=== PATIENT | female | born 1950 | race Caucasian/White ===

== ENCOUNTER 2017-06-01 09:39 | Emergency (ER) | payer MEDICARE, BC ==
[~2017-06-01] VITALS: Ht 162.6 cm; Wt 47.0 kg
[~2017-06-01 09:39] MED LIST: CALC500T21 PO; FOSA70TA PO; LEFL20TA7 PO; MAGN400 PO; METO25 PO; METR-1 PO; MULT-65 PO; PRED5 PO; TACR1CAP PO; TACR1CAP14 PO
[2017-06-01 09:41] VITALS: BP 124/75; PULSE 131; RESP 20; TEMP 98.7; O2SAT 95
--- NOTE | 2017-06-01 10:02 | PD ---
HPI Chief Complaint: Complaint Time Seen by Provider: 10:02 Travel History International Travel<30 days: No Contact w/Intl Traveler<30days: No Traveled to known affect area: No History of Present Illness HPI 66-year-old female came to the emergency room with history of hematuria. Patient says this started one week ago. Patient is a status post kidney transplant that was done in 2008. She is on immunosuppressants and says that she has been doing very well up until now. She is experiencing some dysuria with all this. She has been passing blood clots as well. Patient is not on any blood thinners. She had called her concrete inspector Dr. Sanders a week ago when it first started and he put her on ciprofloxacin. She says she had started to feel better and then Tuesday night it started again. She still taking the ciprofloxacin like she supposed to. No history of fever or chills. She has some backache. Vital signs are stable. She did not appear to be in any discomfort. The nurse showed me her urine in the copyright clerk which was grossly bloody. [facility] Past Medical History Narrative Medical List of her past medical, surgical, social and family history was reviewed from the nursing note. Arthritis: No Asthma: No Autoimmune Disease: No Blood Disorders: No Anxiety: No Depression: No Heart Rhythm Problems: No Cancer: No Cardiovascular Problems: Yes (HX TACHYCARDIA) High Cholesterol: No Chemotherapy: No Chest Pain: No Congestive Heart Failure: No COPD: No Cerebrovascular Accident: No Diabetes: No Diminished Hearing: No Endocrine: No Gastrointestinal Disorders: Yes (HX GERD) GERD: Yes Glaucoma: No Genitourinary: No Headaches: No Hepatitis: No Hiatal Hernia: No Hypertension: Yes Immune Disorder: No Implanted Vascular Access Dvce: Yes Kidney Stones: No Musculoskeletal: Yes (RIGHT PATELLA FX) Neurologic: No Psychiatric: No Reproductive: No Respiratory: No Migraines: No Myocardial Infarction: No Radiation Therapy: No Renal Failure: Yes Seizures: No Sickle Cell Disease: No Sleep Apnea: No Thyroid Disease: No Ulcer: No ?: Not Past Surgical History Abdominal Surgery: Yes (TENCKOFF CATH IMP AND REMOVAL) AICD: No Appendectomy: No Arteriovenous Shunt: No Body Medical Devices: pd cath right abdomen Cardiac Surgery: No Cholecystectomy: No Ear Surgery: No Endocrine Surgery: No Eye Surgery: No Genitourinary Surgery: Yes (KIDNEY TRANSPLANT) Gynecologic Surgery: No Insulin Pump: No Joint Replacement: No Oral Surgery: No Pacemaker: No Thoracic Surgery: No Other Surgery: Yes (KIDNEY TRANSPLANT-RIGHT) Social History Alcohol Use: No Tobacco Use: No Substance Use: No Allergies-Medications (Allergen,Severity, Reaction): Coded Allergies: No Known Allergies (Verified , 06/01/17) Comments No known drug allergies. Reported Meds & Prescriptions Reported Meds & Active Scripts Active Macrobid (Nitrofurantoin Monoh/Nitrofur Macro) 100 Mg Cap 100 Mg PO BID 10 Days Narrative Medication List of her home medications reviewed from the nursing note. Review of Systems Except as stated in HPI: all other systems reviewed are Neg Physical Exam Narrative GENERAL: Awake, alert, elderly, looks older than her age, no obvious distress SKIN: Focused skin assessment warm/dry. HEAD: Atraumatic. Normocephalic. EYES: Pupils equal and round. No scleral icterus. No injection or drainage. ENT: No nasal bleeding or discharge. Mucous membranes pink and moist. NECK: Trachea midline. No JVD. CARDIOVASCULAR: Regular rate and rhythm. No murmur appreciated. RESPIRATORY: No accessory muscle use. Clear to auscultation. Breath sounds equal bilaterally. GASTROINTESTINAL: Abdomen soft, non-tender, nondistended. Hepatic and splenic margins not palpable. I could not palpate the transplanted kidney but there was no abdominal tenderness. MUSCULOSKELETAL: No obvious deformities. No clubbing. No cyanosis. No edema. NEUROLOGICAL: Awake and alert. No obvious cranial nerve deficits. Motor grossly within normal limits. Normal speech. PSYCHIATRIC: Appropriate mood and affect; insight and judgment normal. Data Data Last Documented VS Vital Signs Date Time Temp Pulse Resp B/P Pulse Ox O2 Delivery O2 Flow Rate FiO2 06/01/17 14:03 74 15 130/86 99 Room Air 06/01/17 09:41 98.7 Orders Basic Metabolic Panel (Bmp) (06/01/17 10:08) Complete Blood Count With Diff (06/01/17 10:08) Urinalysis - C+S If Indicated (06/01/17 10:08) Iv Access Insert/Monitor (06/01/17 10:08) Ecg Monitoring (06/01/17 10:08) Oximetry (06/01/17 10:08) Sodium Chlor 0.9% 1000 Ml Inj (Ns 1000 M (06/01/17 10:08) Sodium Chloride 0.9% Flush (Ns Flush) (06/01/17 10:15) Potassium Chlor 10 Meq Premix (Kcl 10 Me (06/01/17 11:45) Potassium Chloride (Kcl) (06/01/17 11:45) Urine Culture (06/01/17 10:15) Nitrofurantoin Monohyd Macrocr (Macrobid (06/01/17 12:00) Labs Laboratory Tests Test 06/01/17 10:15 White Blood Count 8.0 TH/MM3 Red Blood Count 4.51 MIL/MM3 Hemoglobin 13.4 GM/DL Hematocrit 42.1 % Mean Corpuscular Volume 93.5 FL Mean Corpuscular Hemoglobin 29.8 PG Mean Corpuscular Hemoglobin 31.8 % Concent Red Cell Distribution Width 14.7 % Platelet Count 249 TH/MM3 Mean Platelet Volume 10.1 FL Neutrophils (%) (Auto) 70.9 % Lymphocytes (%) (Auto) 12.5 % Monocytes (%) (Auto) 13.3 % Eosinophils (%) (Auto) 2.4 % Basophils (%) (Auto) 0.9 % Neutrophils # (Auto) 5.7 TH/MM3 Lymphocytes # (Auto) 1.0 TH/MM3 Monocytes # (Auto) 1.1 TH/MM3 Eosinophils # (Auto) 0.2 TH/MM3 Basophils # (Auto) 0.1 TH/MM3 CBC Comment DIFF FINAL Differential Comment Urine Color RED Urine Turbidity CLOUDY Urine pH 7.0 Urine Specific [place] 1.013 Urine Protein 300 OR GREATER mg/dL Urine Glucose (UA) NEG mg/dL Urine Ketones NEG mg/dL Urine Occult Blood LARGE Urine Nitrite POS Urine Bilirubin NEG Urine Urobilinogen 0.2 MG/DL Urine Leukocyte Esterase NEGATIVE Urine RBC /hpf Urine WBC 64 /hpf Urine Bacteria OCC /hpf Microscopic Urinalysis Comment CULTURE INDICATED Sodium Level 141 MEQ/L Potassium Level 3.0 MEQ/L Chloride Level 106 MEQ/L Carbon Dioxide Level 24.1 MEQ/L Anion Gap 11 MEQ/L Blood Urea Nitrogen 22 MG/DL Creatinine 1.08 MG/DL Estimat Glomerular Filtration 50 ML/MIN Rate Random Glucose 108 MG/DL Calcium Level 9.3 MG/DL [facility] Medical Decision Making Medical Screen Exam Complete: Yes Emergency Medical Condition: Yes Medical Record Reviewed: Yes Differential Diagnosis Transplant rejection, UTI, hemorrhagic cystitis Narrative Course 10:19 AM awaiting for the blood test result. Awaiting for the UA. Based on that I will contact Dr. Sanders and discussed the case with him. Her a liter of fluid bolus. 1:11 PM blood test results of back and her BUN/creatinine is exactly the same as it was on her last blood test results and our record. UA is strongly positive for UTI. I've given her dose of Macrobid since the ciprofloxacin obviously is not working. Cussed the case with Dr. Sanders who agrees with the plan. I'll discharge her home. I explained all this to the patient and she understands. She'll follow up with Dr. Sanders. Procedures EKG Prior to Arrival: No Diagnosis Primary Impression: Hemorrhagic cystitis Additional Impression: Status post kidney transplant Referrals: Primary Care Physician Additional Instructions: Please return to the ER if the condition worsens or any other new concerns. Otherwise follow-up with your kidney doctor Dr. Sanders. Take the medication as per the prescription direction. Drink lots of fluid and cranberry juice. Med/Other Pt SpecificInfo: Prescription(s) given Scripts Nitrofurantoin Monohydrate Macrocrystals (Macrobid)100 Mg [id number] Mg PO BID 10 Days Ref 0 Prov:Shad Hollingsworth MD 06/01/17 Disposition: 01 DISCHARGE HOME Condition: Stable Shad Hollingsworth MD Jun 01, 2017 10:02 Shad Hollingsworth MD Jun 01, 2017 10:02
[2017-06-01] MEDS ORDERED: SODIUM CHLOR 0.9% 1000 ML INJ 1,000 ML IV SCH (10:08)
[2017-06-01] MEDS ORDERED: SODIUM CHLORIDE 0.9% FLUSH 10 ML FLUSH IV FLUSH PRN (10:15)
[2017-06-01 10:50] LABS: AUTOMATED NEUTROPHIL # 5.7 TH/MM3 (1.8-7.7); BASOPHIL # 0.1 TH/MM3 (0-0.2); BASOPHIL % 0.9 % (0.0-2.0); EOSINOPHIL # 0.2 TH/MM3 (0-0.4); EOSINOPHIL % 2.4 % (0.0-4.0); HEMATOCRIT 42.1 % (35.0-46.0); HEMO FLAGS DIFF FINAL; LYMPH % 12.5 % (9.0-44.0); MEAN CELL VOLUME 93.5 FL (80.0-100.0); MEAN CORPUSCULAR HEMOGLOBIN 29.8 PG (27.0-34.0); MEAN CORPUSCULAR HGB CONC 31.8 % (32.0-36.0); MONO % 13.3 % (0.0-8.0); NEUT % 70.9 % (16.0-70.0); PLATELET COUNT 249 TH/MM3 (150-450); RED BLOOD COUNT 4.51 MIL/MM3 (4.00-5.30); RED CELL DISTRIBUTION WIDTH 14.7 % (11.6-17.2)
[2017-06-01 11:09] LABS: BICARBONATE 24.1 MEQ/L (21.0-32.0)
[2017-06-01 11:41] LABS: URINE COLOR RED (YELLW/STRAW)
[2017-06-01 11:42] LABS: GLUCOSE,URINE NEG (NEG); KETONE, URINE NEG (NEG)
[2017-06-01 11:43] LABS: BLOOD, URINE LARGE (NEG); NITRITE,URINE POS (NEG)
[2017-06-01] MEDS ORDERED: POTASSIUM CHLOR 10 MEQ PREMIX 100 ML IV ONE (11:45)
[2017-06-01] MEDS ORDERED: POTASSIUM CHLORIDE 20 MEQ CONTROLLED RELEASE TAB PO ONE (11:45)
[2017-06-01 11:47] LABS: BACTERIA, URINE OCC /hpf; COMMENT (UR) CULTURE INDICATED; CULTURE IF INDICATED CULTURE INDICATED
[2017-06-01] MEDS ORDERED: NITROFURANTOIN MONOHYD MACROCR 100 MG CAP PO ONE (12:00)
[2017-06-01] MEDS ORDERED: MACR100C2 PO (13:12)
[2017-06-01 14:02] VITALS: BP 132/82
[2017-06-01 14:03] VITALS: BP 130/86; PULSE 74; RESP 15; O2SAT 99
== END 2017-06-01 14:38 | disposition home or self-care (01) ==
LOC: NEPE 09:39
DX: N30.91 Cystitis, unspecified with hematuria (principal); M54.9 Dorsalgia, unspecified; I10 Essential (primary) hypertension; Z94.0 Kidney transplant status; Z86.79 Personal history of other diseases of the circulatory system; Z87.19 Personal history of other diseases of the digestive system; Z87.39 Personal history of other diseases of the musculoskeletal system and connective tissue; Z87.448 Personal history of other diseases of urinary system
CPT/HCPCS: 80048; 81001; 85025; 87086; 96361; 96374; 99284; J3480; J7030

== ENCOUNTER 2017-07-14 09:33 | Inpatient (IN) | payer MEDICARE, BC ==
[2017-07-14] VITALS (13 sets, daily range): BP systolic 92–136; BP diastolic 53–75; PULSE 110–125; RESP 16–20; TEMP 99.4–100.7; O2SAT 95–98
[~2017-07-14] VITALS: Ht 162.6 cm; Wt 51.1 kg
[~2017-07-14 09:33] MED LIST changes: -CALC500T21 PO; +CALC600T64 PO; +LEFL1TAB3 PO; -LEFL20TA7 PO; -MAGN400 PO; -METO25 PO; +METO25TA3 PO; -METR-1 PO; +MULT-177 PO; -MULT-65 PO; +PRED1TAB72 SL; -PRED5 PO; +SM M250T PO; +TACR1 PO; -TACR1CAP PO; -TACR1CAP14 PO
--- NOTE | 2017-07-14 10:37 | PD ---
HPI Chief Complaint: Bleeding Time Seen by Provider: 10:25 Travel History International Travel<30 days: No Contact w/Intl Traveler<30days: No Traveled to known affect area: No History of Present Illness HPI 66-year-old female complains generalized malaise and weakness. Patient has history of persistent hematuria for the past 5 weeks. Patient has history kidney transplant in the past. Patient has been seen by Dr. Sanders and Dr. Torres. Patient was scheduled for cystoscopy this morning however unable to make it to the appointment. Patient denies any headache. Patient denies any chest pain or shortness of breath. Patient states that she has mild dysuria and suprapubic pain. Patient denies any fever chills. Patient denies any vaginal discharge or bleeding. Patient denies any blood per stool. Patient has history of cadaveric kidney transplant in 2008. Patient is positive for BK virus in urine. Patient also has history of hypertension. Patient's on Keppra diffuse immunosuppression medication including Prograf, prednisone, tacrolimus, leflunomide. PFSH Past Medical History Cardiovascular Problems: Yes (HX TACHYCARDIA) Diminished Hearing: No GERD: Yes Genitourinary: Yes (kidney transplant 2008 ) Hypertension: Yes Medical other: No Renal Failure: Yes Past Surgical History Abdominal Surgery: Yes (TENCKOFF CATH IMP AND REMOVAL) Appendectomy: No Body Medical Devices: pd cath right abdomen Cardiac Surgery: No Cholecystectomy: No Ear Surgery: No Endocrine Surgery: No Eye Surgery: No Genitourinary Surgery: Yes (KIDNEY TRANSPLANT) Gynecologic Surgery: No Joint Replacement: No Oral Surgery: No Thoracic Surgery: No Other Surgery: Yes (KIDNEY TRANSPLANT-RIGHT) Social History Alcohol Use: Yes (rarely) Tobacco Use: No Substance Use: No Allergies-Medications (Allergen,Severity, Reaction): Coded Allergies: No Known Allergies (Verified , 06/23/17) Reported Meds & Prescriptions Reported Meds & Active Scripts Active Reported Multiple Vitamins For Women (Multivit with Calcium,Iron,Min) 1 Each Tablet 1 Tab PO DAILY Sm Magnesium (Magnesium) 250 Mg Tab 500 Mg PO DAILY Calcium 600 + Vit D Tablet (Calcium Carbonate/Vitamin D3) 1 Each Tablet 1 Tab PO DAILY Fosamax (Alendronate Sodium) 70 Mg Tab 35 Mg PO Q7D Metoprolol Tartrate 25 Mg Tab 12.5 Mg PO BID Prednisolone Odt 10 Mg Tab 5 Mg SL DAILY Leflunomide 20 Mg Tab 20 Mg PO DAILY Prograf (Tacrolimus) 1 Mg Cap 3 Mg PO DAILY Review of Systems General / Constitutional: No: Fever Eyes: No: Visual changes HENT: No: Headaches Cardiovascular: No: Chest Pain or Discomfort Respiratory: No: Shortness of Breath Gastrointestinal: No: Abdominal Pain Genitourinary: Positive: Hematuria, No: Dysuria Musculoskeletal: No: Pain Skin: No Rash Neurologic: No: Weakness Psychiatric: No: Depression Endocrine: No: Polydipsia Hematologic/Lymphatic: No: Easy Bruising Physical Exam Narrative GENERAL: Well-nourished, well-developed patient. SKIN: Focused skin assessment warm/dry. HEAD: Normocephalic. EYES: No scleral icterus. No injection or drainage. NECK: Supple, trachea midline. No JVD or lymphadenopathy. CARDIOVASCULAR: Regular rate and rhythm without murmurs, gallops, or rubs. RESPIRATORY: Breath sounds equal bilaterally. No accessory muscle use. GASTROINTESTINAL: Abdomen soft, non-tender, nondistended. MUSCULOSKELETAL: No cyanosis, or edema. BACK: Nontender without obvious deformity. No CVA tenderness. Neurologic exam: Patient awake and alert oriented 3. No obvious focal neurological deficit. Data Data Last Documented VS Vital Signs Date Time Temp Pulse Resp B/P Pulse Ox O2 Delivery O2 Flow Rate FiO2 07/14/17 09:41 99.7 110 16 97/55 96 Orders Electrocardiogram (07/14/17 10:32) Complete Blood Count With Diff (07/14/17 10:32) Comprehensive Metabolic Panel (07/14/17 10:32) Prothrombin Time / Inr (Pt) (07/14/17 10:32) Act Partial Throm Time (Ptt) (07/14/17 10:32) Urinalysis - C+S If Indicated (07/14/17 10:32) Chest, Single Ap (07/14/17 10:32) Iv Access Insert/Monitor (07/14/17 10:32) Ecg Monitoring (07/14/17 10:32) Oximetry (07/14/17 10:32) Type And Screen (07/14/17 10:32) Sodium Chlor 0.9% 1000 Ml Inj (Ns 1000 M (07/14/17 10:45) Blood Product Administration .UPON TRANSFUSION (07/14/17 11:08) Sodium Chlor 0.9% 250 Ml Inj (Ns 250 Ml (07/14/17 11:15) Red Blood Cells (Rbc) (07/14/17 10:40) Urinary Catheter Insert/Apply (07/14/17 11:55) Furosemide Inj (Lasix Inj) (07/14/17 12:00) Vital Signs (Adult) BREANNA.Q4H (07/14/17 12:03) Hemoglobin (Hgb) (07/14/17 12:03) Hematocrit (Hct) (07/14/17 12:03) Complete Blood Count With Diff (07/15/17 06:00) Diet Npo (07/14/17 Lunch) Sodium Chlor 0.9% 1000 Ml Inj (Ns 1000 M (07/14/17 12:15) Labs Laboratory Tests Test 07/14/17 10:40 White Blood Count 22.4 TH/MM3 Red Blood Count 1.54 MIL/MM3 Hemoglobin 4.8 GM/DL Hematocrit 15.2 % Mean Corpuscular Volume 98.7 FL Mean Corpuscular Hemoglobin 31.0 PG Mean Corpuscular Hemoglobin 31.4 % Concent Red Cell Distribution Width 16.1 % Platelet Count 305 TH/MM3 Mean Platelet Volume 7.6 FL Neutrophils (%) (Auto) 90.9 % Lymphocytes (%) (Auto) 1.7 % Monocytes (%) (Auto) 6.4 % Eosinophils (%) (Auto) 0.2 % Basophils (%) (Auto) 0.8 % Neutrophils # (Auto) 20.4 TH/MM3 Lymphocytes # (Auto) 0.4 TH/MM3 Monocytes # (Auto) 1.4 TH/MM3 Eosinophils # (Auto) 0.1 TH/MM3 Basophils # (Auto) 0.2 TH/MM3 CBC Comment DIFF FINAL Differential Comment Sodium Level 134 MEQ/L Potassium Level 3.7 MEQ/L Chloride Level 103 MEQ/L Carbon Dioxide Level 21.5 MEQ/L Anion Gap 10 MEQ/L Blood Urea Nitrogen 13 MG/DL Creatinine 0.97 MG/DL Estimat Glomerular Filtration 57 ML/MIN Rate Random Glucose 86 MG/DL Calcium Level 7.4 MG/DL Protein Corrected Calcium 8.6 MG/DL Total Bilirubin 0.3 MG/DL Aspartate Amino Transf 23 U/L (AST/SGOT) Alanine Aminotransferase 19 U/L (ALT/SGPT) Alkaline Phosphatase 34 U/L Total Protein 5.0 GM/DL Albumin 2.4 GM/DL Blood Type O POSITIVE Antibody Screen NEGATIVE Crossmatch Leukocyte-Reduced Red Blood Cells Blood Bank Comment MDM Medical Decision Making Medical Screen Exam Complete: Yes Emergency Medical Condition: Yes Interpretation(s) 11:37 AM. CBC WBC 22.4. Hemoglobin 4.8. Hematocrit 18.2. 90 neutrophil. Differential Diagnosis Differential diagnosis including anemia, electrolyte imbalance, dehydration. Narrative Course 66-year-old female with hematuria. History kidney transplant. Diagnosis Primary Impression: Severe anemia Additional Impression: Hematuria Qualified Code: R31.9 - Hematuria, unspecified type Adam Spain MD Jul 14, 2017 10:37
[2017-07-14] MEDS ORDERED: SODIUM CHLOR 0.9% 1000 ML INJ 1,000 ML IV SCH ×2 (10:45→12:15)
[2017-07-14 11:01] LABS: AUTOMATED NEUTROPHIL # 20.4 TH/MM3 (1.8-7.7); BASOPHIL # 0.2 TH/MM3 (0-0.2); BASOPHIL % 0.8 % (0.0-2.0); EOSINOPHIL # 0.1 TH/MM3 (0-0.4); EOSINOPHIL % 0.2 % (0.0-4.0); LYMPH % 1.7 % (9.0-44.0); LYMPHOCYTE # 0.4 TH/MM3 (1.0-4.8); MEAN CELL VOLUME 98.7 FL (80.0-100.0); MEAN CORPUSCULAR HGB CONC 31.4 % (32.0-36.0); MONO % 6.4 % (0.0-8.0); NEUT % 90.9 % (16.0-70.0); PLATELET COUNT 305 TH/MM3 (150-450); RED BLOOD COUNT 1.54 MIL/MM3 (4.00-5.30); RED CELL DISTRIBUTION WIDTH 16.1 % (11.6-17.2); WHITE BLOOD COUNT 22.4 TH/MM3 (4.0-11.0)
[2017-07-14 11:09] LABS: HEMATOCRIT 15.2 % (35.0-46.0); HEMO FLAGS DIFF FINAL
--- NOTE | 2017-07-14 11:09 | RADRPT ---
EXAM DATE/TIME: 07/14/2017 10:37 [facility] COMPARISON: CHEST SINGLE AP, August 28, 2009, 0:22. INDICATIONS : Short of breath. MEDICAL HISTORY : None. SURGICAL HISTORY : Right knee. Kidney. ENCOUNTER: Initial ACUITY: 1 week PAIN SCORE: 0/10 LOCATION: Bilateral chest FINDINGS: There is focal nodular opacity within the right upper lung field which is indeterminate. CT of the c hest may be helpful for further evaluation of this finding. Bibasilar streakiness is unchanged. Mil d degenerative changes and scoliosis of the thoracic spine are noted. The heart is stable. CONCLUSION: 1. Focal nodular opacity within the right upper lung field which is indeterminate. CT of the chest m ay be helpful for further evaluation of this finding. 2. Bibasilar streaky densities are stable and likely consistent with chronic fibrotic scarring and/or bronchiectasis. 3. Degenerative changes and scoliosis of the thoracic spine. Faraz Ortega MD on July 14, 2017 at 11:02 Board Certified Radiologist. This report was verified electronically.
[2017-07-14] MEDS ORDERED: SODIUM CHLOR 0.9% 250 ML INJ 250 ML IV ONE (11:15)
[2017-07-14 11:21] LABS: BICARBONATE 21.5 MEQ/L (21.0-32.0); CALCIUM-PROTEIN CORRECTED 8.6 MG/DL (8.5-10.1); POTASSIUM 3.7 MEQ/L (3.5-5.1); TOTAL BILIRUBIN ADULT 0.3 MG/DL (0.2-1.0)
[2017-07-14] MEDS ORDERED: FUROSEMIDE 20 MG/2 ML VIAL IV PUSH ONE (12:00)
[2017-07-14 12:21] LABS: PROTHROMBIN TIME - PATIENT 10.9 SEC (9.8-11.6)
[2017-07-14 12:48] LABS: BACTERIA, URINE OCC /hpf; BLOOD, URINE MOD (NEG); COMMENT (UR) CATH-CULTURE IND; CULTURE IF INDICATED CATH CULTURE IND; GLUCOSE,URINE NEG (NEG); KETONE, URINE NEG (NEG); NITRITE,URINE NEG (NEG); PH, URINE 7.5 (5.0-8.5); SQUAMOUS EPITHELIAL CELL URINE 1 /hpf (0-5); URINE COLOR YELLOW (YELLW/STRAW)
--- NOTE | 2017-07-14 13:04 | HHI.HP ---
[facility] Galen Douglas MD Admission Diagnosis severe anemia. Hematuria. Diagnoses: (1) Severe anemia (2) Hematuria Diagnosis: Principal (3) History of kidney transplant Diagnosis: Principal Chief Complaint: blood in the urine Travel History International Travel<30 Days: No Contact w/Intl Traveler <30 Da: No Traveled to Known Affected Are: No History of Present Illness patient is a 66 y/o female with history of polycystic kidney disease- s/p kidney transplant, presented to ER with hematuria. she says that she started to have hematuria five weeks ago and this has been gradually getting worse. she was seen by and was supposed to have cystoscopy. she says that she was so weak today that she even couldn't go to her physician's office. she reports some dysuria and also some fever and chills last night.she denies any chest pain or sob. she denies any abdominal pain, nausea or vomiting. she's being followed up by . Review of Systems Constitutional: COMPLAINS OF: Fever, Chills, DENIES: Weight loss, Night Sweats Eyes: DENIES: Blurred vision, Diplopia, Vision loss, Double Vision Ears, nose, mouth, throat: DENIES: Tinnitus, Vertigo, Throat pain, Epistaxis Respiratory: DENIES: Apneas, Cough, Snoring, Wheezing, Hemoptysis, Sputum production, Shortness of breath Cardiovascular: DENIES: Chest pain, Palpitations, Syncope, Dyspnea on Exertion , PND, Lower Extremity Edema, Orthopnea, Claudication Gastrointestinal: DENIES: Abdominal pain, Black stools, Bloody stools, Constipation, Diarrhea, Nausea, Vomiting, Difficulty Swallowing, Anorexia Genitourinary: COMPLAINS OF: Hematuria, Dysuria, DENIES: Urinary frequency, Urgency Musculoskeletal: DENIES: Joint pain, Muscle aches, Stiffness, Joint Swelling Integumentary: DENIES: Rash Neurologic: DENIES: Abnormal gait, Headache, Localized weakness, Paresthesias, Seizures, Speech Problems, Tremor, Poor Balance Psychiatric: DENIES: Anxiety, Confusion, Mood changes, Depression, Hallucinations, Agitation, Suicidal Ideation, Homicidal Ideation, Delusions Past Family Social History Past Medical History polycystic kidney disease tachycardia Past Surgical History kidney transplant knee surgery Reported Medications Multiple Vitamins For Women (Multivit with Calcium,Iron,Min) 1 Each Tablet 1 Tab PO DAILY Sm Magnesium (Magnesium) 250 Mg Tab 500 Mg PO DAILY Calcium 600 + Vit D Tablet (Calcium Carbonate/Vitamin D3) 1 Each Tablet 1 Tab PO DAILY Fosamax (Alendronate Sodium) 70 Mg Tab 35 Mg PO Q7D Metoprolol Tartrate 25 Mg Tab 12.5 Mg PO BID Prednisolone Odt 10 Mg Tab 5 Mg SL DAILY Leflunomide 20 Mg Tab 20 Mg PO DAILY Prograf (Tacrolimus) 1 Mg Cap 3 Mg PO DAILY Allergies: Coded Allergies: No Known Allergies (Verified , 06/23/17) Active Ordered Medications Current Medications Sodium Chloride 1,000 ml @ 100 mls/hr Q10H IV Last administered on 07/14/17t 11:03; Start 07/14/17 at 10:45; Stop 07/14/17 at 12:09; Status DC Sodium Chloride (NS 250 ml Inj) 250 ml @ 15 mls/hr ONCE ONCE IV ; Start at 11:15; Stop 07/15/17 at 03:54 Furosemide 20 mg 20 mg ONCE ONCE IV PUSH ; Start 07/14/17 at 12:00; Stop at 12:09; Status DC Sodium Chloride (NS 1000 ml Inj) 1,000 ml @ 50 mls/hr Q20H IV ; Start 07/14/17 at 12:15 Family History colon and lung cancer in sister. Social History doesn't smoke.drinks occasionally. Physical Exam Vital Signs Vital Signs Date Time Temp Pulse Resp B/P Pulse Ox O2 Delivery O2 Flow Rate FiO2 07/14/17 11:00 110 16 96/53 96 Room Air 07/14/17 09:41 99.7 110 16 97/55 96 07/14/17 09:40 98 Room Air Physical Exam GENERAL: This is a well-nourished, well-developed patient, in no apparent distress. SKIN: No rashes, ecchymoses or lesions. Cool and dry. HEAD: Atraumatic. Normocephalic. No temporal or scalp tenderness. EYES: Pupils equal round and reactive. Extraocular motions intact. No scleral icterus. No injection or drainage. ENT: Nose without bleeding, purulent drainage or septal hematoma. Throat without erythema, tonsillar hypertrophy or exudate. Uvula midline. Airway patent. NECK: Trachea midline. No JVD or lymphadenopathy. Supple, nontender, no meningeal signs. CARDIOVASCULAR: Regular rate and rhythm without murmurs, gallops, or rubs. RESPIRATORY: Clear to auscultation. Breath sounds equal bilaterally. No wheezes , rales, or rhonchi. GASTROINTESTINAL: Abdomen soft, non-tender, nondistended. No hepato-splenomegaly , or palpable masses. No guarding. MUSCULOSKELETAL: Extremities without clubbing, cyanosis, or edema. No joint tenderness, effusion, or edema noted. No calf tenderness. Negative Homans sign bilaterally. NEUROLOGICAL: Awake and alert. Cranial nerves II through XII intact. Motor and sensory grossly within normal limits. Five out of 5 muscle strength in all muscle groups. Normal speech. Laboratory Laboratory Tests Test 07/14/17 07/14/17 07/14/17 10:40 11:45 12:00 White Blood Count 22.4 Red Blood Count 1.54 Hemoglobin 4.8 Hematocrit 15.2 Mean Corpuscular Volume 98.7 Mean Corpuscular Hemoglobin 31.0 Mean Corpuscular Hemoglobin 31.4 Concent Red Cell Distribution Width 16.1 Platelet Count 305 Mean Platelet Volume 7.6 Neutrophils (%) (Auto) 90.9 Lymphocytes (%) (Auto) 1.7 Monocytes (%) (Auto) 6.4 Eosinophils (%) (Auto) 0.2 Basophils (%) (Auto) 0.8 Neutrophils # (Auto) 20.4 Lymphocytes # (Auto) 0.4 Monocytes # (Auto) 1.4 Eosinophils # (Auto) 0.1 Basophils # (Auto) 0.2 CBC Comment DIFF FINAL Differential Comment Sodium Level 134 Potassium Level 3.7 Chloride Level 103 Carbon Dioxide Level 21.5 Anion Gap 10 Blood Urea Nitrogen 13 Creatinine 0.97 Estimat Glomerular Filtration 57 Rate Random Glucose 86 Calcium Level 7.4 Protein Corrected Calcium 8.6 Total Bilirubin 0.3 Aspartate Amino Transf 23 (AST/SGOT) Alanine Aminotransferase 19 (ALT/SGPT) Alkaline Phosphatase 34 Total Protein 5.0 Albumin 2.4 Blood Type O POSITIVE Antibody Screen NEGATIVE Crossmatch Leukocyte-Reduced Red Blood Cells Blood Bank Comment Prothrombin Time 10.9 Prothromb Time International 1.0 Ratio Activated Partial 19.0 Thromboplast Time Urine Color YELLOW Urine Turbidity HAZY Urine pH 7.5 Urine Specific [place] 1.012 Urine Protein 100 Urine Glucose (UA) NEG Urine Ketones NEG Urine Occult Blood MOD Urine Nitrite NEG Urine Bilirubin NEG Urine Urobilinogen LESS THAN 2.0 Urine Leukocyte Esterase TRACE Urine RBC Urine WBC 5 Urine Squamous Epithelial 1 Cells Urine Bacteria OCC Microscopic Urinalysis Comment CATH-CULTURE IND Date/Time Procedure Status Source Growth 07/14/17 12:00 Urine Culture Received Urine Catheterized Urine Pending Result Diagram: 07/14/17 1040 07/14/17 1040 Imaging Last Impressions Chest X-Ray 07/14/17 1032 Draft Impressions: Service Date/Time: , July 14, 2017 10:37 - CONCLUSION: 1. Focal nodular opacity within the right upper lung field which is indeterminate. CT of the chest may be helpful for further evaluation of this finding. 2. Bibasilar streaky densities are stable and likely consistent with chronic fibrotic scarring and/or bronchiectasis. 3. Degenerative changes and scoliosis of the thoracic spine. Faraz Ortega MD Assessment and Plan Assessment and Plan A/P - anemia - acute due to blood loss/hematuria will transfuse with PRBC and monitor H/H- -hematuria with history of polycystic kidney disease- s/p kidney transplant resume immunosuppressants- consult Urology and Nephrology- will monitor renal function -leukocytosis/ low grade fever; check UA -right lung focal opacity; will check CT chest -tachycardia- likely due to anemia- will hold BB due to low-miky BP's- will monitor -DVT prophylaxis with SCD's; no chemical prophylaxis due to hematuria Discussed Condition With ER physician and the patient. Physician Certification 2 Midnight Certification Type: Admission for Inpatient Services Order for Inpatient Services The services are ordered in accordance with Medicare regulations or non- Medicare payer requirements, as applicable. In the case of services not specified as inpatient-only, they are appropriately provided as inpatient services in accordance with the 2-midnight benchmark. Estimated LOS (days): 2 days is the estimated time the patient will need to remain in the hospital, assuming treatment plan goals are met and no additional complications. Post-Hospital Plan: Home Problem Qualifiers (1) Hematuria: Qualified Code: R31.9 - Hematuria, unspecified type Ana Dailey MD Jul 14, 2017 13:04
[2017-07-14] MEDS ORDERED: cefTRIAXone INJ 1,000 MG in SODIUM CHLORIDE 0.9% INJ 100 ML IV SCH (15:00)
[2017-07-14] MEDS ORDERED: BELLADONNA ALKALOIDS/OPIUM 60 MG SUPP RECTAL PRN (16:15)
--- NOTE | 2017-07-14 17:38 | PD.CONS ---
HPI Service Urology Consult Requested By Reason for Consult Gross hematuria Primary Care Physician Galen Douglas MD Diagnosis: (1) Severe anemia ICD Code: D64.9 (2) Hematuria ICD Code: R31.9 (3) History of kidney transplant ICD Code: Z94.0 History of Present Illness 66-year-old female with history chronic kidney disease secondary to adult polycystic kidney disease who is status post a cadaveric renal transplant in August 2009. Patient had been doing string the well up until recently when she developed gross painless hematuria. She was evaluated over at my office and a CT scan study of the abdomen and pelvis was ordered. The study was performed on June 29 of this year and demonstrated extensive thickening to the right lateral posterior wall of the bladder with irregular indistinct margins and enhancement suspicious for malignancy. Patient was actually scheduled to have a cystoscopic evaluation subsequent at my office however due to worsening hematuria she presented to the hospital and was found to be markedly anemic. Patient was transfused packed red blood cells and a urology consult placed. At the time of consultation the patient was not in any acute distress and had just had her Ge catheter replaced with improved drainage. I discussed the CT scan findings and I recommended that we proceed with further urologic workup and management to include cystoscopy and probable transurethral resection of a bladder tumor. Review of Systems Constitutional: COMPLAINS OF: Dizziness Respiratory: DENIES: Wheezing Cardiovascular: DENIES: Chest pain Gastrointestinal: DENIES: Abdominal pain Genitourinary: COMPLAINS OF: Hematuria (gross) Except as stated in HPI: all other systems reviewed are Neg Past Family Social History Past Medical History Chronic kidney disease secondary to adult polycystic kidney disease Hypertension GERD Arthritis Past Surgical History Status post cadaveric kidney transplant August 2009 Right knee surgery 2013 Reported Medications Refer to EMR Allergies: Coded Allergies: No Known Allergies (Verified , 06/23/17) Active Ordered Medications Refer to EMR Family History Sister with history colon cancer Sister with history lung cancer Social History Occasional alcohol use Denies tobacco or history intravenous drug abuse Physical Exam Vital Signs Date Time Temp Pulse Resp B/P Pulse Ox O2 Delivery O2 Flow Rate FiO2 07/14/17 16:05 100.4 125 18 96 07/14/17 15:50 100.6 125 18 133/68 98 07/14/17 15:33 99.4 125 16 136/75 97 07/14/17 15:15 99.7 120 16 127/74 95 07/14/17 14:18 115 16 118/61 97 07/14/17 14:15 100.7 117 18 115/63 98 Room Air 07/14/17 13:30 100.4 112 16 108/67 98 Room Air 07/14/17 13:15 100.7 110 16 111/62 98 Room Air 07/14/17 13:00 100.7 114 20 103/59 96 Room Air 07/14/17 11:00 110 16 96/53 96 Room Air 07/14/17 09:41 99.7 110 16 97/55 96 07/14/17 09:40 98 Room Air Physical Exam GENERAL: This is a well-nourished, well-developed patient, in no apparent distress. SKIN: No rashes, ecchymoses or lesions. Cool and dry. HEAD: Atraumatic. Normocephalic. No temporal or scalp tenderness. EYES: Pupils equal round and reactive. Extraocular motions intact. No scleral icterus. No injection or drainage. ENT: Nose without bleeding, purulent drainage or septal hematoma. Throat without erythema, tonsillar hypertrophy or exudate. Uvula midline. Airway patent. NECK: Trachea midline. No JVD or lymphadenopathy. Supple, nontender, no meningeal signs. GASTROINTESTINAL: Abdomen soft, non-tender, nondistended. No hepato-splenomegaly , or palpable masses. No guarding. GENITOURINARY: Ge in place draining medium red urine without clots. Bladder not distended MUSCULOSKELETAL: Extremities without clubbing, cyanosis, or edema. No joint tenderness, effusion, or edema noted. No calf tenderness. Negative Homans sign bilaterally. NEUROLOGICAL: Awake and alert. Cranial nerves II through XII intact. Motor and sensory grossly within normal limits. Five out of 5 muscle strength in all muscle groups. Normal speech. Lab results reviewed: Yes Laboratory Tests Test 07/14/17 07/14/17 07/14/17 10:40 11:45 12:00 White Blood Count 22.4 Red Blood Count 1.54 Hemoglobin 4.8 Hematocrit 15.2 Mean Corpuscular Volume 98.7 Mean Corpuscular Hemoglobin 31.0 Mean Corpuscular Hemoglobin 31.4 Concent Red Cell Distribution Width 16.1 Platelet Count 305 Mean Platelet Volume 7.6 Neutrophils (%) (Auto) 90.9 Lymphocytes (%) (Auto) 1.7 Monocytes (%) (Auto) 6.4 Eosinophils (%) (Auto) 0.2 Basophils (%) (Auto) 0.8 Neutrophils # (Auto) 20.4 Lymphocytes # (Auto) 0.4 Monocytes # (Auto) 1.4 Eosinophils # (Auto) 0.1 Basophils # (Auto) 0.2 CBC Comment DIFF FINAL Differential Comment Sodium Level 134 Potassium Level 3.7 Chloride Level 103 Carbon Dioxide Level 21.5 Anion Gap 10 Blood Urea Nitrogen 13 Creatinine 0.97 Estimat Glomerular Filtration 57 Rate Random Glucose 86 Calcium Level 7.4 Protein Corrected Calcium 8.6 Total Bilirubin 0.3 Aspartate Amino Transf 23 (AST/SGOT) Alanine Aminotransferase 19 (ALT/SGPT) Alkaline Phosphatase 34 Total Protein 5.0 Albumin 2.4 Blood Type O POSITIVE Antibody Screen NEGATIVE Crossmatch Leukocyte-Reduced Red Blood Cells Blood Bank Comment Prothrombin Time 10.9 Prothromb Time International 1.0 Ratio Activated Partial 19.0 Thromboplast Time Urine Color YELLOW Urine Turbidity HAZY Urine pH 7.5 Urine Specific [place] 1.012 Urine Protein 100 Urine Glucose (UA) NEG Urine Ketones NEG Urine Occult Blood MOD Urine Nitrite NEG Urine Bilirubin NEG Urine Urobilinogen LESS THAN 2.0 Urine Leukocyte Esterase TRACE Urine RBC Urine WBC 5 Urine Squamous Epithelial 1 Cells Urine Bacteria OCC Microscopic Urinalysis Comment CATH-CULTURE IND Date/Time Procedure Status Source Growth 07/14/17 12:00 Urine Culture Received Urine Catheterized Urine Pending Result Diagram: 07/14/17 1040 07/14/17 1040 Personally reviewed images: Yes Imaging Last Impressions Chest X-Ray 07/14/17 1032 Signed Impressions: Service Date/Time: June 10:37 - CONCLUSION: 1. Focal nodular opacity within the right upper lung field which is indeterminate. CT of the chest may be helpful for further evaluation of this finding. 2. Bibasilar streaky densities are stable and likely consistent with chronic fibrotic scarring and/or bronchiectasis. 3. Degenerative changes and scoliosis of the thoracic spine. Faraz Ortega MD Assessment and Plan Assessment and Plan Urologic impression: Gross hematuria likely related to bladder tumor Plan: #1 keep patient nothing by mouth after midnight #2 patient scheduled for cystoscopy and transurethral resection of bladder tumor tomorrow morning Problem Qualifiers (1) Hematuria: Qualified Code: R31.9 - Hematuria, unspecified type Temo Mcclain MD Jul 14, 2017 17:37
--- NOTE | 2017-07-14 20:53 | PD.CONS ---
HPI Service Nephrology Consult Requested By Dr. 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 however she did well with reduce immunosuppression, she has developed hematuria for the past 5 weeks and was referred to urology for evaluation, patient felt very weak and tired and presented with a hemoglobin of 4.8, her creatinine is stable at 0.9 Review of Systems Constitutional: COMPLAINS OF: Fatigue Genitourinary: COMPLAINS OF: Hematuria Psychiatric: COMPLAINS OF: Anxiety Past Family Social History Allergies: Coded Allergies: No Known Allergies (Verified , 06/23/17) Past Medical History History of hypertension End-stage renal disease Kidney transplant Polycystic kidney disease Hematuria Past Surgical History Kidney transplant in 2008 Tenckhoff catheter placement and removal Right knee ORIF Reported Medications Reported Meds & Active Scripts Active Reported Multiple Vitamins For Women (Multivit with Calcium,Iron,Min) 1 Each Tablet 1 Tab PO DAILY Sm Magnesium (Magnesium) 250 Mg Tab 500 Mg PO DAILY Calcium 600 + Vit D Tablet (Calcium Carbonate/Vitamin D3) 1 Each Tablet 1 Tab PO DAILY Fosamax (Alendronate Sodium) 70 Mg Tab 35 Mg PO Q7D Metoprolol Tartrate 25 Mg Tab 12.5 Mg PO BID Prednisolone Odt 10 Mg Tab 5 Mg SL DAILY Leflunomide 20 Mg Tab 20 Mg PO DAILY Prograf (Tacrolimus) 1 Mg Cap 3 Mg PO DAILY Active Ordered Medications Current Medications Medications (Trade) Dose Ordered Sig/Art Route Start Time Stop Time Status Last Admin Sodium Chloride 250 ml @ 15 mls/hr ONCE ONCE IV 07/14/17 11:15 07/15/17 03:54 07/14/17 13:19 (NS 1000 ml Inj) 1,000 ml @ 50 mls/hr Q20H IV 07/14/17 23:00 (Orapred Odt) 5 mg DAILY SL 07/15/17 09:00 Patient Own Medication PT OWN MED: DAILY PO 07/15/17 09:00 (Rocephin Inj/NS Inj) 100 ml @ 200 mls/hr Q24H IV 07/14/17 15:00 07/14/17 18:19 (B & O Supp) 60 mg Q6H PRN RECTAL 07/14/17 16:15 07/14/17 16:49 (Prograf) 4 mg DAILY PO 07/15/17 09:00 (Prograf) 1 mg HS PO 07/14/17 21:00 Family History Noncontributory Social History Denies smoking drinks occasional Physical Exam Vital Signs Vital Signs Date Time Temp Pulse Resp B/P Pulse Ox O2 Delivery O2 Flow Rate FiO2 07/14/17 19:56 100.3 118 18 92/54 95 07/14/17 16:05 100.4 125 18 96 07/14/17 15:50 100.6 125 18 133/68 98 07/14/17 15:33 99.4 125 16 136/75 97 07/14/17 15:15 99.7 120 16 127/74 95 07/14/17 14:18 115 16 118/61 97 07/14/17 14:15 100.7 117 18 115/63 98 Room Air 07/14/17 13:30 100.4 112 16 108/67 98 Room Air 07/14/17 13:15 100.7 110 16 111/62 98 Room Air 07/14/17 13:00 100.7 114 20 103/59 96 Room Air 07/14/17 11:00 110 16 96/53 96 Room Air 07/14/17 09:41 99.7 110 16 97/55 96 07/14/17 09:40 98 Room Air Physical Exam GENERAL: Well-nourished, well-developed patient. SKIN: Warm and dry. HEAD: Normocephalic. EYES: No scleral icterus. No injection or drainage. NECK: Supple, trachea midline. No JVD or lymphadenopathy. CARDIOVASCULAR: Regular rate and rhythm without murmurs, gallops, or rubs. RESPIRATORY: Breath sounds equal bilaterally. No accessory muscle use. GASTROINTESTINAL: Abdomen soft, non-tender, nondistended. EXTREMITIES: No cyanosis, or edema. NEUROLOGICAL: Awake, alert, and oriented x 3. Non-focal. Laboratory Laboratory Tests Test 07/14/17 07/14/17 07/14/17 10:40 11:45 12:00 White Blood Count 22.4 Red Blood Count 1.54 Hemoglobin 4.8 Hematocrit 15.2 Mean Corpuscular Volume 98.7 Mean Corpuscular Hemoglobin 31.0 Mean Corpuscular Hemoglobin 31.4 Concent Red Cell Distribution Width 16.1 Platelet Count 305 Mean Platelet Volume 7.6 Neutrophils (%) (Auto) 90.9 Lymphocytes (%) (Auto) 1.7 Monocytes (%) (Auto) 6.4 Eosinophils (%) (Auto) 0.2 Basophils (%) (Auto) 0.8 Neutrophils # (Auto) 20.4 Lymphocytes # (Auto) 0.4 Monocytes # (Auto) 1.4 Eosinophils # (Auto) 0.1 Basophils # (Auto) 0.2 CBC Comment DIFF FINAL Differential Comment Sodium Level 134 Potassium Level 3.7 Chloride Level 103 Carbon Dioxide Level 21.5 Anion Gap 10 Blood Urea Nitrogen 13 Creatinine 0.97 Estimat Glomerular Filtration 57 Rate Random Glucose 86 Calcium Level 7.4 Protein Corrected Calcium 8.6 Total Bilirubin 0.3 Aspartate Amino Transf 23 (AST/SGOT) Alanine Aminotransferase 19 (ALT/SGPT) Alkaline Phosphatase 34 Total Protein 5.0 Albumin 2.4 Blood Type O POSITIVE Antibody Screen NEGATIVE Crossmatch Leukocyte-Reduced Red Blood Cells Blood Bank Comment Prothrombin Time 10.9 Prothromb Time International 1.0 Ratio Activated Partial 19.0 Thromboplast Time Urine Color YELLOW Urine Turbidity HAZY Urine pH 7.5 Urine Specific [place] 1.012 Urine Protein 100 Urine Glucose (UA) NEG Urine Ketones NEG Urine Occult Blood MOD Urine Nitrite NEG Urine Bilirubin NEG Urine Urobilinogen LESS THAN 2.0 Urine Leukocyte Esterase TRACE Urine RBC Urine WBC 5 Urine Squamous Epithelial 1 Cells Urine Bacteria OCC Microscopic Urinalysis Comment CATH-CULTURE IND Date/Time Procedure Status Source Growth 07/14/17 12:00 Urine Culture Received Urine Catheterized Urine Pending Result Diagram: 07/14/17 1040 07/14/17 1040 Imaging Last Impressions Chest X-Ray 07/14/17 1032 Signed Impressions: Service Date/Time: June 10:37 - CONCLUSION: 1. Focal nodular opacity within the right upper lung field which is indeterminate. CT of the chest may be helpful for further evaluation of this finding. 2. Bibasilar streaky densities are stable and likely consistent with chronic fibrotic scarring and/or bronchiectasis. 3. Degenerative changes and scoliosis of the thoracic spine. Faraz Ortega MD Assessment and Plan Problem List: (1) History of kidney transplant Plan: Recent creatinine remains stable she is on Prograf for 2 mg in the morning and 1 mg in the evening I will change the dose Continue with the prednisone 5 mg daily Follow BMP She needs cystoscopy (2) Hematuria Plan: Urology is following and planning to do cystoscopy (3) HTN (hypertension) Plan: Continue to monitor Problem Qualifiers (1) Hematuria: Qualified Code: R31.9 - Hematuria, unspecified type Cee Apodaca MD Jul 14, 2017 20:53
[2017-07-14] MEDS: TACROLIMUS 1 MG CAP PO SCH (22:36)
[2017-07-14] MEDS: SODIUM CHLOR 0.9% 1000 ML INJ 1,000 ML IV SCH (23:00)
--- NOTE | 2017-07-14 23:18 | RADRPT ---
EXAM DATE/TIME: 07/14/2017 22:15 [facility] COMPARISON: No previous studies available for comparison. INDICATIONS : Short of breath, evaluate mass. RADIATION DOSE: 4.78 CTDIvol (mGy) MEDICAL HISTORY : Cardiovascular disease. Hypertension. SURGICAL HISTORY : None. ENCOUNTER: Initial ACUITY: 1 day PAIN SCALE: 0/10 LOCATION: chest TECHNIQUE: Volumetric scanning of the chest was performed. Using automated exposure control and adjustment of t he mA and/or kV according to patient size, radiation dose was kept as low as reasonably achievable to obtain optimal diagnostic quality images. DICOM format image data is available electronically for r eview and comparison. Follow-up recommendations for detected pulmonary nodules are based at a minimum on nodule size and pa tient risk factors according to Fleischner Society Guidelines. FINDINGS: Abnormality in the upper right lung on recent chest radiograph correlates on CT to a suspected area o f scarring or atelectasis. There is also linear scarring or atelectasis at the left lung base. No matti picious lung mass is identified. There is a small pericardial effusion. No pleural effusion. Upper abdomen reveals numerous hepatic cysts. Also multiple bilateral renal cysts. CONCLUSION: 1. Scarring or atelectasis in the upper right lung and left lung base. No pleural effusion. Small per icardial effusion. 2. Numerous hepatic and renal cysts similar to 2014. Armond Kang MD on July 14, 2017 at 23:11 Board Certified Radiologist. This report was verified electronically.
[2017-07-15] VITALS (16 sets, daily range): BP systolic 81–140; BP diastolic 47–84; PULSE 84–130; RESP 16–20; TEMP 96.4–104.5; O2SAT 93–97
[2017-07-15] MEDS ORDERED: ACETAMINOPHEN 325 MG TAB PO PRN (00:30)
[2017-07-15] MEDS ORDERED: ACETAMINOPHEN 1000 MG/100 ML VIAL IV ONE ×2 (00:30→13:04)
[2017-07-15] MEDS ORDERED: prednisoLONE 10 MG ODT TAB SL SCH (09:00)
[2017-07-15] MEDS ORDERED: TACROLIMUS 1 MG CAP PO SCH ×2 (09:00)
--- NOTE | 2017-07-15 09:17 | EKG ---
Date Performed: 07/14/2017 Time Performed: 11:12:22 PTAGE: 66 years EKG: SINUS TACHYCARDIA WITH OCCASIONAL SUPRAVENTRICULAR PREMATURE COMPLEXES LOW QRS VOLTAGE ABNO RMAL ECG PREVIOUS TRACING : 08/27/2009 09.52 Compared to prior tracing no significant change DOCTOR: Jackson Roberts Interpretating Date/Time 07/15/2017 09:16:20
--- NOTE | 2017-07-15 09:46 | HHI.PR ---
Subjective Remarks f/u ; hematuria in no acute distress. started to have fever after blood transfusion started yesterday; T max 104.5. denies chest pain or sob. still with hematuria. d/w the RN at the bedside. Objective Vitals Vital Signs Date Time Temp Pulse Resp B/P Pulse Ox O2 Delivery O2 Flow Rate FiO2 07/15/17 08:00 100.4 115 20 92/53 96 07/15/17 07:00 100.2 122 20 96/57 07/15/17 06:35 102.3 130 20 126/73 93 07/15/17 06:15 96.9 126 20 140/70 96 07/15/17 06:01 97.1 123 20 119/84 95 07/15/17 05:45 99.0 125 20 133/64 95 07/15/17 05:26 97.2 116 20 112/78 97 07/15/17 04:00 94/54 07/15/17 04:00 104.4 125 18 140/70 95 07/15/17 03:15 97.0 100 20 95/54 95 07/15/17 03:00 98.3 100 20 88/49 94 07/15/17 02:45 96.4 100 20 81/51 95 07/15/17 02:30 98.6 114 20 109/59 95 07/15/17 02:15 97.6 107 20 84/47 95 07/15/17 00:00 103.5 120 18 117/65 94 07/15/17 00:00 104.5 120 20 117/65 94 07/14/17 19:56 100.3 118 18 92/54 95 07/14/17 16:05 100.4 125 18 96 07/14/17 15:50 100.6 125 18 133/68 98 07/14/17 15:33 99.4 125 16 136/75 97 07/14/17 15:15 99.7 120 16 127/74 95 07/14/17 14:18 115 16 118/61 97 07/14/17 14:15 100.7 117 18 115/63 98 Room Air 07/14/17 13:30 100.4 112 16 108/67 98 Room Air 07/14/17 13:15 100.7 110 16 111/62 98 Room Air 07/14/17 13:00 100.7 114 20 103/59 96 Room Air 07/14/17 11:00 110 16 96/53 96 Room Air 07/14/17 09:41 99.7 110 16 97/55 96 I/O 07/14/17 07/14/17 07/14/17 07/15/17 07/15/17 07/15/17 06:59 14:59 22:59 06:59 14:59 22:59 Intake Total 250 ml 250 ml Output Total 950 ml 1200 ml Balance 250 ml -700 ml -1200 ml Intake Packed Cells 250 ml 250 ml Output Urine Total 950 ml 1200 ml Bladder Scan Volume Amount 495 ml # Bowel Movements 1 Result Diagram: 07/14/17 1040 07/14/17 1040 Imaging Last Impressions Chest X-Ray 07/14/17 1032 Signed Impressions: Service Date/Time: June 10:37 - CONCLUSION: 1. Focal nodular opacity within the right upper lung field which is indeterminate. CT of the chest may be helpful for further evaluation of this finding. 2. Bibasilar streaky densities are stable and likely consistent with chronic fibrotic scarring and/or bronchiectasis. 3. Degenerative changes and scoliosis of the thoracic spine. Faraz Ortega MD Chest CT 07/14/17 0000 Signed Impressions: Service Date/Time: June 22:15 - CONCLUSION: 1. Scarring or atelectasis in the upper right lung and left lung base. No pleural effusion. Small pericardial effusion. 2. Numerous hepatic and renal cysts similar to 2014. Armond Kang MD Objective Remarks GENERAL: This is a well-nourished, well-developed patient, in no apparent distress. CARDIOVASCULAR: Regular rate and regular rhythm without murmurs, gallops, or rubs. RESPIRATORY: Clear to auscultation. Breath sounds equal bilaterally. No wheezes , rales, or rhonchi. GASTROINTESTINAL: Abdomen soft, non-tender, nondistended. Normal, active bowel sounds MUSCULOSKELETAL: Extremities without clubbing, cyanosis, or edema. NEURO: Alert & Oriented x4 to person, place, time, situation. Moves all ext x4 Medications and IVs Current Medications Sodium Chloride 1,000 ml @ 100 mls/hr Q10H IV Last administered on 07/14/17t 11:03; Start 07/14/17 at 10:45; Stop 07/14/17 at 12:09; Status DC Sodium Chloride (NS 250 ml Inj) 250 ml @ 15 mls/hr ONCE ONCE IV Last administered on 07/14/17 13:19; Start 07/14/17 at 11:15; Stop 07/15/17 at 03:54 ; Status DC Furosemide 20 mg 20 mg ONCE ONCE IV PUSH Last administered on 07/14/17 15:11 ; Start 07/14/17 at 12:00; Stop 07/14/17 at 12:09; Status DC Sodium Chloride 1,000 ml @ 50 mls/hr Q20H IV ; Start 07/14/17 at 12:15; Stop at 12:50; Status DC Sodium Chloride (NS 1000 ml Inj) 1,000 ml @ 50 mls/hr Q20H IV ; Start 07/14/17 at 23:00 Prednisolone (Orapred Odt) 5 mg DAILY SL ; Start 07/15/17 at 09:00; Stop at 09:21; Status DC Tacrolimus (Prograf) 3 mg DAILY PO ; Start 07/15/17 at 09:00; Stop 07/15/17 at 09:00; Status DC Patient Own Medication PT OWN MED: DAILY PO ; Start 07/15/17 at 09:00 Ceftriaxone Sodium/Sodium Chloride (Rocephin Inj/NS Inj) 100 ml @ 200 mls/hr Q24H IV Last administered on 07/14/17 18:19; Start 07/14/17 at 15:00 Belladonna Alkaloids/Opium (B & O Supp) 60 mg Q6H PRN RECTAL BLADDER SPASM Last administered on 07/14/17 16:49; Start 07/14/17 at 16:15 Tacrolimus (Prograf) 4 mg DAILY PO ; Start 07/15/17 at 09:00; Stop 07/15/17 at 09:00; Status DC Tacrolimus (Prograf) 1 mg HS PO Last administered on 07/14/17 22:36; Start at 21:00 Tacrolimus (Prograf) 2 mg DAILY PO ; Start 07/15/17 at 09:00 Acetaminophen (Ofirmev Inj) 1,000 mg ONCE ONCE IV Last administered on 00:54; Start 07/15/17 at 00:30; Stop 07/15/17 at 00:34; Status DC Acetaminophen (Tylenol) 650 mg Q4H PRN PO fever Last administered on 07/15/17t 06:47; Start 07/15/17 at 00:30 Prednisolone (prednisoLONE (ALC FREE) LIQ) 5 mg DAILY PO ; Start 07/15/17 at 10: 00 A/P Assessment and Plan A/P - anemia - acute due to blood loss/hematuria transfused with PRBC - continue to monitor H/H. -hematuria with history of polycystic kidney disease- s/p kidney transplant resumed immunosuppressants- consulted Urology and Nephrology- plan for cystoscopy- per Urology. monitor renal function -sepsis- possible UTI- continue IV antibiotic- obtain blood cultures - will consult ID. -right lung focal opacity on CXR; CT chest with scarring or atelectasis in the upper right lung and left lung base. No pleural effusion. Small pericardial effusion -sinus tachycardia- likely due to anemia/fever- will hold BB due to low-miky BP 's- will monitor -DVT prophylaxis with SCD's; no chemical prophylaxis due to hematuria Ana Dailey MD Jul 15, 2017 09:46 Ana Dailey MD Jul 15, 2017 09:46
[2017-07-15] MEDS: LEFLUNOMIDE 20 MG PO SCH (10:08)
[2017-07-15] MEDS: prednisoLONE ALCOHOL/DYE FREE 15 MG/5 ML ORAL SYR PO SCH (10:08)
[2017-07-15] MEDS: TACROLIMUS 1 MG CAP PO SCH ×2 (10:09→21:52)
[2017-07-15 10:12] LABS: AUTOMATED NEUTROPHIL # 24.8 TH/MM3 (1.8-7.7); BASOPHIL % 0.2 % (0.0-2.0); EOSINOPHIL % 0.1 % (0.0-4.0); HEMATOCRIT 27.6 % (35.0-46.0); HEMO FLAGS DIFF FINAL; LYMPH % 1.1 % (9.0-44.0); LYMPHOCYTE # 0.3 TH/MM3 (1.0-4.8); MEAN CELL VOLUME 85.8 FL (80.0-100.0); MEAN CORPUSCULAR HEMOGLOBIN 29.2 PG (27.0-34.0); MONO % 5.6 % (0.0-8.0); PLATELET COUNT 224 TH/MM3 (150-450); RED BLOOD COUNT 3.22 MIL/MM3 (4.00-5.30); RED CELL DISTRIBUTION WIDTH 20.2 % (11.6-17.2); WHITE BLOOD COUNT 26.7 TH/MM3 (4.0-11.0)
--- NOTE | 2017-07-15 11:03 | HHI.NPPN ---
Subjective History of Present Illness 66 year old with hematuria s/p kidney transplant Review of Systems Genitourinary Genitourinary: Frequency (hematuria) Objective Data Data 07/14/17 07/15/17 19:00 07:00 Intake Total 500 ml Output Total 950 ml 1200 ml Balance -450 ml -1200 ml Intake Packed Cells 500 ml Output Urine Total 950 ml 1200 ml Bladder Scan Volume Amount 495 ml # Bowel Movements 1 Vital Signs Date Time Temp Pulse Resp B/P Pulse Ox O2 Delivery O2 Flow Rate FiO2 07/15/17 08:00 100.4 115 20 92/53 96 07/15/17 07:00 100.2 122 20 96/57 07/15/17 06:35 102.3 130 20 126/73 93 07/15/17 06:15 96.9 126 20 140/70 96 07/15/17 06:01 97.1 123 20 119/84 95 07/15/17 05:45 99.0 125 20 133/64 95 07/15/17 05:26 97.2 116 20 112/78 97 07/15/17 04:00 94/54 07/15/17 04:00 104.4 125 18 140/70 95 07/15/17 03:15 97.0 100 20 95/54 95 07/15/17 03:00 98.3 100 20 88/49 94 07/15/17 02:45 96.4 100 20 81/51 95 07/15/17 02:30 98.6 114 20 109/59 95 07/15/17 02:15 97.6 107 20 84/47 95 07/15/17 00:00 103.5 120 18 117/65 94 07/15/17 00:00 104.5 120 20 117/65 94 07/14/17 19:56 100.3 118 18 92/54 95 07/14/17 16:05 100.4 125 18 96 07/14/17 15:50 100.6 125 18 133/68 98 07/14/17 15:33 99.4 125 16 136/75 97 07/14/17 15:15 99.7 120 16 127/74 95 07/14/17 14:18 115 16 118/61 97 07/14/17 14:15 100.7 117 18 115/63 98 Room Air 07/14/17 13:30 100.4 112 16 108/67 98 Room Air 07/14/17 13:15 100.7 110 16 111/62 98 Room Air 07/14/17 13:00 100.7 114 20 103/59 96 Room Air -: 07/15/17 0955 07/14/17 1040 Microbiology 07/14/17 Urine Culture, Received Pending Physical Exam General Appearance: Well Developed Neck Neck Exam: Neck Supple Pulmonary Resp Exam: Clear Bilaterally, Breath Sounds Equal Cardiology CV Exam: Regular, Normal Sinus Rhythm Gastrointestinal/Abdomen GI Exam: Soft, Non-Tender, Bowel Sounds Present Extremeties Extremities Exam: No Edema Neurologic Neuro Exam: Alert, Awake Assessment/Plan Problem List: (1) History of kidney transplant Plan: last creatinine remains stable she is on Prograf for 2 mg in the morning and 1 mg in the evening Continue with the prednisone 5 mg daily Follow BMP She needs cystoscopy possible bladder tumor suspected d/w Dr. Mcclain (2) Hematuria Plan: Urology is following and planning to do cystoscopy (3) HTN (hypertension) Plan: Continue to monitor Problem Qualifiers (1) Hematuria: Qualified Code: R31.9 - Hematuria, unspecified type Cee Apodaca MD Jul 15, 2017 11:02
[2017-07-15] MEDS ORDERED: ONDANSETRON HCL 4 MG/2 ML VIAL IV PUSH ONE (12:00)
[2017-07-15] MEDS ORDERED: PROPOFOL 200 MG/20 ML AMP IV ONE (12:00)
[2017-07-15] MEDS ORDERED: PHENYLEPH/NS 1000 MCG/10 ML SYR IV ONE (12:00)
[2017-07-15] MEDS ORDERED: HYDROmorphone HCL PF 2 MG/ML VIAL ONE (13:04)
[2017-07-15] MEDS ORDERED: SUGAMMADEX SODIUM 200 MG/2 ML VIAL IV PUSH ONE ×2 (13:04)
--- NOTE | 2017-07-15 15:36 | PD.OP ---
Operative Report Date of Surgery: Jul 15, 2017 Preoperative Diagnosis: (1) Bladder mass Postoperative Diagnosis: (1) Bladder mass Procedure: Cystoscopy and transurethral resection of bladder tumor greater than 5 cm originating from right bladder wall Anesthesia: General Surgeon: Temo Mcclain [employer] Operator(s): None Operation and Findings: Indication for procedure: Case of a pleasant 66-year-old female who is status post a cadaveric kidney transplant and recently developed gross painless hematuria. Workup included a CT scan which demonstrated a mass originating from the right wall of the bladder suspicious for malignancy. Patient presents now for cystoscopy and probable transurethral resection of bladder tumor. Operative procedure in detail: Patient was brought to the operating suite and placed supine on the cystoscopy table. She was then placed under general endotracheal anesthesia. She was then repositioned in the dorsal lithotomy position and prepped and draped in normal sterile fashion. After appropriate timeout was undertaken I proceeded with cystoscopic evaluation utilizing the rigid cystoscope with a 20 [place] sheath and the 30 lens. The patient was noted to have multiple clots within the urinary bladder as well as a frondular tumor originating from the right wall of the bladder greater than 5 cm on a broad base. The cystoscope was exchanged for the resectoscope with a 24 [place] cutting loop and the patient underwent a transurethral resection of this bladder tumor. Once the tumor was resected the biopsy forceps were utilized to take a couple of samples from the tumor base and sent off in a separate pathology specimen. The entire base of the bladder tumor was fulgurated with coagulation current with excellent hemostasis. The earache evacuator was utilized to evacuate resected bladder tissue which was sent off to pathology. A 18 [place] 5 cc Ge catheter was placed and connected to gravity drainage. The patient tolerated the procedures without complications and was transferred to the PACU in satisfactory condition. Temo Mcclain MD Jul 15, 2017 15:36
[2017-07-15] MEDS: AMPICILLIN INJ 2,000 MG in SODIUM CHLORIDE 0.9% INJ 100 ML IV SCH ×2 (17:00→21:53)
[2017-07-15] MEDS ORDERED: CEFEPIME INJ 1,000 MG in SODIUM CHLORIDE 0.9% INJ 100 ML IV SCH (17:00)
[2017-07-15] MEDS ORDERED: DO NOT ADM ANY ANTICOAGULANT DRUGS PRN (17:15)
--- NOTE | 2017-07-15 17:49 | MB ---
cc: OREN MACHADO MD DATE OF CONSULTATION REQUESTING PHYSICIAN Dr. Dailey REASON FOR CONSULTATION Sepsis in patient with renal transplant. HISTORY OF PRESENT ILLNESS This is a 66-year-old white female who presented with general malaise and weakness. The patient has had hematuria over the past five weeks. She has a history of renal transplant eight years ago. She was evaluated by urology and she underwent cystoscopy and transurethral resection of bladder tumor greater than 5 cm originating from the right bladder wall. The patient is having occasional fever and also chills. She has a maximum temperature of 102.3 degrees yesterday afternoon. Prior to that, in the sleeping bag filler hours today she had temperature of 104.4. Her white blood cell count is elevated. Culture of the urine was taken yesterday and came back showing group D enterococcus preliminary. The patient is awake but somewhat fatigued. Her main complaint is just feeling very tired. Chest x-ray was performed and it showed focal nodular opacity in the right upper lung field. CT scan of the chest showed scarring and atelectasis in the right upper lung and the left lung base and numerous hepatic and renal cysts. PAST MEDICAL HISTORY 1. Hypertension, 2. End-stage kidney disease, 3. Renal transplantation 4. Polycystic kidney disease 5. Right knee open reduction and internal fixation 6. Renal transplant in 2008. ALLERGIES NO KNOWN DRUG ALLERGIES. MEDICATIONS 1. Cefepime. 2. Prednisolone 3. Prograf 4. [place] alkaloid 5. Tylenol. SOCIAL HISTORY No tobacco, no illicit drugs. Rare alcohol. FAMILY HISTORY Noncontributory. REVIEW OF SYSTEMS Negative on 10-point review. PHYSICAL EXAMINATION GEMERAL: This is a pleasant slender female in no acute distress. She is alert and oriented on awakening. VITAL SIGNS: Temperature 97.6, BP 129/67, respirations 16, heart rate 106. HEENT: Extraocular movements grossly intact, pupils reactive to light. No icterus. Oropharynx moist mucosa without lesions. NECK: Supple without adenopathy. LUNGS: Decreased breath sounds throughout. HEART: Regular S1, S2 ABDOMEN: Soft, mild tenderness at the mid abdomen on palpation. RECTAL: Not performed. EXTREMITIES: No clubbing, cyanosis or edema. SKIN: No rash. NEUROLOGIC: No gross focal findings. PSYCHIATRIC: The patient is calm and cooperative. LABORATORY DATA WBC 26.7, platelets 224, hemoglobin 9.7, 93% neutrophils, creatinine 0.97, BUN 13, sodium 134, estimated GFR 57. IMPRESSION 1. Sepsis in patient presenting with tachycardia, leukocytosis, fever and hematuria. Source most likely renal. 2. Urinary tract infection. Preliminary identification of group D enterococcus in the urine culture. 3. Leukocytosis secondary to sepsis. 4. Immunosuppression from immunosuppressive medications for renal transplant. 5. Renal transplant status. 6. Chronic kidney disease 7. Status post resection of bladder mass. 8. Hematuria secondary to bladder mass. RECOMMENDATIONS 1. Discontinue cefepime 2. Begin ampicillin intravenous 3. Follow the group D enterococcus identity in the urine until final identification 4. Monitor blood cultures 5. Monitor white blood cell count 6. Monitor clinical status. Thank you this consultation. The patient's progress will be followed and further recommendations will be made on followup. Oren Machado MD FD/ /4:41 PM /5:27 PM
[2017-07-15] MEDS: SODIUM CHLOR 0.9% 1000 ML INJ 1,000 ML IV SCH (18:01)
[2017-07-15 21:18] LABS: BICARBONATE 22.6 MEQ/L (21.0-32.0); POTASSIUM 4.1 MEQ/L (3.5-5.1)
[2017-07-15 21:32] LABS: CALCIUM-PROTEIN CORRECTED 7.7 MG/DL (8.5-10.1)
[2017-07-16] VITALS: BP 106/62; PULSE 88; RESP 16; TEMP 98.1; O2SAT 95
[2017-07-16 04:00] VITALS: BP 115/62; PULSE 92; RESP 16; TEMP 98.7; O2SAT 94
[2017-07-16] MEDS: AMPICILLIN INJ 2,000 MG in SODIUM CHLORIDE 0.9% INJ 100 ML IV SCH ×4 (05:09→22:51)
[2017-07-16] MEDS: TACROLIMUS 1 MG CAP PO SCH ×2 (08:16→21:01)
[2017-07-16] MEDS: LEFLUNOMIDE 20 MG PO SCH (08:17)
[2017-07-16] MEDS: prednisoLONE ALCOHOL/DYE FREE 15 MG/5 ML ORAL SYR PO SCH (08:17)
[2017-07-16 08:51] VITALS: BP 124/62; PULSE 95; RESP 20; TEMP 98; O2SAT 97
[2017-07-16 09:51] LABS: BASOPHIL # 0.1 TH/MM3 (0-0.2); BASOPHIL % 0.2 % (0.0-2.0); HEMATOCRIT 28.9 % (35.0-46.0); HEMO FLAGS DIFF FINAL; LYMPH % 1.1 % (9.0-44.0); LYMPHOCYTE # 0.3 TH/MM3 (1.0-4.8); MEAN CELL VOLUME 86.9 FL (80.0-100.0); MEAN CORPUSCULAR HEMOGLOBIN 28.5 PG (27.0-34.0); MEAN CORPUSCULAR HGB CONC 32.9 % (32.0-36.0); NEUT % 96.7 % (16.0-70.0); PLATELET COUNT 245 TH/MM3 (150-450); RED BLOOD COUNT 3.33 MIL/MM3 (4.00-5.30); RED CELL DISTRIBUTION WIDTH 20.9 % (11.6-17.2); WHITE BLOOD COUNT 23.8 TH/MM3 (4.0-11.0)
[2017-07-16 10:07] LABS: BICARBONATE 19.3 MEQ/L (21.0-32.0); POTASSIUM 3.4 MEQ/L (3.5-5.1)
[2017-07-16 10:22] LABS: CALCIUM-PROTEIN CORRECTED 7.8 MG/DL (8.5-10.1)
[2017-07-16] MEDS: SODIUM CHLOR 0.9% 1000 ML INJ 1,000 ML IV SCH (10:55)
[2017-07-16 12:27] VITALS: BP 92/52; PULSE 115; RESP 20; TEMP 97.6; O2SAT 97
--- NOTE | 2017-07-16 14:02 | HHI.PR ---
Subjective Remarks PT states she feels a bit weak, but has no pain, denies any more hematuria and she is pleased w that. denies any CP/SOB/N/V Objective Vitals Vital Signs Date Time Temp Pulse Resp B/P Pulse Ox O2 Delivery O2 Flow Rate FiO2 07/16/17 12:27 97.6 115 20 92/52 97 07/16/17 08:51 98.0 95 20 124/62 97 07/16/17 04:00 98.7 92 16 115/62 94 07/16/17 00:00 98.1 88 16 106/62 95 07/15/17 20:00 98.9 84 16 107/67 95 07/15/17 15:45 106 15 129/67 93 Room Air 07/15/17 15:30 105 9 130/71 95 Room Air 07/15/17 15:17 103 9 126/66 94 Room Air 07/15/17 15:15 103 10 134/64 94 Nasal Cannula 2 07/15/17 15:12 97.6 105 25 135/63 96 Nasal Cannula 4 I/O 07/15/17 07/15/17 07/15/17 07/16/17 07/16/17 07/16/17 07:00 15:00 23:00 07:00 15:00 23:00 Intake Total 1456 ml Output Total 1200 ml 1350 ml 200 ml Balance -1200 ml 106 ml -200 ml Intake IV Total 456 ml Other 1000 ml Output Urine Total 1200 ml 600 ml 200 ml Estimated Blood Loss 50 ml Other 700 ml # Voids 0 # Bowel Movements 0 Result Diagram: 07/16/17 0903 07/16/17 0903 Imaging Last Impressions Chest X-Ray 07/14/17 1032 Signed Impressions: Service Date/Time: June 10:37 - CONCLUSION: 1. Focal nodular opacity within the right upper lung field which is indeterminate. CT of the chest may be helpful for further evaluation of this finding. 2. Bibasilar streaky densities are stable and likely consistent with chronic fibrotic scarring and/or bronchiectasis. 3. Degenerative changes and scoliosis of the thoracic spine. Faraz Ortega MD Chest CT 07/14/17 0000 Signed Impressions: Service Date/Time: June 22:15 - CONCLUSION: 1. Scarring or atelectasis in the upper right lung and left lung base. No pleural effusion. Small pericardial effusion. 2. Numerous hepatic and renal cysts similar to 2014. Armond Kang MD Objective Remarks GENERAL: This is a well-nourished, well-developed patient, sitting up in recliner CARDIOVASCULAR: Regular rate and regular rhythm without murmurs. RESPIRATORY: Clear to auscultation. Breath sounds equal bilaterally. No wheezes. GASTROINTESTINAL: Abdomen soft, non-tender, nondistended. MUSCULOSKELETAL: Extremities without edema. : posadas in place, yellow urine noted NEURO: Alert & Oriented. Moves all ext x4 A/P Problem List: (1) Severe anemia ICD Code: D64.9 Status: Acute (2) Hematuria ICD Code: R31.9 Status: Acute (3) History of kidney transplant ICD Code: Z94.0 Status: Chronic Assessment and Plan - anemia - acute due to blood loss/hematuria s/p 4 units PRBC - continue to monitor H/H. -hematuria with history of polycystic kidney disease- s/p kidney transplant on immunosuppressants- urology and nephrology following urology took pt to OR yesterday, she is s/p cystoscopy and transurethral resection of bladder tumor >5cm POD1 -sepsis- possible UTI- continue IV antibiotic- initial blood cx neg x 1 day, repeat blood cx pending. pt on ampicillin per ID. appreciate recs -right lung focal opacity on CXR; CT chest with scarring or atelectasis in the upper right lung and left lung base. No pleural effusion. Small pericardial effusion -sinus tachycardia- likely due to anemia/fever- BB held due to low-miky BP's- will monitor, may need to resume if BPs higher -DVT prophylaxis with SCD's; no chemical prophylaxis due to hematuria Discharge Planning pt has been cleared by urology for discharge f/u blood cx until final continue IV abx. awaiting final recs from ID Problem Qualifiers (1) Hematuria: Qualified Code: R31.9 - Hematuria, unspecified type Celia Terry MD Jul 16, 2017 14:02
--- NOTE | 2017-07-16 16:06 | HHI.IDPN ---
Subjective Subjective Remarks ID COVERAGE 66 y/o F admitted for hematuria. S/P renal transplant 8 years ago Underwent TURBT, UC with Enterococcus Still with fevers WBC still very high Feels tired and not her usual self Hematuria resolved BC negative so far Antibiotics Ampicillin Past Medical History 1. Hypertension, 2. End-stage kidney disease, 3. Renal transplantation 4. Polycystic kidney disease 5. Right knee open reduction and internal fixation 6. Renal transplant in 2008. Allergies: Coded Allergies: No Known Allergies (Verified , 06/23/17) Objective . Vital Signs Date Time Temp Pulse Resp B/P Pulse Ox O2 Delivery O2 Flow Rate FiO2 07/16/17 12:27 97.6 115 20 92/52 97 07/16/17 08:51 98.0 95 20 124/62 97 07/16/17 04:00 98.7 92 16 115/62 94 07/16/17 00:00 98.1 88 16 106/62 95 07/15/17 20:00 98.9 84 16 107/67 95 07/15/17 07/15/17 07/16/17 15:00 23:00 07:00 Intake Total 1456 ml Output Total 1350 ml 200 ml Balance 106 ml -200 ml IV Total 456 ml Other 1000 ml Output Urine Total 600 ml 200 ml Estimated Blood Loss 50 ml Other 700 ml # Voids 0 # Bowel Movements 0 . Laboratory Tests Test 07/15/17 07/16/17 09:55 09:03 White Blood Count 26.7 TH/MM3 23.8 TH/MM3 Red Blood Count 3.22 MIL/MM3 3.33 MIL/MM3 Hemoglobin 9.4 GM/DL 9.5 GM/DL Hematocrit 27.6 % 28.9 % Mean Corpuscular Volume 85.8 FL 86.9 FL Mean Corpuscular Hemoglobin 29.2 PG 28.5 PG Mean Corpuscular Hemoglobin 34.0 % 32.9 % Concent Red Cell Distribution Width 20.2 % 20.9 % Platelet Count 224 TH/MM3 245 TH/MM3 Mean Platelet Volume 7.4 FL 7.3 FL Neutrophils (%) (Auto) 93.0 % 96.7 % Lymphocytes (%) (Auto) 1.1 % 1.1 % Monocytes (%) (Auto) 5.6 % 2.0 % Eosinophils (%) (Auto) 0.1 % 0.0 % Basophils (%) (Auto) 0.2 % 0.2 % Neutrophils # (Auto) 24.8 TH/MM3 23.0 TH/MM3 Lymphocytes # (Auto) 0.3 TH/MM3 0.3 TH/MM3 Monocytes # (Auto) 1.5 TH/MM3 0.5 TH/MM3 Eosinophils # (Auto) 0.0 TH/MM3 0.0 TH/MM3 Basophils # (Auto) 0.0 TH/MM3 0.1 TH/MM3 CBC Comment DIFF FINAL DIFF FINAL Differential Comment Laboratory Tests Test 07/15/17 07/16/17 19:55 09:03 Sodium Level 136 MEQ/L 138 MEQ/L Potassium Level 4.1 MEQ/L 3.4 MEQ/L Chloride Level 106 MEQ/L 108 MEQ/L Carbon Dioxide Level 22.6 MEQ/L 19.3 MEQ/L Anion Gap 7 MEQ/L 11 MEQ/L Blood Urea Nitrogen 14 MG/DL 17 MG/DL Creatinine 0.98 MG/DL 0.80 MG/DL Estimat Glomerular Filtration 56 ML/MIN 71 ML/MIN Rate Random Glucose 142 MG/DL 131 MG/DL Lactic Acid Level 1.5 mmol/L Calcium Level 6.8 MG/DL 6.8 MG/DL Protein Corrected Calcium 7.7 MG/DL 7.8 MG/DL Total Protein 5.4 GM/DL 5.2 GM/DL Microbiology Date/Time Procedure Status Source Growth 07/14/17 12:00 Urine Culture - Final Complete Urine Catheterized Urine Enterococcus Faecalis 07/15/17 19:50 Aerobic Blood Culture - Preliminary Resulted Blood Peripheral NO GROWTH IN 1 DAY 07/15/17 19:50 Anaerobic Blood Culture - Preliminary Resulted Blood Peripheral NO GROWTH IN 1 DAY 07/15/17 19:55 Aerobic Blood Culture - Preliminary Resulted Blood Peripheral NO GROWTH IN 1 DAY 07/15/17 19:55 Anaerobic Blood Culture - Preliminary Resulted Blood Peripheral NO GROWTH IN 1 DAY 07/16/17 06:39 Aerobic Blood Culture Received Blood Other Pending 07/16/17 06:39 Anaerobic Blood Culture Received Blood Other Pending 07/16/17 06:39 Gram Stain - Final Complete Blood Other 07/16/17 06:42 Aerobic Blood Culture Received Blood Other Pending 07/16/17 06:42 Anaerobic Blood Culture Received Blood Other Pending 07/16/17 06:42 Gram Stain - Final Complete Blood Other Imaging Last Impressions Chest X-Ray 07/14/17 1032 Signed Impressions: Service Date/Time: June 10:37 - CONCLUSION: 1. Focal nodular opacity within the right upper lung field which is indeterminate. CT of the chest may be helpful for further evaluation of this finding. 2. Bibasilar streaky densities are stable and likely consistent with chronic fibrotic scarring and/or bronchiectasis. 3. Degenerative changes and scoliosis of the thoracic spine. Faraz Ortega MD Chest CT 07/14/17 0000 Signed Impressions: Service Date/Time: June 22:15 - CONCLUSION: 1. Scarring or atelectasis in the upper right lung and left lung base. No pleural effusion. Small pericardial effusion. 2. Numerous hepatic and renal cysts similar to 2014. Armond Kang MD Physical Exam GEMERAL: Awake and alert, NAD SKIN: Warm and dry, no rash HEENT: [place] conjunctivae, no hemorrhage or petechia, no injection, no icterus. Moist mucosa. NECK: Supple without adenopathy. Supple, not tender LUNGS: Decreased breath sounds throughout. HEART: Regular S1, S2 ABDOMEN: Soft, mild tenderness at the mid abdomen on palpation. EXTREMITIES: No clubbing, cyanosis or edema. NEUROLOGIC: No gross focal findings. PSYCHIATRIC: The patient is calm and cooperative. LINE: PIV with no evidence of infection : Ge in place, clear yellow urine Assessment & Plan Remarks IMPRESSION Sepsis, in patient presenting with tachycardia, leukocytosis, fever and hematuria. source Hematuria due to bladder tumor, S/P TURBT UTI, Enterococcus faecalis Leukocytosis persistent Fevers, ?trending down S/P renal transplant 8 years ago - on immunosuppression RECOMMENDATIONS Continue Ampicillin Repeat UA and C/S Follow C/S Monitor temps Follow CBC Monitor progress Explained plan to the patient Stephanie Butler MD Jul 16, 2017 16:05
[2017-07-16 17:28] VITALS: BP 111/79; PULSE 106; RESP 20; TEMP 98.1; O2SAT 95
--- NOTE | 2017-07-16 18:23 | HHI.NPPN ---
Subjective History of Present Illness 66 year old with hematuria s/p kidney transplant Additional Remarks Some fatigue today Review of Systems Genitourinary Genitourinary: Frequency (hematuria) Objective Data Data 07/15/17 07/16/17 19:00 07:00 Intake Total 1456 ml Output Total 750 ml 800 ml Balance 706 ml -800 ml IV Total 456 ml Other 1000 ml Output Urine Total 800 ml Estimated Blood Loss 50 ml Other 700 ml # Voids 0 # Bowel Movements 0 Vital Signs Date Time Temp Pulse Resp B/P Pulse Ox O2 Delivery O2 Flow Rate FiO2 07/16/17 17:28 98.1 106 20 111/79 95 07/16/17 12:27 97.6 115 20 92/52 97 07/16/17 08:51 98.0 95 20 124/62 97 07/16/17 04:00 98.7 92 16 115/62 94 07/16/17 00:00 98.1 88 16 106/62 95 07/15/17 20:00 98.9 84 16 107/67 95 -: 07/16/17 0903 07/16/17 0903 Microbiology 07/15/17 Aerobic Blood Culture - Preliminary, Resulted NO GROWTH IN 1 DAY 07/15/17 Anaerobic Blood Culture - Preliminary, Resulted NO GROWTH IN 1 DAY 07/15/17 Aerobic Blood Culture - Preliminary, Resulted NO GROWTH IN 1 DAY 07/15/17 Anaerobic Blood Culture - Preliminary, Resulted NO GROWTH IN 1 DAY 07/16/17 Aerobic Blood Culture, Received Pending 07/16/17 Anaerobic Blood Culture, Received Pending 07/16/17 Gram Stain - Final, Complete 07/16/17 Aerobic Blood Culture, Received Pending 07/16/17 Anaerobic Blood Culture, Received Pending 07/16/17 Gram Stain - Final, Complete Physical Exam General Appearance: Well Developed Neck Neck Exam: Neck Supple Pulmonary Resp Exam: Clear Bilaterally, Breath Sounds Equal Cardiology CV Exam: Regular, Normal Sinus Rhythm Gastrointestinal/Abdomen GI Exam: Soft, Non-Tender, Bowel Sounds Present Extremeties Extremities Exam: No Edema Neurologic Neuro Exam: Alert, Awake Assessment/Plan Problem List: (1) History of kidney transplant Plan: Creatinine remains stable (0.8) She is on Prograf for 2 mg in the morning and 1 mg in the evening Continue with the prednisone 5 mg daily Follow BMP S/P resection of bladder tumor, hematuria improving. Follow pathology with On ampicillin for enterococcus UTI. Continue to monitor and follow with ID (2) Hematuria Plan: Urology is following, s/p bladder tumor resection (3) HTN (hypertension) Plan: Continue to monitor Problem Qualifiers (1) Hematuria: Qualified Code: R31.9 - Hematuria, unspecified type Jim Koroma MD Jul 16, 2017 18:23
[2017-07-16 18:42] LABS: BACTERIA, URINE RARE /hpf; BLOOD, URINE MOD (NEG); GLUCOSE,URINE NEG (NEG); HYALINE CAST, URINE 2 /lpf (RARE); KETONE, URINE NEG (NEG); MUCUS URINE FEW /lpf (OCC); NITRITE,URINE NEG (NEG); PH, URINE 6.5 (5.0-8.5); URINE COLOR LIGHT-YELLOW (YELLW/STRAW)
[2017-07-16 18:45] LABS: COMMENT (UR) CATH-CULTURE IND; CULTURE IF INDICATED CATH CULTURE IND
[2017-07-16 20:00] VITALS: BP 125/58; PULSE 104; RESP 20; TEMP 98.7; O2SAT 96
[2017-07-17 00:30] VITALS: BP_SYST 118; BP_SYST 141; BP_DIAS 56; BP_DIAS 87; PULSE 106; PULSE 59; RESP 16; RESP 18; TEMP 97.6; TEMP 98.1; O2SAT 96
[2017-07-17] MEDS: AMPICILLIN INJ 2,000 MG in SODIUM CHLORIDE 0.9% INJ 100 ML IV SCH ×4 (04:25→22:28)
[2017-07-17 04:30] VITALS: BP 121/71; PULSE 92; RESP 16; TEMP 98.1; O2SAT 95
[2017-07-17 04:56] LABS: AUTOMATED NEUTROPHIL # 14.6 TH/MM3 (1.8-7.7); BASOPHIL % 0.1 % (0.0-2.0); EOSINOPHIL % 0.1 % (0.0-4.0); HEMATOCRIT 27.1 % (35.0-46.0); HEMO FLAGS DIFF FINAL; LYMPH % 2.9 % (9.0-44.0); LYMPHOCYTE # 0.5 TH/MM3 (1.0-4.8); MEAN CELL VOLUME 88.4 FL (80.0-100.0); MEAN CORPUSCULAR HEMOGLOBIN 27.9 PG (27.0-34.0); MEAN CORPUSCULAR HGB CONC 31.6 % (32.0-36.0); MONO % 4.6 % (0.0-8.0); NEUT % 92.3 % (16.0-70.0); PLATELET COUNT 245 TH/MM3 (150-450); RED BLOOD COUNT 3.06 MIL/MM3 (4.00-5.30); WHITE BLOOD COUNT 15.8 TH/MM3 (4.0-11.0)
[2017-07-17 05:22] LABS: BICARBONATE 19.5 MEQ/L (21.0-32.0); POTASSIUM 3.7 MEQ/L (3.5-5.1)
[2017-07-17 05:46] LABS: CALCIUM-PROTEIN CORRECTED 8.7 MG/DL (8.5-10.1)
[2017-07-17] MEDS: prednisoLONE ALCOHOL/DYE FREE 15 MG/5 ML ORAL SYR PO SCH (07:42)
[2017-07-17] MEDS: LEFLUNOMIDE 20 MG PO SCH (07:42)
[2017-07-17] MEDS: TACROLIMUS 1 MG CAP PO SCH ×2 (07:42→20:51)
[2017-07-17 08:02] VITALS: BP 133/68; PULSE 96; RESP 20; TEMP 98.1; O2SAT 96
[2017-07-17 12:00] VITALS: BP 102/63; PULSE 99; RESP 20; TEMP 91.1; O2SAT 95
--- NOTE | 2017-07-17 13:37 | HHI.IDPN ---
Subjective Subjective Remarks ID COVERAGE 66 y/o F admitted for hematuria. S/P renal transplant 8 years ago Underwent TURBT, UC with Enterococcus Feeling better WBC lower Repeat UC pending Temps better Urine clear Hematuria resolved BC negative so far Antibiotics Ampicillin Past Medical History 1. Hypertension, 2. End-stage kidney disease, 3. Renal transplantation 4. Polycystic kidney disease 5. Right knee open reduction and internal fixation 6. Renal transplant in 2008. Allergies: Coded Allergies: No Known Allergies (Verified , 06/23/17) Objective . Vital Signs Date Time Temp Pulse Resp B/P (MAP) Pulse Ox O2 Delivery O2 Flow Rate FiO2 07/17/17 08:02 98.1 96 20 133/68 (89) 96 07/17/17 04:30 98.1 92 16 121/71 (88) 95 07/17/17 00:30 98.1 106 16 141/87 (105) 96 07/16/17 20:00 98.7 104 20 125/58 (80) 96 07/16/17 17:28 98.1 106 20 111/79 (90) 95 . Laboratory Tests Test 07/16/17 09:03 07/17/17 04:32 White Blood Count 23.8 TH/MM3 15.8 TH/MM3 Red Blood Count 3.33 MIL/MM3 3.06 MIL/MM3 Hemoglobin 9.5 GM/DL 8.5 GM/DL Hematocrit 28.9 % 27.1 % Mean Corpuscular Volume 86.9 FL 88.4 FL Mean Corpuscular Hemoglobin 28.5 PG 27.9 PG Mean Corpuscular Hemoglobin Concent 32.9 % 31.6 % Red Cell Distribution Width 20.9 % 21.0 % Platelet Count 245 TH/MM3 245 TH/MM3 Mean Platelet Volume 7.3 FL 7.2 FL Neutrophils (%) (Auto) 96.7 % 92.3 % Lymphocytes (%) (Auto) 1.1 % 2.9 % Monocytes (%) (Auto) 2.0 % 4.6 % Eosinophils (%) (Auto) 0.0 % 0.1 % Basophils (%) (Auto) 0.2 % 0.1 % Neutrophils # (Auto) 23.0 TH/MM3 14.6 TH/MM3 Lymphocytes # (Auto) 0.3 TH/MM3 0.5 TH/MM3 Monocytes # (Auto) 0.5 TH/MM3 0.7 TH/MM3 Eosinophils # (Auto) 0.0 TH/MM3 0.0 TH/MM3 Basophils # (Auto) 0.1 TH/MM3 0.0 TH/MM3 CBC Comment DIFF FINAL DIFF FINAL Differential Comment Laboratory Tests Test 07/15/17 19:55 07/16/17 09:03 07/17/17 04:32 Blood Urea Nitrogen 14 MG/DL 17 MG/DL 24 MG/DL Creatinine 0.98 MG/DL 0.80 MG/DL 0.89 MG/DL Random Glucose 142 MG/DL 131 MG/DL 112 MG/DL Total Protein 5.4 GM/DL 5.2 GM/DL 4.7 GM/DL Calcium Level 6.8 MG/DL 6.8 MG/DL 7.3 MG/DL Sodium Level 136 MEQ/L 138 MEQ/L 141 MEQ/L Potassium Level 4.1 MEQ/L 3.4 MEQ/L 3.7 MEQ/L Chloride Level 106 MEQ/L 108 MEQ/L 113 MEQ/L Carbon Dioxide Level 22.6 MEQ/L 19.3 MEQ/L 19.5 MEQ/L Anion Gap 7 MEQ/L 11 MEQ/L 9 MEQ/L Estimat Glomerular Filtration Rate 56 ML/MIN 71 ML/MIN 63 ML/MIN Lactic Acid Level 1.5 mmol/L Protein Corrected Calcium 7.7 MG/DL 7.8 MG/DL 8.7 MG/DL Microbiology Date/Time Source Procedure Growth Status 07/16/17 06:42 Blood Other Gram Stain - Final Complete 07/16/17 06:42 Blood Other Aerobic Blood Culture - Preliminary NO GROWTH IN 1 DAY Resulted 07/16/17 06:42 Blood Other Anaerobic Blood Culture - Preliminary NO GROWTH IN 1 DAY Resulted 07/16/17 06:39 Blood Other Gram Stain - Final Complete 07/16/17 06:39 Blood Other Aerobic Blood Culture - Preliminary NO GROWTH IN 1 DAY Resulted 07/16/17 06:39 Blood Other Anaerobic Blood Culture - Preliminary NO GROWTH IN 1 DAY Resulted 07/15/17 19:55 Blood Peripheral Aerobic Blood Culture - Preliminary NO GROWTH IN 2 DAYS Resulted 07/15/17 19:55 Blood Peripheral Anaerobic Blood Culture - Preliminary NO GROWTH IN 2 DAYS Resulted 07/15/17 19:50 Blood Peripheral Aerobic Blood Culture - Preliminary NO GROWTH IN 2 DAYS Resulted 07/15/17 19:50 Blood Peripheral Anaerobic Blood Culture - Preliminary NO GROWTH IN 2 DAYS Resulted 07/16/17 18:12 Urine Catheterized Urine Urine Culture - Preliminary NO GROWTH IN 24 HOURS. Resulted Imaging Last Impressions Chest X-Ray 07/14/17 1032 Signed Impressions: Service Date/Time: June 10:37 - CONCLUSION: 1. Focal nodular opacity within the right upper lung field which is indeterminate. CT of the chest may be helpful for further evaluation of this finding. 2. Bibasilar streaky densities are stable and likely consistent with chronic fibrotic scarring and/or bronchiectasis. 3. Degenerative changes and scoliosis of the thoracic spine. Faraz Ortega MD Chest CT 07/14/17 0000 Signed Impressions: Service Date/Time: , July 14, 2017 22:15 - CONCLUSION: 1. Scarring or atelectasis in the upper right lung and left lung base. No pleural effusion. Small pericardial effusion. 2. Numerous hepatic and renal cysts similar to 2014. Armond Kang MD Physical Exam GENERAL: Awake and alert, NAD SKIN: Warm and dry, no rash HEENT: [place] conjunctivae, no hemorrhage or petechia, no injection, no icterus. Moist mucosa. NECK: Supple without adenopathy. Supple, not tender LUNGS: Decreased breath sounds throughout. HEART: Regular S1, S2 ABDOMEN: Soft, mildly distended, not tender. EXTREMITIES: No clubbing, cyanosis or edema. NEUROLOGIC: No gross focal findings. PSYCHIATRIC: calm and cooperative. LINE: PIV with no evidence of infection : Ge in place, clear yellow urine Assessment & Plan Remarks IMPRESSION Sepsis, in patient presenting with tachycardia, leukocytosis, fever and hematuria. source Hematuria due to bladder tumor, S/P TURBT UTI, Enterococcus faecalis Leukocytosis persistent Fevers, ?trending down S/P renal transplant 8 years ago - on immunosuppression RECOMMENDATIONS Continue Ampicillin Follow C/S Monitor temps Follow CBC Monitor progress Explained plan to the patient and Stephanie Butler MD Jul 17, 2017 13:37
--- NOTE | 2017-07-17 14:30 | HHI.PR ---
Subjective Remarks Pt states that she is feeling a lot better, less weak/tired denies any CP/SOB/N/V hopeful to go home soon Objective Vitals Vital Signs Date Time Temp Pulse Resp B/P (MAP) Pulse Ox O2 Delivery O2 Flow Rate FiO2 07/17/17 08:02 98.1 96 20 133/68 (89) 96 07/17/17 04:30 98.1 92 16 121/71 (88) 95 07/17/17 00:30 98.1 106 16 141/87 (105) 96 07/16/17 20:00 98.7 104 20 125/58 (80) 96 07/16/17 17:28 98.1 106 20 111/79 (90) 95 I/O 07/16/17 07/16/17 07/16/17 07/17/17 07/17/17 07/17/17 07:00 15:00 23:00 07:00 15:00 23:00 Intake Total 960 ml 780 ml 240 ml Output Total 200 ml 800 ml 1350 ml Balance -200 ml 960 ml -20 ml -1110 ml Intake Oral 960 ml 240 ml IV Total 780 ml Output Urine Total 200 ml 800 ml 1350 ml Result Diagram: 07/17/17 0432 07/17/17 0432 Imaging Last Impressions Chest X-Ray 07/14/17 1032 Signed Impressions: Service Date/Time: June 10:37 - CONCLUSION: 1. Focal nodular opacity within the right upper lung field which is indeterminate. CT of the chest may be helpful for further evaluation of this finding. 2. Bibasilar streaky densities are stable and likely consistent with chronic fibrotic scarring and/or bronchiectasis. 3. Degenerative changes and scoliosis of the thoracic spine. Faraz Ortega MD Chest CT 07/14/17 0000 Signed Impressions: Service Date/Time: June 22:15 - CONCLUSION: 1. Scarring or atelectasis in the upper right lung and left lung base. No pleural effusion. Small pericardial effusion. 2. Numerous hepatic and renal cysts similar to 2014. Armond Kang MD Objective Remarks GENERAL: This is a well-nourished, well-developed patient, laying i bed CARDIOVASCULAR: Regular rate and regular rhythm without murmurs. RESPIRATORY: Clear to auscultation. Breath sounds equal bilaterally. No wheezes. GASTROINTESTINAL: Abdomen soft, non-tender, nondistended. MUSCULOSKELETAL: Extremities without edema. : posadas in place, yellow urine noted NEURO: Alert & Oriented. Moves all ext x4 A/P Problem List: (1) Severe anemia ICD Code: D64.9 - Anemia, unspecified Status: Acute (2) Hematuria ICD Code: R31.9 - Hematuria, unspecified Status: Acute (3) History of kidney transplant ICD Code: Z94.0 - History of kidney transplant Status: Chronic Assessment and Plan - anemia - acute due to blood loss/hematuria s/p 4 units PRBC - continue to monitor H/H. Hb down to 8.5. Will monitor closely. -hematuria with history of polycystic kidney disease- s/p kidney transplant on immunosuppressants- urology and nephrology following she is s/p cystoscopy and transurethral resection of bladder tumor >5cm POD2. From a urological standpoint she can be discharged. -sepsis- possible UTI- continue IV antibiotic- initial blood cx neg x 1 day, repeat blood cx pending. pt on ampicillin per ID. appreciate recs. uring cx growing enterococcus. Repeat urine w no growth x 24 hrs. -right lung focal opacity on CXR; CT chest with scarring or atelectasis in the upper right lung and left lung base. No pleural effusion. Small pericardial effusion -sinus tachycardia- likely due to anemia/fever- will now resume metoprolol -DVT prophylaxis with SCD's; no chemical prophylaxis due to hematuria Discharge Planning pt has been cleared by urology for discharge f/u blood cx until final continue IV abx. awaiting final recs from ID Problem Qualifiers (1) Hematuria: Celia Terry MD Jul 17, 2017 14:30
[2017-07-17 16:33] VITALS: BP 138/81; PULSE 90; RESP 20; TEMP 98.6; O2SAT 97
--- NOTE | 2017-07-17 18:20 | HHI.NPPN ---
Subjective History of Present Illness 66 year old with hematuria s/p kidney transplant Additional Remarks No acute complaints Review of Systems Genitourinary Genitourinary: Frequency (hematuria) Objective Data Data 07/17/17 07/18/17 19:00 07:00 Intake Total 1970 ml Output Total 1200 ml Balance 770 ml Intake Oral 720 ml IV Total 1250 ml Output Urine Total 1200 ml Vital Signs Date Time Temp Pulse Resp B/P (MAP) Pulse Ox O2 Delivery O2 Flow Rate FiO2 07/17/17 16:33 98.6 90 20 138/81 (100) 97 07/17/17 12:00 91.1 99 20 102/63 (76) 95 07/17/17 08:02 98.1 96 20 133/68 (89) 96 07/17/17 04:30 98.1 92 16 121/71 (88) 95 07/17/17 00:30 98.1 106 16 141/87 (105) 96 07/16/17 20:00 98.7 104 20 125/58 (80) 96 -: 07/17/17 0432 07/17/17 0432 Physical Exam General Appearance: Well Developed Neck Neck Exam: Neck Supple Pulmonary Resp Exam: Clear Bilaterally, Breath Sounds Equal Cardiology CV Exam: Regular, Normal Sinus Rhythm Gastrointestinal/Abdomen GI Exam: Soft, Non-Tender, Bowel Sounds Present Extremeties Extremities Exam: No Edema Neurologic Neuro Exam: Alert, Awake Assessment/Plan Problem List: (1) History of kidney transplant ICD Codes: Z94.0 - History of kidney transplant Status: Chronic Plan: Creatinine remains stable (0.8) She is on Prograf for 2 mg in the morning and 1 mg in the evening Continue with the prednisone 5 mg daily Follow BMP. Prograf levels pending. S/P resection of bladder tumor, hematuria improving. Follow pathology with On ampicillin for enterococcus UTI. Continue to monitor and follow with ID (2) Hematuria ICD Codes: R31.9 - Hematuria, unspecified Status: Acute Plan: Urology is following, s/p bladder tumor resection (3) HTN (hypertension) ICD Codes: I10 - Hypertension Status: Chronic Plan: Continue to monitor Problem Qualifiers (1) Hematuria: Jim Koroma MD Jul 17, 2017 18:20
[2017-07-17 20:00] VITALS: BP 133/83; PULSE 103; RESP 17; TEMP 97.9; O2SAT 99
[2017-07-17] MEDS: SODIUM CHLOR 0.9% 1000 ML INJ 1,000 ML IV SCH (20:51)
[2017-07-17] MEDS: METOPROLOL TARTRATE 25 MG TAB PO SCH (20:51)
[2017-07-18 00:53] VITALS: BP 132/76; PULSE 94; RESP 17; TEMP 98.4; O2SAT 98
[2017-07-18] MEDS: AMPICILLIN INJ 2,000 MG in SODIUM CHLORIDE 0.9% INJ 100 ML IV SCH ×2 (04:26→11:28)
[2017-07-18 04:30] VITALS: BP 131/69; PULSE 88; RESP 17; TEMP 98.3; O2SAT 100
[2017-07-18] MEDS: SODIUM CHLOR 0.9% 1000 ML INJ 1,000 ML IV SCH (06:28)
[2017-07-18 09:08] LABS: BASOPHIL % 0.5 % (0.0-2.0); EOSINOPHIL # 0.2 TH/MM3 (0-0.4); EOSINOPHIL % 3.1 % (0.0-4.0); HEMATOCRIT 29.6 % (35.0-46.0); HEMO FLAGS DIFF FINAL; LYMPH % 8.6 % (9.0-44.0); LYMPHOCYTE # 0.6 TH/MM3 (1.0-4.8); MEAN CELL VOLUME 86.8 FL (80.0-100.0); MEAN CORPUSCULAR HEMOGLOBIN 27.9 PG (27.0-34.0); MEAN CORPUSCULAR HGB CONC 32.1 % (32.0-36.0); MONO % 9.7 % (0.0-8.0); NEUT % 78.1 % (16.0-70.0); PLATELET COUNT 270 TH/MM3 (150-450); RED BLOOD COUNT 3.41 MIL/MM3 (4.00-5.30); RED CELL DISTRIBUTION WIDTH 20.6 % (11.6-17.2); WHITE BLOOD COUNT 6.4 TH/MM3 (4.0-11.0)
[2017-07-18] MEDS: LEFLUNOMIDE 20 MG PO SCH (09:19)
[2017-07-18] MEDS: METOPROLOL TARTRATE 25 MG TAB PO SCH (09:21)
[2017-07-18] MEDS: TACROLIMUS 1 MG CAP PO SCH (09:21)
[2017-07-18] MEDS: prednisoLONE ALCOHOL/DYE FREE 15 MG/5 ML ORAL SYR PO SCH (09:21)
[2017-07-18 09:25] LABS: CALCIUM-PROTEIN CORRECTED 8.4 MG/DL (8.5-10.1)
[2017-07-18 09:47] VITALS: BP 139/85; PULSE 84; RESP 20; TEMP 98; O2SAT 95
[2017-07-18 12:35] VITALS: BP 103/59; PULSE 87; RESP 20; TEMP 98.9; O2SAT 96
--- NOTE | 2017-07-18 12:55 | HHI.NPPN ---
Subjective History of Present Illness 66 year old with hematuria s/p kidney transplant Additional Remarks No acute complaints Review of Systems Genitourinary Genitourinary: Frequency (hematuria) Objective Data Data 07/18/17 07/19/17 18:59 06:59 Output Total 1200 ml Balance -1200 ml Output Urine Total 1200 ml # Bowel Movements 1 Vital Signs Date Time Temp Pulse Resp B/P (MAP) Pulse Ox O2 Delivery O2 Flow Rate FiO2 07/18/17 12:35 98.9 87 20 103/59 (74) 96 07/18/17 09:47 98.0 84 20 139/85 (103) 95 07/18/17 04:30 98.3 88 17 131/69 (89) 100 07/18/17 00:53 98.4 94 17 132/76 (94) 98 07/17/17 20:00 97.9 103 17 133/83 (100) 99 07/17/17 16:33 98.6 90 20 138/81 (100) 97 -: 07/18/17 0803 07/18/17 0803 Physical Exam General Appearance: Well Developed Neck Neck Exam: Neck Supple Pulmonary Resp Exam: Clear Bilaterally, Breath Sounds Equal Cardiology CV Exam: Regular, Normal Sinus Rhythm Gastrointestinal/Abdomen GI Exam: Soft, Non-Tender, Bowel Sounds Present Extremeties Extremities Exam: No Edema Neurologic Neuro Exam: Alert, Awake Assessment/Plan Problem List: (1) History of kidney transplant ICD Codes: Z94.0 - History of kidney transplant Status: Chronic Plan: Creatinine remains stable (0.63) She is on Prograf for 2 mg in the morning and 1 mg in the evening Continue with the prednisone 5 mg daily Follow BMP. S/P resection of bladder tumor, hematuria resolved. Follow pathology with On ampicillin for enterococcus UTI. Continue to monitor and follow with ID (2) Hematuria ICD Codes: R31.9 - Hematuria, unspecified Status: Acute Plan: Urology is following, s/p bladder tumor resection (3) HTN (hypertension) ICD Codes: I10 - Hypertension Status: Chronic Plan: Continue to monitor Problem Qualifiers (1) Hematuria: Cee Apodaca MD Jul 18, 2017 12:55
[2017-07-18] MEDS ORDERED: LACTGRA PO (14:32)
[2017-07-18] MEDS ORDERED: AMPI500C8 PO (14:32)
--- NOTE | 2017-07-18 14:33 | HHI.DS ---
Discharge Summary Admission Date Jul 14, 2017 at 12:08 Discharge Date: Jul 18, 2017 Admitting Diagnosis severe anemia. Hematuria. (1) Severe anemia ICD Code: D64.9 - Anemia, unspecified Diagnosis: Principal Status: Acute (2) Hematuria ICD Code: R31.9 - Hematuria, unspecified Diagnosis: Principal Status: Acute (3) History of kidney transplant ICD Code: Z94.0 - History of kidney transplant Diagnosis: Principal Status: Chronic Procedures cystoscopy and bladder mass removal Brief History - From Admission patient is a 66 y/o female with history of polycystic kidney disease- s/p kidney transplant, presented to ER with hematuria. she says that she started to have hematuria five weeks ago and this has been gradually getting worse. she was seen by and was supposed to have cystoscopy. she says that she was so weak today that she even couldn't go to her physician's office. she reports some dysuria and also some fever and chills last night.she denies any chest pain or sob. she denies any abdominal pain, nausea or vomiting. she's being followed up by . CBC/BMP: 07/18/17 0803 07/18/17 0803 Significant Findings Laboratory Tests Test 07/15/17 19:55 07/16/17 09:03 07/16/17 18:12 07/17/17 04:32 Random Glucose 142 MG/DL (74-106) 131 MG/DL (74-106) 112 MG/DL (74-106) Total Protein 5.4 GM/DL (6.4-8.2) 5.2 GM/DL (6.4-8.2) 4.7 GM/DL (6.4-8.2) Calcium Level 6.8 MG/DL (8.5-10.1) 6.8 MG/DL (8.5-10.1) 7.3 MG/DL (8.5-10.1) Estimat Glomerular Filtration Rate 56 ML/MIN (>89) 71 ML/MIN (>89) 63 ML/MIN (>89) Protein Corrected Calcium 7.7 MG/DL (8.5-10.1) 7.8 MG/DL (8.5-10.1) White Blood Count 23.8 TH/MM3 (4.0-11.0) 15.8 TH/MM3 (4.0-11.0) Red Blood Count 3.33 MIL/MM3 (4.00-5.30) 3.06 MIL/MM3 (4.00-5.30) Hemoglobin 9.5 GM/DL (11.6-15.3) 8.5 GM/DL (11.6-15.3) Hematocrit 28.9 % (35.0-46.0) 27.1 % (35.0-46.0) Red Cell Distribution Width 20.9 % (11.6-17.2) 21.0 % (11.6-17.2) Neutrophils (%) (Auto) 96.7 % (16.0-70.0) 92.3 % (16.0-70.0) Lymphocytes (%) (Auto) 1.1 % (9.0-44.0) 2.9 % (9.0-44.0) Neutrophils # (Auto) 23.0 TH/MM3 (1.8-7.7) 14.6 TH/MM3 (1.8-7.7) Lymphocytes # (Auto) 0.3 TH/MM3 (1.0-4.8) 0.5 TH/MM3 (1.0-4.8) Potassium Level 3.4 MEQ/L (3.5-5.1) Chloride Level 108 MEQ/L (98-107) 113 MEQ/L (98-107) Carbon Dioxide Level 19.3 MEQ/L (21.0-32.0) 19.5 MEQ/L (21.0-32.0) Urine Protein 30 mg/dL (NEG-TRACE) Urine Occult Blood MOD (NEG) Urine Leukocyte Esterase LARGE (NEG) Urine RBC 9 /hpf (0-3) Urine WBC 43 /hpf (0-5) Urine Bacteria RARE /hpf (NONE) Urine Mucus FEW /lpf (OCC) Mean Corpuscular Hemoglobin Concent 31.6 % (32.0-36.0) Blood Urea Nitrogen 24 MG/DL (7-18) Test 07/18/17 08:03 Red Blood Count 3.41 MIL/MM3 (4.00-5.30) Hemoglobin 9.5 GM/DL (11.6-15.3) Hematocrit 29.6 % (35.0-46.0) Red Cell Distribution Width 20.6 % (11.6-17.2) Neutrophils (%) (Auto) 78.1 % (16.0-70.0) Lymphocytes (%) (Auto) 8.6 % (9.0-44.0) Monocytes (%) (Auto) 9.7 % (0.0-8.0) Lymphocytes # (Auto) 0.6 TH/MM3 (1.0-4.8) Total Protein 4.9 GM/DL (6.4-8.2) Calcium Level 7.2 MG/DL (8.5-10.1) Chloride Level 112 MEQ/L (98-107) Protein Corrected Calcium 8.4 MG/DL (8.5-10.1) Imaging Last Impressions Chest X-Ray 07/14/17 1032 Signed Impressions: Service Date/Time: June 10:37 - CONCLUSION: 1. Focal nodular opacity within the right upper lung field which is indeterminate. CT of the chest may be helpful for further evaluation of this finding. 2. Bibasilar streaky densities are stable and likely consistent with chronic fibrotic scarring and/or bronchiectasis. 3. Degenerative changes and scoliosis of the thoracic spine. Faraz Ortega MD Chest CT 07/14/17 0000 Signed Impressions: Service Date/Time: June 22:15 - CONCLUSION: 1. Scarring or atelectasis in the upper right lung and left lung base. No pleural effusion. Small pericardial effusion. 2. Numerous hepatic and renal cysts similar to 2014. Armond Kang MD PE at Discharge GENERAL: This is a well-nourished, well-developed patient, laying i bed CARDIOVASCULAR: Regular rate and regular rhythm without murmurs. RESPIRATORY: Clear to auscultation. Breath sounds equal bilaterally. No wheezes. GASTROINTESTINAL: Abdomen soft, non-tender, nondistended. MUSCULOSKELETAL: Extremities without edema. : posadas in place, yellow urine noted NEURO: Alert & Oriented. Moves all ext x4 Pt update on day of discharge Pt feeling well. Denies any CP/SOB/N/V Tolerating diet. Hospital Course - anemia - acute due to blood loss/hematuria s/p 4 units PRBC - continue to monitor H/H. Hb now stable at 9.5. Will monitor closely. -hematuria with history of polycystic kidney disease- s/p kidney transplant on immunosuppressants- evaluated by both urology and nephrology she is s/p cystoscopy and transurethral resection of bladder tumor >5cm POD3. From a urological standpoint she can be discharged. -sepsis- possible UTI- continue IV antibiotic- blood cx neg to date. pt on ampicillin per ID. appreciate recs. uring cx growing enterococcus sensitive to ampicillin. Repeat urine w no growth x 48 hrs. Discussed w ID and she has been cleared for discharge from an ID standpoint and should finish course of ampicillin for an additional 7 days. Added lactinex to be taken w abx. Pt Condition on Discharge: Stable Discharge Disposition: Discharge Home Discharge Time: > 30 minutes Discharge Instructions DIET: Follow Instructions for: Heart Healthy Diet Activities you can perform: Regular-No Restrictions Follow up Referrals: Nephrology - 1 Week PCP Follow-up - 1 Week Urology - 1 Week New Medications: Ampicillin (Ampicillin) 500 Mg Cap 500 MG PO QID for 7 Days, CAP Lactobacillus Acidophilus (Lactinex Packet) 1 Gm Pkt 1 GM PO TID for Nutritional Supplement, #90 PKT 0 Refills Continued Medications: Alendronate (Fosamax) 70 Mg Tab 35 MG PO Q7D for Osteoporosis Treatment, #4 TAB 0 Refills Calcium Carbonate/Vitamin D3 (Calcium 600 + Vit D Tablet) 1 Each Tablet 1 TAB PO DAILY Leflunomide (Leflunomide) 20 Mg Tab 20 MG PO DAILY, TAB Magnesium (Sm Magnesium) 250 Mg Tab 500 MG PO DAILY Metoprolol Tartrate (Metoprolol Tartrate) 25 Mg Tab 12.5 MG PO BID, #60 TAB 0 Refills Multivit with Calcium,Iron,Min (Multiple Vitamins For Women) 1 Each Tablet 1 TAB PO DAILY Prednisolone Odt (Prednisolone Odt) 10 Mg Tab 5 MG SL DAILY, TAB 0 Refills Tacrolimus (Prograf) 1 Mg Cap 3 MG PO DAILY for Prevent Transplant Reject, #60 CAP 0 Refills Celia Terry MD Jul 18, 2017 14:33
[2017-07-18 16:20] VITALS: BP 129/80; PULSE 82; RESP 20; TEMP 98.7; O2SAT 97
== END 2017-07-18 18:24 | disposition home or self-care (01) | DRG 854 ==
LOC: NEPE 09:33 → NEDA 12:08 → N05B 14:56
PROVIDERS: ADMIT Hospitalist; ATTEND Hospitalist
PROC: 30233N1 Transfusion of Nonautologous Red Blood Cells into Peripheral Vein, Percutaneous Approach (ICD-10-PCS; principal; 2017-07-14)
PROC: 0TBB8ZX Excision of Bladder, Via Natural or Artificial Opening Endoscopic, Diagnostic (ICD-10-PCS; 2017-07-15)
DX: A41.9 Sepsis, unspecified organism (principal); D62 Acute posthemorrhagic anemia; I10 Essential (primary) hypertension; Z94.0 Kidney transplant status; K21.9 Gastro-esophageal reflux disease without esophagitis; M81.0 Age-related osteoporosis without current pathological fracture; R31.0 Gross hematuria; N32.9 Bladder disorder, unspecified; Z79.52 Long term (current) use of systemic steroids
CPT/HCPCS: 36430; 51702; 71010; 71250; 80048; 80053; 80197; 81001; 83605; 84155; 85025; 85610; 85730; 86078; 86644; 86850; 86880; 86900; 86901; 86920; 87040; 87077; 87086; 87186; 87205; 88305; 88307; 93005; 96360; J0131; J0290; J0696; J1170; J1940; J2370; J2405; J7030; J7050; J7507; J7510; P9016

== ENCOUNTER 2017-10-05 09:30 | Inpatient (IN) | payer MEDICARE, BC ==
[~2017-10-05] VITALS: Ht 162.6 cm; Wt 49.8 kg
[~2017-10-05 09:30] MED LIST changes: +CIPR-9 PO; +LACTGRA PO
[2017-10-05 09:40] VITALS: BP 132/63; PULSE 110; RESP 16; TEMP 98.7; O2SAT 95
--- NOTE | 2017-10-05 10:23 | PD ---
HPI . Cold and flu symptoms 3 days Chief Complaint: Cold / Flu Symptoms Time Seen by Provider: 09:54 Travel History International Travel<30 days: No Contact w/Intl Traveler<30days: No Traveled to known affect area: No History of Present Illness HPI Well-nourished well-developed 67-year-old female presents emergency department for evaluation of cold and flu symptoms 3 days. Patient states she is nauseated but has only vomited once yesterday. She has body aches and she has intermittently spiked a temperature. The patient's only major medical history is kidney transplant and bladder tumor. She is on immunosuppressants, leflunomide and Prograf for her kidney transplant. She is afebrile in triage however she did state that she took a Tylenol prior to arrival. PFSH Past Medical History Arthritis: No Asthma: No Autoimmune Disease: No Anxiety: No Depression: No Heart Rhythm Problems: No Cancer: No Cardiovascular Problems: Yes (HX TACHYCARDIA) High Cholesterol: No Chemotherapy: No Chest Pain: No Congestive Heart Failure: No COPD: No Cerebrovascular Accident: No Diabetes: No Diminished Hearing: No Endocrine: No Gastrointestinal Disorders: Yes (HX GERD) GERD: Yes Genitourinary: Yes (kidney transplant 2008 ) Hiatal Hernia: No Hypertension: Yes Immune Disorder: No Implanted Vascular Access Dvce: Yes Kidney Stones: No Musculoskeletal: Yes (RIGHT PATELLA FX) Neurologic: No Psychiatric: No Reproductive: No Respiratory: No Immunizations Current: Yes Migraines: No Radiation Therapy: No Renal Failure: Yes Seizures: No Sickle Cell Disease: No Sleep Apnea: No Thyroid Disease: No Ulcer: No Influenza Vaccination: Yes ?: Not Past Surgical History Abdominal Surgery: Yes (TENCKOFF CATH IMP AND REMOVAL) AICD: No Appendectomy: No Arteriovenous Shunt: No Body Medical Devices: pd cath right abdomen Cardiac Surgery: No Cholecystectomy: No Ear Surgery: No Endocrine Surgery: No Eye Surgery: No Genitourinary Surgery: Yes (KIDNEY TRANSPLANT) Gynecologic Surgery: No Insulin Pump: No Joint Replacement: No Oral Surgery: No Pacemaker: No Thoracic Surgery: No Other Surgery: Yes (KIDNEY TRANSPLANT-RIGHT) Social History Alcohol Use: Yes (rarely) Tobacco Use: No Substance Use: No Allergies-Medications (Allergen,Severity, Reaction): Coded Allergies: No Known Allergies (Verified Adverse Reaction, Unknown, 10/05/17) Reported Meds & Prescriptions Reported Meds & Active Scripts Active Reported Multiple Vitamins For Women (Multivit with Calcium,Iron,Min) 1 Each Tablet 1 Tab PO DAILY Sm Magnesium (Magnesium) 250 Mg Tab 500 Mg PO DAILY Calcium 600 + Vit D Tablet (Calcium Carbonate/Vitamin D3) 1 Each Tablet 1 Tab PO DAILY Fosamax (Alendronate Sodium) 70 Mg Tab 35 Mg PO Q7D Metoprolol Tartrate 25 Mg Tab 12.5 Mg PO BID Prednisolone Odt 10 Mg Tab 5 Mg SL DAILY Leflunomide 20 Mg Tab 20 Mg PO DAILY Prograf (Tacrolimus) 1 Mg Cap 3 Mg PO DAILY Review of Systems Except as stated in HPI: all other systems reviewed are Neg Physical Exam Narrative GENERAL: Well-nourished, well-developed 67-year-old female patient in no acute distress. SKIN: Focused skin assessment warm/dry. HEAD: Normocephalic. Atraumatic. EYES: No scleral icterus. No injection or drainage. THROAT: No pharyngeal injection, exudates, or tonsillar hypertrophy. Airway is patent. NECK: Supple, trachea midline. No JVD or lymphadenopathy. CARDIOVASCULAR: Regular rate and rhythm without murmurs, gallops, or rubs. RESPIRATORY: Breath sounds equal bilaterally. No accessory muscle use. GASTROINTESTINAL: Abdomen soft, non-tender, nondistended. MUSCULOSKELETAL: No cyanosis, or edema. BACK: Nontender without obvious deformity. No CVA tenderness. Data Data Last Documented VS Vital Signs Date Time Temp Pulse Resp B/P (MAP) Pulse Ox O2 Delivery O2 Flow Rate FiO2 10/05/17 11:07 96 10/05/17 09:40 98.7 110 16 132/63 (86) Orders Orders Influenzae A/B Antigen (10/05/17 09:52) Complete Blood Count With Diff (10/05/17 10:40) Comprehensive Metabolic Panel (10/05/17 10:40) Lactic Acid Sepsis Protocol (10/05/17 10:40) Urinalysis - C+S If Indicated (10/05/17 10:40) Blood Culture (10/05/17 10:40) Ecg Monitoring (10/05/17 10:40) Iv Access Insert/Monitor (10/05/17 10:40) Oximetry (10/05/17 10:40) Urine Culture (10/05/17 10:53) Piperacil-Tazo 4.5 Gm Premix (Zosyn 4.5 (10/05/17 11:26) Labs Laboratory Tests Test 10/05/17 10:53 10/05/17 11:00 Urine Collection Type CATH Urine Color YELLOW Urine Turbidity SLIGHT Urine pH 5.5 Urine Specific [place] 1.015 Urine Protein 30 mg/dL Urine Glucose (UA) NEG mg/dL Urine Ketones NEG mg/dL Urine Occult Blood TRACE Urine Nitrite NEG Urine Bilirubin NEG Urine Leukocyte Esterase MOD Urine RBC 10-14 /hpf Urine WBC INNUM /hpf Urine WBC Clumps MOD Urine Squamous Epithelial Cells 0-5 /hpf Urine Bacteria FEW /hpf Microscopic Urinalysis Comment CULTURE INDICATED Urine Collection Time 10:53Y White Blood Count 15.2 TH/MM3 Red Blood Count 4.07 MIL/MM3 Hemoglobin 11.5 GM/DL Hematocrit 34.8 % Mean Corpuscular Volume 85.6 FL Mean Corpuscular Hemoglobin 28.2 PG Mean Corpuscular Hemoglobin Concent 32.9 % Red Cell Distribution Width 16.8 % Platelet Count 270 TH/MM3 Mean Platelet Volume 8.8 FL Neutrophils (%) (Auto) 86.2 % Lymphocytes (%) (Auto) 2.8 % Monocytes (%) (Auto) 9.5 % Eosinophils (%) (Auto) 0.4 % Basophils (%) (Auto) 1.1 % Neutrophils # (Auto) 13.1 TH/MM3 Lymphocytes # (Auto) 0.4 TH/MM3 Monocytes # (Auto) 1.4 TH/MM3 Eosinophils # (Auto) 0.1 TH/MM3 Basophils # (Auto) 0.2 TH/MM3 CBC Comment DIFF FINAL Differential Comment Blood Urea Nitrogen 24 MG/DL Creatinine 1.40 MG/DL Random Glucose 107 MG/DL Total Protein 7.6 GM/DL Albumin 3.0 GM/DL Calcium Level 9.1 MG/DL Alkaline Phosphatase 73 U/L Aspartate Amino Transf (AST/SGOT) 22 U/L Alanine Aminotransferase (ALT/SGPT) 22 U/L Total Bilirubin 0.5 MG/DL Sodium Level 134 MEQ/L Potassium Level 3.7 MEQ/L Chloride Level 102 MEQ/L Carbon Dioxide Level 23.1 MEQ/L Anion Gap 9 MEQ/L Estimat Glomerular Filtration Rate 37 ML/MIN Lactic Acid Level 1.2 mmol/L [facility] Medical Decision Making Medical Screen Exam Complete: Yes Emergency Medical Condition: Yes Differential Diagnosis Differential diagnoses include but not limited to urinary tract infection, influenza, viral syndrome, sepsis Narrative Course 67-year-old female presents emergency department for evaluation of fever and malaise. Patient is on immunosuppressive medications leflunomide and Prograf for her kidney transplant. Patient is afebrile triage however she took Tylenol prior to arrival for her fever at home. She denies any nasal congestion, cough , ear pain, sore throat. Due to the complaint of fever and malaise influenza ordered and pending. Influenza negative. Patient case discussed with my attending Dr. Saenz. It was recommended to obtain blood work for sepsis protocol prior to her being discharged due to her high risk. Patient has leukocytosis and a urinary tract infection. Patient will be admitted for sepsis secondary to urinary tract infection. Dr. Maloney returned page and accepted admission. Diagnosis Primary Impression: Sepsis due to urinary tract infection Admitting Information Admitting Physician Requests: Observation Patient Instructions: General Instructions Condition: Serious Fatuma Gale [facility] Oct 05, 2017 10:23
[2017-10-05 11:07] VITALS: O2SAT 96
[2017-10-05 11:08] LABS: BLOOD, URINE TRACE (NEG); GLUCOSE,URINE NEG (NEG); KETONE, URINE NEG (NEG); NITRITE,URINE NEG (NEG); PH, URINE 5.5 (5.0-8.5)
[2017-10-05 11:09] LABS: AUTOMATED NEUTROPHIL # 13.1 TH/MM3 (1.8-7.7); BASOPHIL # 0.2 TH/MM3 (0-0.2); BASOPHIL % 1.1 % (0.0-2.0); EOSINOPHIL # 0.1 TH/MM3 (0-0.4); EOSINOPHIL % 0.4 % (0.0-4.0); HEMATOCRIT 34.8 % (35.0-46.0); LYMPH % 2.8 % (9.0-44.0); LYMPHOCYTE # 0.4 TH/MM3 (1.0-4.8); MEAN CELL VOLUME 85.6 FL (80.0-100.0); MEAN CORPUSCULAR HEMOGLOBIN 28.2 PG (27.0-34.0); MEAN CORPUSCULAR HGB CONC 32.9 % (32.0-36.0); MONO % 9.5 % (0.0-8.0); NEUT % 86.2 % (16.0-70.0); PLATELET COUNT 270 TH/MM3 (150-450); RED BLOOD COUNT 4.07 MIL/MM3 (4.00-5.30); RED CELL DISTRIBUTION WIDTH 16.8 % (11.6-17.2); WHITE BLOOD COUNT 15.2 TH/MM3 (4.0-11.0)
[2017-10-05 11:10] LABS: HEMO FLAGS DIFF FINAL
[2017-10-05 11:13] LABS: METHOD OF COLLECTION CATH
[2017-10-05 11:14] LABS: BACTERIA, URINE FEW /hpf; COMMENT (UR) CULTURE INDICATED; CULTURE IF INDICATED CULTURE INDICATED; SQUAMOUS EPITHELIAL CELL URINE 0-5 /hpf (0-5); URINE COLOR YELLOW (YELLW/STRAW); WBC, URINE INNUM /hpf (0-5)
[2017-10-05 11:25] LABS: CHLORIDE 102 MEQ/L (98-107); POTASSIUM 3.7 MEQ/L (3.5-5.1); SODIUM (NA) 134 MEQ/L (136-145)
[2017-10-05] MEDS ORDERED: PIPERACIL-TAZO 4.5 GM PREMIX 100 ML IV STA (11:26)
[2017-10-05 11:29] LABS: ANION GAP 9 MEQ/L (5-15); BICARBONATE 23.1 MEQ/L (21.0-32.0); BLOOD UREA NITROGEN 24 MG/DL (7-18)
[2017-10-05 11:32] LABS: ALT (GPT) 22 U/L (10-53); AST (GOT) 22 U/L (15-37); GLOMERULAR FILTRATION RATE 37 ML/MIN (>89)
[2017-10-05 11:33] LABS: TOTAL BILIRUBIN ADULT 0.5 MG/DL (0.2-1.0)
[2017-10-05 11:35] LABS: ALKALINE PHOSPHATASE 73 U/L (45-117)
[2017-10-05 12:49] VITALS: BP 126/69; PULSE 89; RESP 16; O2SAT 95
[2017-10-05 14:50] VITALS: BP 159/83; PULSE 92; RESP 20; TEMP 98.5; O2SAT 97
[2017-10-05] MEDS ORDERED: predniSONE 10 MG TAB PO ONE (16:30)
[2017-10-05] MEDS ORDERED: SODIUM CHLOR 0.9% 1000 ML INJ 1,000 ML IV ONE (16:30)
--- NOTE | 2017-10-05 16:33 | HHI.HP ---
HPI Service [facility] Primary Care Physician No Primary Care Physician Admission Diagnosis UTI/sepsis Diagnoses: Travel History International Travel<30 Days: No Contact w/Intl Traveler <30 Da: No Traveled to Known Affected Are: No History of Present Illness 66-year-old female with history of polycystic kidney disease status post kidney transplant right pelvis 8 years ago, as well as history of bladder mass resected in June of this year, presents to the ER with a three-day history of chills, malaise, fevers up to 101 at home. She does report having dysuria 2 weeks ago and completed a 5 day course of Cipro with resolution of this, and denies any dysuria at this time. She reports aching all over, however denies any flank or abdominal pain. As any chest pain or shortness of breath. Denies any cough or sinus issues. Symptoms. Review of Systems Except as stated in HPI: all other systems reviewed are Neg Past Family Social History Past Medical History Polycystic kidney disease status post transplant Tachycardia Past Surgical History Kidney transplant 2008. Resection of bladder mass June 2017. Knee surgery Reported Medications Reported Meds & Active Scripts Active Reported Multiple Vitamins For Women (Multivit with Calcium,Iron,Min) 1 Each Tablet 1 Tab PO DAILY Sm Magnesium (Magnesium) 250 Mg Tab 500 Mg PO DAILY Calcium 600 + Vit D Tablet (Calcium Carbonate/Vitamin D3) 1 Each Tablet 1 Tab PO DAILY Fosamax (Alendronate Sodium) 70 Mg Tab 35 Mg PO Q7D Metoprolol Tartrate 25 Mg Tab 12.5 Mg PO BID Prednisolone Odt 10 Mg Tab 5 Mg SL DAILY Leflunomide 20 Mg Tab 20 Mg PO DAILY Prograf (Tacrolimus) 1 Mg Cap 3 Mg PO DAILY Allergies: Coded Allergies: No Known Allergies (Verified Allergy, Unknown, 10/05/17) Family History Mother from competitions from hepatitis B. Father in his 40s secondary to polycystic kidney disease. Social History Nonsmoker. Occasional drinker. Denies any illicit drugs. Physical Exam Vital Signs Vital Signs Date Time Temp Pulse Resp B/P (MAP) Pulse Ox O2 Delivery O2 Flow Rate FiO2 10/05/17 14:07 10/05/17 12:49 89 16 126/69 (88) 95 10/05/17 11:07 96 10/05/17 09:40 98.7 110 16 132/63 (86) 95 Physical Exam GENERAL: This is a well-nourished, well-developed patient, who is shivering in bed. Alert and oriented 3. SKIN: No rashes, ecchymoses or lesions. Cool and dry. HEAD: Atraumatic. Normocephalic. No temporal or scalp tenderness. EYES: Pupils equal round and reactive. Extraocular motions intact. No scleral icterus. No injection or drainage. ENT: Nose without bleeding, purulent drainage or septal hematoma. Throat without erythema, tonsillar hypertrophy or exudate. Uvula midline. Airway patent. NECK: Trachea midline. No JVD or lymphadenopathy. Supple, nontender, no meningeal signs. CARDIOVASCULAR: Regular rate and rhythm without murmurs, gallops, or rubs. RESPIRATORY: Clear to auscultation. Breath sounds equal bilaterally. No wheezes , rales, or rhonchi. GASTROINTESTINAL: Abdomen soft, non-tender, nondistended. No hepato-splenomegaly , or palpable masses. No guarding. Right lower quadrant surgical scar well- healed. MUSCULOSKELETAL: Extremities without clubbing, cyanosis, or edema. No joint tenderness, effusion, or edema noted. No calf tenderness. Negative Homans sign bilaterally. NEUROLOGICAL: Awake and alert. Cranial nerves II through XII intact. Motor and sensory grossly within normal limits. Five out of 5 muscle strength in all muscle groups. Normal speech. Laboratory Laboratory Tests Test 10/05/17 10:53 10/05/17 11:00 Urine Collection Type CATH Urine Color YELLOW Urine Turbidity SLIGHT Urine pH 5.5 Urine Specific [place] 1.015 Urine Protein 30 Urine Glucose (UA) NEG Urine Ketones NEG Urine Occult Blood TRACE Urine Nitrite NEG Urine Bilirubin NEG Urine Leukocyte Esterase MOD Urine RBC 10-14 Urine WBC INNUM Urine WBC Clumps MOD Urine Squamous Epithelial Cells 0-5 Urine Bacteria FEW Microscopic Urinalysis Comment CULTURE INDICATED Urine Collection Time 10:53Y White Blood Count 15.2 Red Blood Count 4.07 Hemoglobin 11.5 Hematocrit 34.8 Mean Corpuscular Volume 85.6 Mean Corpuscular Hemoglobin 28.2 Mean Corpuscular Hemoglobin Concent 32.9 Red Cell Distribution Width 16.8 Platelet Count 270 Mean Platelet Volume 8.8 Neutrophils (%) (Auto) 86.2 Lymphocytes (%) (Auto) 2.8 Monocytes (%) (Auto) 9.5 Eosinophils (%) (Auto) 0.4 Basophils (%) (Auto) 1.1 Neutrophils # (Auto) 13.1 Lymphocytes # (Auto) 0.4 Monocytes # (Auto) 1.4 Eosinophils # (Auto) 0.1 Basophils # (Auto) 0.2 CBC Comment DIFF FINAL Differential Comment Blood Urea Nitrogen 24 Creatinine 1.40 Random Glucose 107 Total Protein 7.6 Albumin 3.0 Calcium Level 9.1 Alkaline Phosphatase 73 Aspartate Amino Transf (AST/SGOT) 22 Alanine Aminotransferase (ALT/SGPT) 22 Total Bilirubin 0.5 Sodium Level 134 Potassium Level 3.7 Chloride Level 102 Carbon Dioxide Level 23.1 Anion Gap 9 Estimat Glomerular Filtration Rate 37 Lactic Acid Level 1.2 Date/Time Source Procedure Growth Status 10/05/17 11:00 Blood Peripheral Aerobic Blood Culture Pending Received 10/05/17 11:00 Blood Peripheral Anaerobic Blood Culture Pending Received 10/05/17 09:55 Nasal Washing Influenza Types A,B Antigen (DOMINIC) - Final NEGATIVE FOR FLU A AND B ANTIGEN.... Complete 10/05/17 10:53 Urine Clean Catch Urine Culture Pending Received Result Diagram: 10/05/17 1100 10/05/17 1100 Caprini VTE Risk Assessment Caprini VTE Risk Assessment: Mod/High Risk (score >= 2) Caprini Risk Assessment Model Point Value = 1 Point Value = 2 Point Value = 3 Point Value = 5 Age 41-60 Minor surgery BMI > 25 kg/m2 Swollen legs Varicose veins or History of unexplained or recurrent spontaneous Oral contraceptives or hormone replacement Sepsis (< 1 month) Serious lung disease, including pneumonia (< 1 month) Abnormal pulmonary function Acute myocardial infarction Congestive heart failure (< 1 month) History of inflammatory bowel disease Medical patient at bed rest Age 61-74 Arthroscopic surgery Major open surgery (> 45 min) Laparoscopic surgery (> 45 min) Malignancy Confined to bed (> 72 hours) Immobilizing plaster cast Central venous access Age >= 75 History of VTE Family history of VTE Factor V Leiden Prothrombin [id number] Lupus anticoagulant Anticardiolipin antibodies Elevated serum homocysteine Heparin-induced thrombocytopenia Other congenital or acquired thrombophilia Stroke (< 1 month) Elective arthroplasty Hip, pelvis, or leg fracture Acute spinal cord injury (< 1 month) Prophylaxis Regimen Total Risk Factor Score Risk Level Prophylaxis Regimen 0-1 Low Early ambulation 2 Moderate Order ONE of the following: *Sequential Compression Device (SCD) *Heparin 5000 units SQ BID 3-4 Higher Order ONE of the following medications: *Heparin 5000 units SQ TID *Enoxaparin/Lovenox 40 mg SQ daily (WT < 150 kg, CrCl > 30 mL/min) *Enoxaparin/Lovenox 30 mg SQ daily (WT < 150 kg, CrCl > 10-29 mL/min) *Enoxaparin/Lovenox 30 mg SQ BID (WT < 150 kg, CrCl > 30 mL/min) AND/OR *Sequential Compression Device (SCD) 5 or more Highest Order ONE of the following medications: *Heparin 5000 units SQ TID (Preferred with Epidurals) *Enoxaparin/Lovenox 40 mg SQ daily (WT < 150 kg, CrCl > 30 mL/min) *Enoxaparin/Lovenox 30 mg SQ daily (WT < 150 kg, CrCl > 10-29 mL/min) *Enoxaparin/Lovenox 30 mg SQ BID (WT < 150 kg, CrCl > 30 mL/min) AND *Sequential Compression Device (SCD) Assessment and Plan Assessment and Plan //Severe Sepsis -Tachycardia 110, with leukocytosis 15 on admission. Measured fevers at home of 101. CHENTE with creatinine 1.4 from baseline 0.6. Lactate 1.2 on admission. -Suspected UTI. -Blood cultures, urine cultures ordered and pending. //Complicated UTI. -History of resected bladder mass in June of this year. -Urinalysis with white blood cell clumps. -With CHENTE 1.4, will avoid CT scan now. Check //CHENTE. //History of PCKD with renal transplant. - Creatinine 1.4 on admission from baseline 0.6. -Ultrasound kidneys ordered and pending. -IV fluids ordered. Check tacrolimus level in the morning. Consult nephrology. Appreciate assistance.- //Tachycardia. Chronic. -Patient's heart rate above baseline at 110 on admission. Likely secondary to infection. Continue metoprolol. //Adrenal insufficiency. On prednisolone daily at home. We'll give prednisone 10 mg 1 on admission. Continue home dose tomorrow. /Prophylaxis. SCDs. Discussed Condition With Patient, nurse, Dr Maloney Physician Certification 2 Midnight Certification Type: Admission for Inpatient Services Order for Inpatient Services The services are ordered in accordance with Medicare regulations or non- Medicare payer requirements, as applicable. In the case of services not specified as inpatient-only, they are appropriately provided as inpatient services in accordance with the 2-midnight benchmark. Estimated LOS (days): 2 days is the estimated time the patient will need to remain in the hospital, assuming treatment plan goals are met and no additional complications. Post-Hospital Plan: Home Krzysztof Maddox MD Oct 05, 2017 16:33
[2017-10-05] MEDS: SODIUM CHLOR 0.9% 1000 ML INJ 1,000 ML IV SCH (17:22)
--- NOTE | 2017-10-05 18:23 | PD.CONS ---
HPI Service Nephrology Consult Requested By Dr. Patel Reason for Consult Kidney Transplant Primary Care Physician No Primary Care Physician History of Present Illness 67 year old female with kidney Transplant since 2008, she had UTI and recently had resection of high grade bladder carcinoma in June, she has BK virus in urine maintained on Prednisone and Prograf 2 mg q am 1 mg q pm, she had dysuria , stated having fever and developed joint aches, she has UTI again. Review of Systems Constitutional: COMPLAINS OF: Fatigue, Fever Endocrine: DENIES: Abnorml menstrual pattern, Heat/cold intolerance, Polydipsia , Polyuria, Polyphagia Eyes: DENIES: Blurred vision, Diplopia, Eye inflammation, Eye pain, Vision loss , Photosensitivity, Double Vision Ears, nose, mouth, throat: DENIES: Tinnitus, Hearing loss, Vertigo, Nasal discharge, Oral lesions, Throat pain, Hoarseness, Ear Pain, Running Nose, Epistaxis, Sinus Pain, Toothache, Odynophagia Respiratory: DENIES: Apneas, Cough, Snoring, Wheezing, Hemoptysis, Sputum production, Shortness of breath Cardiovascular: DENIES: Chest pain, Palpitations, Syncope, Dyspnea on Exertion , PND, Lower Extremity Edema, Orthopnea, Claudication Gastrointestinal: DENIES: Abdominal pain, Black stools, Bloody stools, Constipation, Diarrhea, Nausea, Vomiting, Difficulty Swallowing, Anorexia Genitourinary: COMPLAINS OF: Urinary frequency, Dysuria Musculoskeletal: COMPLAINS OF: Joint pain Neurologic: DENIES: Abnormal gait, Headache, Localized weakness, Paresthesias, Seizures, Speech Problems, Tremor, Poor Balance Psychiatric: COMPLAINS OF: Anxiety Past Family Social History Allergies: Coded Allergies: No Known Allergies (Verified Allergy, Unknown, 10/05/17) Past Medical History Kidney transplant ESRD was on PD Polycystic kidney disease UTI Bladder cancer hypertension 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 Resection of bladder mass June 2017. Knee surgery Tenkhoff catheter placement and removal Hernia repair Reported Medications Reported Meds & Active Scripts Active Reported Multiple Vitamins For Women (Multivit with Calcium,Iron,Min) 1 Each Tablet 1 Tab PO DAILY Sm Magnesium (Magnesium) 250 Mg Tab 500 Mg PO DAILY Calcium 600 + Vit D Tablet (Calcium Carbonate/Vitamin D3) 1 Each Tablet 1 Tab PO DAILY Fosamax (Alendronate Sodium) 70 Mg Tab 35 Mg PO Q7D Metoprolol Tartrate 25 Mg Tab 12.5 Mg PO BID Prednisolone Odt 10 Mg Tab 5 Mg SL DAILY Leflunomide 20 Mg Tab 20 Mg PO DAILY Prograf (Tacrolimus) 1 Mg Cap 3 Mg PO DAILY Active Ordered Medications Current Medications Medications (Trade) Dose Ordered Sig/Art Route Start Time Stop Time Status Last Admin (Lopressor) 12.5 mg BID PO 10/05/17 21:00 (Orapred Odt) 5 mg DAILY SL 10/06/17 09:00 (Prograf) 3 mg DAILY PO 10/06/17 09:00 Piperacillin Sod/ Tazobactam Sod 50 ml @ 100 mls/hr Q6H IV 10/05/17 18:00 Sodium Chloride 1,000 ml @ 84 mls/hr [id number] IV 10/05/17 16:30 10/05/17 17:22 Family History non contributory Social History denies smoking or ETOH Physical Exam Vital Signs Vital Signs Date Time Temp Pulse Resp B/P (MAP) Pulse Ox O2 Delivery O2 Flow Rate FiO2 10/05/17 14:50 98.5 92 20 159/83 (108) 97 10/05/17 14:07 10/05/17 12:49 89 16 126/69 (88) 95 10/05/17 11:07 96 10/05/17 09:40 98.7 110 16 132/63 (86) 95 Physical Exam GENERAL: Well-nourished, well-developed patient. SKIN: Warm and dry. HEAD: Normocephalic. EYES: No scleral icterus. No injection or drainage. NECK: Supple, trachea midline. No JVD or lymphadenopathy. CARDIOVASCULAR: Regular rate and rhythm without murmurs, gallops, or rubs. RESPIRATORY: Breath sounds equal bilaterally. No accessory muscle use. GASTROINTESTINAL: Abdomen soft, non-tender, nondistended. EXTREMITIES: No cyanosis, or edema. NEUROLOGICAL: Awake, alert, and oriented x 3. Non-focal. Laboratory Laboratory Tests Test 10/05/17 10:53 10/05/17 11:00 Urine Collection Type CATH Urine Color YELLOW Urine Turbidity SLIGHT Urine pH 5.5 Urine Specific [place] 1.015 Urine Protein 30 Urine Glucose (UA) NEG Urine Ketones NEG Urine Occult Blood TRACE Urine Nitrite NEG Urine Bilirubin NEG Urine Leukocyte Esterase MOD Urine RBC 10-14 Urine WBC INNUM Urine WBC Clumps MOD Urine Squamous Epithelial Cells 0-5 Urine Bacteria FEW Microscopic Urinalysis Comment CULTURE INDICATED Urine Collection Time 10:53Y White Blood Count 15.2 Red Blood Count 4.07 Hemoglobin 11.5 Hematocrit 34.8 Mean Corpuscular Volume 85.6 Mean Corpuscular Hemoglobin 28.2 Mean Corpuscular Hemoglobin Concent 32.9 Red Cell Distribution Width 16.8 Platelet Count 270 Mean Platelet Volume 8.8 Neutrophils (%) (Auto) 86.2 Lymphocytes (%) (Auto) 2.8 Monocytes (%) (Auto) 9.5 Eosinophils (%) (Auto) 0.4 Basophils (%) (Auto) 1.1 Neutrophils # (Auto) 13.1 Lymphocytes # (Auto) 0.4 Monocytes # (Auto) 1.4 Eosinophils # (Auto) 0.1 Basophils # (Auto) 0.2 CBC Comment DIFF FINAL Differential Comment Blood Urea Nitrogen 24 Creatinine 1.40 Random Glucose 107 Total Protein 7.6 Albumin 3.0 Calcium Level 9.1 Alkaline Phosphatase 73 Aspartate Amino Transf (AST/SGOT) 22 Alanine Aminotransferase (ALT/SGPT) 22 Total Bilirubin 0.5 Sodium Level 134 Potassium Level 3.7 Chloride Level 102 Carbon Dioxide Level 23.1 Anion Gap 9 Estimat Glomerular Filtration Rate 37 Lactic Acid Level 1.2 Date/Time Source Procedure Growth Status 10/05/17 11:00 Blood Peripheral Aerobic Blood Culture Pending Received 10/05/17 11:00 Blood Peripheral Anaerobic Blood Culture Pending Received 10/05/17 09:55 Nasal Washing Influenza Types A,B Antigen (DOMINIC) - Final NEGATIVE FOR FLU A AND B ANTIGEN.... Complete 10/05/17 10:53 Urine Clean Catch Urine Culture Pending Received Result Diagram: 10/05/17 1100 10/05/17 1100 Assessment and Plan Problem List: (1) History of kidney transplant ICD Codes: Z94.0 - History of kidney transplant Status: Chronic Plan: Change Tacrolimus dose to 2 mg q am 1 mg q pm follow c/s use antibiotics high grade Urinary bladder worrisome for recurrence minimize immunosuppression discontinue Leflunomide (2) Sepsis due to urinary tract infection ICD Codes: A41.9 - Sepsis, unspecified organism; N39.0 - Urinary tract infection, site not specified Status: Acute Plan: follow C/S (3) Bladder cancer ICD Codes: C67.9 - Malignant neoplasm of bladder, unspecified Plan: it was high grade cancer follow with urology Paulie,Sajid MD Oct 05, 2017 18:23
[2017-10-05] MEDS: PIPERACIL-TAZO 3.375 GM PREMIX 50 ML IV SCH (18:42)
--- NOTE | 2017-10-05 19:39 | PD ---
Physical Exam Date Seen by Provider: Oct 05, 2017 Time Seen by Provider: 10:30 Narrative I, Dr. Saenz, have reviewed the advance practice practitioner's documentation and am in agreement, met with the patient face to face, made the diagnosis, and the medical decision making was done by me. *My assessment and Findings: Patient seen and evaluated with nurse practitioner , please see nurse practitioner for further details. Patient has history of being on several medications with effects on reevaluation, and is here for not feeling well, body aches, nausea, equivocal symptoms. Workup was done to rule out underlying sepsis. Laboratory Tests Test 10/05/17 10:53 10/05/17 11:00 Urine Protein 30 mg/dL (NEG-TRACE) Urine Leukocyte Esterase MOD (NEG) Urine RBC 10-14 /hpf (0-3) Urine WBC INNUM /hpf (0-5) Urine WBC Clumps MOD (NONE) Urine Bacteria FEW /hpf (NONE) White Blood Count 15.2 TH/MM3 (4.0-11.0) Hemoglobin 11.5 GM/DL (11.6-15.3) Hematocrit 34.8 % (35.0-46.0) Neutrophils (%) (Auto) 86.2 % (16.0-70.0) Lymphocytes (%) (Auto) 2.8 % (9.0-44.0) Monocytes (%) (Auto) 9.5 % (0.0-8.0) Neutrophils # (Auto) 13.1 TH/MM3 (1.8-7.7) Lymphocytes # (Auto) 0.4 TH/MM3 (1.0-4.8) Monocytes # (Auto) 1.4 TH/MM3 (0-0.9) Blood Urea Nitrogen 24 MG/DL (7-18) Creatinine 1.40 MG/DL (0.50-1.00) Random Glucose 107 MG/DL (74-106) Albumin 3.0 GM/DL (3.4-5.0) Sodium Level 134 MEQ/L (136-145) Estimat Glomerular Filtration Rate 37 ML/MIN (>89) Lab work shows significant UTI and there is concern for underlying sepsis especially in setting of immunocompromised, IV antibiotics were initiated cultures are done and patient is admitted for further treatment. Data Data Last Documented VS Vital Signs Date Time Temp Pulse Resp B/P (MAP) Pulse Ox O2 Delivery O2 Flow Rate FiO2 10/05/17 11:07 96 10/05/17 09:40 98.7 110 16 132/63 (86) Orders Orders Influenzae A/B Antigen (10/05/17 09:52) Complete Blood Count With Diff (10/05/17 10:40) Comprehensive Metabolic Panel (10/05/17 10:40) Lactic Acid Sepsis Protocol (10/05/17 10:40) Urinalysis - C+S If Indicated (10/05/17 10:40) Blood Culture (10/05/17 10:40) Ecg Monitoring (10/05/17 10:40) Iv Access Insert/Monitor (10/05/17 10:40) Oximetry (10/05/17 10:40) Urine Culture (10/05/17 10:53) Piperacil-Tazo 4.5 Gm Premix (Zosyn 4.5 (10/05/17 11:26) Admit To Inpatient (10/05/17 ) Vital Signs (Adult) BREANNA.Q4H (10/05/17 12:34) Activity Oob With Assistance (10/05/17 12:34) Inpatient Certification (10/05/17 ) Admit Order (Ed Use Only) (10/05/17 12:40) Labs Laboratory Tests Test 10/05/17 10:53 10/05/17 11:00 Urine Collection Type CATH Urine Color YELLOW Urine Turbidity SLIGHT Urine pH 5.5 Urine Specific [place] 1.015 Urine Protein 30 mg/dL Urine Glucose (UA) NEG mg/dL Urine Ketones NEG mg/dL Urine Occult Blood TRACE Urine Nitrite NEG Urine Bilirubin NEG Urine Leukocyte Esterase MOD Urine RBC 10-14 /hpf Urine WBC INNUM /hpf Urine WBC Clumps MOD Urine Squamous Epithelial Cells 0-5 /hpf Urine Bacteria FEW /hpf Microscopic Urinalysis Comment CULTURE INDICATED Urine Collection Time 10:53Y White Blood Count 15.2 TH/MM3 Red Blood Count 4.07 MIL/MM3 Hemoglobin 11.5 GM/DL Hematocrit 34.8 % Mean Corpuscular Volume 85.6 FL Mean Corpuscular Hemoglobin 28.2 PG Mean Corpuscular Hemoglobin Concent 32.9 % Red Cell Distribution Width 16.8 % Platelet Count 270 TH/MM3 Mean Platelet Volume 8.8 FL Neutrophils (%) (Auto) 86.2 % Lymphocytes (%) (Auto) 2.8 % Monocytes (%) (Auto) 9.5 % Eosinophils (%) (Auto) 0.4 % Basophils (%) (Auto) 1.1 % Neutrophils # (Auto) 13.1 TH/MM3 Lymphocytes # (Auto) 0.4 TH/MM3 Monocytes # (Auto) 1.4 TH/MM3 Eosinophils # (Auto) 0.1 TH/MM3 Basophils # (Auto) 0.2 TH/MM3 CBC Comment DIFF FINAL Differential Comment Blood Urea Nitrogen 24 MG/DL Creatinine 1.40 MG/DL Random Glucose 107 MG/DL Total Protein 7.6 GM/DL Albumin 3.0 GM/DL Calcium Level 9.1 MG/DL Alkaline Phosphatase 73 U/L Aspartate Amino Transf (AST/SGOT) 22 U/L Alanine Aminotransferase (ALT/SGPT) 22 U/L Total Bilirubin 0.5 MG/DL Sodium Level 134 MEQ/L Potassium Level 3.7 MEQ/L Chloride Level 102 MEQ/L Carbon Dioxide Level 23.1 MEQ/L Anion Gap 9 MEQ/L Estimat Glomerular Filtration Rate 37 ML/MIN Lactic Acid Level 1.2 mmol/L [facility] Medical Record Reviewed: Yes Supervised Visit with VIANEY: Yes Diagnosis Primary Impression: Sepsis due to urinary tract infection Admitting Information Admitting Physician Requests: Admit Referrals: Primary Care Physician call for appointment Patient Instructions: General Instructions Departure Forms: Tests/Procedures Condition: Serious Catrachita Saenz MD Oct 05, 2017 19:39
[2017-10-05 20:00] VITALS: BP 143/79; PULSE 107; RESP 21; TEMP 100; O2SAT 95
--- NOTE | 2017-10-05 20:05 | RADRPT ---
EXAM DATE/TIME: 10/05/2017 17:02 [place] COMPARISON: US KIDNEY / TRANSPLANT, August 28, 2009, 22:11. EXTERNAL COMPARISON : [facility], CT Abdomen, June 29, 2017 INDICATIONS : Obstrucion. MEDICAL HISTORY : Hypertension. GERD. Osteoporosis. Polycystic disease. UTI. Anemia. Tachycardia. Osteoarthritis. SURGICAL HISTORY : Right knee surgery. Kidney transplant. Right patella fracture. Peritoneal dialysis. Abdominal tenkoff catheter. ENCOUNTER: Initial ACUITY: 1 day PAIN SCORE: 0/10 LOCATION: Right lower quadrant MEASUREMENTS: TRANSPLANT KIDNEY: 13.6 x 5.7 x 5.4 cm LOCATION: Right lower quadrant. ARCUATE ARTERIES RESISTIVE INDEX: Upper - 0.78 Mid - 0.76 Lower - 0.77 MAIN RENAL ARTERY VELOCITY: (cm/sec): 72.4 MAIN RENAL VEIN: Patent EXTERNAL ILIAC ARTERY VELOCITY (cm/sec): 54.7 * NORMAL DOPPLER FINDINGS Arcuate arteries - RI = 0.6 - 0.8 Renal artery = under 200 cm/sec Renal vein = May be monophasic with continuous flow or demonstrate some pulsatility with cardiac cycl e FINDINGS: TRANSPLANT KIDNEY: There is significant hydronephrosis which is a new finding from the prior exam. This involves both th e upper and lower poles. No hydroureter observed. Normal waveform involving the main renal artery. URINARY BLADDER: Within normal limits given the degree of distension. CONCLUSION: 1. New significant diffuse hydronephrosis. Vic Guillen Jr., MD on October 05, 2017 at 20:00 Board Certified Radiologist. This report was verified electronically.
[2017-10-05] MEDS ORDERED: PILL SPLITTER OTHER PRN (20:15)
[2017-10-05] MEDS: TACROLIMUS 1 MG CAP PO SCH (20:17)
[2017-10-05] MEDS: METOPROLOL TARTRATE 25 MG TAB PO SCH (20:17)
[2017-10-06] VITALS: BP 181/72; PULSE 85; RESP 20; TEMP 99.5; O2SAT 94
[2017-10-06] MEDS: PIPERACIL-TAZO 3.375 GM PREMIX 50 ML IV SCH ×3 (00:08→12:22)
[2017-10-06 04:00] VITALS: BP 136/73; PULSE 97; RESP 18; TEMP 99.7; O2SAT 93
[2017-10-06] MEDS: SODIUM CHLOR 0.9% 1000 ML INJ 1,000 ML IV SCH ×3 (05:44→20:31)
[2017-10-06] MEDS: TACROLIMUS 1 MG CAP PO SCH ×2 (05:44→18:39)
[2017-10-06 06:35] LABS: BASOPHIL % 0.3 % (0.0-2.0); EOSINOPHIL # 0.1 TH/MM3 (0-0.4); EOSINOPHIL % 0.6 % (0.0-4.0); HEMATOCRIT 31.4 % (35.0-46.0); LYMPH % 5.1 % (9.0-44.0); LYMPHOCYTE # 0.6 TH/MM3 (1.0-4.8); MEAN CELL VOLUME 85.1 FL (80.0-100.0); MEAN CORPUSCULAR HEMOGLOBIN 27.7 PG (27.0-34.0); MEAN CORPUSCULAR HGB CONC 32.5 % (32.0-36.0); MONO % 11.2 % (0.0-8.0); NEUT % 82.8 % (16.0-70.0); PLATELET COUNT 264 TH/MM3 (150-450); RED BLOOD COUNT 3.69 MIL/MM3 (4.00-5.30); RED CELL DISTRIBUTION WIDTH 16.1 % (11.6-17.2)
[2017-10-06 06:42] LABS: POTASSIUM 3.3 MEQ/L (3.5-5.1)
[2017-10-06 06:44] LABS: HEMO FLAGS AUTO DIFF
[2017-10-06 07:18] LABS: BICARBONATE 22.3 MEQ/L (21.0-32.0); MAGNESIUM 1.7 MG/DL (1.5-2.5)
[2017-10-06 08:00] VITALS: BP 139/73; PULSE 86; RESP 16; TEMP 99.5; O2SAT 95
[2017-10-06 08:18] LABS: SCAN/DIFF AUTO DIFF CONFIRMED
[2017-10-06] MEDS: METOPROLOL TARTRATE 25 MG TAB PO SCH ×2 (08:25→20:31)
[2017-10-06] MEDS ORDERED: MAGNESIUM 500 MG PO SCH (09:00)
[2017-10-06] MEDS ORDERED: TACROLIMUS 1 MG CAP PO SCH (09:00)
[2017-10-06] MEDS ORDERED: prednisoLONE 10 MG ODT TAB SL SCH (09:00)
[2017-10-06 12:00] VITALS: BP 119/74; PULSE 83; RESP 16; TEMP 97.5; O2SAT 92
--- NOTE | 2017-10-06 13:03 | HHI.PR ---
Subjective Remarks Patient today reports crampy abdominal pain for the past day with several bouts of loose stool. She says she has a history of C. difficile four years ago. She continues to deny any dysuria. Objective Vital Signs Date Time Temp Pulse Resp B/P (MAP) Pulse Ox O2 Delivery O2 Flow Rate FiO2 10/06/17 12:00 97.5 83 16 119/74 (89) 92 10/06/17 08:00 99.5 86 16 139/73 (95) 95 10/06/17 04:00 99.7 97 18 136/73 (94) 93 10/06/17 00:00 99.5 85 20 181/72 (108) 94 10/05/17 20:00 100.0 107 21 143/79 (100) 95 10/05/17 14:50 98.5 92 20 159/83 (108) 97 10/05/17 14:07 I/O 10/05/17 10/05/17 10/05/17 10/06/17 10/06/17 10/06/17 07:00 15:00 23:00 07:00 15:00 23:00 Intake Total 100 ml 1000 ml 1573 ml Balance 100 ml 1000 ml 1573 ml Intake Oral 480 ml IV Total 100 ml 1000 ml 1093 ml # Voids 1 2 2 # Bowel Movements 0 1 Result Diagram: 10/06/17 0440 10/06/17 0440 Imaging Last Impressions Renal Ultrasound 10/05/17 0000 Signed Impressions: Service Date/Time: Thursday, October 05, 2017 17:02 - CONCLUSION: 1. New significant diffuse hydronephrosis. Vic Guillen Jr., MD Objective Remarks GENERAL: Patient sitting up in bed. Appears comfortable. SKIN: Warm and dry. HEAD: Normocephalic. EYES: No scleral icterus. No injection or drainage. NECK: Supple, trachea midline. No JVD. CARDIOVASCULAR: Regular rate and rhythm without murmurs, gallops, or rubs. RESPIRATORY: Breath sounds equal bilaterally. No accessory muscle use. GASTROINTESTINAL: Abdomen soft, non-tender, nondistended. Hyperactive bowel sounds. MUSCULOSKELETAL: No cyanosis, or edema. BACK: Nontender without obvious deformity. No CVA tenderness. A/P Assessment and Plan //Severe Sepsis -Tachycardia 110, with leukocytosis 15 on admission. Measured fevers at home of 101. CHENTE with creatinine 1.4 from baseline 0.6. Lactate 1.2 on admission. -Suspected UTI. -Blood cultures, urine cultures ordered and pending. = 10/06. There is a ptosis 12. Improving. Blood cultures negative today. Continue Zosyn. //Diarrhea. -Suspect this is likely antibiotic associated diarrhea, however cannot rule out Cdiff. We'll check C. difficile stool. //Complicated UTI. //Hydronephrosis -History of resected bladder mass in June of this year. -Urinalysis with white blood cell clumps. -With CHENTE 1.4, will avoid CT scan now. = 10/06. Hydronephrosis on ultrasound. Consult neurology. Appreciate assistance. //CHENTE. //History of PCKD with renal transplant. - Creatinine 1.4 on admission from baseline 0.6. -Ultrasound kidneys ordered and pending. -IV fluids ordered. Check tacrolimus level in the morning. Consult nephrology. Appreciate assistance. = 10/06. Hydronephrosis on ultrasound. Urology consulted. Appreciate assistance. Tacrolimus level pending. //Tachycardia. Chronic. -Patient's heart rate above baseline at 110 on admission. Likely secondary to infection. Continue metoprolol. //Adrenal insufficiency. On prednisolone daily at home. We'll give prednisone 10 mg 1 on admission. = Continue home prednisone. Discussed with pharmacist. //Hypokalemia. Potassium 3.3. Check magnesium. Replaced. /Prophylaxis. SCDs. Discharge Planning Urine culture still pending. Severe hydronephrosis. Urology consult pending. Krzysztof Maddox MD Oct 06, 2017 13:03
[2017-10-06] MEDS ORDERED: POTASSIUM CHLORIDE 20 MEQ CONTROLLED RELEASE TAB PO ONE (13:15)
[2017-10-06] MEDS: VANCOMYCIN 500 MG VIAL (FOR ORAL USE ONLY) PO SCH ×3 (13:57→20:31)
[2017-10-06 16:00] VITALS: BP 152/80; PULSE 74; RESP 16; TEMP 97.8; O2SAT 94
--- NOTE | 2017-10-06 18:24 | PD.CONS ---
HPI Service Urology Consult Requested By Primary Care Physician No Primary Care Physician Diagnosis: History of Present Illness 67 yo female h/o HG T1 Bladder Cancer, APCKD s/p Kidney Transplant in 2008 admitted yesterday with fevers, chills, general malaise, decrease appetite for 3 days. Denies nausea, vomiting, flank pain, abdominal pain. On presentation, she was found to have an elevated Cr 1.4, baseline usually 0.9-1.0. Renal U/s was performed which showed hydronephrosis in her renal graft. Today, she feels much better. Her Creatinine has improved to 1.3 with hydration. She denies any tenderness over the graft. Denies dysuria, hematuria. She is making good urine. She had a bladder mass resected by Dr. Mcclain in 06/2017. Subsequently, diagnosed with High Grade T1 Bladder Cancer. She is scheduled for a surveillance cystoscopy in 10/[address] Mcclain. Denies h/o kidney stones. Weight is stable. Denies any bone or back pain. She has BK virus in her urine. Review of Systems Constitutional: DENIES: Diaphoretic episodes, Fatigue, Fever, Weight gain, Weight loss, Chills, Dizziness, Change in appetite, Night Sweats Endocrine: DENIES: Abnorml menstrual pattern, Heat/cold intolerance, Polydipsia , Polyuria, Polyphagia Eyes: DENIES: Blurred vision, Diplopia, Eye inflammation, Eye pain, Vision loss , Photosensitivity, Double Vision Ears, nose, mouth, throat: DENIES: Tinnitus, Hearing loss, Vertigo, Nasal discharge, Oral lesions, Throat pain, Hoarseness, Ear Pain, Running Nose, Epistaxis, Sinus Pain, Toothache, Odynophagia Respiratory: DENIES: Apneas, Cough, Snoring, Wheezing, Hemoptysis, Sputum production, Shortness of breath Cardiovascular: DENIES: Chest pain, Palpitations, Syncope, Dyspnea on Exertion , PND, Lower Extremity Edema, Orthopnea, Claudication Gastrointestinal: DENIES: Abdominal pain, Black stools, Bloody stools, Constipation, Diarrhea, Nausea, Vomiting, Difficulty Swallowing, Anorexia Genitourinary: DENIES: Abnormal vaginal bleeding, Dysmenorrhea, Dyspareunia, Sexual dysfunction, Urinary frequency, Urinary incontinence, Urgency, Hematuria , Dysuria, Nocturia, Vaginal discharge Musculoskeletal: DENIES: Joint pain, Muscle aches, Stiffness, Joint Swelling, Back pain, Neck pain Integumentary: DENIES: Abnormal pigmentation, Pruritus, Rash, Nail changes, Breast masses, Breast skin changes, Nipple discharge Hematologic/lymphatic: DENIES: Bruising, Lymphadenopathy Immunologic/allergic: DENIES: Eczema, Urticaria Neurologic: DENIES: Abnormal gait, Headache, Localized weakness, Paresthesias, Seizures, Speech Problems, Tremor, Poor Balance Except as stated in HPI: all other systems reviewed are Neg Past Family Social History Past Medical History APCKD, HTN, UTI Past Surgical History Kidney Transplant 2009 Reported Medications Metoprolol, Fosamax, Prograf, Prednisone Allergies: Coded Allergies: No Known Allergies (Verified Allergy, Unknown, 10/05/17) Active Ordered Medications Zosyn Family History Denies malignancy, urolithiasis Social History Denies tobacco, EtOH, illicit drugs Physical Exam Vital Signs Date Time Temp Pulse Resp B/P (MAP) Pulse Ox O2 Delivery O2 Flow Rate FiO2 10/06/17 16:00 97.8 74 16 152/80 (104) 94 10/06/17 12:00 97.5 83 16 119/74 (89) 92 10/06/17 08:00 99.5 86 16 139/73 (95) 95 10/06/17 04:00 99.7 97 18 136/73 (94) 93 10/06/17 00:00 99.5 85 20 181/72 (108) 94 10/05/17 20:00 100.0 107 21 143/79 (100) 95 Physical Exam GENERAL: This is a well-nourished, well-developed patient, in no apparent distress. SKIN: No rashes, ecchymoses or lesions. Cool and dry. HEAD: Atraumatic. Normocephalic. No temporal or scalp tenderness. EYES: Pupils equal round and reactive. Extraocular motions intact. No scleral icterus. No injection or drainage. ENT: Nose without bleeding, purulent drainage or septal hematoma. Throat without erythema, tonsillar hypertrophy or exudate. Uvula midline. Airway patent. NECK: Trachea midline. No JVD or lymphadenopathy. Supple, nontender, no meningeal signs. CARDIOVASCULAR: Regular rate and rhythm without murmurs, gallops, or rubs. RESPIRATORY: Clear to auscultation. Breath sounds equal bilaterally. No wheezes , rales, or rhonchi. GASTROINTESTINAL: Abdomen soft, non-tender, nondistended. No hepato-splenomegaly , or palpable masses. No guarding. GENITOURINARY: MUSCULOSKELETAL: Extremities without clubbing, cyanosis, or edema. No joint tenderness, effusion, or edema noted. No calf tenderness. Negative Homans sign bilaterally. NEUROLOGICAL: Awake and alert. Cranial nerves II through XII intact. Motor and sensory grossly within normal limits. Five out of 5 muscle strength in all muscle groups. Normal speech. Lab results reviewed: Yes (Creatinine improving) Laboratory Tests Test 10/06/17 04:40 10/06/17 15:15 White Blood Count 12.0 Red Blood Count 3.69 Hemoglobin 10.2 Hematocrit 31.4 Mean Corpuscular Volume 85.1 Mean Corpuscular Hemoglobin 27.7 Mean Corpuscular Hemoglobin Concent 32.5 Red Cell Distribution Width 16.1 Platelet Count 264 Mean Platelet Volume 9.3 Neutrophils (%) (Auto) 82.8 Lymphocytes (%) (Auto) 5.1 Monocytes (%) (Auto) 11.2 Eosinophils (%) (Auto) 0.6 Basophils (%) (Auto) 0.3 Neutrophils # (Auto) 10.0 Lymphocytes # (Auto) 0.6 Monocytes # (Auto) 1.3 Eosinophils # (Auto) 0.1 Basophils # (Auto) 0.0 CBC Comment AUTO DIFF Differential Comment AUTO DIFF CONFIRMED Blood Urea Nitrogen 20 Creatinine 1.30 Random Glucose 76 Calcium Level 7.8 Phosphorus Level 2.6 Magnesium Level 1.7 Sodium Level 138 Potassium Level 3.3 Chloride Level 105 Carbon Dioxide Level 22.3 Anion Gap 11 Estimat Glomerular Filtration Rate 41 Tacrolimus (Prograf) Level 5.7 Date/Time Source Procedure Growth Status 10/05/17 11:00 Blood Peripheral Aerobic Blood Culture - Preliminary NO GROWTH IN 1 DAY Resulted 10/05/17 11:00 Blood Peripheral Anaerobic Blood Culture - Preliminary NO GROWTH IN 1 DAY Resulted 10/05/17 09:55 Nasal Washing Influenza Types A,B Antigen (DOMINIC) - Final NEGATIVE FOR FLU A AND B ANTIGEN.... Complete 10/05/17 10:53 Urine Clean Catch Urine Culture - Preliminary Group D Enterococcus Resulted Result Diagram: 10/06/1743910/06/17439 Personally reviewed images: Yes (grade III-IV hydronephrosis in renal graft) Imaging Last Impressions Renal Ultrasound 10/05/17 0000 Signed Impressions: Service Date/Time: Thursday, October 05, 2017 17:02 - CONCLUSION: 1. New significant diffuse hydronephrosis. Vic Guillen Jr., MD Assessment and Plan Assessment and Plan 67 yo female h/o Bladder Cancer, ADPCKD s/p Kidney Transplant 2008 with UTI, ARF, hydronephrosis -She is improving, making good urine -Recommend following Creatinine for now. -If it does not continue to improve, recommend obtaining Lasix Renogram to r/o obstruction -Continue antibiotics, pending urine culture Mehdi Nelson MD Oct 06, 2017 18:24
[2017-10-06] MEDS: PIPERACIL-TAZO 2.25 GM PREMIX 50 ML IV SCH (18:39)
--- NOTE | 2017-10-06 18:48 | HHI.NPPN ---
Subjective History of Present Illness Patient is a 67-year-old with kidney transplant and recurrent UTIs recently discovered to have bladder cancer Review of Systems General Constitutional: Fatigue Objective Data Data 10/06/17 10/07/17 19:00 07:00 Intake Total 840 ml Balance 840 ml Intake Oral 840 ml # Voids 3 # Bowel Movements 1 Vital Signs Date Time Temp Pulse Resp B/P (MAP) Pulse Ox O2 Delivery O2 Flow Rate FiO2 10/06/17 16:00 97.8 74 16 152/80 (104) 94 10/06/17 12:00 97.5 83 16 119/74 (89) 92 10/06/17 08:00 99.5 86 16 139/73 (95) 95 10/06/17 04:00 99.7 97 18 136/73 (94) 93 10/06/17 00:00 99.5 85 20 181/72 (108) 94 10/05/17 20:00 100.0 107 21 143/79 (100) 95 -: 10/06/17 0440 10/06/17 0440 Physical Exam General Appearance: Well Developed Neck Neck Exam: Neck Supple Pulmonary Resp Exam: Clear Bilaterally Cardiology CV Exam: Regular, Normal Sinus Rhythm Gastrointestinal/Abdomen GI Exam: Soft, Non-Tender, Bowel Sounds Present Extremeties Extremities Exam: No Edema Assessment/Plan Problem List: (1) History of kidney transplant ICD Codes: Z94.0 - History of kidney transplant Status: Chronic Plan: On Tacrolimus dose to 2 mg q am 1 mg q pm c/s enterococcus on Zosyn By mouth vancomycin Ultrasound showed diffuse hydronephrosis Hematology is following high grade Urinary bladder cancer worrisome for recurrence minimize immunosuppression discontinue Leflunomide Tacrolimus level was 5.7 (2) Sepsis due to urinary tract infection ICD Codes: A41.9 - Sepsis, unspecified organism; N39.0 - Urinary tract infection, site not specified Status: Acute Plan: follow C/S (3) Bladder cancer ICD Codes: C67.9 - Malignant neoplasm of bladder, unspecified Plan: it was high grade cancer follow with urology Cee Apodaca MD Oct 06, 2017 18:48
[2017-10-06 20:00] VITALS: BP 132/74; PULSE 82; RESP 20; TEMP 97.2; O2SAT 94
[2017-10-06 20:20] LABS: C. DIFF EPI 027 PRESUMPTIVE NEGATIVE (NEGATIVE)
[2017-10-07] VITALS: BP 128/77; PULSE 80; RESP 20; TEMP 97.6; O2SAT 95
[2017-10-07] MEDS: PIPERACIL-TAZO 2.25 GM PREMIX 50 ML IV SCH ×4 (00:17→17:03)
[2017-10-07] MEDS: TACROLIMUS 1 MG CAP PO SCH ×2 (06:03→17:02)
[2017-10-07 08:00] VITALS: BP 147/92; PULSE 79; RESP 18; TEMP 97.7; O2SAT 94
[2017-10-07 08:07] LABS: BASOPHIL % 0.4 % (0.0-2.0); EOSINOPHIL # 0.1 TH/MM3 (0-0.4); EOSINOPHIL % 1.3 % (0.0-4.0); LYMPH % 7.5 % (9.0-44.0); LYMPHOCYTE # 0.5 TH/MM3 (1.0-4.8); MEAN CELL VOLUME 84.5 FL (80.0-100.0); MEAN CORPUSCULAR HEMOGLOBIN 27.3 PG (27.0-34.0); MEAN CORPUSCULAR HGB CONC 32.3 % (32.0-36.0); NEUT % 81.8 % (16.0-70.0); PLATELET COUNT 272 TH/MM3 (150-450); RED BLOOD COUNT 3.55 MIL/MM3 (4.00-5.30); WHITE BLOOD COUNT 7.3 TH/MM3 (4.0-11.0)
[2017-10-07 08:10] LABS: HEMO FLAGS AUTO DIFF
[2017-10-07 08:27] LABS: BICARBONATE 20.4 MEQ/L (21.0-32.0); MAGNESIUM 1.7 MG/DL (1.5-2.5); POTASSIUM 3.4 MEQ/L (3.5-5.1)
[2017-10-07 08:30] LABS: SCAN/DIFF AUTO DIFF CONFIRMED
[2017-10-07] MEDS: VANCOMYCIN 500 MG VIAL (FOR ORAL USE ONLY) PO SCH (08:53)
[2017-10-07] MEDS: predniSONE 5 MG TAB PO SCH (08:53)
[2017-10-07] MEDS: METOPROLOL TARTRATE 25 MG TAB PO SCH ×2 (08:53→21:15)
[2017-10-07] MEDS ORDERED: FUROSEMIDE 40 MG/4 ML VIAL IV PUSH ONE (12:02)
--- NOTE | 2017-10-07 13:42 | RADRPT ---
EXAM DATE/TIME: 10/07/2017 11:46 [facility] COMPARISON: US KIDNEY / TRANSPLANT, October 05, 2017, 17:02. INDICATIONS : Hydronephrosis. Right kidney transplant. Recurrent UTI. DOSE: 20.1 mCi Tc99m DTPA IV MEDICATION: 40 mg Lasix IV MEDICAL HISTORY : Carcinoma, bladder. Hypertension. SURGICAL HISTORY : Right kidney transplant. ENCOUNTER: Initial ACUITY: 1 day PAIN SCALE: 2/10 LOCATION: Bilateral Abdomen. TECHNIQUE: Dynamic images were performed in the posterior projection for a total of 28 minutes. FINDINGS: There is prompt arterial flow with delayed excretion on affected by Lasix consistent with fracture ob struction and hydronephrosis. CONCLUSION: Consistent with fixed obstruction and hydronephrosis.. Piter Armstrong MD FACR on October 07, 2017 at 13:39 Board Certified Radiologist. This report was verified electronically.
--- NOTE | 2017-10-07 15:46 | HHI.PR ---
Subjective Remarks Patient seen this morning around 10 AM. Says she is feeling all right. Denies any chest pain or shortness of breath. Denies any dysuria. Denies abdominal pain. She reports still with loose bowel motions, however has improved. Objective Vital Signs Date Time Temp Pulse Resp B/P (MAP) Pulse Ox O2 Delivery O2 Flow Rate FiO2 10/07/17 08:00 97.7 79 18 147/92 (110) 94 10/07/17 00:00 97.6 80 20 128/77 (94) 95 10/06/17 20:00 97.2 82 20 132/74 (93) 94 10/06/17 16:00 97.8 74 16 152/80 (104) 94 I/O 10/06/17 10/06/17 10/06/17 10/07/17 10/07/17 10/07/17 07:00 15:00 23:00 07:00 15:00 23:00 Intake Total 1573 ml 890 ml 50 ml 50 ml 120 ml Balance 1573 ml 890 ml 50 ml 50 ml 120 ml Intake Oral 480 ml 840 ml 120 ml IV Total 1093 ml 50 ml 50 ml 50 ml # Voids 2 3 1 # Bowel Movements 1 1 0 Result Diagram: 10/07/17 0710 10/07/17 0710 Objective Remarks GENERAL: Patient sitting up in bed. Appears comfortable. SKIN: Warm and dry. HEAD: Normocephalic. EYES: No scleral icterus. No injection or drainage. NECK: Supple, trachea midline. No JVD. CARDIOVASCULAR: Regular rate and rhythm without murmurs, gallops, or rubs. RESPIRATORY: Breath sounds equal bilaterally. No accessory muscle use. GASTROINTESTINAL: Abdomen soft, non-tender, nondistended. Hyperactive bowel sounds. Unchanged from yesterday. MUSCULOSKELETAL: No cyanosis, or edema. BACK: Nontender without obvious deformity. No CVA tenderness. A/P Assessment and Plan //Severe Sepsis -Tachycardia 110, with leukocytosis 15 on admission. Measured fevers at home of 101. CHENTE with creatinine 1.4 from baseline 0.6. Lactate 1.2 on admission. -Suspected UTI. -Blood cultures, urine cultures ordered and pending. = 10/06. There is leukocytosis 12. Improving. Blood cultures negative today. Continue Zosyn. = 10/07. Leukocytosis appears resolved. Urine culture enterococcus with specificities pending. Continue antibiotics //Diarrhea. -Suspect this is likely antibiotic associated diarrhea. = C. difficile negative. Likely antibiotic associated diarrhea. //Complicated UTI. //Hydronephrosis -History of resected bladder mass in June of this year. -Urinalysis with white blood cell clumps. -With CHENTE 1.4, will avoid CT scan now. = 10/06. Hydronephrosis on ultrasound. Consult neurology. Appreciate assistance. = 10/07. Creatinine 1.3, double her baseline. BUN 28. Due to lack of continued improvement on IV fluids, ordered Lasix urogram. Urology following for an necrosis. Appreciate this. //CHENTE. //History of PCKD with renal transplant. - Creatinine 1.4 on admission from baseline 0.6. -Ultrasound kidneys ordered and pending. -IV fluids ordered. Check tacrolimus level in the morning. Consult nephrology. Appreciate assistance. = 10/06. Hydronephrosis on ultrasound. Urology consulted. Appreciate assistance. Tacrolimus level pending. = 10/07. Hydronephrosis on urogram as above. Plan per urology. Appreciate assistance. Creatinine 1.3 double baseline. //Tachycardia. Chronic. -Patient's heart rate above baseline at 110 on admission. Likely secondary to infection. Continue metoprolol. //Adrenal insufficiency. On prednisolone daily at home. We'll give prednisone 10 mg 1 on admission. = Continue home prednisone. Discussed with pharmacist. //Hypokalemia. Potassium 3.4. Replaced again. Continue to monitor. /Prophylaxis. SCDs. Discharge Planning Urine culture sensitivities still pending Severe hydronephrosis. Urology ff Krzysztof Maddox MD Oct 07, 2017 15:46
[2017-10-07 16:00] VITALS: BP 133/85; PULSE 75; RESP 17; TEMP 97.5; O2SAT 93
[2017-10-07] MEDS ORDERED: POTASSIUM CHLORIDE 10 MEQ CONTROLLED RELEASE TAB PO ONE (16:00)
[2017-10-07] MEDS: SODIUM CHLOR 0.9% 1000 ML INJ 1,000 ML IV SCH (17:06)
[2017-10-07 20:00] VITALS: BP 151/93; PULSE 80; RESP 18; TEMP 95.6; O2SAT 96
[2017-10-08] VITALS: BP 154/93; PULSE 80; RESP 16; TEMP 97.5; O2SAT 96
[2017-10-08] MEDS: PIPERACIL-TAZO 2.25 GM PREMIX 50 ML IV SCH ×2 (00:35→05:32)
[2017-10-08] MEDS: SODIUM CHLOR 0.9% 1000 ML INJ 1,000 ML IV SCH (04:14)
[2017-10-08] MEDS: TACROLIMUS 1 MG CAP PO SCH (05:31)
[2017-10-08 07:26] LABS: AUTOMATED NEUTROPHIL # 4.5 TH/MM3 (1.8-7.7); BASOPHIL # 0.1 TH/MM3 (0-0.2); BASOPHIL % 1.1 % (0.0-2.0); EOSINOPHIL # 0.1 TH/MM3 (0-0.4); EOSINOPHIL % 2.5 % (0.0-4.0); HEMATOCRIT 31.4 % (35.0-46.0); HEMO FLAGS DIFF FINAL; LYMPH % 9.1 % (9.0-44.0); LYMPHOCYTE # 0.5 TH/MM3 (1.0-4.8); MEAN CELL VOLUME 84.4 FL (80.0-100.0); MEAN CORPUSCULAR HEMOGLOBIN 27.2 PG (27.0-34.0); MEAN CORPUSCULAR HGB CONC 32.2 % (32.0-36.0); MONO % 11.6 % (0.0-8.0); NEUT % 75.7 % (16.0-70.0); PLATELET COUNT 290 TH/MM3 (150-450); RED BLOOD COUNT 3.72 MIL/MM3 (4.00-5.30); RED CELL DISTRIBUTION WIDTH 16.1 % (11.6-17.2); WHITE BLOOD COUNT 5.9 TH/MM3 (4.0-11.0)
[2017-10-08 07:43] LABS: POTASSIUM 3.6 MEQ/L (3.5-5.1)
[2017-10-08 07:53] LABS: BICARBONATE 19.2 MEQ/L (21.0-32.0); MAGNESIUM 1.4 MG/DL (1.5-2.5)
[2017-10-08 08:00] VITALS: BP 153/95; PULSE 74; RESP 16; TEMP 96; O2SAT 96
[2017-10-08] MEDS: predniSONE 5 MG TAB PO SCH (08:37)
[2017-10-08] MEDS: METOPROLOL TARTRATE 25 MG TAB PO SCH (08:38)
[2017-10-08 13:00] VITALS: BP 152/97; PULSE 90; RESP 18; TEMP 97; O2SAT 98
[2017-10-08] MEDS ORDERED: AMOX500C PO (13:23)
--- NOTE | 2017-10-08 13:26 | HHI.DCPOC ---
Discharge Care Plan Diagnosis: (1) Sepsis due to urinary tract infection (2) Hydronephrosis (3) Bladder cancer Goals to Promote Your Health * To prevent worsening of your condition and complications * To maintain your health at the optimal level Directions to Meet Your Goals Take your medications as prescribed Follow your dietary instruction Follow activity as directed Keep your appointments as scheduled Take your immunizations and boosters as scheduled If your symptoms worsen call your PCP, if no PCP go to Urgent Care Center or Emergency Room Smoking is Dangerous to Your Health. Avoid second hand smoke Call the 24-hour hour crisis hotline for domestic abuse at Roger Burleson Oct 08, 2017 13:26
--- NOTE | 2017-10-08 13:35 | HHI.DS ---
Discharge Summary Admission Date Oct 05, 2017 at 12:41 Discharge Date: Oct 08, 2017 Admitting Diagnosis UTI/sepsis (1) Sepsis due to urinary tract infection ICD Code: A41.9 - Sepsis, unspecified organism; N39.0 - Urinary tract infection , site not specified Status: Acute (2) Hydronephrosis ICD Code: N13.30 - Unspecified hydronephrosis Procedures None Brief History - From Admission 66-year-old female with history of polycystic kidney disease status post kidney transplant right pelvis 8 years ago, as well as history of bladder mass resected in June of this year, presents to the ER with a three-day history of chills, malaise, fevers up to 101 at home. She does report having dysuria 2 weeks ago and completed a 5 day course of Cipro with resolution of this, and denies any dysuria at this time. She reports aching all over, however denies any flank or abdominal pain. As any chest pain or shortness of breath. Denies any cough or sinus issues. Symptoms. CBC/BMP: 10/08/17 0554 10/08/17 0554 Significant Findings Laboratory Tests Test 10/06/17 04:40 10/06/17 15:15 10/07/17 07:10 10/08/17 05:54 White Blood Count 12.0 TH/MM3 (4.0-11.0) Red Blood Count 3.69 MIL/MM3 (4.00-5.30) 3.55 MIL/MM3 (4.00-5.30) 3.72 MIL/MM3 (4.00-5.30) Hemoglobin 10.2 GM/DL (11.6-15.3) 9.7 GM/DL (11.6-15.3) 10.1 GM/DL (11.6-15.3) Hematocrit 31.4 % (35.0-46.0) 30.0 % (35.0-46.0) 31.4 % (35.0-46.0) Neutrophils (%) (Auto) 82.8 % (16.0-70.0) 81.8 % (16.0-70.0) 75.7 % (16.0-70.0) Lymphocytes (%) (Auto) 5.1 % (9.0-44.0) 7.5 % (9.0-44.0) Monocytes (%) (Auto) 11.2 % (0.0-8.0) 9.0 % (0.0-8.0) 11.6 % (0.0-8.0) Neutrophils # (Auto) 10.0 TH/MM3 (1.8-7.7) Lymphocytes # (Auto) 0.6 TH/MM3 (1.0-4.8) 0.5 TH/MM3 (1.0-4.8) 0.5 TH/MM3 (1.0-4.8) Monocytes # (Auto) 1.3 TH/MM3 (0-0.9) Blood Urea Nitrogen 20 MG/DL (7-18) 26 MG/DL (7-18) 26 MG/DL (7-18) Creatinine 1.30 MG/DL (0.50-1.00) 1.30 MG/DL (0.50-1.00) 1.40 MG/DL (0.50-1.00) Calcium Level 7.8 MG/DL (8.5-10.1) 7.5 MG/DL (8.5-10.1) 7.6 MG/DL (8.5-10.1) Potassium Level 3.3 MEQ/L (3.5-5.1) 3.4 MEQ/L (3.5-5.1) Estimat Glomerular Filtration Rate 41 ML/MIN (>89) 41 ML/MIN (>89) 37 ML/MIN (>89) Albumin 2.3 GM/DL (3.4-5.0) 2.4 GM/DL (3.4-5.0) Phosphorus Level 2.0 MG/DL (2.5-4.9) 2.3 MG/DL (2.5-4.9) Chloride Level 114 MEQ/L (98-107) 112 MEQ/L (98-107) Carbon Dioxide Level 20.4 MEQ/L (21.0-32.0) 19.2 MEQ/L (21.0-32.0) Magnesium Level 1.4 MG/DL (1.5-2.5) Imaging Last Impressions Renal Scan w/Medication NM 10/07/17 0000 Signed Impressions: Service Date/Time: Saturday, October 07, 2017 11:46 - CONCLUSION: Consistent with fixed obstruction and hydronephrosis.. Piter Armstrong MD FACR Renal Ultrasound 10/05/17 0000 Signed Impressions: Service Date/Time: Thursday, October 05, 2017 17:02 - CONCLUSION: 1. New significant diffuse hydronephrosis. Vic Gulilen Jr., MD Hospital Course //Severe Sepsis, resolved -Tachycardia 110, with leukocytosis 15 on admission. Measured fevers at home of 101. CHENTE with creatinine 1.4 from baseline 0.6. Lactate 1.2 on admission. -Blood cultures have remained negative, -urine cultures indicate enterococcus faecalis //Diarrhea. -Suspect this is likely antibiotic associated diarrhea. -C. difficile negative. Likely antibiotic associated diarrhea. Continue probiotics //Complicated UTI. -Urine culture with Enterococcus faecalis -Patient has failed outpatient management with Cipro already -We'll discontinue Zosyn and start ampicillin 500 mg every 6 hours //Hydronephrosis with fixed obstruction -History of resected bladder mass in June of this year. -This was found on ultrasound and Lasix renogram -Case discussed extensively with drawing tracer and urologist. Recommend follow- up Dr. Mcclain for further evaluation //Acute kidney injury. -History of PCKD with renal transplant. -Renal functions have worsened from baseline, however have remained stable. -tacrolimus level is within normal limits -Consulted nephrology/urologist. We'll follow the patient during her stay //Tachycardia. Chronic., Resolved -Patient's heart rate above baseline at 110 on admission. Likely secondary to infection. -Continue metoprolol. //Adrenal insufficiency. -Continue prednisolone daily //Hypokalemia. -Replaced as needed Pt Condition on Discharge: Stable Discharge Disposition: Discharge Home Discharge Time: > 30 minutes Discharge Instructions DIET: Follow Instructions for: Heart Healthy Diet Activities you can perform: Regular-No Restrictions Activities to Avoid: Driving for 24 hrs Follow up Referrals: Nephrology - [address] Apodaca PCP Follow-up - 1 Week Urology - 1 Week with Temo Mcclain MD New Medications: Amoxicillin (Amoxicillin) 500 Mg Cap 500 MG PO Q8HR for urinary tract infection for 10 Days, CAP Continued Medications: Alendronate (Fosamax) 70 Mg Tab 35 MG PO Q7D for Osteoporosis Treatment, #4 TAB 0 Refills Calcium Carbonate/Vitamin D3 (Calcium 600 + Vit D Tablet) 1 Each Tablet 1 TAB PO DAILY Leflunomide (Leflunomide) 20 Mg Tab 20 MG PO DAILY, TAB Magnesium (Sm Magnesium) 250 Mg Tab 500 MG PO DAILY Metoprolol Tartrate (Metoprolol Tartrate) 25 Mg Tab 12.5 MG PO BID, #60 TAB 0 Refills Multivit with Calcium,Iron,Min (Multiple Vitamins For Women) 1 Each Tablet 1 TAB PO DAILY Prednisolone Odt (Prednisolone Odt) 10 Mg Tab 5 MG SL DAILY, TAB 0 Refills Tacrolimus (Prograf) 1 Mg Cap 3 MG PO DAILY for Prevent Transplant Reject, #60 CAP 0 Refills Roger Burleson Oct 08, 2017 13:35
[2017-10-08] MEDS ORDERED: AMOXICILLIN (TRIHYDRATE) 500 MG CAP PO SCH (14:00)
== END 2017-10-08 14:11 | disposition home or self-care (01) | DRG 872 ==
LOC: PHEFT 09:30 → PHEDA 12:41 → OBSVTOIN 12:41 → PH3A 14:01
PROVIDERS: ADMIT Hospitalist; ATTEND Hospitalist
DX: A41.9 Sepsis, unspecified organism (principal); N17.9 Acute kidney failure, unspecified; K52.1 Toxic gastroenteritis and colitis; C67.9 Malignant neoplasm of bladder, unspecified; Q61.3 Polycystic kidney, unspecified; E27.40 Unspecified adrenocortical insufficiency; N13.30 Unspecified hydronephrosis; Z94.0 Kidney transplant status; N39.0 Urinary tract infection, site not specified; T36.95XA Adverse effect of unspecified systemic antibiotic, initial encounter; B95.2 Enterococcus as the cause of diseases classified elsewhere; R65.20 Severe sepsis without septic shock; R00.0 Tachycardia, unspecified; Z79.52 Long term (current) use of systemic steroids; Z79.899 Other long term (current) drug therapy; I10 Essential (primary) hypertension; E87.6 Hypokalemia; M81.0 Age-related osteoporosis without current pathological fracture; K21.9 Gastro-esophageal reflux disease without esophagitis
CPT/HCPCS: 76776; 78708; 80048; 80053; 80069; 80197; 81001; 83605; 83735; 84100; 85025; 87040; 87077; 87086; 87186; 87493; 87799; 87804; 96365; A9539; J1940; J2543; J7030; J7507; J7510; J7512

== ENCOUNTER 2017-11-13 07:02 | Inpatient (IN) | payer MEDICARE, BC ==
[~2017-11-13] VITALS: Ht 162.6 cm; Wt 44.0 kg
[2017-11-13] VITALS (10 sets, daily range): BP systolic 108–140; BP diastolic 59–95; PULSE 88–116; RESP 16–18; TEMP 97.8–102; O2SAT 92–98
[~2017-11-13 07:02] MED LIST changes: -CIPR-9 PO; -LACTGRA PO; -LEFL1TAB3 PO; +PHEN0.4T PO; -PRED1TAB72 SL; +TACR1CAP PO
--- NOTE | 2017-11-13 07:28 | PD ---
HPI Chief Complaint: Abdominal Pain Time Seen by Provider: 07:15 Travel History International Travel<30 days: No Contact w/Intl Traveler<30days: No Traveled to known affect area: No History of Present Illness HPI This is a 67-year-old female with history adult polycystic kidney disease status post renal transplant with subsequent high grade non-invasive bladder cancer status post transurethral resection in June of this year, who presents to the emergency department with abdominal discomfort. She says her abdominal discomfort started last evening, constant, moderate severity, radiating to the back, described as an aching associated with an episode of vomiting last night had some blood in it. She denies any dysuria but she says that she hasn't been making much urine. She denies any fevers or chills. She's been following with Dr. Mcclain recently because he is concerned that she may have a problem with her urethra leading her to develop hydronephrosis of the transplant kidney as her creatinine has been upward trending. Dr. Mcclain had planned to do a biopsy tomorrow and potentially place a stent. PFSH Past Medical History Arthritis: No Asthma: No Autoimmune Disease: No Anxiety: No Depression: No Heart Rhythm Problems: No Cancer: Yes (BLADDER CA) Cardiovascular Problems: Yes (HX TACHYCARDIA) High Cholesterol: No Chemotherapy: No Chest Pain: No Congestive Heart Failure: No COPD: No Cerebrovascular Accident: No Diabetes: No Diminished Hearing: No Endocrine: No Gastrointestinal Disorders: Yes (HX GERD) GERD: Yes Genitourinary: Yes (kidney transplant 2008 ) Hiatal Hernia: No Hypertension: Yes Immune Disorder: No Implanted Vascular Access Dvce: Yes Kidney Stones: No Musculoskeletal: Yes ( OA) Neurologic: No Psychiatric: No Reproductive: No Respiratory: No Immunizations Current: Yes Migraines: No Radiation Therapy: No Renal Failure: Yes Seizures: No Sickle Cell Disease: No Sleep Apnea: No Thyroid Disease: No Ulcer: No Tetanus Vaccination: > 5 Years Influenza Vaccination: Yes ?: Not Menopausal: Yes Past Surgical History Abdominal Surgery: Yes (TENCKOFF CATH IMP AND REMOVAL) AICD: No Appendectomy: No Arteriovenous Shunt: No Body Medical Devices: pd cath right abdomen Cardiac Surgery: No Cholecystectomy: No Ear Surgery: No Endocrine Surgery: No Eye Surgery: No Genitourinary Surgery: Yes (RIGHT KIDNEY TRANSPLANT, BLADDER RESECTION) Gynecologic Surgery: No Insulin Pump: No Joint Replacement: No Oral Surgery: No Pacemaker: No Thoracic Surgery: No Other Surgery: Yes (KIDNEY TRANSPLANT-RIGHT) Social History Alcohol Use: Yes (rarely) Tobacco Use: No Substance Use: No Allergies-Medications (Allergen,Severity, Reaction): Coded Allergies: No Known Allergies (Verified Allergy, Unknown, 11/13/17) Reported Meds & Prescriptions Reported Meds & Active Scripts Active Pyridium (Phenazopyridine HCl) 100 Mg Tab 100 Mg PO Q8HR Reported Tacrolimus 1 Mg Cap 1 Mg PO Q12H Multiple Vitamins For Women (Multivit with Calcium,Iron,Min) 1 Each Tablet 1 Tab PO DAILY Sm Magnesium (Magnesium) 250 Mg Tab 500 Mg PO DAILY Calcium 600 + Vit D Tablet (Calcium Carbonate/Vitamin D3) 1 Each Tablet 1 Tab PO DAILY Fosamax (Alendronate Sodium) 70 Mg Tab 35 Mg PO Q7D Metoprolol Tartrate 25 Mg Tab 12.5 Mg PO BID Prograf (Tacrolimus) 1 Mg Cap 3 Mg PO DAILY Review of Systems Except as stated in HPI: all other systems reviewed are Neg Physical Exam Narrative GENERAL: Uncomfortable appearing, frail SKIN: Focused skin assessment warm and dry. HEAD: Atraumatic. Normocephalic. EYES: Pupils equal and round. No injection or drainage. ENT: Moist mucous membranes NECK: Trachea midline. CARDIOVASCULAR: Regular rate and rhythm. No murmur appreciated. RESPIRATORY: Clear to auscultation. Breath sounds equal bilaterally. GASTROINTESTINAL: Abdomen soft, tender over the suprapubic region with a firm distended bladder MUSCULOSKELETAL: No obvious deformities. NEUROLOGICAL: Awake and alert. No obvious cranial nerve deficits. Moving all extremities. PSYCHIATRIC: Appropriate mood and affect; insight and judgment normal. Data Data Last Documented VS Vital Signs Date Time Temp Pulse Resp B/P (MAP) Pulse Ox O2 Delivery O2 Flow Rate FiO2 11/13/17 07:18 91 16 129/82 (98) 98 Room Air 11/13/17 07:03 97.8 Orders Orders Complete Blood Count With Diff (11/13/17 07:24) Comprehensive Metabolic Panel (11/13/17 07:24) Urinalysis - C+S If Indicated (11/13/17 07:24) ^ Insert Iv (11/13/17 07:24) Urinary Catheter Insert/Apply (11/13/17 07:24) Urine Culture (11/13/17 07:30) Ciprofloxacin 400 Mg Premix (Cipro 400 M (11/13/17 08:15) Blood Culture (11/13/17 08:08) Lactic Acid Sepsis Protocol (11/13/17 08:08) Sodium Chlor 0.9% 1000 Ml Inj (Ns 1000 M (11/13/17 08:15) Morphine Inj (Morphine Inj) (11/13/17 08:30) Pantoprazole Inj (Protonix Inj) (11/13/17 09:00) Prothrombin Time / Inr (Pt) (11/13/17 08:52) Act Partial Throm Time (Ptt) (11/13/17 08:52) Labs Laboratory Tests Test 11/13/17 07:30 11/13/17 08:15 White Blood Count 18.4 TH/MM3 Red Blood Count 3.11 MIL/MM3 Hemoglobin 8.8 GM/DL Hematocrit 27.6 % Mean Corpuscular Volume 88.5 FL Mean Corpuscular Hemoglobin 28.2 PG Mean Corpuscular Hemoglobin Concent 31.8 % Red Cell Distribution Width 15.6 % Platelet Count 333 TH/MM3 Mean Platelet Volume 9.3 FL Neutrophils (%) (Auto) 88.8 % Lymphocytes (%) (Auto) 4.1 % Monocytes (%) (Auto) 6.6 % Eosinophils (%) (Auto) 0.0 % Basophils (%) (Auto) 0.5 % Neutrophils # (Auto) 16.3 TH/MM3 Lymphocytes # (Auto) 0.8 TH/MM3 Monocytes # (Auto) 1.2 TH/MM3 Eosinophils # (Auto) 0.0 TH/MM3 Basophils # (Auto) 0.1 TH/MM3 CBC Comment DIFF FINAL Differential Comment Urine Color YELLOW Urine Turbidity HAZY Urine pH 7.5 Urine Specific [place] 1.014 Urine Protein 30 mg/dL Urine Glucose (UA) NEG mg/dL Urine Ketones NEG mg/dL Urine Occult Blood TRACE Urine Nitrite POS Urine Bilirubin NEG Urine Urobilinogen LESS THAN 2.0 MG/DL Urine Leukocyte Esterase LARGE Urine RBC 5 /hpf Urine WBC /hpf Urine Transitional Epithelial Cells 1 /hpf Urine Bacteria RARE /hpf Microscopic Urinalysis Comment CULTURE INDICATED Blood Urea Nitrogen 42 MG/DL Creatinine 2.93 MG/DL Random Glucose 121 MG/DL Total Protein 8.3 GM/DL Albumin 3.2 GM/DL Calcium Level 9.7 MG/DL Alkaline Phosphatase 85 U/L Aspartate Amino Transf (AST/SGOT) 32 U/L Alanine Aminotransferase (ALT/SGPT) 21 U/L Total Bilirubin 0.5 MG/DL Sodium Level 130 MEQ/L Potassium Level 4.9 MEQ/L Chloride Level 100 MEQ/L Carbon Dioxide Level 20.1 MEQ/L Anion Gap 10 MEQ/L Estimat Glomerular Filtration Rate 16 ML/MIN Lactic Acid Level 2.1 mmol/L MDM Medical Decision Making Medical Screen Exam Complete: Yes Emergency Medical Condition: Yes Medical Record Reviewed: Yes (review Dr. Mcclain's note from clinic noting need for upcoming biopsy and possible stent) Interpretation(s) Leukocytosis Anemia hemoglobin 8.8 compared to a hemoglobin of 10.2 in September Hyponatremia Creatinine is 2.9 Urinalysis: Urinary tract infection Differential Diagnosis Sepsis, urinary tract infection, urinary retention, hydronephrosis, transplant rejection Narrative Course This is a 67-year-old female who presents to the emergency department with lower abdominal discomfort that's been going on for 2 days. She was placed on a monitor and an IV was established. Labs were obtained which demonstrate a leukocytosis of 18. Patient is lactic acid 2.1 concerning for severe sepsis in the setting of a urinary tract infection. She also has evidence of renal failure which is worsening since prior. She was given a liter of IV hydration, she was given a dose of ciprofloxacin which she's been sensitive to in the past. Cultures were obtained. A Ge catheter was placed for concern for possible acute urinary retention as well as to monitor urine output. Patient will be admitted for IV antibiotics, urology and nephrology consultation and continued IV hydration. Diagnosis Primary Impression: Severe sepsis Admitting Information Admitting Physician Requests: Admit Carole Brantley MD Nov 13, 2017 07:28
[2017-11-13 07:47] LABS: AUTOMATED NEUTROPHIL # 16.3 TH/MM3 (1.8-7.7); BASOPHIL # 0.1 TH/MM3 (0-0.2); BASOPHIL % 0.5 % (0.0-2.0); HEMATOCRIT 27.6 % (35.0-46.0); HEMO FLAGS DIFF FINAL; LYMPH % 4.1 % (9.0-44.0); LYMPHOCYTE # 0.8 TH/MM3 (1.0-4.8); MEAN CELL VOLUME 88.5 FL (80.0-100.0); MEAN CORPUSCULAR HEMOGLOBIN 28.2 PG (27.0-34.0); MEAN CORPUSCULAR HGB CONC 31.8 % (32.0-36.0); MONO % 6.6 % (0.0-8.0); NEUT % 88.8 % (16.0-70.0); PLATELET COUNT 333 TH/MM3 (150-450); RED BLOOD COUNT 3.11 MIL/MM3 (4.00-5.30); RED CELL DISTRIBUTION WIDTH 15.6 % (11.6-17.2); WHITE BLOOD COUNT 18.4 TH/MM3 (4.0-11.0)
[2017-11-13 07:55] LABS: BACTERIA, URINE RARE /hpf; BLOOD, URINE TRACE (NEG); GLUCOSE,URINE NEG (NEG); KETONE, URINE NEG (NEG); NITRITE,URINE POS (NEG); PH, URINE 7.5 (5.0-8.5); TRANSITIONAL EPI CELLS, URINE 1 /hpf; URINE COLOR YELLOW (YELLW/STRAW)
[2017-11-13 07:57] LABS: COMMENT (UR) CULTURE INDICATED; CULTURE IF INDICATED CULTURE INDICATED
[2017-11-13 08:00] LABS: ANION GAP 10 MEQ/L (5-15); AST (GOT) 32 U/L (15-37); BICARBONATE 20.1 MEQ/L (21.0-32.0); BLOOD UREA NITROGEN 42 MG/DL (7-18); CHLORIDE 100 MEQ/L (98-107); GLOMERULAR FILTRATION RATE 16 ML/MIN (>89); POTASSIUM 4.9 MEQ/L (3.5-5.1); SODIUM (NA) 130 MEQ/L (136-145)
[2017-11-13 08:01] LABS: ALT (GPT) 21 U/L (10-53)
[2017-11-13 08:03] LABS: ALKALINE PHOSPHATASE 85 U/L (45-117); TOTAL BILIRUBIN ADULT 0.5 MG/DL (0.2-1.0)
[2017-11-13] MEDS ORDERED: CIPROFLOXACIN 400 MG PREMIX 200 ML IV ONE (08:15)
[2017-11-13] MEDS ORDERED: SODIUM CHLOR 0.9% 1000 ML INJ 1,000 ML IV ONE (08:15)
[2017-11-13] MEDS ORDERED: MORPHINE SULFATE 2 MG/ML INJ IV PUSH ONE (08:30)
[2017-11-13] MEDS ORDERED: PANTOPRAZOLE SODIUM 40 MG VIAL IV PUSH ONE (09:00)
--- NOTE | 2017-11-13 09:00 | HHI.HP ---
[facility] Unknown Admission Diagnosis Diagnoses: Chief Complaint: Abdominal pain Travel History International Travel<30 Days: No Contact w/Intl Traveler <30 Da: No Traveled to Known Affected Are: No History of Present Illness This is a pleasant 67 y/o Female with adult polycystic kidney disease status post renal transplant with subsequent high grade non invasive bladder cancer status post Transurethral resection in June this year, who presents to the emergency department with abdominal discomfort. She says her abdominal discomfort started last evening, constant, moderate severity, radiating to the back, described as an aching associated with an episode of vomiting last night had some blood in it. She denies any dysuria but she says that she hasn't been making much urine. She denies any fevers or chills. She's been following with Dr. Mcclain recently because he is concerned that she may have a problem with her urethra leading her to develop hydronephrosis of the transplant kidney as her creatinine has been upward trending. Dr. Mcclain had planned to do a biopsy tomorrow and potentially place a stent. As we know she has Bladder Cancer history, GERD, Kidney transplant 2008, Hypertension, OA, CKD, as per patient she started with hematuria thought related to bladder Cancer, followed by Urology specialist Doctor Sarahi, she continued with Dysuria and abdominal pain, she states that is worsening came to ER with Abdominal pain specially on on lower quadrants, 7/10 in intensity, as a Dull sensation and intermittent sharp sensation, non radiated, has worsening renal function she has Nephrology specialist Doctor Paulie lopez. also had one episode of hematemesis. Review of Systems Constitutional: DENIES: Fever, Chills, Change in appetite Endocrine: DENIES: Heat/cold intolerance Eyes: DENIES: Blurred vision, Eye pain Gastrointestinal: COMPLAINS OF: Abdominal pain Except as stated in HPI: all other systems reviewed are Neg Past Family Social History Past Medical History Bladder Cancer history GERD Kidney transplant 2008 Hypertension OA CKD Osteoporosis Immunodeficiency Past Surgical History PD cath right abdomen and removal. 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 Reported Medications Reported Meds & Active Scripts Active Pyridium (Phenazopyridine HCl) 100 Mg Tab 100 Mg PO Q8HR Reported Tacrolimus 1 Mg Cap 1 Mg PO Q12H Multiple Vitamins For Women (Multivit with Calcium,Iron,Min) 1 Each Tablet 1 Tab PO DAILY Sm Magnesium (Magnesium) 250 Mg Tab 500 Mg PO DAILY Calcium 600 + Vit D Tablet (Calcium Carbonate/Vitamin D3) 1 Each Tablet 1 Tab PO DAILY Fosamax (Alendronate Sodium) 70 Mg Tab 35 Mg PO Q7D Metoprolol Tartrate 25 Mg Tab 12.5 Mg PO BID Prograf (Tacrolimus) 1 Mg Cap 3 Mg PO DAILY Allergies: Coded Allergies: No Known Allergies (Verified Allergy, Unknown, 11/13/17) Active Ordered Medications Current Medications Medications (Trade) Dose Ordered Sig/Art Route Start Time Stop Time Status Last Admin (Lopressor) 12.5 mg BID PO 11/13/17 21:00 (Prograf) 1 mg Q12H PO 11/13/17 09:15 (Prograf) 3 mg DAILY PO 11/14/17 09:00 (Oscal-D 250-125) 500 mg DAILY PO 11/13/17 09:30 (Mag-Ox) 400 mg DAILY PO 11/13/17 09:30 Sodium Chloride 1,000 ml @ 100 mls/hr Q10H IV 11/13/17 09:03 11/13/17 09:46 (NS Flush) 2 ml UNSCH PRN IV FLUSH 11/13/17 09:15 (NS Flush) 2 ml BID IV FLUSH 11/13/17 21:00 (Tylenol) 650 mg Q4H PRN PO 11/13/17 09:15 (Zofran Inj) 4 mg Q6H PRN IVP 11/13/17 09:15 (Narcan Inj) 0.4 mg UNSCH PRN IV PUSH 11/13/17 09:15 (Senokot) 17.2 mg Q12H PRN PO 11/13/17 09:15 (Dulcolax Supp) 10 mg DAILY PRN RECTAL 11/13/17 09:15 (Lactulose Liq) 30 ml DAILY PRN PO 11/13/17 09:15 Family History Father and sister with Polycystic Kidney Disease Social History no toxic habits. lives with her . Physical Exam Vital Signs Vital Signs Date Time Temp Pulse Resp B/P (MAP) Pulse Ox O2 Delivery O2 Flow Rate FiO2 11/13/17 07:18 91 16 129/82 (98) 98 Room Air 11/13/17 07:03 97.8 90 16 138/95 (109) 98 Physical Exam GENERAL: Uncomfortable appearing, frail SKIN: Focused skin assessment warm and dry. HEAD: Atraumatic. Normocephalic. EYES: Pupils equal and round. No injection or drainage. ENT: Moist mucous membranes NECK: Trachea midline. CARDIOVASCULAR: Regular rate and rhythm. No murmur appreciated. RESPIRATORY: Clear to auscultation. Breath sounds equal bilaterally. GASTROINTESTINAL: Abdomen soft, tender over the suprapubic region with a firm distended bladder MUSCULOSKELETAL: No obvious deformities. NEUROLOGICAL: Awake and alert. No obvious cranial nerve deficits. Moving all extremities. PSYCHIATRIC: Appropriate mood and affect; insight and judgment normal. Laboratory Laboratory Tests Test 11/13/17 07:30 11/13/17 08:15 White Blood Count 18.4 Red Blood Count 3.11 Hemoglobin 8.8 Hematocrit 27.6 Mean Corpuscular Volume 88.5 Mean Corpuscular Hemoglobin 28.2 Mean Corpuscular Hemoglobin Concent 31.8 Red Cell Distribution Width 15.6 Platelet Count 333 Mean Platelet Volume 9.3 Neutrophils (%) (Auto) 88.8 Lymphocytes (%) (Auto) 4.1 Monocytes (%) (Auto) 6.6 Eosinophils (%) (Auto) 0.0 Basophils (%) (Auto) 0.5 Neutrophils # (Auto) 16.3 Lymphocytes # (Auto) 0.8 Monocytes # (Auto) 1.2 Eosinophils # (Auto) 0.0 Basophils # (Auto) 0.1 CBC Comment DIFF FINAL Differential Comment Urine Color YELLOW Urine Turbidity HAZY Urine pH 7.5 Urine Specific [place] 1.014 Urine Protein 30 Urine Glucose (UA) NEG Urine Ketones NEG Urine Occult Blood TRACE Urine Nitrite POS Urine Bilirubin NEG Urine Urobilinogen LESS THAN 2.0 Urine Leukocyte Esterase LARGE Urine RBC 5 Urine WBC Urine Transitional Epithelial Cells 1 Urine Bacteria RARE Microscopic Urinalysis Comment CULTURE INDICATED Blood Urea Nitrogen 42 Creatinine 2.93 Random Glucose 121 Total Protein 8.3 Albumin 3.2 Calcium Level 9.7 Alkaline Phosphatase 85 Aspartate Amino Transf (AST/SGOT) 32 Alanine Aminotransferase (ALT/SGPT) 21 Total Bilirubin 0.5 Sodium Level 130 Potassium Level 4.9 Chloride Level 100 Carbon Dioxide Level 20.1 Anion Gap 10 Estimat Glomerular Filtration Rate 16 Lactic Acid Level 2.1 Date/Time Source Procedure Growth Status 11/13/17 08:15 Blood Peripheral Aerobic Blood Culture Pending Received 11/13/17 08:15 Blood Peripheral Anaerobic Blood Culture Pending Received 11/13/17 07:30 Urine Clean Catch Urine Culture Pending Received Result Diagram: 11/13/17 0730 11/13/17 0730 Imaging No new imaging studies. Caprini VTE Risk Assessment Caprini VTE Risk Assessment: Mod/High Risk (score >= 2) Caprini Risk Assessment Model Point Value = 1 Point Value = 2 Point Value = 3 Point Value = 5 Age 41-60 Minor surgery BMI > 25 kg/m2 Swollen legs Varicose veins or History of unexplained or recurrent spontaneous Oral contraceptives or hormone replacement Sepsis (< 1 month) Serious lung disease, including pneumonia (< 1 month) Abnormal pulmonary function Acute myocardial infarction Congestive heart failure (< 1 month) History of inflammatory bowel disease Medical patient at bed rest Age 61-74 Arthroscopic surgery Major open surgery (> 45 min) Laparoscopic surgery (> 45 min) Malignancy Confined to bed (> 72 hours) Immobilizing plaster cast Central venous access Age >= 75 History of VTE Family history of VTE Factor V Leiden Prothrombin [id number] Lupus anticoagulant Anticardiolipin antibodies Elevated serum homocysteine Heparin-induced thrombocytopenia Other congenital or acquired thrombophilia Stroke (< 1 month) Elective arthroplasty Hip, pelvis, or leg fracture Acute spinal cord injury (< 1 month) Prophylaxis Regimen Total Risk Factor Score Risk Level Prophylaxis Regimen 0-1 Low Early ambulation 2 Moderate Order ONE of the following: *Sequential Compression Device (SCD) *Heparin 5000 units SQ BID 3-4 Higher Order ONE of the following medications: *Heparin 5000 units SQ TID *Enoxaparin/Lovenox 40 mg SQ daily (WT < 150 kg, CrCl > 30 mL/min) *Enoxaparin/Lovenox 30 mg SQ daily (WT < 150 kg, CrCl > 10-29 mL/min) *Enoxaparin/Lovenox 30 mg SQ BID (WT < 150 kg, CrCl > 30 mL/min) AND/OR *Sequential Compression Device (SCD) 5 or more Highest Order ONE of the following medications: *Heparin 5000 units SQ TID (Preferred with Epidurals) *Enoxaparin/Lovenox 40 mg SQ daily (WT < 150 kg, CrCl > 30 mL/min) *Enoxaparin/Lovenox 30 mg SQ daily (WT < 150 kg, CrCl > 10-29 mL/min) *Enoxaparin/Lovenox 30 mg SQ BID (WT < 150 kg, CrCl > 30 mL/min) AND *Sequential Compression Device (SCD) Assessment and Plan Assessment and Plan 1. Acute Renal Injury on chronic Kidney disease Stage III now Stage IV, in a patient with history of Bladder Cancer and Renal Transplant followed by her Primary nephrology specialist Doctor Apodaca will follow recommendations. consult placed for Doctor Cee Apodaca, continue IV fluids by now. 2. History of Bladder cancer and chronic abdominal pain, followed by her Primary Urology specialist Doctor Temo Mcclain, she has a procedure Planned as outpatient for tomorrow consult placed to Doctor Mcclain and will place patient NPO at Midnight thinking in procedure for tomorrow. 3. Obstructive Uropathy and Hydronephrosis, Ge Cath placed in ER following specialist recommendations 4. GERD on Famotidine renally adjusted 5. Hematemesis consult GI specialist for evaluation. 6. Hypertension controlled. continue home medicines 7. OA by history on hold home medicines by now 8. UTI follow blood cultures and Urine culture on Ceftriaxone. DVT prophylaxis with SCDs on hold Chemical prophylaxis due to procedure tomorrow and Hematemesis. Consult Nephrology specialist Consult GI specialist Consult Urology specialist Nurse Anesthesia Program Director recommendations. NPO for probable procedure and hematemesis until reviewed by GI and Urology specialist. Gastric protection with Carafate and Famotidine renally adjusted. follow renal function, avoid Nephrotoxics, Gadolinium contraindicated. Code Status Full code. Discussed Condition With Carole Brantley MD Physician Certification 2 Midnight Certification Type: Admission for Inpatient Services Order for Inpatient Services The services are ordered in accordance with Medicare regulations or non- Medicare payer requirements, as applicable. In the case of services not specified as inpatient-only, they are appropriately provided as inpatient services in accordance with the 2-midnight benchmark. Estimated LOS (days): 3 days is the estimated time the patient will need to remain in the hospital, assuming treatment plan goals are met and no additional complications. Post-Hospital Plan: Not yet determined Attila Ledesma MD Nov 13, 2017 09:00
[2017-11-13 09:12] LABS: INTERNATIONAL NORMALIZED RATIO 1.1 RATIO; PROTHROMBIN TIME - PATIENT 10.7 SEC (9.8-11.6)
[2017-11-13] MEDS ORDERED: ONDANSETRON HCL 4 MG/2 ML VIAL IVP PRN (09:15)
[2017-11-13] MEDS ORDERED: NALOXONE HCL 0.4 MG/ML AMP IV PUSH PRN (09:15)
[2017-11-13] MEDS ORDERED: SODIUM CHLORIDE 0.9% FLUSH 10 ML FLUSH IV FLUSH PRN (09:15)
[2017-11-13] MEDS ORDERED: LACTULOSE SYRUP 20 GM/30 ML CUP PO PRN (09:15)
[2017-11-13] MEDS ORDERED: BISACODYL 10 MG SUPP RECTAL PRN (09:15)
[2017-11-13] MEDS ORDERED: SENNOSIDES 8.6 MG TAB PO PRN (09:15)
[2017-11-13] MEDS: TACROLIMUS 1 MG CAP PO SCH ×2 (09:15→19:52)
[2017-11-13] MEDS: CALCIUM/VITAMIN D 250 MG/125 U TAB PO SCH (09:30)
[2017-11-13] MEDS: MAGNESIUM OXIDE 400 MG TAB PO SCH (09:30)
[2017-11-13] MEDS: SODIUM CHLOR 0.9% 1000 ML INJ 1,000 ML IV SCH ×2 (09:46→15:42)
[2017-11-13 10:21] LABS: LACTIC ACID GHOST NOT REPORTABLE
[2017-11-13] MEDS: SUCRALFATE 1 GM/10 ML CUP PO SCH ×3 (11:41→19:52)
[2017-11-13] MEDS: FAMOTIDINE 20 MG/2 ML VIAL IV PUSH SCH ×2 (11:44→19:51)
--- NOTE | 2017-11-13 12:22 | PD.CONS ---
HPI Service Urology Consult Requested By Dr. Moises Botello Reason for Consult Hydronephrosis of transplant kidney Primary Care Physician Unknown Diagnosis: History of Present Illness 67-year-old female with history end-stage renal disease secondary to adult polycystic kidney disease who is status post a kidney transplant approximately 8 years ago. Patient was evaluated for gross hematuria several months ago and was diagnosed with a bladder tumor and underwent transurethral resection of a greater than 5 cm bladder tumor involving the right wall. Final pathology demonstrated a high grade noninvasive urothelial cancer. Since the procedure was performed the patient has been having problems with ongoing frequency and urgency. She also has had an upper trend in her serum creatinine levels. A renal scan with Lasix washout performed in September demonstrated changes consistent with partial obstruction of the transplant kidney. Patient was seen in my office recently and scheduled to undergo further urologic investigation to include cystoscopy, possible bladder biopsy, retrograde pyelogram and possible stent placement to the transplant kidney on November 14 of this year. She presents now with bilateral lower abdominal pain that began yesterday evening. Serum creatinine level is now measured at 2.93. A Ge catheter was placed. Review of Systems Constitutional: DENIES: Fever, Chills Gastrointestinal: COMPLAINS OF: Abdominal pain (bilateral lower quadrants) Genitourinary: COMPLAINS OF: Urinary frequency, DENIES: Hematuria, Dysuria Except as stated in HPI: all other systems reviewed are Neg Past Family Social History Past Medical History Chronic kidney disease secondary to adult polycystic kidney disease Bladder cancer GERD Hypertension Osteoporosis Past Surgical History Status post transurethral resection of a bladder tumor in June of this year Status post kidney transplant 2008 That is post placement and subsequent removal of peritoneal dialysis catheter Reported Medications Refer to EMR Allergies: Coded Allergies: No Known Allergies (Verified Allergy, Unknown, 11/13/17) Active Ordered Medications Refer to EMR Family History Reviewed and noncontributory Social History Denies history tobacco, alcohol or intravenous drug abuse Physical Exam Vital Signs Date Time Temp Pulse Resp B/P (MAP) Pulse Ox O2 Delivery O2 Flow Rate FiO2 11/13/17 10:22 98.4 106 18 125/69 (87) 93 11/13/17 09:47 96 15 140/72 (94) 98 11/13/17 09:30 98 21 11/13/17 07:18 91 16 129/82 (98) 98 Room Air 11/13/17 07:03 97.8 90 16 138/95 (109) 98 Physical Exam GENERAL: This is a well-nourished, well-developed patient, in no apparent distress. SKIN: No rashes, ecchymoses or lesions. Cool and dry. HEAD: Atraumatic. Normocephalic. No temporal or scalp tenderness. EYES: Pupils equal round and reactive. Extraocular motions intact. No scleral icterus. No injection or drainage. ENT: Nose without bleeding, purulent drainage or septal hematoma. Throat without erythema, tonsillar hypertrophy or exudate. Uvula midline. Airway patent. NECK: Trachea midline. No JVD or lymphadenopathy. Supple, nontender, no meningeal signs. CARDIOVASCULAR: Regular rate and rhythm without murmurs, gallops, or rubs. RESPIRATORY: Clear to auscultation. Breath sounds equal bilaterally. No wheezes , rales, or rhonchi. GASTROINTESTINAL: Abdomen soft, non-tender, nondistended. No hepato-splenomegaly , or palpable masses. No guarding. GENITOURINARY: Bladder not distended, indwelling Ge catheter draining clear yellow urine MUSCULOSKELETAL: Extremities without clubbing, cyanosis, or edema. No joint tenderness, effusion, or edema noted. No calf tenderness. Negative Homans sign bilaterally. NEUROLOGICAL: Awake and alert. Cranial nerves II through XII intact. Motor and sensory grossly within normal limits. Five out of 5 muscle strength in all muscle groups. Normal speech. Lab results reviewed: Yes Laboratory Tests Test 11/13/17 07:30 11/13/17 08:15 11/13/17 08:55 White Blood Count 18.4 Red Blood Count 3.11 Hemoglobin 8.8 Hematocrit 27.6 Mean Corpuscular Volume 88.5 Mean Corpuscular Hemoglobin 28.2 Mean Corpuscular Hemoglobin Concent 31.8 Red Cell Distribution Width 15.6 Platelet Count 333 Mean Platelet Volume 9.3 Neutrophils (%) (Auto) 88.8 Lymphocytes (%) (Auto) 4.1 Monocytes (%) (Auto) 6.6 Eosinophils (%) (Auto) 0.0 Basophils (%) (Auto) 0.5 Neutrophils # (Auto) 16.3 Lymphocytes # (Auto) 0.8 Monocytes # (Auto) 1.2 Eosinophils # (Auto) 0.0 Basophils # (Auto) 0.1 CBC Comment DIFF FINAL Differential Comment Urine Color YELLOW Urine Turbidity HAZY Urine pH 7.5 Urine Specific [place] 1.014 Urine Protein 30 Urine Glucose (UA) NEG Urine Ketones NEG Urine Occult Blood TRACE Urine Nitrite POS Urine Bilirubin NEG Urine Urobilinogen LESS THAN 2.0 Urine Leukocyte Esterase LARGE Urine RBC 5 Urine WBC Urine Transitional Epithelial Cells 1 Urine Bacteria RARE Microscopic Urinalysis Comment CULTURE INDICATED Blood Urea Nitrogen 42 Creatinine 2.93 Random Glucose 121 Total Protein 8.3 Albumin 3.2 Calcium Level 9.7 Alkaline Phosphatase 85 Aspartate Amino Transf (AST/SGOT) 32 Alanine Aminotransferase (ALT/SGPT) 21 Total Bilirubin 0.5 Sodium Level 130 Potassium Level 4.9 Chloride Level 100 Carbon Dioxide Level 20.1 Anion Gap 10 Estimat Glomerular Filtration Rate 16 Lactic Acid Level 2.1 Prothrombin Time 10.7 Prothromb Time International Ratio 1.1 Activated Partial Thromboplast Time 31.0 Date/Time Source Procedure Growth Status 11/13/17 08:15 Blood Peripheral Aerobic Blood Culture Pending Received 11/13/17 08:15 Blood Peripheral Anaerobic Blood Culture Pending Received 11/13/17 07:30 Urine Clean Catch Urine Culture Pending Received Result Diagram: 11/13/17 0730 11/13/17 0730 Assessment and Plan Assessment and Plan Urologic impression: #1 rule out worsening obstruction of the transplant kidney #2 history bladder CA rule out recurrent disease Plan: #1 nothing by mouth after midnight #2 proceed with cystoscopy, possible bladder biopsy, retrograde pyelogram and possible stenting of the transplant kidney for tomorrow #3 risks and benefits discussed with patient Temo Mcclain MD Nov 13, 2017 12:22
[2017-11-13] MEDS: cefTRIAXone INJ 1,000 MG in SODIUM CHLORIDE 0.9% INJ 100 ML IV SCH (15:41)
--- NOTE | 2017-11-13 16:03 | MB ---
cc: GEORGE RICHARDSON MD DATE OF CONSULTATION: 11/13/2017. REASON FOR CONSULTATION: Post renal transplant with elevated BUN and creatinine. HISTORY OF PRESENT ILLNESS: This is a 67-year-old female with past medical history of bladder cancer, hypertension, chronic kidney disease, history of renal transplant done in 2008, gastroesophageal reflux disease who came with nausea, vomiting, abdominal pain and diarrhea. I was called to see the patient for elevated creatinine. The patient has known history of renal transplant which was done in 2008. She has polycystic kidney disease and was on dialysis for two years before the transplant was done. The patient has chronic kidney disease and creatinine was around 1.3 to 1.4 and it went up to 1.9 by the end of September. The patient previously had kidney biopsy done and it showed that the patient has virus. Since then, her immunosuppression was decreased and she is only on Prograf 1 milligrams twice a day since it was stopped. She has been following with Dr. Apodaca and she has been following with Dr. Mcclain for her bladder cancer. The patient was seen by Dr. Mcclain and he is concerned about obstruction so he is possibly going to do cystoscopy tomorrow with a retrograde pyelogram. The patient has this nausea and vomiting and abdominal pain along with loose bowel motions that started five to six days ago and has been getting gradually worse. She has a low-grade fever at home. There is no history of dysuria or hematuria. PAST MEDICAL HISTORY: 1. Hypertension. 2. disease with end-stage renal disease. 3. History of renal transplant in 2008. 4. Bladder cancer. 5. Gastroesophageal reflux disease (GERD). 6. Chronic kidney disease. 7. Osteoporosis. PAST SURGICAL HISTORY: 1. History of PD catheter placement and removal. 2. Renal transplant. 3. Bladder resection. 4. Multiple cystoscopies. REVIEW OF SYSTEMS: The patient denies any headache or dizziness. She has generalized weakness. She has nausea and vomiting. She has decreased appetite for the last five to six days and is feeling weak and tired and has low-grade fever. She also has abdominal cramping, pain associated with loose bowel motions. The patient has generalized abdominal cramping pain. There is no dysuria or hematuria. She did not notice any decrease in the urine output. SOCIAL HISTORY: Patient and lives with her . There is no history of smoking or alcoholism. FAMILY HISTORY: Family history noncontributory. ALLERGIES: SHE HAS NO KNOWN DRUG ALLERGIES. MEDICATIONS: Currently she is gettin. Normal saline at 100 an hour. 2. Carafate 1 gram a.c. and at bedtime. 3. Lopressor 12.5 milligrams twice a day. 4. Prograf 3 milligrams daily. 5. Os-Ajit one tablet daily. 6. Magnesium oxide 400 milligrams daily. 7. Prograf 1 milligram q. 12 hours. 8. Zofran as needed. 9. Percocet as needed. PHYSICAL EXAMINATION: GENERAL: On examination, the patient is awake and alert and she is not in acute distress. VITAL SIGNS: Her last blood pressure is 125/69, temperature is 98.4, oxygen saturation is 93% to 98%. HEAD, EYES, EARS, NOSE, THROAT: The pupils are mid constricted. Nonicteric sclerae. Conjunctivae are pale. NECK: The neck is supple. JVD is not elevated. LUNGS: The patient has bilateral good air entry with scattered wheezing. HEART: S1 and S2 regular rhythm. ABDOMEN: Abdomen distended, soft and lax. There is mild tenderness in the epigastric area. There is no rebound or rigidity. Bowel sounds positive. EXTREMITIES: There is no pedal edema. INVESTIGATIONS: White blood cell count is 18.4, hemoglobin 8.8, platelet count 333,000, neutrophils 88.8, sodium 130, potassium 4.9, chloride 100, bicarbonate 20.1, BUN 42, creatinine 12.9, lactic acid is 2.1 and the repeat one is 0.7, calcium 9.7. AST and ALT normal. Total protein is 8.3 with albumin of 3.2. INR is 1.1. Urinalysis showing protein of 30 with large leukocyte esterase. RBCs 5, WBCs innumerable. Blood culture and urine culture pending. IMAGING STUDIES: The patient has no recent imaging studies done. The last one was the renal scan which was done on October 07 and it showed that the patient has fixed obstruction and hydronephrosis. ASSESSMENT: 1. Post renal transplant with chronic kidney disease and now acute worsening. 2. Bladder cancer and possible obstruction. 3. Possible urinary tract infection. 4. Vomiting and diarrhea. 5. Dehydration. 6. History of hypertension. The patient has increase in the creatinine either related to dehydration or possibility of obstructive uropathy with history of bladder cancer. The patient was seen by urology. She will be going for a cystoscopy tomorrow. GI has been consulted also for her vomiting and diarrhea. She possibly also has urinary tract infection. I will put her on ceftriaxone for the culture results. Thank you for the consultation and I will follow the patient while she is in the hospital as Dr. Apodaca is on vacation. MD RICARDO Rivera/MIRIAM /2:27 PM /3:39 PM
--- NOTE | 2017-11-13 17:30 | MB ---
cc: SURJIT BARBA MD DATE OF CONSULTATION 11/13/2017 ROOM NUMBER [id number] Attila De Leon REASON FOR CONSULTATION Abdominal pain and hematemesis. HISTORY OF THE PRESENT ILLNESS Viri is a very pleasant 67-year-old female admitted with bilateral lower abdominal pain that got worse yesterday. The patient was seen in the office recently and is followed by Dr. Abel. She states that since she had bladder cancer removed transurethrally in June of this year she has been having lower abdominal pelvic pain. She was going to have a repeat CT of the pelvis but it was on hold pending her repeat creatinine which came back too high for contrast. The patient has a history of polycystic kidney disease and underwent a kidney transplant in 2008. She developed hematuria this summer and was diagnosed with a 5 cm bladder cancer that was removed transurethrally. She states ever since that procedure she has been having this suprapubic pain and frequent urination. She states most recently she has only been passing a few drops of urine at a time. She now has a Ge catheter placed. Recent imaging suggests some worsening obstruction of the transplanted kidney and she is scheduled for cystoscopy with possible bladder biopsy and retrograde pyelogram and possible stenting for tomorrow with her urologist. She states that last evening she developed sudden nausea and vomited what appeared to be a fair amount of coffee-ground material but she has not had any vomiting since then. She states she did have some diarrhea yesterday but it was a brown color and not black and tarry. She currently states that she does not have much of an appetite and has had only some applesauce and apple juice today. She denies any upper abdominal pain or nausea. She denies heartburn. She never takes aspirin or NSAIDs because of her kidney disease. She only takes Tylenol for pain. She has no past history of upper GI problems including ulcer disease or gastroesophageal reflux disease. She states her hemoglobin a year or two ago was around 13 but because of all the bleeding this summer it had fallen to around 10. She currently is resting comfortably and in no distress. SOCIAL HISTORY She is . Originally from [place]. 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 She had no children. She has never smoked and she rarely drinks alcohol maybe one glass of wine per month. PAST MEDICAL HISTORY Her medical history is remarkable for: 1. Polycystic kidney disease which resulted in chronic renal failure and a kidney transplant in 2008. 2. She has a history of hypertension. 3. Osteoporosis. 4. Rheumatoid arthritis. 5. And recently bladder cancer. PAST SURGICAL HISTORY 1. She has had orthopedic knee surgery. 2. She has had the kidney transplant in 2008. She still has her gallbladder and appendix. ALLERGIES NO KNOWN DRUG ALLERGIES. FAMILY HISTORY She denies any family history of peptic ulcer disease or other upper GI pathology. MEDICATIONS Her medications currently include: 1. Prograf. 2. Lopressor. 3. She is on ceftriaxone. 4. She was started on Carafate 1 gram before meals and at bedtime. 5. Famotidine 10 mg IV q.12 h. 6. Os-Ajit. 7. Zofran p.r.n. 8. And some various laxatives. REVIEW OF SYSTEMS She denies any chest pain or shortness of breath. No heartburn or difficulty swallowing. No current nausea. She does have significant arthritis especially in her thumbs. She has a decreased appetite. She has decreased urination with dribbling. The remainder of the ten-point review of systems was negative. PHYSICAL EXAMINATION GENERAL: Physical exam reveals a well-developed female in no acute distress. VITAL SIGNS: Her blood pressure is 108/59, pulse 108, respirations 18 and nonlabored, temperature is 99.1 orally. HEENT: Sclerae anicteric. Dentition is fair. NECK: Supple without masses. LUNGS: Clear to percussion and auscultation. CARDIOVASCULAR: Heart sounds reveal mild tachycardia with no appreciable murmur, gallop or rub. She states she has been told she has a murmur in the past. ABDOMEN: Her abdomen is flat, soft with mild diffuse tenderness. It is quite minimal. No rebound or guarding. Bowel sounds are present. No abnormal distension. RECTAL: Deferred. MUSCULOSKELETAL: She does have some mild rheumatoid arthritis in her fingers. She is wearing sequential KAMARI hose with no edema. SKIN: Warm and dry. NEUROLOGIC: She is alert and oriented with a pleasant affect. LABORATORY FINDINGS Her white count was elevated at 18.4 with 88.8 neutrophils. Hemoglobin is 8.8 with an MCV of 88.5, platelet count 333,000. INR is 1.1, PTT is 31.0. Her BUN 42, creatinine 2.93 with an estimated GFR 16. Lactic acid was initially 2.1 but has come down to 0.7. LFTs are unremarkable. Albumin 3.2. Urinalysis reveals positive nitrite, trace occult blood, 30 protein, large leukocyte esterase, rare bacteria. Culture is pending. Blood cultures are also pending. IMAGING There is no imaging available this admission. IMPRESSION 1. Recent vomiting and possible coffee-ground emesis. Not documented that this was actually blood but it could have been. She has somewhat of a decrease in hemoglobin. Her hemoglobin on October 08 was 10.1. The patient is currently without any signs of active bleeding, nausea or vomiting. 2. Worsening renal function. There is a concern that this may be due to obstructive uropathy and the patient is scheduled for cystoscopy tomorrow. PLAN Agree with the low-dose famotidine and short-term use of Carafate. I discussed with Viri the role of upper endoscopy and suggested that sometime in the near future we schedule an EGD for evaluation. The timing will depend upon the results of her cystoscopy and her clinical course. Continue to monitor H&H. We will follow with you. Thank you for this consult. MD SACHA Cifuentes/ALINA /4:56 PM /5:11 PM KAILYN
[2017-11-13] MEDS: SODIUM CHLORIDE 0.9% FLUSH 10 ML FLUSH IV FLUSH SCH (19:51)
[2017-11-13] MEDS: ACETAMINOPHEN 325 MG TAB PO PRN (19:52)
[2017-11-13] MEDS: METOPROLOL TARTRATE 25 MG TAB PO SCH (19:52)
[2017-11-14] VITALS (11 sets, daily range): BP systolic 105–140; BP diastolic 59–71; PULSE 87–97; RESP 18–20; TEMP 97.8–100.4; O2SAT 92–97
[2017-11-14] MEDS ORDERED: LACTATED RINGER'S 1000 ML IV PRN (04:00)
[2017-11-14] MEDS ORDERED: POVIDONE IODINE 5% (ANTISEPSIS KIT) 4 APPLICATIONS EACH NARE PRN (04:00)
[2017-11-14] MEDS ORDERED: CHLORHEXIDINE GLUCONATE 2 % 1 PACK (2 CLOTHS) TOPICAL PRN (04:00)
[2017-11-14] MEDS: ACETAMINOPHEN 325 MG TAB PO PRN (04:25)
[2017-11-14] MEDS: SODIUM CHLOR 0.9% 1000 ML INJ 1,000 ML IV SCH ×2 (05:03→14:53)
[2017-11-14 07:41] LABS: AUTOMATED NEUTROPHIL # 15.1 TH/MM3 (1.8-7.7); BASOPHIL # 0.1 TH/MM3 (0-0.2); BASOPHIL % 0.3 % (0.0-2.0); EOSINOPHIL % 0.2 % (0.0-4.0); HEMATOCRIT 22.5 % (35.0-46.0); HEMO FLAGS DIFF FINAL; LYMPH % 3.2 % (9.0-44.0); LYMPHOCYTE # 0.6 TH/MM3 (1.0-4.8); MEAN CELL VOLUME 88.4 FL (80.0-100.0); MEAN CORPUSCULAR HEMOGLOBIN 28.8 PG (27.0-34.0); MEAN CORPUSCULAR HGB CONC 32.6 % (32.0-36.0); MONO % 11.4 % (0.0-8.0); NEUT % 84.9 % (16.0-70.0); PLATELET COUNT 271 TH/MM3 (150-450); RED BLOOD COUNT 2.55 MIL/MM3 (4.00-5.30); WHITE BLOOD COUNT 17.8 TH/MM3 (4.0-11.0)
[2017-11-14] MEDS: MAGNESIUM OXIDE 400 MG TAB PO SCH (07:48)
[2017-11-14] MEDS: SODIUM CHLORIDE 0.9% FLUSH 10 ML FLUSH IV FLUSH SCH ×2 (07:48→21:00)
[2017-11-14] MEDS: SUCRALFATE 1 GM/10 ML CUP PO SCH ×4 (07:48→22:16)
[2017-11-14] MEDS: CALCIUM/VITAMIN D 250 MG/125 U TAB PO SCH (07:48)
[2017-11-14] MEDS: TACROLIMUS 1 MG CAP PO SCH ×3 (07:51→20:04)
[2017-11-14] MEDS: FAMOTIDINE 20 MG/2 ML VIAL IV PUSH SCH (07:51)
[2017-11-14 07:58] LABS: INTERNATIONAL NORMALIZED RATIO 1.1 RATIO; PROTHROMBIN TIME - PATIENT 11.5 SEC (9.8-11.6)
[2017-11-14 08:13] LABS: ALKALINE PHOSPHATASE 64 U/L (45-117); ALT (GPT) 14 U/L (10-53); ANION GAP 10 MEQ/L (5-15); AST (GOT) 15 U/L (15-37); BLOOD UREA NITROGEN 31 MG/DL (7-18); CHLORIDE 110 MEQ/L (98-107); GLOMERULAR FILTRATION RATE 19 ML/MIN (>89); POTASSIUM 4.3 MEQ/L (3.5-5.1); SODIUM (NA) 139 MEQ/L (136-145); TOTAL BILIRUBIN ADULT 0.4 MG/DL (0.2-1.0)
[2017-11-14] MEDS: METOPROLOL TARTRATE 25 MG TAB PO SCH ×2 (08:56→20:07)
[2017-11-14] MEDS ORDERED: PROPOFOL 200 MG/20 ML AMP IV ONE (12:00)
[2017-11-14] MEDS ORDERED: DEXAMETHASONE SOD PHOS 4 MG/ML VIAL IV ONE (12:00)
[2017-11-14] MEDS ORDERED: PHENYLEPH/NS 1000 MCG/10 ML SYR IV ONE (12:00)
[2017-11-14] MEDS ORDERED: LIDOCAINE HCL 1% PF 5 ML SYRINGE OTHER ONE (12:00)
[2017-11-14] MEDS ORDERED: ONDANSETRON HCL 4 MG/2 ML VIAL IV ONE (12:00)
[2017-11-14] MEDS ORDERED: PHENYLEPHRINE HCL 10 MG/ML VIAL IV ONE (12:00)
[2017-11-14] MEDS ORDERED: GLYCOPYRROLATE 1 MG/5 ML SYRINGE IV PUSH ONE (12:00)
[2017-11-14] MEDS ORDERED: LACTATED RINGER'S 1000 ML INJ 1,000 ML IV ONE (12:00)
[2017-11-14] MEDS ORDERED: IOHEXOL 350 MG/ML 50 ML BTL (for RAD DIAG) OTHER ONE (12:45)
--- NOTE | 2017-11-14 13:09 | PD.OP ---
Operative Report Date of Surgery: Nov 14, 2017 Preoperative Diagnosis: (1) Hydronephrosis of kidney transplant Postoperative Diagnosis: (1) Hydronephrosis of kidney transplant (2) Bladder mass Procedure: Cystoscopy, transurethral resection of bladder tumor originating from right lateral wall, biopsy of bladder lesion involving posterior wall, retrograde pyelogram study of transplanted kidney with subsequent stent placement. Anesthesia: General Surgeon: Temo Mcclain Rn Homecare(s): None Operation and Findings: Indication for procedures: Case of a pleasant 67-year-old female with history bladder cancer and hydronephrosis of her transplanted kidney who presents now for further evaluation and management to include cystoscopy and possible placement of a ureteral stent within the transplant kidney. Operative procedures in detail: Patient was brought to the operating suite and placed supine the OR table. She was then placed under general anesthesia. She was then repositioned in the dorsal lithotomy position and prepped and draped in normal sterile fashion. After an appropriate timeout was undertaken, I proceeded with cystoscopic evaluation utilizing the rigid cystoscope with a 20 Burkinan sheath and 30 lens. A greater than 5 cm bladder mass was seen originating from the right wall and extending towards the trigone. In addition there were small lesions involving the posterior wall suspicious for recurrent bladder cancer. I then proceeded with biopsy of the lesions involving the posterior wall utilizing the Kumpe biopsy forceps. I next introduced the resectoscope with the 24 Burkinan cutting loop and coagulated the bladder biopsy sites. I then proceeded with transient resection of the bladder mass originating from the right wall that initially precluded visualization of the transplant orifice. As I began resecting this bladder mass, I was able to identify the orifice of the transplant kidney and care was taken to avoid any inadvertent resection of coagulation in this area. The Zurrba evacuator was utilized to collect the resected tissue and this was sent off to pathology in a separate specimen container. I next was able to advance a sensor 0.035 wire up the transplant ureter via the flexible cystoscope. Once the wire was then placed the flexible scope was exchanged for the rigid scope and a 6 Burkinan open- ended catheter was advanced over the wire and the wire withdrawn. A retrograde pyelogram study was performed to outline the collecting system and there was markedly tortuosity of the proximal ureter. I then utilized a angle-tip Glidewire and advanced this to the open-ended catheter and fully advanced wire into the pelvis of the transplant kidney and then was able to further advance the open-ended catheter into the transplant pelvis as well. This Glidewire was then exchanged for a 0.035 sensor wire and the open-ended catheter withdrawn. A 10 cm length 5 Burkinan double-J stent was then placed under both cystoscopic and fluoroscopic guidance without difficulty. Once the stent was in proper position, the wire and cystoscope were withdrawn. A 16 Burkinan 10 cc Ge catheter was then laced to gravity drainage. The patient tolerated the procedures without complications and was transferred to the PACU in satisfactory condition. Temo Mcclain MD Nov 14, 2017 13:09
[2017-11-14] MEDS ORDERED: DO NOT ADM ANY ANTICOAGULANT DRUGS PRN (13:14)
[2017-11-14] MEDS: cefTRIAXone INJ 1,000 MG in SODIUM CHLORIDE 0.9% INJ 100 ML IV SCH (14:53)
--- NOTE | 2017-11-14 16:02 | HHI.NPPN ---
Subjective History of Present Illness 67-year-old female with past medical history of bladder cancer, hypertension, chronic kidney disease, history of renal transplant done in 2008, gastroesophageal reflux disease who came with nausea, vomiting, abdominal pain and diarrhea. I was called to see the patient for elevated creatinine. The patient has known history of renal transplant which was done in 2008. Additional Remarks Patient is alert, has mild abd. discomfort, not in distress. Review of Systems General Constitutional: Fatigue Objective Data Data 11/14/17 11/15/17 19:00 07:00 Intake Total 1600 ml Output Total 1005 ml Balance 595 ml Other 1600 ml Output Urine Total 1000 ml Estimated Blood Loss 5 ml Vital Signs Date Time Temp Pulse Resp B/P (MAP) Pulse Ox O2 Delivery O2 Flow Rate FiO2 11/14/17 14:05 92 20 141/75 (97) 95 Nasal Cannula 2 11/14/17 13:45 92 20 144/75 (98) 95 Nasal Cannula 2 11/14/17 13:30 94 20 144/75 (98) 96 Nasal Cannula 4 11/14/17 13:13 98.5 104 20 139/70 (93) 92 Nasal Cannula 4 11/14/17 09:39 87 11/14/17 09:30 96 Room Air 11/14/17 08:20 98.0 87 20 105/61 (76) 96 11/14/17 06:33 100.0 94 11/14/17 06:32 94 Nasal Cannula 2.00 11/14/17 04:00 100.4 97 18 118/59 (78) 97 11/14/17 00:00 99.6 88 18 118/69 (85) 93 11/13/17 23:00 88 11/13/17 22:09 98.7 89 11/13/17 20:00 102.0 116 18 119/62 (81) 98 11/13/17 20:00 102.0 116 18 119/62 (81) 98 11/13/17 16:00 114 11/13/17 16:00 99.1 108 18 108/59 (75) 92 -: 11/14/17 0636 11/14/17 0636 Microbiology 11/13/17 Aerobic Blood Culture - Preliminary, Resulted NO GROWTH IN 1 DAY 11/13/17 Anaerobic Blood Culture - Preliminary, Resulted NO GROWTH IN 1 DAY 11/13/17 Aerobic Blood Culture - Preliminary, Resulted NO GROWTH IN 1 DAY 11/13/17 Anaerobic Blood Culture - Preliminary, Resulted NO GROWTH IN 1 DAY Physical Exam General Appearance: No Acute Distress, Comfortable Eyes Eye Exam: Pupils Equal Throat Throat Exam: Oral Mucosa [place] & Moist Neck Neck Exam: Neck Supple Pulmonary Resp Exam: Clear Bilaterally, Breath Sounds Equal, No Distress, Decreased Bases Cardiology CV Exam: Regular, Normal Sinus Rhythm Gastrointestinal/Abdomen GI Exam: Soft, Non-Tender, Bowel Sounds Present, Non-Distended Extremeties Extremities Exam: No Edema Neurologic Neuro Exam: Alert, Awake, Oriented Psychiatric Psych Exam: Appropriate Responses Assessment/Plan Assessment Summary: CHENTE/Acute Renal Failure, Dehydration, Transplant Kidney Status Problem List: (1) UTI (urinary tract infection) ICD Codes: N39.0 - Urinary tract infection, site not specified (2) Acute kidney injury ICD Codes: N17.9 - Acute kidney failure, unspecified (3) Bladder cancer ICD Codes: C67.9 - Malignant neoplasm of bladder, unspecified (4) Hydronephrosis ICD Codes: N13.30 - Unspecified hydronephrosis (5) HTN (hypertension) ICD Codes: I10 - Hypertension Status: Chronic Plan Patient has Renal Transplant done in 2008. Has Bladder cancer. Cystoscopy done and stent placed. Results noted. Creatinine is improving. Continue IVF and antibiotics. Has Enterococcus in the urine, follow the sensitivity. Robi Weber MD Nov 14, 2017 16:02
--- NOTE | 2017-11-14 17:19 | HHI.GIFU ---
GI Follow-up Note Consult Follow-up Subjective: Patient laying in bed comfortably, denies any nausea or abd pain. Has not moved bowels. Objective: PHYSICAL EXAMINATION: Vitals signs stable No fever Available Data (labs, X- Rays, Procedues) : Laboratory Tests Test 11/13/17 07:30 11/13/17 08:15 11/13/17 08:55 11/13/17 12:55 White Blood Count 18.4 TH/MM3 (4.0-11.0) Red Blood Count 3.11 MIL/MM3 (4.00-5.30) Hemoglobin 8.8 GM/DL (11.6-15.3) Hematocrit 27.6 % (35.0-46.0) Mean Corpuscular Hemoglobin Concent 31.8 % (32.0-36.0) Neutrophils (%) (Auto) 88.8 % (16.0-70.0) Lymphocytes (%) (Auto) 4.1 % (9.0-44.0) Neutrophils # (Auto) 16.3 TH/MM3 (1.8-7.7) Lymphocytes # (Auto) 0.8 TH/MM3 (1.0-4.8) Monocytes # (Auto) 1.2 TH/MM3 (0-0.9) Urine Turbidity HAZY (CLEAR) Urine Protein 30 mg/dL (NEG-TRACE) Urine Occult Blood TRACE (NEG) Urine Nitrite POS (NEG) Urine Leukocyte Esterase LARGE (NEG) Urine RBC 5 /hpf (0-3) Urine Bacteria RARE /hpf (NONE) Blood Urea Nitrogen 42 MG/DL (7-18) Creatinine 2.93 MG/DL (0.50-1.00) Random Glucose 121 MG/DL (74-106) Total Protein 8.3 GM/DL (6.4-8.2) Albumin 3.2 GM/DL (3.4-5.0) Sodium Level 130 MEQ/L (136-145) Carbon Dioxide Level 20.1 MEQ/L (21.0-32.0) Estimat Glomerular Filtration Rate 16 ML/MIN (>89) Lactic Acid Level 2.1 mmol/L (0.4-2.0) Activated Partial Thromboplast Time 31.0 SEC (24.3-30.1) Test 11/13/17 20:00 11/14/17 06:36 Troponin I 0.13 NG/ML (0.02-0.05) White Blood Count 17.8 TH/MM3 (4.0-11.0) Red Blood Count 2.55 MIL/MM3 (4.00-5.30) Hemoglobin 7.3 GM/DL (11.6-15.3) Hematocrit 22.5 % (35.0-46.0) Neutrophils (%) (Auto) 84.9 % (16.0-70.0) Lymphocytes (%) (Auto) 3.2 % (9.0-44.0) Monocytes (%) (Auto) 11.4 % (0.0-8.0) Neutrophils # (Auto) 15.1 TH/MM3 (1.8-7.7) Lymphocytes # (Auto) 0.6 TH/MM3 (1.0-4.8) Monocytes # (Auto) 2.0 TH/MM3 (0-0.9) Blood Urea Nitrogen 31 MG/DL (7-18) Creatinine 2.53 MG/DL (0.50-1.00) Total Protein 6.2 GM/DL (6.4-8.2) Albumin 2.3 GM/DL (3.4-5.0) Calcium Level 8.0 MG/DL (8.5-10.1) Chloride Level 110 MEQ/L (98-107) Carbon Dioxide Level 19.0 MEQ/L (21.0-32.0) Estimat Glomerular Filtration Rate 19 ML/MIN (>89) ASSESSMENT/PLAN: 1. Obstructive uropathy s/p ureteral stenting today. 2. Recent hematemesis-no further sign of active bleeding. Some decrease in H&H could be dilutional. Pt agreeable to get EGD done tomorrow am. It was a pleasure seeing Viri Ramirez. Thank you for this consult. Entered by: Morgan Ferreira MD Nov 14, 2017 17:19
--- NOTE | 2017-11-14 17:56 | EKG ---
Date Performed: 11/14/2017 Time Performed: 06:07:02 PTAGE: 67 years EKG: Sinus rhythm . Poor R wave progression - probable normal variant Septal T wave changes are nonspecific Low QRS vol tages in limb leads Borderline ECG PREVIOUS TRACING 07/14/2017 11.12.22 Since previous tracing, no significant change noted DOCTOR: Danuta Choe Interpretating Date/Time 11/14/2017 18:07:14
--- NOTE | 2017-11-14 18:20 | HHI.PR ---
Subjective Remarks 67F who presented with UTI symptoms in the presence of a urinary obstruction related to renal transplant. She is comfortable in bed and planned for placement of urinary stent today with urology. Objective Vital Signs Date Time Temp Pulse Resp B/P (MAP) Pulse Ox O2 Delivery O2 Flow Rate FiO2 11/14/17 17:31 93 Nasal Cannula 2.00 11/14/17 17:19 90 11/14/17 16:53 98.0 87 18 140/71 (94) 93 11/14/17 14:05 92 20 141/75 (97) 95 Nasal Cannula 2 11/14/17 13:45 92 20 144/75 (98) 95 Nasal Cannula 2 11/14/17 13:30 94 20 144/75 (98) 96 Nasal Cannula 4 11/14/17 13:13 98.5 104 20 139/70 (93) 92 Nasal Cannula 4 11/14/17 09:39 87 11/14/17 09:30 96 Room Air 11/14/17 08:20 98.0 87 20 105/61 (76) 96 11/14/17 06:33 100.0 94 11/14/17 06:32 94 Nasal Cannula 2.00 11/14/17 04:00 100.4 97 18 118/59 (78) 97 11/14/17 00:00 99.6 88 18 118/69 (85) 93 11/13/17 23:00 88 11/13/17 22:09 98.7 89 11/13/17 20:00 102.0 116 18 119/62 (81) 98 11/13/17 20:00 102.0 116 18 119/62 (81) 98 I/O 11/13/17 11/13/17 11/13/17 11/14/17 11/14/17 11/14/17 07:00 15:00 23:00 07:00 15:00 23:00 Intake Total 1200 ml 900 ml 1600 ml 1776 ml Output Total 900 ml 1400 ml 730 ml 275 ml Balance 1200 ml 0 ml -1400 ml 870 ml 1501 ml Intake IV Total 1200 ml 900 ml 1776 ml Other 1600 ml Output Urine Total 900 ml 1400 ml 725 ml 275 ml Estimated Blood Loss 5 ml Result Diagram: 11/14/1763511/14/1736 Objective Remarks GENERAL: Well-nourished, well-developed patient. SKIN: Warm and dry. HEAD: Normocephalic. EYES: No scleral icterus. No injection or drainage. NECK: Supple, trachea midline. No JVD or lymphadenopathy. CARDIOVASCULAR: Regular rate and rhythm without murmurs, gallops, or rubs. RESPIRATORY: Breath sounds equal bilaterally. No accessory muscle use. GASTROINTESTINAL: Abdomen soft, non-tender, nondistended. MUSCULOSKELETAL: No cyanosis, or edema. BACK: Nontender without obvious deformity. No CVA tenderness. EXTREMITIES: No edema Assessment and Plan Problem List: (1) UTI (urinary tract infection) ICD Codes: N39.0 - Urinary tract infection, site not specified (2) Bladder cancer ICD Codes: C67.9 - Malignant neoplasm of bladder, unspecified (3) Acute kidney injury ICD Codes: N17.9 - Acute kidney failure, unspecified Assessment and Plan Urinary Tract Infection - Likely caused by lack of urine flow from partial urinary obstruction, stent placed today - Complicated by history of renal transplant - Rocephin for coverage - Follow C&S h/o Renal Transplant - Appears to be producing urine well, slight elevation in Cr level - Transplanted in 2008 h/o Bladder CA - previously treated, cystoscope today with possible biopsy of any suspicious tissue - Will follow pathology reports DVT Prophylaxis - To begin day after procedure to avoid hematuria - SCD hose while in bed Jamison Hernandez MD Nov 14, 2017 18:20
[2017-11-15] VITALS (17 sets, daily range): BP systolic 111–158; BP diastolic 64–85; PULSE 85–100; RESP 18–22; TEMP 97.9–98.4; O2SAT 90–97
[2017-11-15] MEDS: FAMOTIDINE 20 MG/2 ML VIAL IV PUSH SCH ×3 (01:02→23:07)
[2017-11-15] MEDS: SODIUM CHLOR 0.9% 1000 ML INJ 1,000 ML IV SCH ×3 (01:05→11:50)
[2017-11-15] MEDS ORDERED: LACTATED RINGER'S 1000 ML IV PRN (05:45)
[2017-11-15] MEDS ORDERED: POVIDONE IODINE 5% (ANTISEPSIS KIT) 4 APPLICATIONS EACH NARE PRN (05:45)
[2017-11-15] MEDS ORDERED: CHLORHEXIDINE GLUCONATE 2 % 1 PACK (2 CLOTHS) TOPICAL PRN (05:45)
[2017-11-15] MEDS: TACROLIMUS 1 MG CAP PO SCH ×3 (08:07→20:15)
[2017-11-15] MEDS: SUCRALFATE 1 GM/10 ML CUP PO SCH ×4 (08:25→22:07)
[2017-11-15] MEDS: MAGNESIUM OXIDE 400 MG TAB PO SCH (08:25)
[2017-11-15] MEDS: METOPROLOL TARTRATE 25 MG TAB PO SCH ×3 (08:25→20:15)
[2017-11-15] MEDS: CALCIUM/VITAMIN D 250 MG/125 U TAB PO SCH (08:25)
[2017-11-15] MEDS: SODIUM CHLORIDE 0.9% FLUSH 10 ML FLUSH IV FLUSH SCH ×2 (08:25→22:09)
--- NOTE | 2017-11-15 09:59 | GIPROC ---
[facility] [address] [facility], [address] EGD PROCEDURE REPORT EXAM DATE: 11/15/2017 PATIENT NAME: Viri Ramirez MR #: [id number] BIRTHDATE: 1950 ATTENDING: Morgan Evans MD ORDER #: [id number] MOLD MOVER: Renetta London and Marina Tsai STATUS: inpatient INDICATIONS: The patient is a 67 yr old female here for an EGD due to hematemesis PROCEDURE PERFORMED: EGD w/ biopsy MEDICATIONS: None and Per Anesthesia. TOPICAL ANESTHETIC: none CONSENT: The patient understands the risks and benefits of the procedure and understands that these risks include, but are not limited to: sedation, allergic reaction, infection, perforation and/or bleeding. Alternative means of evaluation and treatment include, among others: physical exam, x-rays, and/or surgical intervention. The patient elects to proceed with this endoscopic procedure. medical equipment was checked for proper function. Hand hygiene and appropriate measures for infection prevention was taken. After the risks, benefits and alternatives of the procedure were thoroughly explained, Informed consent was verified, confirmed and timeout was successfully executed by the treatment team. The patient was anesthetized with topical anesthesia and the Pentax EG-[id number] endoscope was introduced through the mouth and advanced to the second portion of the duodenum. Retroflexion was performed and was normal The gastroscope was then slowly withdrawn and removed. ESOPHAGUS: There was LA Class A esophagitis noted. Soft polypoid fold at GE junction lesser curve. Multiple biopsies were performed using cold forceps. Sample sent for histology. STOMACH: The mucosa of the stomach appeared normal. DUODENUM: The duodenal mucosa appeared normal in the duodenal bulb and 2nd part duodenum. ADVERSE EVENTS: There were no complications. IMPRESSIONS: 1. There was LA Class A esophagitis noted 2. Soft polypoid fold at GE junction lesser curve 3. The mucosa of the stomach appeared normal 4. Normal duodenal mucosa in the duodenal bulb and 2nd part duodenum 5. Retroflexion was performed and was normal RECOMMENDATIONS: 1. Await biopsy results. Biopsy results will not be ready for 7-10 days. If you don't hear from us in two weeks, call our office for biopsy results. 2. Anti-reflux regimen 3. Continue Pepcid PATIENT CONDITION: stable DISPOSITION: Inpatient REPEAT EXAM: NONE Morgan Evans MD eSigned: Morgan Evans MD 11/15/2017 9:58 AM cc: PATIENT NAME: Viri Ramirez MR#: [id number]
[2017-11-15 14:01] LABS: AUTOMATED NEUTROPHIL # 14.5 TH/MM3 (1.8-7.7); BASOPHIL % 0.2 % (0.0-2.0); HEMATOCRIT 24.2 % (35.0-46.0); HEMO FLAGS DIFF FINAL; LYMPH % 2.5 % (9.0-44.0); LYMPHOCYTE # 0.4 TH/MM3 (1.0-4.8); MEAN CELL VOLUME 90.2 FL (80.0-100.0); MEAN CORPUSCULAR HGB CONC 31.1 % (32.0-36.0); MONO % 7.3 % (0.0-8.0); PLATELET COUNT 312 TH/MM3 (150-450); RED BLOOD COUNT 2.69 MIL/MM3 (4.00-5.30); RED CELL DISTRIBUTION WIDTH 16.9 % (11.6-17.2); WHITE BLOOD COUNT 16.1 TH/MM3 (4.0-11.0)
[2017-11-15 14:11] LABS: BICARBONATE 15.2 MEQ/L (21.0-32.0); POTASSIUM 3.9 MEQ/L (3.5-5.1)
--- NOTE | 2017-11-15 14:55 | HHI.PR ---
Subjective Remarks Pt tolerated her stent yesterday and had an EGD this morning to investigate sources of blood loss. She is chronically anemic, complains of daily fatigue and dyspnea on exertion related to this. Objective Vital Signs Date Time Temp Pulse Resp B/P (MAP) Pulse Ox O2 Delivery O2 Flow Rate FiO2 11/15/17 13:04 98.1 95 20 158/85 (109) 92 11/15/17 11:31 93 21 11/15/17 09:55 97.6 89 18 141/86 (104) 92 Room Air 11/15/17 08:49 Nasal Cannula 2.00 11/15/17 08:10 97.9 94 20 138/79 (98) 90 11/15/17 04:00 11/15/17 00:12 86 11/15/17 00:02 98.2 85 18 125/64 (84) 95 11/14/17 21:10 95 Room Air 11/14/17 20:15 93 11/14/17 20:00 97.8 91 18 112/66 (81) 92 11/14/17 17:31 93 Nasal Cannula 2.00 11/14/17 17:19 90 11/14/17 16:53 98.0 87 18 140/71 (94) 93 I/O 11/14/17 11/14/17 11/14/17 11/15/17 11/15/17 11/15/17 07:00 15:00 23:00 07:00 15:00 23:00 Intake Total 1600 ml 1776 ml 200 ml Output Total 1400 ml 730 ml 275 ml 700 ml Balance -1400 ml 870 ml 1501 ml -700 ml 200 ml Intake IV Total 1776 ml Other 1600 ml 200 ml Output Urine Total 1400 ml 725 ml 275 ml 700 ml Estimated Blood Loss 5 ml Result Diagram: 11/15/17 1240 11/15/17 1240 Objective Remarks GENERAL: Well-nourished, well-developed patient. SKIN: Warm and dry. HEAD: Normocephalic. EYES: No scleral icterus. No injection or drainage. NECK: Supple, trachea midline. No JVD or lymphadenopathy. CARDIOVASCULAR: Regular rate and rhythm without murmurs, gallops, or rubs. RESPIRATORY: Breath sounds equal bilaterally. No accessory muscle use. GASTROINTESTINAL: Abdomen soft, non-tender, nondistended. MUSCULOSKELETAL: No cyanosis, or edema. BACK: Nontender without obvious deformity. No CVA tenderness. EXTREMITIES: No edema Assessment and Plan Problem List: (1) UTI (urinary tract infection) ICD Codes: N39.0 - Urinary tract infection, site not specified (2) Bladder cancer ICD Codes: C67.9 - Malignant neoplasm of bladder, unspecified (3) Acute kidney injury ICD Codes: N17.9 - Acute kidney failure, unspecified Assessment and Plan Anemia - Anemia of chronic disease vs. slow GI losses - EGD completed today - Will transfuse today in anticipation for discharge home tomorrow. Urinary Tract Infection - Likely caused by lack of urine flow from partial urinary obstruction, stent placed - Complicated by history of renal transplant - Continue Rocephin - Follow C&S for enterococcus h/o Renal Transplant - Appears to be producing urine well, slight elevation in Cr level - Transplanted in 2008 h/o Bladder CA - previously treated, cystoscope today with possible biopsy of any suspicious tissue - Will follow pathology reports DVT Prophylaxis - To begin day after procedure to avoid hematuria - SCD hose while in bed Jamison Hernandez MD Nov 15, 2017 14:55
[2017-11-15] MEDS ORDERED: SODIUM CHLOR 0.9% 250 ML INJ 250 ML IV ONE (15:00)
[2017-11-15] MEDS ORDERED: ACETAMINOPHEN 325 MG TAB PO PRN (15:30)
[2017-11-15] MEDS: cefTRIAXone INJ 1,000 MG in SODIUM CHLORIDE 0.9% INJ 100 ML IV SCH (15:36)
--- NOTE | 2017-11-15 16:19 | HHI.NPPN ---
Subjective History of Present Illness 67-year-old female with past medical history of bladder cancer, hypertension, chronic kidney disease, history of renal transplant done in 2008, gastroesophageal reflux disease who came with nausea, vomiting, abdominal pain and diarrhea. I was called to see the patient for elevated creatinine. The patient has known history of renal transplant which was done in 2008. Additional Remarks Patient is alert, no abd. pain, feeling better. Review of Systems General Constitutional: Fatigue Objective Data Data 11/15/17 11/16/17 19:00 07:00 Intake Total 440 ml Balance 440 ml Intake Oral 240 ml Other 200 ml Vital Signs Date Time Temp Pulse Resp B/P (MAP) Pulse Ox O2 Delivery O2 Flow Rate FiO2 11/15/17 16:11 98.0 93 19 111/69 (83) 96 11/15/17 13:04 98.1 95 20 158/85 (109) 92 11/15/17 11:31 93 21 11/15/17 09:55 97.6 89 18 141/86 (104) 92 Room Air 11/15/17 08:49 Nasal Cannula 2.00 11/15/17 08:10 97.9 94 20 138/79 (98) 90 11/15/17 04:00 11/15/17 00:12 86 11/15/17 00:02 98.2 85 18 125/64 (84) 95 11/14/17 21:10 95 Room Air 11/14/17 20:15 93 11/14/17 20:00 97.8 91 18 112/66 (81) 92 11/14/17 17:31 93 Nasal Cannula 2.00 11/14/17 17:19 90 11/14/17 16:53 98.0 87 18 140/71 (94) 93 -: 11/15/17 1240 11/15/17 1240 Physical Exam General Appearance: No Acute Distress, Comfortable Eyes Eye Exam: Pupils Equal Throat Throat Exam: Oral Mucosa [place] & Moist Neck Neck Exam: Neck Supple Pulmonary Resp Exam: Clear Bilaterally, Breath Sounds Equal, No Distress, Decreased Bases Cardiology CV Exam: Regular, Normal Sinus Rhythm Gastrointestinal/Abdomen GI Exam: Soft, Non-Tender, Bowel Sounds Present, Non-Distended Extremeties Extremities Exam: No Edema Neurologic Neuro Exam: Alert, Awake, Oriented Psychiatric Psych Exam: Appropriate Responses Assessment/Plan Assessment Summary: CHENTE/Acute Renal Failure, Dehydration, Transplant Kidney Status Problem List: (1) UTI (urinary tract infection) ICD Codes: N39.0 - Urinary tract infection, site not specified (2) Acute kidney injury ICD Codes: N17.9 - Acute kidney failure, unspecified (3) Bladder cancer ICD Codes: C67.9 - Malignant neoplasm of bladder, unspecified (4) Hydronephrosis ICD Codes: N13.30 - Unspecified hydronephrosis (5) HTN (hypertension) ICD Codes: I10 - Hypertension Status: Chronic Plan Patient has Renal Transplant done in 2008. Has Bladder cancer. Cystoscopy done and stent placed. Results noted. Creatinine is improving, now 1.9 Continue IVF and antibiotics. Has Enterococcus in the urine, Change Ceftriaxone to Cipro. Hgb. is low, for transfusion. Robi Weber MD Nov 15, 2017 16:19
[2017-11-15] MEDS: diphenhydrAMINE HCL 25 MG CAP PO PRN (17:16)
[2017-11-15] MEDS: ACETAMINOPHEN 325 MG TAB PO PRN (17:17)
[2017-11-15] MEDS: CIPROFLOXACIN 250 MG TAB PO SCH (22:08)
[2017-11-16] VITALS (14 sets, daily range): BP systolic 116–164; BP diastolic 73–93; PULSE 79–90; RESP 17–20; TEMP 97.2–98.5; O2SAT 91–95
[2017-11-16] MEDS: diphenhydrAMINE HCL 25 MG CAP PO PRN
[2017-11-16] MEDS: SODIUM CHLOR 0.9% 1000 ML INJ 1,000 ML IV SCH ×2 (06:34→17:08)
[2017-11-16] MEDS: SUCRALFATE 1 GM/10 ML CUP PO SCH ×4 (08:24→22:49)
[2017-11-16] MEDS: SODIUM CHLORIDE 0.9% FLUSH 10 ML FLUSH IV FLUSH SCH ×2 (08:26→20:28)
[2017-11-16] MEDS: FAMOTIDINE 20 MG/2 ML VIAL IV PUSH SCH (08:27)
[2017-11-16] MEDS: CIPROFLOXACIN 250 MG TAB PO SCH ×2 (08:30→20:27)
[2017-11-16] MEDS: METOPROLOL TARTRATE 25 MG TAB PO SCH ×2 (08:31→20:27)
[2017-11-16] MEDS: TACROLIMUS 1 MG CAP PO SCH ×3 (08:33→20:27)
[2017-11-16] MEDS: CALCIUM/VITAMIN D 250 MG/125 U TAB PO SCH (09:00)
[2017-11-16] MEDS: MAGNESIUM OXIDE 400 MG TAB PO SCH (09:54)
[2017-11-16 09:57] LABS: BICARBONATE 17.5 MEQ/L (21.0-32.0); POTASSIUM 3.6 MEQ/L (3.5-5.1)
[2017-11-16] MEDS ORDERED: MAGNESIUM HYDROXIDE SUSP 30 ML CUP PO ONE (11:15)
--- NOTE | 2017-11-16 14:35 | HHI.PR ---
Subjective Remarks Patient seen this morning around 9 AM. Reports nausea, decreased appetite today. Has not had breakfast. Dull lower abdominal pain. Feels constipated. No bowel movement in several days. Objective Vital Signs Date Time Temp Pulse Resp B/P (MAP) Pulse Ox O2 Delivery O2 Flow Rate FiO2 11/16/17 12:13 98.1 85 18 163/85 (111) 91 11/16/17 08:56 88 11/16/17 08:36 95 Nasal Cannula 2.00 11/16/17 08:30 98.2 90 17 160/93 (115) 95 11/16/17 04:00 97.5 88 18 164/86 (112) 93 11/16/17 00:45 97.8 90 18 138/80 93 11/16/17 00:30 87 11/16/17 00:25 97.2 85 18 148/84 95 11/16/17 00:05 97.4 87 20 140/84 91 11/15/17 22:07 Nasal Cannula 2.00 11/15/17 20:30 92 11/15/17 20:00 98.2 91 18 138/76 (96) 94 11/15/17 19:04 98.1 90 20 127/73 (91) 93 11/15/17 19:03 98.1 91 20 127/73 93 11/15/17 18:57 86 20 93 11/15/17 18:47 98.1 95 20 127/74 92 11/15/17 18:30 98.4 92 22 130/66 93 11/15/17 18:09 98.1 91 126/71 93 11/15/17 17:58 96 21 11/15/17 16:11 98.0 93 19 111/69 (83) 96 11/15/17 15:00 93 Room Air I/O 11/15/17 11/15/17 11/15/17 11/16/17 11/16/17 11/16/17 07:00 15:00 23:00 07:00 15:00 23:00 Intake Total 200 ml 797 ml 632 ml Output Total 700 ml 900 ml 1000 ml 1225 ml Balance -700 ml 200 ml -103 ml -368 ml -1225 ml Intake Oral 460 ml 320 ml Packed Cells 327 ml 312 ml Blood Product IV Normal Saline Flush 10 ml Other 200 ml Output Urine Total 700 ml 900 ml 1000 ml 1225 ml # Bowel Movements 0 0 Result Diagram: 11/15/17 1240 11/16/17 0825 Objective Remarks GENERAL: Sitting up in bed. Appears fatigued. Oriented 3. SKIN: Warm and dry. HEAD: Normocephalic. EYES: No scleral icterus. No injection or drainage. NECK: Supple, trachea midline. No JVD. CARDIOVASCULAR: Regular rate and rhythm without murmurs, gallops, or rubs. RESPIRATORY: Breath sounds equal bilaterally. No accessory muscle use. GASTROINTESTINAL: Abdomen soft, non-tender, nondistended. Positive bowel sounds. MUSCULOSKELETAL: No cyanosis, or edema. BACK: Nontender without obvious deformity. No CVA tenderness. A/P Assessment and Plan //Anemia - Anemia of chronic disease vs. slow GI losses - EGD completed -no signs of bleeding. = 2 units PRBCs 11/15. Follow-up cbc //Urinary Tract Infection - Likely caused by lack of urine flow from partial urinary obstruction, stent placed - Complicated by history of renal transplant = Continue Cipro to complete treatment course. Stop date 11/25 //Constipation. //Poor appetite. //Nausea -Antiemetics as needed Laxatives ordered. Patient refuses enema. Await return of bowel function. //h/o Renal Transplant - Appears to be producing urine well, slight elevation in Cr level - Transplanted in 2008 = . Creatinine improved 1.85. //h/o Bladder CA // Status post ureteral stenting during this hospitalization. - previously treated, cystoscope today with possible biopsy of any suspicious tissue - Will follow pathology reports = Follow-up with urology as outpatient. //DVT Prophylaxis -SCDs while in bed Discharge Planning Awaiting resolution of constipation. Status post stenting. Will need follow- up with urology Will need follow-up with nephrology. Krzysztof Maddox MD Nov 16, 2017 14:35
--- NOTE | 2017-11-16 15:43 | HHI.GIFU ---
GI Follow-up Note Consult Follow-up Subjective: Patient laying in bed comfortably, no complaints except suprapubic pain. No heartburn. She's taking pantoprazole. Objective: PHYSICAL EXAMINATION: Vitals signs stable No fever HEENT: EOMI ABDOMEN: Moderate suprapubic tenderness. MAIL CLERK: alert and oriented times three. Available Data (labs, X- Rays, Procedues) : Labs and pathology reviewed: inflammatory EG junction nodule; no Brasher's lining/neoplasia. ASSESSMENT/PLAN:Reflux esophagitis. Continue pantoprazole daily. Reverse Trendelenburg while in bed. We discussed reflux in detail. Will see prn. It was a pleasure seeing Viri Ramirez. Entered by: Serafin Will MD Nov 16, 2017 15:43
--- NOTE | 2017-11-16 17:38 | HHI.NPPN ---
Subjective History of Present Illness 67-year-old female with past medical history of bladder cancer, hypertension, chronic kidney disease, history of renal transplant done in 2008, gastroesophageal reflux disease who came with nausea, vomiting, abdominal pain and diarrhea. I was called to see the patient for elevated creatinine. The patient has known history of renal transplant which was done in 2008. Additional Remarks Patient is alert, no abd. pain, feeling better. Review of Systems General Constitutional: Fatigue Objective Data Data 11/16/17 11/17/17 19:00 07:00 Output Total 1850 ml Balance -1850 ml Output Urine Total 1850 ml Vital Signs Date Time Temp Pulse Resp B/P (MAP) Pulse Ox O2 Delivery O2 Flow Rate FiO2 11/16/17 17:16 92 21 11/16/17 16:04 98.5 80 18 150/82 (104) 92 11/16/17 15:51 83 11/16/17 12:13 98.1 85 18 163/85 (111) 91 11/16/17 08:56 88 11/16/17 08:36 95 Nasal Cannula 2.00 11/16/17 08:30 98.2 90 17 160/93 (115) 95 11/16/17 04:00 97.5 88 18 164/86 (112) 93 11/16/17 00:45 97.8 90 18 138/80 93 11/16/17 00:30 87 11/16/17 00:25 97.2 85 18 148/84 95 11/16/17 00:05 97.4 87 20 140/84 91 11/15/17 22:07 Nasal Cannula 2.00 11/15/17 20:30 92 11/15/17 20:00 98.2 91 18 138/76 (96) 94 11/15/17 19:04 98.1 90 20 127/73 (91) 93 11/15/17 19:03 98.1 91 20 127/73 93 11/15/17 18:57 86 20 93 11/15/17 18:47 98.1 95 20 127/74 92 11/15/17 18:30 98.4 92 22 130/66 93 11/15/17 18:09 98.1 91 126/71 93 11/15/17 17:58 96 21 -: 11/15/17 1240 11/16/17 0825 Physical Exam General Appearance: No Acute Distress, Comfortable Eyes Eye Exam: Pupils Equal Throat Throat Exam: Oral Mucosa [place] & Moist Neck Neck Exam: Neck Supple Pulmonary Resp Exam: Clear Bilaterally, Breath Sounds Equal, No Distress, Decreased Bases Cardiology CV Exam: Regular, Normal Sinus Rhythm Gastrointestinal/Abdomen GI Exam: Soft, Non-Tender, Bowel Sounds Present, Non-Distended Extremeties Extremities Exam: No Edema Neurologic Neuro Exam: Alert, Awake, Oriented Psychiatric Psych Exam: Appropriate Responses Assessment/Plan Assessment Summary: CHENTE/Acute Renal Failure, Dehydration, Transplant Kidney Status Problem List: (1) UTI (urinary tract infection) ICD Codes: N39.0 - Urinary tract infection, site not specified (2) Acute kidney injury ICD Codes: N17.9 - Acute kidney failure, unspecified (3) Bladder cancer ICD Codes: C67.9 - Malignant neoplasm of bladder, unspecified (4) Hydronephrosis ICD Codes: N13.30 - Unspecified hydronephrosis (5) HTN (hypertension) ICD Codes: I10 - Hypertension Status: Chronic Plan Patient has Renal Transplant done in 2008. Has Bladder cancer. Cystoscopy done and stent placed. Results noted. Creatinine is improving, now 1.9 Continue IVF and antibiotics. Has Enterococcus in the urine, Change Ceftriaxone to Cipro. Hgb. is low, for transfusion. Robi Weber MD Nov 16, 2017 17:38
[2017-11-16 19:12] LABS: HEMATOCRIT 34.5 % (35.0-46.0); MEAN CELL VOLUME 88.3 FL (80.0-100.0); MEAN CORPUSCULAR HEMOGLOBIN 29.7 PG (27.0-34.0); MEAN CORPUSCULAR HGB CONC 33.6 % (32.0-36.0); PLATELET COUNT 301 TH/MM3 (150-450); RED CELL DISTRIBUTION WIDTH 15.5 % (11.6-17.2); REVIEW FLAG FINAL; WHITE BLOOD COUNT 10.2 TH/MM3 (4.0-11.0)
[2017-11-17] VITALS (8 sets, daily range): BP systolic 150–154; BP diastolic 81–88; PULSE 76–85; RESP 16–20; TEMP 98.1–99; O2SAT 94–95
[2017-11-17] MEDS: FAMOTIDINE 20 MG/2 ML VIAL IV PUSH SCH ×2 (00:07→08:22)
[2017-11-17] MEDS: SODIUM CHLOR 0.9% 1000 ML INJ 1,000 ML IV SCH (01:38)
[2017-11-17] MEDS: ACETAMINOPHEN 325 MG TAB PO PRN (06:38)
[2017-11-17] MEDS: CALCIUM/VITAMIN D 250 MG/125 U TAB PO SCH (08:21)
[2017-11-17] MEDS: METOPROLOL TARTRATE 25 MG TAB PO SCH (08:21)
[2017-11-17] MEDS: MAGNESIUM OXIDE 400 MG TAB PO SCH (08:21)
[2017-11-17] MEDS: TACROLIMUS 1 MG CAP PO SCH ×2 (08:22→08:24)
[2017-11-17] MEDS: SODIUM CHLORIDE 0.9% FLUSH 10 ML FLUSH IV FLUSH SCH (08:22)
[2017-11-17] MEDS: CIPROFLOXACIN 250 MG TAB PO SCH (08:22)
[2017-11-17] MEDS: SUCRALFATE 1 GM/10 ML CUP PO SCH (08:24)
[2017-11-17] MEDS ORDERED: MAGNESIUM HYDROXIDE SUSP 30 ML CUP PO ONE (09:15)
[2017-11-17] MEDS ORDERED: DOCUSATE SODIUM 50 MG/SENNA 8.6 MG TAB PO ONE ×2 (10:00)
[2017-11-17] MEDS ORDERED: CIPR250T52 PO (10:51)
[2017-11-17] MEDS ORDERED: SUCR1S PO (10:51)
--- NOTE | 2017-11-17 11:00 | HHI.PR ---
Subjective Remarks Patient says she is feeling well today. Reports constipation resolved. Denies any chest shortness breath. Denies any nausea or vomiting. Good appetite today. Objective Vital Signs Date Time Temp Pulse Resp B/P (MAP) Pulse Ox O2 Delivery O2 Flow Rate FiO2 11/17/17 09:17 94 21 11/17/17 08:20 18 11/17/17 08:06 98.1 85 20 150/84 (106) 95 11/17/17 07:00 84 11/17/17 05:26 98.2 82 16 154/88 (110) 94 11/17/17 04:30 79 11/17/17 00:33 99.0 79 16 154/81 (105) 94 11/17/17 00:30 76 11/16/17 22:49 Room Air 11/16/17 21:19 98.0 82 18 116/73 (87) 94 11/16/17 20:30 79 11/16/17 19:08 79 11/16/17 17:16 92 21 11/16/17 16:04 98.5 80 18 150/82 (104) 92 11/16/17 15:51 83 11/16/17 12:13 98.1 85 18 163/85 (111) 91 I/O 11/16/17 11/16/17 11/16/17 11/17/17 11/17/17 11/17/17 07:00 15:00 23:00 07:00 15:00 23:00 Intake Total 632 ml 1280 ml 583 ml Output Total 1000 ml 1225 ml 625 ml Balance -368 ml -1225 ml 655 ml 583 ml Intake Oral 320 ml IV Total 1280 ml 583 ml Packed Cells 312 ml Output Urine Total 1000 ml 1225 ml 625 ml # Bowel Movements 0 1 Result Diagram: 11/16/17 1901 11/16/17 0825 Objective Remarks GENERAL: Sitting up in bed. Oriented 3. Appears in good spirits today SKIN: Warm and dry. HEAD: Normocephalic. EYES: No scleral icterus. No injection or drainage. NECK: Supple, trachea midline. No JVD. CARDIOVASCULAR: Regular rate and rhythm without murmurs, gallops, or rubs. RESPIRATORY: Breath sounds equal bilaterally. No accessory muscle use. GASTROINTESTINAL: Abdomen soft, non-tender, nondistended. Positive bowel sounds. MUSCULOSKELETAL: No cyanosis, or edema. BACK: Nontender without obvious deformity. No CVA tenderness. A/P Assessment and Plan - Anemia of chronic disease vs. slow GI losses - EGD completed -no signs of bleeding. = 2 units PRBCs 11/15. Follow-up cbc = Hemoglobin in the 's. Much improved. //Urinary Tract Infection - Likely caused by lack of urine flow from partial urinary obstruction, stent placed - Complicated by history of renal transplant = Continue Cipro to complete treatment course. Stop date 11/25 //Constipation. //Poor appetite. //Nausea -Antiemetics as needed = Resolved anaphylaxis. Patient says she will take tension to constipation home. //h/o Renal Transplant - Appears to be producing urine well, slight elevation in Cr level - Transplanted in 2008 = 11/16. Creatinine improved 1.85. = Nephrology as outpatient. //h/o Bladder CA // Status post ureteral stenting during this hospitalization. - previously treated, cystoscope today with possible biopsy of any suspicious tissue - Will follow pathology reports = Follow-up with urology as outpatient. //DVT Prophylaxis -SCDs while in bed Discharge Planning Cipro to complete treatment course. Follow urology and nephrology. Follow-up gastroenterology Krzysztof Maddox MD Nov 17, 2017 11:00
--- NOTE | 2017-11-17 11:01 | HHI.DS ---
Discharge Summary Admission Date Nov 13, 2017 at 08:54 Discharge Date: Nov 17, 2017 Admitting Diagnosis acute kidney injury (1) UTI (urinary tract infection) ICD Code: N39.0 - Urinary tract infection, site not specified (2) Hydronephrosis of kidney transplant ICD Code: T86.19 - Other complication of kidney transplant; N13.30 - Unspecified hydronephrosis Procedures Status post cystoscopy with ureteral stenting. Please see report. Brief History - From Admission This is a pleasant 67 y/o Female with adult polycystic kidney disease status post renal transplant with subsequent high grade non invasive bladder cancer status post Transurethral resection in June this year, who presents to the emergency department with abdominal discomfort. She says her abdominal discomfort started last evening, constant, moderate severity, radiating to the back, described as an aching associated with an episode of vomiting last night had some blood in it. She denies any dysuria but she says that she hasn't been making much urine. She denies any fevers or chills. She's been following with Dr. Mcclain recently because he is concerned that she may have a problem with her urethra leading her to develop hydronephrosis of the transplant kidney as her creatinine has been upward trending. Dr. Mcclain had planned to do a biopsy tomorrow and potentially place a stent. As we know she has Bladder Cancer history, GERD, Kidney transplant 2008, Hypertension, OA, CKD, as per patient she started with hematuria thought related to bladder Cancer, followed by Urology specialist Doctor Sarahi, she continued with Dysuria and abdominal pain, she states that is worsening came to ER with Abdominal pain specially on on lower quadrants, 7/10 in intensity, as a Dull sensation and intermittent sharp sensation, non radiated, has worsening renal function she has Nephrology specialist Doctor Paulie following. also had one episode of hematemesis. CBC/BMP: 11/16/17 1901 11/16/17 0825 Significant Findings Laboratory Tests Test 11/15/17 12:40 11/16/17 08:25 11/16/17 19:01 White Blood Count 16.1 TH/MM3 (4.0-11.0) Red Blood Count 2.69 MIL/MM3 (4.00-5.30) 3.90 MIL/MM3 (4.00-5.30) Hemoglobin 7.5 GM/DL (11.6-15.3) Hematocrit 24.2 % (35.0-46.0) 34.5 % (35.0-46.0) Mean Corpuscular Hemoglobin Concent 31.1 % (32.0-36.0) Neutrophils (%) (Auto) 90.0 % (16.0-70.0) Lymphocytes (%) (Auto) 2.5 % (9.0-44.0) Neutrophils # (Auto) 14.5 TH/MM3 (1.8-7.7) Lymphocytes # (Auto) 0.4 TH/MM3 (1.0-4.8) Monocytes # (Auto) 1.2 TH/MM3 (0-0.9) Blood Urea Nitrogen 34 MG/DL (7-18) 34 MG/DL (7-18) Creatinine 1.98 MG/DL (0.50-1.00) 1.85 MG/DL (0.50-1.00) Random Glucose 108 MG/DL (74-106) Calcium Level 8.0 MG/DL (8.5-10.1) 7.6 MG/DL (8.5-10.1) Chloride Level 113 MEQ/L (98-107) 111 MEQ/L (98-107) Carbon Dioxide Level 15.2 MEQ/L (21.0-32.0) 17.5 MEQ/L (21.0-32.0) Estimat Glomerular Filtration Rate 25 ML/MIN (>89) 27 ML/MIN (>89) Hospital Course Patient presented with acute kidney injury, creatinine 2.9 on admission, with innumerable white blood cells on UA. Urology, nephrology were consult. Patient underwent cystoscopy with ureteral stent placement by Dr. Sosa. Patient experienced improvement in creatinine down to 1.85. Urinalysis grew enterococcus sensitive to Cipro, and patient will continue Cipro to complete treatment course. She will follow up with urology, as well as nephrology as outpatient. Patient did have anemia on admission, with hemoglobin 8.8. This decreased to 7.3, likely secondary to dilution. GI was consult, EGD performed without signs of bleeding. Patient will need a follow-up with GI as outpatient to go over biopsy results. For problem-based summary from most recent progress note, please see below. Assessment and Plan - Anemia of chronic disease vs. slow GI losses - EGD completed -no signs of bleeding. = 2 units PRBCs 11/15. Follow-up cbc = Hemoglobin in the 11's. Much improved. //Urinary Tract Infection - Likely caused by lack of urine flow from partial urinary obstruction, stent placed - Complicated by history of renal transplant = Continue Cipro to complete treatment course. Stop date 11/25 //Constipation. //Poor appetite. //Nausea -Antiemetics as needed = Resolved anaphylaxis. Patient says she will take tension to constipation home. //h/o Renal Transplant - Appears to be producing urine well, slight elevation in Cr level - Transplanted in 2008 = 11/16. Creatinine improved 1.85. = Nephrology as outpatient. //h/o Bladder CA // Status post ureteral stenting during this hospitalization. - previously treated, cystoscope today with possible biopsy of any suspicious tissue - Will follow pathology reports = Follow-up with urology as outpatient. //DVT Prophylaxis -SCDs while in bed Discharge Planning Cipro to complete treatment course. Follow urology and nephrology. Follow-up gastroenterology Pt Condition on Discharge: Good Discharge Disposition: Discharge Home Discharge Time: > 30 minutes Discharge Instructions DIET: Follow Instructions for: Heart Healthy Diet Activities you can perform: Regular-No Restrictions Follow up Referrals: Gastroenterology - 1 Week with Morgan Evans MD Nephrology - 1 Week with Robi Weber MD PCP Follow-up - 1 Week Urology - 1 Week with Temo Mcclain MD New Medications: Ciprofloxacin (Cipro) 250 Mg Tab 250 MG PO Q12HR for Infection for 8 Days, TAB Sucralfate Liq (Sucralfate Liq) 1 Gram/10 Ml Olamide 1 GM PO ACHS for Reflux for 30 Days, ML Continued Medications: Alendronate (Fosamax) 70 Mg Tab 35 MG PO Q7D for Osteoporosis Treatment, #4 TAB 0 Refills Calcium Carbonate/Vitamin D3 (Calcium 600 + Vit D Tablet) 1 Each Tablet 1 TAB PO DAILY Magnesium (Sm Magnesium) 250 Mg Tab 500 MG PO DAILY Metoprolol Tartrate (Metoprolol Tartrate) 25 Mg Tab 12.5 MG PO BID, #60 TAB 0 Refills Multivit with Calcium,Iron,Min (Multiple Vitamins For Women) 1 Each Tablet 1 TAB PO DAILY Tacrolimus (Prograf) 1 Mg Cap 3 MG PO DAILY for Prevent Transplant Reject, #60 CAP 0 Refills Tacrolimus (Tacrolimus) 1 Mg Cap 1 MG PO Q12H for Prevent Transplant Reject, #60 CAP 0 Refills Discontinued Medications: Phenazopyridine (Pyridium) 100 Mg Tab 100 MG PO Q8HR for Dysuria, #30 TAB 0 Refills Krzysztof Maddox MD Nov 17, 2017 11:01
== END 2017-11-17 11:58 | disposition home or self-care (01) | DRG 669 ==
LOC: NEPC 07:02 → NEDA 08:54 → N05A 09:57
PROVIDERS: ADMIT Internal Medicine; ATTEND Internal Medicine
PROC: 0T5B8ZZ Destruction of Bladder, Via Natural or Artificial Opening Endoscopic (ICD-10-PCS; 2017-11-14)
PROC: BT1D1ZZ Fluoroscopy of Right Kidney, Ureter and Bladder using Low Osmolar Contrast (ICD-10-PCS; 2017-11-14)
PROC: 0T768DZ Dilation of Right Ureter with Intraluminal Device, Via Natural or Artificial Opening Endoscopic (ICD-10-PCS; 2017-11-14)
PROC: 0TBB8ZX Excision of Bladder, Via Natural or Artificial Opening Endoscopic, Diagnostic (ICD-10-PCS; principal; 2017-11-14 10:49)
PROC: 0DB48ZX Excision of Esophagogastric Junction, Via Natural or Artificial Opening Endoscopic, Diagnostic (ICD-10-PCS; 2017-11-15)
PROC: 30233N1 Transfusion of Nonautologous Red Blood Cells into Peripheral Vein, Percutaneous Approach (ICD-10-PCS; 2017-11-15)
DX: N17.9 Acute kidney failure, unspecified (principal); Q61.2 Polycystic kidney, adult type; N13.8 Other obstructive and reflux uropathy; N13.39 Other hydronephrosis; Z94.0 Kidney transplant status; R54 Age-related physical debility; I12.9 Hypertensive chronic kidney disease with stage 1 through stage 4 chronic kidney disease, or unspecified chronic kidney disease; N18.4 Chronic kidney disease, stage 4 (severe); N39.0 Urinary tract infection, site not specified; B95.2 Enterococcus as the cause of diseases classified elsewhere; C67.2 Malignant neoplasm of lateral wall of bladder; K59.00 Constipation, unspecified; K21.0 Gastro-esophageal reflux disease with esophagitis; D64.9 Anemia, unspecified; M81.0 Age-related osteoporosis without current pathological fracture; M06.9 Rheumatoid arthritis, unspecified; Z84.2 Family history of other diseases of the genitourinary system
CPT/HCPCS: 36430; 51702; 80048; 80053; 81001; 83605; 84484; 85025; 85027; 85610; 85730; 86644; 86850; 86900; 86901; 86920; 87040; 87077; 87086; 87186; 88305; 88307; 93005; 96374; 96375; C1769; C2617; C9113; J0696; J0744; J1100; J2270; J2370; J2405; J7030; J7050; J7120; J7507; P9016; Q9967

== ENCOUNTER 2017-11-29 13:21 | Emergency (ER) | payer MEDICARE, BC ==
[~2017-11-29] VITALS: Ht 162.6 cm; Wt 41.2 kg
[~2017-11-29 13:21] MED LIST changes: +CIPR250T52 PO; -PHEN0.4T PO; +SUCR1S PO; -TACR1CAP PO
[2017-11-29 13:23] VITALS: BP 121/61; PULSE 93; RESP 15; TEMP 97.5; O2SAT 98
[2017-11-29] MEDS ORDERED: SODIUM CHLOR 0.9% 1000 ML INJ 1,000 ML IV SCH (14:07)
[2017-11-29] MEDS ORDERED: MORPHINE SULFATE 4 MG/ML INJ IV PUSH ONE (14:15)
[2017-11-29] MEDS ORDERED: ONDANSETRON HCL 4 MG/2 ML VIAL IVP ONE (14:15)
[2017-11-29] MEDS ORDERED: SODIUM CHLORIDE 0.9% FLUSH 10 ML FLUSH IV FLUSH PRN (14:15)
--- NOTE | 2017-11-29 14:27 | PD ---
HPI . Abdominal pain Chief Complaint: Abdominal Pain Time Seen by Provider: 14:03 Travel History International Travel<30 days: No Contact w/Intl Traveler<30days: No Traveled to known affect area: No History of Present Illness HPI Patient presents with a chief complaint of suprapubic abdominal pain. Onset was a couple months ago. She states that she has a chronic dull pain which sometimes escalates to a sharp pain. She states that the severity is 5/10. Today, it was associated with emesis. It sounds like she and her are concerned about dehydration or electrolyte abnormality which is what prompted their visit today. She denies fever. She denies any urinary tract symptoms such as dysuria, frequency or urgency. She has not noted any modifying factors. The patient reports that she has a history for [place] but does not take it because of nausea. She states that her best pain relief is with 2 extra strength Tylenol. She states that she does not have any medication at home to take for nausea. This patient had a renal transplant done approximately 8 years ago because of polycystic kidney disease and he failure. She states that her pain is not over the transplanted kidney. The patient also reports a history of bladder cancer. She states that that was treated by local resection. She had a follow-up biopsy done in mid October and does not know the results of the biopsy. PFSH Past Medical History Arthritis: No Asthma: No Autoimmune Disease: No Anxiety: No Depression: No Heart Rhythm Problems: No Cancer: Yes Cardiovascular Problems: No High Cholesterol: No Chemotherapy: No Chest Pain: No Congestive Heart Failure: No COPD: No Cerebrovascular Accident: No Diabetes: No Diminished Hearing: No Endocrine: No Gastrointestinal Disorders: Yes (HX GERD) GERD: Yes Genitourinary: Yes (kidney transplant 2008 ) Hepatitis: No Hiatal Hernia: No Hypertension: Yes Immune Disorder: No Implanted Vascular Access Dvce: Yes Kidney Stones: No Musculoskeletal: No Neurologic: No Psychiatric: No Reproductive: No Respiratory: No Immunizations Current: Yes Migraines: No Radiation Therapy: No Renal Failure: Yes (dialysis for 2 years and transplant after) Seizures: No Sickle Cell Disease: No Sleep Apnea: No Thyroid Disease: No Ulcer: No ?: Not Menopausal: Yes Past Surgical History Abdominal Surgery: No AICD: No Appendectomy: No Arteriovenous Shunt: No Body Medical Devices: 3 screws in the right knee due to phx of fracture Cardiac Surgery: No Cholecystectomy: No Ear Surgery: No Endocrine Surgery: No Eye Surgery: Yes (catracts on both eyes in 2016) Genitourinary Surgery: No Gynecologic Surgery: No Insulin Pump: No Joint Replacement: No Oral Surgery: Yes (wisdom teeth taken out) Pacemaker: No Thoracic Surgery: No Other Surgery: Yes (KIDNEY TRANSPLANT-RIGHT) Social History Alcohol Use: Yes (rarely) Tobacco Use: No Substance Use: No Allergies-Medications (Allergen,Severity, Reaction): Coded Allergies: No Known Allergies (Verified Allergy, Unknown, 11/29/17) Reported Meds & Prescriptions Reported Meds & Active Scripts Active Zofran (Ondansetron HCl) 4 Mg Tab 4 Mg PO Q6HR PRN Dilaudid (Hydromorphone HCl) 2 Mg Tab 2 Mg PO Q4H PRN Macrobid (Nitrofurantoin Monoh/Nitrofur Macro) 100 Mg Cap 100 Mg PO BID 5 Days Sucralfate Liq (Sucralfate) 1 Gram/10 Ml Olamide 1 Gm PO ACHS 30 Days Reported Multiple Vitamins For Women (Multivit with Calcium,Iron,Min) 1 Each Tablet 1 Tab PO DAILY Sm Magnesium (Magnesium) 250 Mg Tab 500 Mg PO DAILY Calcium 600 + Vit D Tablet (Calcium Carbonate/Vitamin D3) 1 Each Tablet 1 Tab PO DAILY Fosamax (Alendronate Sodium) 70 Mg Tab 35 Mg PO Q7D Metoprolol Tartrate 25 Mg Tab 12.5 Mg PO BID Prograf (Tacrolimus) 1 Mg Cap 3 Mg PO DAILY Review of Systems Except as stated in HPI: all other systems reviewed are Neg General / Constitutional: No: Fever, Chills Gastrointestinal: Positive: Nausea, Vomiting, Abdominal Pain, No: Diarrhea Genitourinary: No: Urgency, Frequency, Dysuria, Hematuria Physical Exam Narrative GENERAL: Pleasant woman who appears older than her stated age of 67. SKIN: warm/dry. Good color and turgor. HEAD: Normocephalic. Atraumatic. EYES: Pupils equal and round. No scleral icterus. No injection or drainage. ENT: No nasal bleeding or discharge. Mucous membranes pink and moist. NECK: Trachea midline. Full range of motion without pain.. CARDIOVASCULAR: Regular rate and rhythm. RESPIRATORY: No accessory muscle use. Clear to auscultation. Breath sounds equal bilaterally. GASTROINTESTINAL: Abdomen soft. Well-healed surgical scar in the right lower quadrant. Transplanted kidney is palpable in the right lower quadrant and is nontender. Bowel sounds present. Nondistended. Suprapubic tenderness with no associated guarding or rebound. MUSCULOSKELETAL: No obvious deformities. NEUROLOGICAL: Awake and alert. No obvious cranial nerve deficits. Motor grossly within normal limits. Normal speech. PSYCHIATRIC: Appropriate mood and affect; insight and judgment normal. Data Data Last Documented VS Vital Signs Date Time Temp Pulse Resp B/P (MAP) Pulse Ox O2 Delivery O2 Flow Rate FiO2 11/29/17 17:35 68 20 128/70 (89) 95 11/29/17 16:35 Room Air 11/29/17 13:23 97.5 Orders Orders Complete Blood Count With Diff (11/29/17 14:07) Comprehensive Metabolic Panel (11/29/17 14:07) Lactic Acid (11/29/17 14:07) Prothrombin Time / Inr (Pt) (11/29/17 14:07) Act Partial Throm Time (Ptt) (11/29/17 14:07) Urinalysis - C+S If Indicated (11/29/17 14:07) Iv Access Insert/Monitor (11/29/17 14:07) Ondansetron Inj (Zofran Inj) (11/29/17 14:15) Sodium Chlor 0.9% 1000 Ml Inj (Ns 1000 M (11/29/17 14:07) Sodium Chloride 0.9% Flush (Ns Flush) (11/29/17 14:15) Sodium Chlor 0.9% 1000 Ml Inj (Ns 1000 M (11/29/17 14:30) Morphine Inj (Morphine Inj) (11/29/17 14:45) Urine Culture (11/29/17 15:45) Ceftriaxone Inj (Rocephin Inj) (11/29/17 16:15) Ed Discharge Order (11/29/17 16:11) Labs Laboratory Tests Test 11/29/17 14:45 11/29/17 15:45 White Blood Count 7.4 TH/MM3 Red Blood Count 3.77 MIL/MM3 Hemoglobin 10.7 GM/DL Hematocrit 33.5 % Mean Corpuscular Volume 89.0 FL Mean Corpuscular Hemoglobin 28.5 PG Mean Corpuscular Hemoglobin Concent 32.0 % Red Cell Distribution Width 15.5 % Platelet Count 393 TH/MM3 Mean Platelet Volume 9.5 FL Neutrophils (%) (Auto) 71.8 % Lymphocytes (%) (Auto) 10.8 % Monocytes (%) (Auto) 10.7 % Eosinophils (%) (Auto) 2.5 % Basophils (%) (Auto) 4.2 % Neutrophils # (Auto) 5.3 TH/MM3 Lymphocytes # (Auto) 0.8 TH/MM3 Monocytes # (Auto) 0.8 TH/MM3 Eosinophils # (Auto) 0.2 TH/MM3 Basophils # (Auto) 0.3 TH/MM3 CBC Comment DIFF FINAL Differential Comment Prothrombin Time 10.3 SEC Prothromb Time International Ratio 1.0 RATIO Activated Partial Thromboplast Time 25.7 SEC Blood Urea Nitrogen 39 MG/DL Creatinine 1.40 MG/DL Random Glucose 134 MG/DL Total Protein 7.7 GM/DL Albumin 2.8 GM/DL Calcium Level 9.7 MG/DL Alkaline Phosphatase 99 U/L Aspartate Amino Transf (AST/SGOT) 26 U/L Alanine Aminotransferase (ALT/SGPT) 16 U/L Total Bilirubin 0.3 MG/DL Sodium Level 137 MEQ/L Potassium Level 4.3 MEQ/L Chloride Level 102 MEQ/L Carbon Dioxide Level 24.9 MEQ/L Anion Gap 10 MEQ/L Estimat Glomerular Filtration Rate 37 ML/MIN Lactic Acid Level 1.4 mmol/L Urine Collection Type VOIDED Urine Color YELLOW Urine Turbidity CLEAR Urine pH 7.5 Urine Specific [place] 1.015 Urine Protein 100 mg/dL Urine Glucose (UA) NEG mg/dL Urine Ketones NEG mg/dL Urine Occult Blood MOD Urine Nitrite NEG Urine Bilirubin NEG Urine Leukocyte Esterase SMALL Urine WBC 3-5 /hpf Urine WBC Clumps OCC Urine Squamous Epithelial Cells 0-2 /hpf Urine Bacteria OCC /hpf Microscopic Urinalysis Comment CULTURE INDICATED MDM Medical Decision Making Medical Screen Exam Complete: Yes Emergency Medical Condition: Yes (most significant medical history includes the transplanted kidney and bladder cancer. She had an EGD done in for because of anemia. The EGD was negative.) Medical Record Reviewed: Yes (see narrative) Differential Diagnosis Differential diagnosis of abdominal pain includes but is not limited to gastritis, pancreatitis, hepatitis, gastroenteritis, gallbladder disease, constipation, urinary retention, UTI, peptic ulcer disease, diverticulitis or appendicitis Narrative Course Bladder BX done 11/15/17: #1- BLADDER TUMOR, TURB: EXTENSIVELY NECROTIC AND CAUTERIZED TISSUE WITH RARE SMALL FOCI OF RESIDUAL HIGH GRADE UROTHELIAL CARCINOMA. THE INVASIVENESS OF THE CARCINOMA CANNOT BE DETERMINED FROM THIS BIOPSY. FRAGMENTS OF NECROTIC APPARENT SMOOTH MUSCLE ARE PRESENT, AND DO NOT CONTAIN TUMOR. #2- BLADDER MASS POSTERIOR WALL, BIOPSY: EXTENSIVELY DENUDED BENIGN UROTHELIUM WITH MILD CHRONIC INFLAMMATION. This patient presents for pubic abdominal pain. This has been an ongoing problem for the last couple of months. The difference today is that she has had some vomiting. She is concerned about dehydration and electrolyte abnormalities. She is further concerned about renal function. CBC & BMP Diagram 11/29/17 14:45 Total Protein 7.7, Albumin 2.8 L, Calcium Level 9.7, Alkaline Phosphatase 99, Aspartate Amino Transf (AST/SGOT) 26, Alanine Aminotransferase (ALT/SGPT) 16, Total Bilirubin 0.3 UA>>mod blood, small LE, 3-5 WBCs, occ WBC clumps, occ bact I will give her a dose of Rocephin here and then discharge her on Macrobid. Her pain has been well-controlled with morphine and Zofran. I feel that her pain is probably secondary to bladder cancer. I have written her a prescription for Dilaudid 2 mg tablets, total #12 and Zofran to try at home. I have asked her to follow-up with Dr. Mcclain later this week. He can reassess her pain at that time. Diagnosis Primary Impression: UTI (urinary tract infection) Qualified Codes: N30.00 - Acute cystitis without hematuria Additional Impressions: Suprapubic pain Vomiting Qualified Codes: R11.2 - Nausea with vomiting, unspecified Patient Instructions: General Instructions, Narcotic given in the ED, Urinary Tract Infection in (GEN) Med/Other Pt SpecificInfo: Prescription(s) given Scripts Ondansetron (Zofran) 4 Mg Tab 4 MG PO Q6HR Y for NAUSEA OR VOMITING, #12 TAB 0 Refills Prov: Grace Alcantar MD 11/29/17 Hydromorphone (Dilaudid) 2 Mg Tab 2 MG PO Q4H Y for Pain Management, #12 TAB 0 Refills Prov: Grace Alcantar MD 11/29/17 Nitrofurantoin Monohydrate Macrocrystals (Macrobid) 100 Mg Cap 100 MG PO BID for Infection for 5 Days, #10 CAP 0 Refills Prov: Grace Alcantar MD 11/29/17 Disposition: 01 DISCHARGE HOME Condition: Stable Grace Alcantar MD Nov 29, 2017 14:27
[2017-11-29] MEDS ORDERED: SODIUM CHLOR 0.9% 1000 ML INJ 1,000 ML IV ONE (14:30)
[2017-11-29] MEDS ORDERED: MORPHINE SULFATE 2 MG/ML INJ IV PUSH ONE (14:45)
[2017-11-29 15:00] VITALS: BP 121/69; PULSE 89; RESP 18; O2SAT 96
[2017-11-29 15:02] LABS: AUTOMATED NEUTROPHIL # 5.3 TH/MM3 (1.8-7.7); BASOPHIL # 0.3 TH/MM3 (0-0.2); BASOPHIL % 4.2 % (0.0-2.0); EOSINOPHIL # 0.2 TH/MM3 (0-0.4); EOSINOPHIL % 2.5 % (0.0-4.0); HEMATOCRIT 33.5 % (35.0-46.0); HEMOGLOBIN 10.7 GM/DL (11.6-15.3); LYMPH % 10.8 % (9.0-44.0); LYMPHOCYTE # 0.8 TH/MM3 (1.0-4.8); MEAN CORPUSCULAR HEMOGLOBIN 28.5 PG (27.0-34.0); MEAN PLATELET VOLUME 9.5 FL (7.0-11.0); MONO % 10.7 % (0.0-8.0); MONOCYTE # 0.8 TH/MM3 (0-0.9); NEUT % 71.8 % (16.0-70.0); PLATELET COUNT 393 TH/MM3 (150-450); RED BLOOD COUNT 3.77 MIL/MM3 (4.00-5.30); RED CELL DISTRIBUTION WIDTH 15.5 % (11.6-17.2); WHITE BLOOD COUNT 7.4 TH/MM3 (4.0-11.0)
[2017-11-29 15:09] LABS: CHLORIDE 102 MEQ/L (98-107); SODIUM (NA) 137 MEQ/L (136-145)
[2017-11-29 15:12] LABS: ALBUMIN 2.8 GM/DL (3.4-5.0); BICARBONATE 24.9 MEQ/L (21.0-32.0); CALCIUM 9.7 MG/DL (8.5-10.1); GLUCOSE,RANDOM 134 MG/DL (74-106)
[2017-11-29 15:13] LABS: BLOOD UREA NITROGEN 39 MG/DL (7-18); PROTHROMBIN TIME - PATIENT 10.3 SEC (9.8-11.6)
[2017-11-29 15:16] LABS: ALT (GPT) 16 U/L (10-53); AST (GOT) 26 U/L (15-37); GLOMERULAR FILTRATION RATE 37 ML/MIN (>89)
[2017-11-29 15:17] LABS: TOTAL BILIRUBIN ADULT 0.3 MG/DL (0.2-1.0); TOTAL PROTEIN 7.7 GM/DL (6.4-8.2)
[2017-11-29 15:18] LABS: ALKALINE PHOSPHATASE 99 U/L (45-117)
[2017-11-29 15:49] LABS: BILIRUBIN, URINE NEG (NEG); BLOOD, URINE MOD (NEG); GLUCOSE,URINE NEG (NEG); KETONE, URINE NEG (NEG); NITRITE,URINE NEG (NEG); PH, URINE 7.5 (5.0-8.5); URINE LEUKOCYTE ESTERASE SMALL (NEG)
[2017-11-29 15:55] LABS: URINE COLOR YELLOW (YELLW/STRAW)
[2017-11-29 15:57] LABS: WHITE BLOOD CELL CLUMPS OCC
[2017-11-29 15:58] LABS: BACTERIA, URINE OCC /hpf; SQUAMOUS EPITHELIAL CELL URINE 0-2 /hpf (0-5)
[2017-11-29] MEDS ORDERED: MACR100C2 PO (16:11)
[2017-11-29] MEDS ORDERED: DILA2TAB4 PO (16:11)
[2017-11-29] MEDS ORDERED: ZOFR4TAB PO (16:11)
[2017-11-29] MEDS ORDERED: cefTRIAXone INJ 1,000 MG in SODIUM CHLORIDE 0.9% INJ 100 ML IV ONE (16:15)
[2017-11-29 16:35] VITALS: BP 135/68; PULSE 69; RESP 18; O2SAT 92
[2017-11-29 17:35] VITALS: BP 128/70
== END 2017-11-29 17:55 | disposition home or self-care (01) ==
LOC: PHED 13:21
DX: N39.0 Urinary tract infection, site not specified (principal); R11.2 Nausea with vomiting, unspecified; B96.89 Other specified bacterial agents as the cause of diseases classified elsewhere; I10 Essential (primary) hypertension; Z94.0 Kidney transplant status
CPT/HCPCS: 80053; 81001; 83605; 85025; 85610; 85730; 87086; 96374; 96375; 99285; J0696; J2270; J2405; J7030

== ENCOUNTER 2017-12-09 07:15 | Inpatient (IN) | payer MEDICARE, BC ==
[2017-12-08] MEDS: SODIUM CHLOR 0.9% 1000 ML INJ 1,000 ML IV SCH (23:30)
[2017-12-09] VITALS (8 sets, daily range): BP systolic 112–147; BP diastolic 68–81; PULSE 77–125; RESP 16–19; TEMP 97.6–98.9; O2SAT 96–99
[~2017-12-09] VITALS: Ht 162.6 cm; Wt 41.5 kg
[~2017-12-09 07:15] MED LIST changes: -CIPR250T52 PO; +DILA2TAB4 PO; +MACR100C2 PO
[2017-12-09] MEDS ORDERED: SODIUM CHLORID 0.9% 500 ML INJ 500 ML IV ONE ×2 (07:45→08:15)
[2017-12-09] MEDS ORDERED: SODIUM CHLORIDE 0.9% FLUSH 10 ML FLUSH IV FLUSH PRN (07:45)
[2017-12-09] MEDS ORDERED: ONDANSETRON HCL 4 MG/2 ML VIAL IVP ONE (07:45)
--- NOTE | 2017-12-09 07:56 | PD ---
HPI Chief Complaint: Abdominal Pain Time Seen by Provider: 08:01 Travel History International Travel<30 days: No Contact w/Intl Traveler<30days: No Traveled to known affect area: No History of Present Illness HPI 67yo W/F presented to the ED with complaints of vomiting for the past week. She states that she has been unable to keep anything down, including fluids. She and her both reported to problems with vomiting and diarrhea for 3 months; she has lost about 20lbs since September. Pt states her abdominal pain waxes and wanes in intensity, with it currently being dull in nature. Pt has a significant past medical history of bladder cancer diagnosed in June, and a kidney transplant in 2008 for polycystic kidney disease. She admits to lower abdominal pain, weight loss and vomiting. She denies any current diarrhea, SOB, chest pain, problems with urination. Modifying Factors: None Associated Signs & Symptoms: Vomiting, diarrhea, lower abdominal pain Risk Factors: Bladder cancer history, UTIs, kidney transplant PFSH Past Medical History Arthritis: No Asthma: No Autoimmune Disease: No Anxiety: No Depression: No Heart Rhythm Problems: No Cancer: Yes Cardiovascular Problems: No High Cholesterol: No Chemotherapy: No Chest Pain: No Congestive Heart Failure: No COPD: No Cerebrovascular Accident: No Diabetes: No Diminished Hearing: No Endocrine: No Gastrointestinal Disorders: Yes (HX GERD) GERD: Yes Genitourinary: Yes (kidney transplant 2008 ) Hepatitis: No Hiatal Hernia: No Hypertension: Yes Immune Disorder: No Implanted Vascular Access Dvce: Yes Kidney Stones: No Musculoskeletal: No Neurologic: No Psychiatric: No Reproductive: No Respiratory: No Immunizations Current: Yes Migraines: No Radiation Therapy: No Renal Failure: Yes (dialysis for 2 years and transplant after) Seizures: No Sickle Cell Disease: No Sleep Apnea: No Thyroid Disease: No Ulcer: No ?: Not Menopausal: Yes Past Surgical History Abdominal Surgery: No AICD: No Appendectomy: No Arteriovenous Shunt: No Body Medical Devices: 3 screws in the right knee due to phx of fracture Cardiac Surgery: No Cholecystectomy: No Ear Surgery: No Endocrine Surgery: No Eye Surgery: Yes (catracts on both eyes in 2016) Genitourinary Surgery: No Gynecologic Surgery: No Insulin Pump: No Joint Replacement: No Oral Surgery: Yes (wisdom teeth taken out) Pacemaker: No Thoracic Surgery: No Other Surgery: Yes (KIDNEY TRANSPLANT-RIGHT) Social History Alcohol Use: Yes (rarely) Tobacco Use: No Substance Use: No Allergies-Medications (Allergen,Severity, Reaction): Coded Allergies: No Known Allergies (Verified Allergy, Unknown, 12/01/17) Reported Meds & Prescriptions Reported Meds & Active Scripts Active Sucralfate Liq (Sucralfate) 1 Gram/10 Ml Olamide 1 Gm PO ACHS 30 Days Reported Multiple Vitamins For Women (Multivit with Calcium,Iron,Min) 1 Each Tablet 1 Tab PO DAILY Sm Magnesium (Magnesium) 250 Mg Tab 500 Mg PO DAILY Calcium 600 + Vit D Tablet (Calcium Carbonate/Vitamin D3) 1 Each Tablet 1 Tab PO DAILY Fosamax (Alendronate Sodium) 70 Mg Tab 35 Mg PO Q7D Metoprolol Tartrate 25 Mg Tab 12.5 Mg PO BID Prograf (Tacrolimus) 1 Mg Cap 1 Mg PO BID Review of Systems Except as stated in HPI: all other systems reviewed are Neg Gastrointestinal: Positive: Vomiting, Abdominal Pain Physical Exam Narrative GENERAL: Thin, Well-developed elderly white female patient currently in mild distress. Awake and oriented 3. SKIN: Focused skin assessment warm/dry. HEAD: Atraumatic. Normocephalic. EYES: Pupils equal and round. No scleral icterus. No injection or drainage. ENT: No nasal bleeding or discharge. Mucous membranes pink and moist. NECK: Trachea midline. No JVD. Supple. CARDIOVASCULAR: Regular rate and rhythm. No murmur appreciated. RESPIRATORY: No accessory muscle use. Clear to auscultation. Breath sounds equal bilaterally. GASTROINTESTINAL: Abdomen soft, suprapubic tenderness without guarding or rebound, nondistended. Hepatic and splenic margins not palpable. MUSCULOSKELETAL: No obvious deformities. No clubbing. No cyanosis. No edema. NEUROLOGICAL: Awake and alert. No obvious cranial nerve deficits. Motor grossly within normal limits. Normal speech. PSYCHIATRIC: Appropriate mood and affect; insight and judgment normal. Data Data Last Documented VS Vital Signs Date Time Temp Pulse Resp B/P (MAP) Pulse Ox O2 Delivery O2 Flow Rate FiO2 12/09/17 10:11 84 17 114/73 (87) 98 Room Air 12/09/17 07:25 97.6 Orders Orders Complete Blood Count With Diff (12/09/17 07:36) Comprehensive Metabolic Panel (12/09/17 07:36) Lipase (12/09/17 07:36) Urinalysis - C+S If Indicated (12/09/17 07:36) Iv Access Insert/Monitor (12/09/17 07:36) Ecg Monitoring (12/09/17 07:36) Oximetry (12/09/17 07:36) Ondansetron Inj (Zofran Inj) (12/09/17 07:45) Sodium Chloride 0.9% Flush (Ns Flush) (12/09/17 07:45) Sodium Chlorid 0.9% 500 Ml Inj (Ns 500 M (12/09/17 07:45) Tacrolimus ([id number]) Prograf (12/09/17 07:46) Sodium Chlorid 0.9% 500 Ml Inj (Ns 500 M (12/09/17 08:15) Abdomen, Flat & Upright (12/09/17 08:01) Urine Culture (12/09/17 07:56) Admit Order (Ed Use Only) (12/09/17 10:08) Labs Laboratory Tests Test 12/09/17 07:50 12/09/17 07:56 White Blood Count 10.1 TH/MM3 Red Blood Count 4.18 MIL/MM3 Hemoglobin 12.6 GM/DL Hematocrit 37.0 % Mean Corpuscular Volume 88.6 FL Mean Corpuscular Hemoglobin 30.1 PG Mean Corpuscular Hemoglobin Concent 34.0 % Red Cell Distribution Width 15.8 % Platelet Count 438 TH/MM3 Mean Platelet Volume 9.5 FL Neutrophils (%) (Auto) 76.7 % Lymphocytes (%) (Auto) 10.2 % Monocytes (%) (Auto) 12.2 % Eosinophils (%) (Auto) 0.5 % Basophils (%) (Auto) 0.4 % Neutrophils # (Auto) 7.8 TH/MM3 Lymphocytes # (Auto) 1.0 TH/MM3 Monocytes # (Auto) 1.2 TH/MM3 Eosinophils # (Auto) 0.0 TH/MM3 Basophils # (Auto) 0.0 TH/MM3 CBC Comment DIFF FINAL Differential Comment Blood Urea Nitrogen 47 MG/DL Creatinine 2.48 MG/DL Random Glucose 95 MG/DL Total Protein 9.1 GM/DL Albumin 3.5 GM/DL Calcium Level 10.5 MG/DL Alkaline Phosphatase 311 U/L Aspartate Amino Transf (AST/SGOT) 58 U/L Alanine Aminotransferase (ALT/SGPT) 61 U/L Total Bilirubin 0.9 MG/DL Sodium Level 128 MEQ/L Potassium Level 4.4 MEQ/L Chloride Level 83 MEQ/L Carbon Dioxide Level 29.9 MEQ/L Anion Gap 15 MEQ/L Estimat Glomerular Filtration Rate 19 ML/MIN Lipase 579 U/L Urine Color YELLOW Urine Turbidity HAZY Urine pH 6.0 Urine Specific Nenzel 1.020 Urine Protein 100 mg/dL Urine Glucose (UA) NEG mg/dL Urine Ketones 10 mg/dL Urine Occult Blood MOD Urine Nitrite NEG Urine Bilirubin NEG Urine Urobilinogen 2.0 MG/DL Urine Leukocyte Esterase LARGE Urine RBC 32 /hpf Urine WBC /hpf Urine WBC Clumps RARE Urine Squamous Epithelial Cells 3 /hpf Urine Bacteria RARE /hpf Urine Hyaline Casts 83 /lpf Urine Mucus FEW /lpf Microscopic Urinalysis Comment CULTURE INDICATED MDM Medical Decision Making Medical Screen Exam Complete: Yes Emergency Medical Condition: Yes Medical Record Reviewed: Yes Interpretation(s) Laboratory Tests Test 12/09/17 07:50 12/09/17 07:56 Neutrophils (%) (Auto) 76.7 % (16.0-70.0) Monocytes (%) (Auto) 12.2 % (0.0-8.0) Neutrophils # (Auto) 7.8 TH/MM3 (1.8-7.7) Monocytes # (Auto) 1.2 TH/MM3 (0-0.9) Blood Urea Nitrogen 47 MG/DL (7-18) Creatinine 2.48 MG/DL (0.50-1.00) Total Protein 9.1 GM/DL (6.4-8.2) Calcium Level 10.5 MG/DL (8.5-10.1) Alkaline Phosphatase 311 U/L (45-117) Aspartate Amino Transf (AST/SGOT) 58 U/L (15-37) Alanine Aminotransferase (ALT/SGPT) 61 U/L (10-53) Sodium Level 128 MEQ/L (136-145) Chloride Level 83 MEQ/L (98-107) Estimat Glomerular Filtration Rate 19 ML/MIN (>89) Lipase 579 U/L (73-393) Urine Turbidity HAZY (CLEAR) Urine Protein 100 mg/dL (NEG-TRACE) Urine Ketones 10 mg/dL (NEG) Urine Occult Blood MOD (NEG) Urine Leukocyte Esterase LARGE (NEG) Urine RBC 32 /hpf (0-3) Urine WBC Clumps RARE (NONE) Urine Bacteria RARE /hpf (NONE) Urine Mucus FEW /lpf (OCC) Last 24 hours Impressions Abdomen X-Ray 12/09/17 0801 Signed Impressions: Service Date/Time: Saturday, December 09, 2017 08:31 - CONCLUSION: Nonspecific abdomen appearance. Ureteral stent in the right pelvic transplant kidney Juan Carlos Matos MD Differential Diagnosis Abdominal pain, nausea, vomiting, weight loss: Dehydration versus metabolic issues versus UTI versus pyelonephritis versus gastritis versus colitis versus acute intra-abdominal processes versus obstruction Narrative Course Patient has had symptoms for about a week and has had recent weight loss, had a CAT scan ordered by Dr. Torres 2 days ago in [place]. However, she is here because of continued nausea, has not had vomiting since last night at 9 PM. She states that she has been able to hold fluids down but states that she has had so much recent weight loss, is worried that she may be getting dehydrated. Lab work is showing significant BUN and creatinine elevation concerning for underlying dehydration. I suspect a hemoconcentration as well from the other lab work. Lipase is also mildly elevated likely secondary to dehydration. Her x-ray did not show any signs of acute intra-abdominal obstruction. Patient had a syncopal episode when she was stood up for the x-ray, underlying orthostasis as well. IV fluids were given in the ER. At this point, my plan would be to admit her for further evaluation. CT abdomen had been done recently a [place] [facility] and will need to be evaluated further. Case is discussed with Dr. Hernandez for admission. Diagnosis Primary Impression: Acute kidney injury Additional Impressions: Dehydration Syncope Admitting Information Admitting Physician Requests: Admit Catrachita Saenz MD Dec 09, 2017 07:56
[2017-12-09 08:10] LABS: AUTOMATED NEUTROPHIL # 7.8 TH/MM3 (1.8-7.7); BASOPHIL % 0.4 % (0.0-2.0); EOSINOPHIL % 0.5 % (0.0-4.0); HEMOGLOBIN 12.6 GM/DL (11.6-15.3); LYMPH % 10.2 % (9.0-44.0); MEAN CELL VOLUME 88.6 FL (80.0-100.0); MEAN CORPUSCULAR HEMOGLOBIN 30.1 PG (27.0-34.0); MEAN PLATELET VOLUME 9.5 FL (7.0-11.0); MONO % 12.2 % (0.0-8.0); MONOCYTE # 1.2 TH/MM3 (0-0.9); NEUT % 76.7 % (16.0-70.0); PLATELET COUNT 438 TH/MM3 (150-450); RED BLOOD COUNT 4.18 MIL/MM3 (4.00-5.30); RED CELL DISTRIBUTION WIDTH 15.8 % (11.6-17.2); WHITE BLOOD COUNT 10.1 TH/MM3 (4.0-11.0)
[2017-12-09 08:30] LABS: ALT (GPT) 61 U/L (10-53)
[2017-12-09 08:32] LABS: ALBUMIN 3.5 GM/DL (3.4-5.0); ALKALINE PHOSPHATASE 311 U/L (45-117); AST (GOT) 58 U/L (15-37); BICARBONATE 29.9 MEQ/L (21.0-32.0); BLOOD UREA NITROGEN 47 MG/DL (7-18); CALCIUM 10.5 MG/DL (8.5-10.1); CHLORIDE 83 MEQ/L (98-107); CREATININE 2.48 MG/DL (0.50-1.00); GLOMERULAR FILTRATION RATE 19 ML/MIN (>89); GLUCOSE,RANDOM 95 MG/DL (74-106); LIPASE 579 U/L (73-393); SODIUM (NA) 128 MEQ/L (136-145); TOTAL BILIRUBIN ADULT 0.9 MG/DL (0.2-1.0); TOTAL PROTEIN 9.1 GM/DL (6.4-8.2)
[2017-12-09 08:42] LABS: BACTERIA, URINE RARE /hpf; BLOOD, URINE MOD (NEG); GLUCOSE,URINE NEG (NEG); HYALINE CAST, URINE 83 /lpf (RARE); KETONE, URINE 10 mg/dL (NEG); MUCUS URINE FEW /lpf (OCC); NITRITE,URINE NEG (NEG); SQUAMOUS EPITHELIAL CELL URINE 3 /hpf (0-5); URINE COLOR YELLOW (YELLW/STRAW); URINE LEUKOCYTE ESTERASE LARGE (NEG); WHITE BLOOD CELL CLUMPS RARE
[2017-12-09 08:46] LABS: BILIRUBIN, URINE NEG (NEG)
--- NOTE | 2017-12-09 09:10 | RADRPT ---
EXAM DATE/TIME: 12/09/2017 08:31 [facility] COMPARISON: No previous studies available for comparison. INDICATIONS : Vomiting, difuse abdomen pain midline abdomen. MEDICAL HISTORY : Carcinoma, bladder. Kidney transplant SURGICAL HISTORY : Bladder surgery, Kidney Transplant ENCOUNTER: Initial ACUITY: 3 days PAIN SCORE: 7/10 LOCATION: Bilateral abdomen FINDINGS: A double-J stent is present in the right pelvis, presumably stenting from the transplant kidney into the urinary bladder. Intestinal gas pattern is nonspecific and benign. There is nothing to suggest ma ss or visceromegaly. Vascular calcifications and scattered other benign appearing calcifications are present. Surgical clips in the right lower quadrant from the transplant. Mild-moderate left convex leandra mbar scoliosis with moderate degenerative changes in spine and hips. CONCLUSION: Nonspecific abdomen appearance. Ureteral stent in the right pelvic transplant kidney Juan Carlos Matos MD on December 09, 2017 at 9:05 Board Certified Radiologist. This report was verified electronically.
[2017-12-09] MEDS ORDERED: NALOXONE HCL 0.4 MG/ML AMP IV PUSH PRN (10:15)
[2017-12-09] MEDS ORDERED: MORPHINE SULFATE 2 MG/ML INJ IV PUSH PRN (10:15)
[2017-12-09] MEDS ORDERED: ALENDRONATE SODIUM 70 MG TAB PO SCH (10:15)
--- NOTE | 2017-12-09 10:22 | HHI.HP ---
[facility] Service [facility] Primary Care Physician Chase Whitehead MD Admission Diagnosis acute renal failure/renal transplant/severe dehydration Diagnoses: (1) Acute kidney injury Diagnosis: Principal (2) Abdominal pain Diagnosis: Principal (3) Hyperemesis Diagnosis: Principal (4) Dehydration Diagnosis: Principal Travel History International Travel<30 Days: No Contact w/Intl Traveler <30 Da: No Traveled to Known Affected Are: No History of Present Illness Mrs. Ramirez is a 67 year old female. She has a past history of bladder cancer. Recently she's been rediagnosed with bladder cancer and treatment is in process. Treatment is presently topical or without any chemotherapy or radiation. She came into the hospital today secondary to a worsening of her baseline abdominal pain with hyperemesis and difficulty holding anything down. She is dehydrated and has evidence of acute kidney injury. She reports that since September this GI phenomenon has been a recurrent problem for her. She's lost about 20 pounds in the past 2 months. Episodes tend to be the abdominal pain with nausea and vomiting. Occasionally she'll get some distention of the right lower quadrant and she reports frequently that she'll have loud gurgling bowel sounds of her lower abdomen. She feels that this may be obstruction based on her reporting she has had a colonoscopy in the past where there was difficulty passing a certain point. No other complaints today. Review of Systems Constitutional: DENIES: Diaphoretic episodes, Fever, Chills, Night Sweats Eyes: DENIES: Blurred vision, Diplopia, Eye inflammation, Eye pain Respiratory: DENIES: Apneas, Cough, Snoring, Wheezing, Shortness of breath Cardiovascular: DENIES: Chest pain, Palpitations, Syncope Gastrointestinal: COMPLAINS OF: Abdominal pain, Nausea, Vomiting Musculoskeletal: DENIES: Joint pain, Muscle aches, Stiffness Integumentary: DENIES: Abnormal pigmentation, Pruritus, Rash, Nail changes Hematologic/lymphatic: DENIES: Bruising, Lymphadenopathy Immunologic/allergic: DENIES: Eczema, Urticaria Neurologic: DENIES: Abnormal gait, Headache, Paresthesias Psychiatric: DENIES: Anxiety, Confusion, Hallucinations Past Family Social History Past Medical History Bladder cancer GERD Renal Transplant 2008 HTN Hx of Dialysis (stopped in 2008, after transplant) Past Surgical History Renal Transplant 2009 Right Knee Fracture repair Cataract surgery [place] teeth removal Reported Medications Reported Meds & Active Scripts Active Sucralfate Liq (Sucralfate) 1 Gram/10 Ml Olamide 1 Gm PO ACHS 30 Days Reported Multiple Vitamins For Women (Multivit with Calcium,Iron,Min) 1 Each Tablet 1 Tab PO DAILY Sm Magnesium (Magnesium) 250 Mg Tab 500 Mg PO DAILY Calcium 600 + Vit D Tablet (Calcium Carbonate/Vitamin D3) 1 Each Tablet 1 Tab PO DAILY Fosamax (Alendronate Sodium) 70 Mg Tab 35 Mg PO Q7D Metoprolol Tartrate 25 Mg Tab 12.5 Mg PO BID Prograf (Tacrolimus) 1 Mg Cap 1 Mg PO BID Allergies: Coded Allergies: No Known Allergies (Verified Allergy, Unknown, 12/01/17) Social History No alcohol abuse, occasional use No smoking No illicit drug abuse Physical Exam Vital Signs Vital Signs Date Time Temp Pulse Resp B/P (MAP) Pulse Ox O2 Delivery O2 Flow Rate FiO2 12/09/17 10:11 84 17 114/73 (87) 98 Room Air 12/09/17 07:52 97 Room Air 12/09/17 07:25 97.6 116 16 131/81 (98) 98 12/09/17 07:18 98.1 125 18 112/68 (83) 96 Physical Exam GENERAL: NAD, A&Ox3 HEAD: Normocephalic. NECK: Supple, trachea midline. No lymphadenopathy. EYES: No scleral icterus. No injection or drainage. CARDIOVASCULAR: Regular rate and rhythm without murmurs, gallops, or rubs. RESPIRATORY: Breath sounds equal bilaterally. No accessory muscle use. GASTROINTESTINAL: Abdomen soft, non-tender, nondistended. MUSCULOSKELETAL: No cyanosis, or edema. SKIN: Warm and dry. NEURO: No focal neurological deficitis. Laboratory Laboratory Tests Test 12/09/17 07:50 12/09/17 07:56 White Blood Count 10.1 Red Blood Count 4.18 Hemoglobin 12.6 Hematocrit 37.0 Mean Corpuscular Volume 88.6 Mean Corpuscular Hemoglobin 30.1 Mean Corpuscular Hemoglobin Concent 34.0 Red Cell Distribution Width 15.8 Platelet Count 438 Mean Platelet Volume 9.5 Neutrophils (%) (Auto) 76.7 Lymphocytes (%) (Auto) 10.2 Monocytes (%) (Auto) 12.2 Eosinophils (%) (Auto) 0.5 Basophils (%) (Auto) 0.4 Neutrophils # (Auto) 7.8 Lymphocytes # (Auto) 1.0 Monocytes # (Auto) 1.2 Eosinophils # (Auto) 0.0 Basophils # (Auto) 0.0 CBC Comment DIFF FINAL Differential Comment Blood Urea Nitrogen 47 Creatinine 2.48 Random Glucose 95 Total Protein 9.1 Albumin 3.5 Calcium Level 10.5 Alkaline Phosphatase 311 Aspartate Amino Transf (AST/SGOT) 58 Alanine Aminotransferase (ALT/SGPT) 61 Total Bilirubin 0.9 Sodium Level 128 Potassium Level 4.4 Chloride Level 83 Carbon Dioxide Level 29.9 Anion Gap 15 Estimat Glomerular Filtration Rate 19 Lipase 579 Urine Color YELLOW Urine Turbidity HAZY Urine pH 6.0 Urine Specific Jay 1.020 Urine Protein 100 Urine Glucose (UA) NEG Urine Ketones 10 Urine Occult Blood MOD Urine Nitrite NEG Urine Bilirubin NEG Urine Urobilinogen 2.0 Urine Leukocyte Esterase LARGE Urine RBC 32 Urine WBC Urine WBC Clumps RARE Urine Squamous Epithelial Cells 3 Urine Bacteria RARE Urine Hyaline Casts 83 Urine Mucus FEW Microscopic Urinalysis Comment CULTURE INDICATED Date/Time Source Procedure Growth Status 12/09/17 07:56 Urine Clean Catch Urine Culture Pending Received Result Diagram: 12/09/17 0750 12/09/17 0750 Imaging Last Impressions Abdomen X-Ray 12/09/17 0801 Signed Impressions: Service Date/Time: Saturday, December 09, 2017 08:31 - CONCLUSION: Nonspecific abdomen appearance. Ureteral stent in the right pelvic transplant kidney Juan Carlos Matos MD Caprini VTE Risk Assessment Caprini VTE Risk Assessment: No/Low Risk (score <= 1) Caprini Risk Assessment Model Point Value = 1 Point Value = 2 Point Value = 3 Point Value = 5 Age 41-60 Minor surgery BMI > 25 kg/m2 Swollen legs Varicose veins or History of unexplained or recurrent spontaneous Oral contraceptives or hormone replacement Sepsis (< 1 month) Serious lung disease, including pneumonia (< 1 month) Abnormal pulmonary function Acute myocardial infarction Congestive heart failure (< 1 month) History of inflammatory bowel disease Medical patient at bed rest Age 61-74 Arthroscopic surgery Major open surgery (> 45 min) Laparoscopic surgery (> 45 min) Malignancy Confined to bed (> 72 hours) Immobilizing plaster cast Central venous access Age >= 75 History of VTE Family history of VTE Factor V Leiden Prothrombin [id number] Lupus anticoagulant Anticardiolipin antibodies Elevated serum homocysteine Heparin-induced thrombocytopenia Other congenital or acquired thrombophilia Stroke (< 1 month) Elective arthroplasty Hip, pelvis, or leg fracture Acute spinal cord injury (< 1 month) Prophylaxis Regimen Total Risk Factor Score Risk Level Prophylaxis Regimen 0-1 Low Early ambulation 2 Moderate Order ONE of the following: *Sequential Compression Device (SCD) *Heparin 5000 units SQ BID 3-4 Higher Order ONE of the following medications: *Heparin 5000 units SQ TID *Enoxaparin/Lovenox 40 mg SQ daily (WT < 150 kg, CrCl > 30 mL/min) *Enoxaparin/Lovenox 30 mg SQ daily (WT < 150 kg, CrCl > 10-29 mL/min) *Enoxaparin/Lovenox 30 mg SQ BID (WT < 150 kg, CrCl > 30 mL/min) AND/OR *Sequential Compression Device (SCD) 5 or more Highest Order ONE of the following medications: *Heparin 5000 units SQ TID (Preferred with Epidurals) *Enoxaparin/Lovenox 40 mg SQ daily (WT < 150 kg, CrCl > 30 mL/min) *Enoxaparin/Lovenox 30 mg SQ daily (WT < 150 kg, CrCl > 10-29 mL/min) *Enoxaparin/Lovenox 30 mg SQ BID (WT < 150 kg, CrCl > 30 mL/min) AND *Sequential Compression Device (SCD) Assessment and Plan Problem List: (1) Dehydration ICD Code: E86.0 - Dehydration (2) Abdominal pain ICD Code: R10.9 - Unspecified abdominal pain (3) Hyperemesis ICD Code: R11.10 - Vomiting, unspecified (4) Hydronephrosis of kidney transplant ICD Code: T86.19 - Other complication of kidney transplant; N13.30 - Unspecified hydronephrosis (5) Acute kidney injury ICD Code: N17.9 - Acute kidney failure, unspecified (6) Dehydration ICD Code: E86.0 - Dehydration Status: Acute Assessment and Plan 67-year-old female admitted secondary to hyperemesis with dehydration and resulting acute kidney injury and the presence of a renal transplant. Abdominal pain Hyperemesis Ongoing weight loss IV hydration Clear liquid diet for now Monitor symptoms Consult gastroenterology As needed Zofran Possible partial bowel obstruction Improved nausea first, then consider small bowel follow-through study or a barium enema Acute kidney injury Chronic kidney disease Renal Transplant recipient Dehydration Consult nephrology IV hydration Follow renal function The immediate impression is acute kidney injury related to dehydration rather than organ rejection Bladder cancer Patient is not on radiation or chemotherapy Could be contributory both and a sense of inflammation or byproduct reactivity Continue to follow with urology as an outpatient Hypertension Continue home treatments Follow blood pressure Adjust as needed DVT prophylaxis SCDs for now, given unstable renal function Physician Certification 2 Midnight Certification Type: Admission for Inpatient Services Order for Inpatient Services The services are ordered in accordance with Medicare regulations or non- Medicare payer requirements, as applicable. In the case of services not specified as inpatient-only, they are appropriately provided as inpatient services in accordance with the 2-midnight benchmark. Estimated LOS (days): 3 days is the estimated time the patient will need to remain in the hospital, assuming treatment plan goals are met and no additional complications. Post-Hospital Plan: Home Jim Hernandez MD Dec 09, 2017 10:22
[2017-12-09] MEDS: SODIUM CHLOR 0.9% 1000 ML INJ 1,000 ML IV SCH (11:19)
[2017-12-09] MEDS: SUCRALFATE 1 GM/10 ML CUP PO SCH ×3 (13:04→22:17)
[2017-12-09] MEDS: MORPHINE SULFATE 2 MG/ML INJ IV PUSH PRN (13:05)
[2017-12-09] MEDS: TACROLIMUS 1 MG CAP PO SCH (17:48)
--- NOTE | 2017-12-09 17:59 | PD.CONS ---
GI Consult GI Consult Se formal GI consult also ([id number]) ASSESSMENT/PLAN: 1. N/V/abd pain-?partial obstruction 2. Loose stools-past hx of C. diff 3. wt loss 4. renal insuff 5. Abnormal LFT 6. Elevated lipase PLAN: 1. CT abd/pelvis with PO contrast only 2. C. diff pcr It was a pleasure seeing JamesViri Jack . Thank you for this consult. Entered by: Shawn Rose MD Dec 09, 2017 17:59
[2017-12-09] MEDS ORDERED: DIATRIZOATE MEGLUM/DIATRIZOATE SOD 9 ML CUP PO ONE (18:30)
[2017-12-09] MEDS: METOPROLOL TARTRATE 25 MG TAB PO SCH (21:00)
[2017-12-09] MEDS: ONDANSETRON HCL 4 MG/2 ML VIAL IVP PRN (22:18)
[2017-12-09] MEDS: SODIUM CHLORIDE 0.9% FLUSH 10 ML FLUSH IV FLUSH SCH (22:19)
[2017-12-10] VITALS (7 sets, daily range): BP systolic 110–146; BP diastolic 62–75; PULSE 80–99; RESP 17–20; TEMP 95.6–97.7; O2SAT 92–99
--- NOTE | 2017-12-10 01:07 | RADRPT ---
EXAM DATE/TIME: 12/10/2017 00:28 [facility] COMPARISON: CT THORAX W/O CONTRAST, July 14, 2017, 22:15. CT ABDOMEN & PELVIS W/O CONTRAST, October 04, 2014, 13:56. INDICATIONS : Abdominal pain with vomiting. Evaluate obstruction. ORAL CONTRAST: Partial prescribed oral contrast ingested. RADIATION DOSE: 6.64 CTDIvol (mGy) MEDICAL HISTORY : Renal failure, acute. Gastroesophageal reflux disease. SURGICAL HISTORY : Renal transplant, right. ENCOUNTER: Initial ACUITY: 1 day PAIN SCALE: 7/10 LOCATION: abdomen TECHNIQUE: Volumetric scanning of the abdomen and pelvis was performed. Using automated exposure control and ad justment of the mA and/or kV according to patient size, radiation dose was kept as low as reasonably achievable to obtain optimal diagnostic quality images. DICOM format image data is available electro nically for review and comparison. The lack of IV contrast limits the diagnosis for certain organ pat hology. FINDINGS: LOWER LUNGS: Questionable 6 mm pulmonary nodule in the right lung base. Left lung base is clear. There appears to be a small pericardial effusion. This was present on the prior exam. There is approximately 8 mm of s eparation. LIVER: Multiple stable hepatic cysts throughout the liver. There appears to be some new diffuse dilatation o f the biliary tree. Was not present on the prior exam. The common bile that appears to be measured at 1.1 cm. The gallbladder appears to be somewhat dilated. SPLEEN: Normal size without lesion. PANCREAS: Within normal limits. KIDNEYS: Multicystic kidney disease. There appears to be prominence of both collecting systems suggestive of s ome hydronephrosis, right greater than left. There is a transplanted kidney in the right pelvis withi n internal urinary stent in place. ADRENAL GLANDS: Within normal limits. VASCULAR: There is no aortic aneurysm. BOWEL/MESENTERY: The stomach, small bowel, and colon demonstrate no acute abnormality. There is no free intraperitone al air or fluid. There is diffuse scattered diverticulosis of the descending and sigmoid colon. No in flammatory changes are seen adjacent to the diverticulosis. However, there appears to be diffuse nons pecific thickening involving the wall of the distal sigmoid colon near the rectosigmoid junction. The re is no mechanical structure. There is stool throughout the colon. ABDOMINAL WALL: Within normal limits. RETROPERITONEUM: There is a nonspecific increased soft tissues surrounding the mid abdominal aorta. This could be unop acified bowel loops versus an early adenopathy. BLADDER: There is diffuse thickening involving the wall of urinary bladder. There is a internal urinary stent within the urinary bladder that leads to the transplanted right kidney. There does appear to be some hydronephrosis of the collecting system of the right transplanted kidney. REPRODUCTIVE: Within normal limits. INGUINAL: There is no lymphadenopathy or hernia. MUSCULOSKELETAL: There are degenerative changes involving lumbar spine. As curvatur lumbar spine to the right. There a ppears to be some old compression involving the superior endplate of L1. CONCLUSION: 1. There appears to be abnormal dilatation of the biliary system with a dilated common bile duct at a pproximately 1.1 cm. This appears to be a new finding compared to the prior study. Recommend MRCP for further evaluation. 2. Abnormal diffuse thickening involving the wall of the distal sigmoid colon at the rectosigmoid graciela ction. This is a new finding compared to the prior study. Focal colitis versus neoplastic disease are the primary considerations. No mechanical obstruction is demonstrated. Recommend correlation with di rect visualization by sigmoidoscopy. 3. Diffuse diverticulosis of the descending and sigmoid colon. 4. Diffuse polycystic kidney disease with hydronephrosis bilaterally. 5. Right-sided transplant kidney with internal urinary stent in place. Diffuse thickening of urinary bladder wall. 6. Multiple stable benign-appearing hepatic cysts. 7. Nonspecific pericardial effusion which is not significant change compared to the prior study. 8. Nonspecific 6 mm new pulmonary nodule right lung base. If clinically indicated a PET/CT could be p erformed for further evaluation. 9. Nonspecific increased soft tissue changes surrounding the abdominal aorta at the level of the kidn eys. Nonopacified loops of bowel versus adenopathy. Jalil Hart MD on December 10, 2017 at 0:49 Board Certified Radiologist. This report was verified electronically.
[2017-12-10] MEDS: ONDANSETRON HCL 4 MG/2 ML VIAL IVP PRN ×2 (04:23→20:05)
[2017-12-10] MEDS: SODIUM CHLORIDE 0.9% FLUSH 10 ML FLUSH IV FLUSH PRN (04:23)
[2017-12-10 07:00] LABS: BASOPHIL % 0.4 % (0.0-2.0); EOSINOPHIL % 0.2 % (0.0-4.0); HEMATOCRIT 31.9 % (35.0-46.0); HEMOGLOBIN 10.9 GM/DL (11.6-15.3); LYMPH % 8.4 % (9.0-44.0); LYMPHOCYTE # 0.8 TH/MM3 (1.0-4.8); MEAN CORPUSCULAR HEMOGLOBIN 30.1 PG (27.0-34.0); MEAN CORPUSCULAR HGB CONC 34.2 % (32.0-36.0); MEAN PLATELET VOLUME 9.1 FL (7.0-11.0); MONO % 11.2 % (0.0-8.0); MONOCYTE # 1.1 TH/MM3 (0-0.9); NEUT % 79.8 % (16.0-70.0); PLATELET COUNT 363 TH/MM3 (150-450); RED BLOOD COUNT 3.62 MIL/MM3 (4.00-5.30); RED CELL DISTRIBUTION WIDTH 15.5 % (11.6-17.2); WHITE BLOOD COUNT 10.1 TH/MM3 (4.0-11.0)
[2017-12-10] MEDS: SODIUM CHLOR 0.9% 1000 ML INJ 1,000 ML IV SCH ×2 (07:00→15:49)
[2017-12-10 07:38] LABS: ALKALINE PHOSPHATASE 245 U/L (45-117); ALT (GPT) 42 U/L (10-53); AST (GOT) 35 U/L (15-37); BICARBONATE 29.9 MEQ/L (21.0-32.0); BLOOD UREA NITROGEN 44 MG/DL (7-18); CALCIUM 9.1 MG/DL (8.5-10.1); CHLORIDE 88 MEQ/L (98-107); GLOMERULAR FILTRATION RATE 23 ML/MIN (>89); GLUCOSE,RANDOM 60 MG/DL (74-106); SODIUM (NA) 137 MEQ/L (136-145); TOTAL PROTEIN 7.6 GM/DL (6.4-8.2)
[2017-12-10] MEDS: SUCRALFATE 1 GM/10 ML CUP PO SCH ×4 (08:00→20:06)
[2017-12-10] MEDS: SODIUM CHLORIDE 0.9% FLUSH 10 ML FLUSH IV FLUSH SCH ×2 (09:00→20:06)
[2017-12-10] MEDS: CALCIUM/VITAMIN D 250 MG/125 U TAB PO SCH (09:00)
[2017-12-10] MEDS: METOPROLOL TARTRATE 25 MG TAB PO SCH ×2 (09:00→20:06)
[2017-12-10] MEDS: TACROLIMUS 1 MG CAP PO SCH ×2 (09:14→18:03)
[2017-12-10] MEDS: MAGNESIUM OXIDE 400 MG TAB PO SCH (09:15)
[2017-12-10] MEDS: MULTIVITAMINS/MINERALS THERAPEUTIC TAB PO SCH (09:16)
[2017-12-10] MEDS: cefTRIAXone INJ 1,000 MG in SODIUM CHLORIDE 0.9% INJ 100 ML IV SCH (10:00)
--- NOTE | 2017-12-10 10:17 | HHI.NPPN ---
Subjective Interval History history of renal transplant, bladder cancer and C.diff. Admitted with dehydration. Renal function is better. Review of Systems General Constitutional: Fatigue Gastrointestinal Gastrointestinal: Nausea & Vomiting Objective Data Data 12/10/17 12/11/17 19:00 07:00 Intake Total 120 ml Balance 120 ml Intake Oral 120 ml Vital Signs Date Time Temp Pulse Resp B/P (MAP) Pulse Ox O2 Delivery O2 Flow Rate FiO2 12/10/17 08:00 97.7 99 19 110/62 (78) 95 12/10/17 04:00 95.6 97 20 121/74 (90) 96 12/10/17 00:11 96.1 98 20 117/69 (85) 92 12/09/17 20:00 98.9 98 19 120/72 (88) 96 12/09/17 16:00 97.6 100 18 140/68 (92) 98 12/09/17 13:07 77 17 147/78 (101) 98 12/09/17 11:24 98 18 133/75 (94) 99 Room Air -: 12/10/17 0442 12/10/17 0442 Physical Exam Eyes Eye Exam: Pupils Equal Neck Neck Exam: Neck Supple Pulmonary Resp Exam: Clear Bilaterally Cardiology CV Exam: Regular Gastrointestinal/Abdomen GI Exam: Soft Musculoskeletal MS Exam: Joints Intact Extremeties Extremities Exam: No Edema Assessment/Plan Problem List: (1) Acute kidney injury ICD Codes: N17.9 - Acute kidney failure, unspecified Plan: renal function has improved with hydration. Taper off fluids as oral intake improved. Avoid nephrotoxic agents. (2) Bladder cancer ICD Codes: C67.9 - Malignant neoplasm of bladder, unspecified (3) History of kidney transplant ICD Codes: Z94.0 - History of kidney transplant Status: Chronic Plan: Currently appears to be on Tacrolimus. Level is low, repeat the level. (4) Dehydration ICD Codes: E86.0 - Dehydration Status: Acute Plan: due to GI losses. History of C.diff. GI on the case. Elevated LFTs have improved. CT findings noted. Dilatation of biliary system, normal bilirubin, mildly elevated Alkaline phosphatase. Unclear significance. Darrian Early MD Dec 10, 2017 10:17
--- NOTE | 2017-12-10 12:33 | HHI.GIFU ---
GI Follow-up Note Consult Follow-up Subjective: Patient laying in bed -little better but still c/o of N/V. Occ abd pain. no GI bleeding Objective: PHYSICAL EXAMINATION: Vitals signs stable No fever HEENT: Throat is clear. NECK: Neck is supple, no JVD, no lymphadenopathy. CHEST: Chest is clear to auscultation and percussion. CARDIAC: Regular rate and rhythm with no murmur gallop or rubs. ABDOMEN: Soft, nondistended, mild central tenderness. no rebound. no hepatosplenomegaly; bowel sounds are present in all four quadrants. EXTREMITIES: No clubbing, cyanosis, or edema. SKIN: no jaundice. PROTECTIVE SIGNAL OPERATIONS SUPERVISOR: alert and oriented times three. Available Data (labs, X- Rays, Procedues) : CT reviewed with pt ASSESSMENT/PLAN: 1. N/V/abd pain-? biliary tract disorder (dilated CBD and elevated LFT's) 2. Loose stools-past hx of C. diff 3. wt loss 4. renal insuff 5. Abnormal LFT-improved 6. Elevated lipase 7. Dilated CBD 8. Thickened rectosigmoid junction-flex sig to sigmoid several months ago showed this area has no masses but the scope could not be passed beyond the sigmoid (30 cm[address] CT colonography did not reveal any masses (there were diverticula) 9. colonic diverticulosis 10. Multiple other findings were also noted on CT-see report PLAN: 1. MRCP as suggested by radiology (w/o contrast) 2. Awaiting C. diff pcr 3. Your w/u regarding her lung nodule 4. Cont antibiotics It was a pleasure seeing Viri Ramirez. Thank you for this consult. Entered by: Shawn Rose MD Dec 10, 2017 12:33
--- NOTE | 2017-12-10 14:19 | HHI.PR ---
Subjective Remarks CT has revealed findings of a dilated common bile duct and evidence of colitis/ sigmoiditis. She also has a UTI. Rocephin is started as an antibiotic treatment for UTI. MRCP has been advised in regards to further workup for CT, but given her current GFR the MRCP is deferred and HIDA scan is ordered for now. Patient is still having difficulty holding down liquids and solids. Objective Vital Signs Date Time Temp Pulse Resp B/P (MAP) Pulse Ox O2 Delivery O2 Flow Rate FiO2 12/10/17 12:00 96.9 85 17 128/70 (89) 95 12/10/17 08:00 97.7 99 19 110/62 (78) 95 12/10/17 04:00 95.6 97 20 121/74 (90) 96 12/10/17 00:11 96.1 98 20 117/69 (85) 92 12/09/17 20:00 98.9 98 19 120/72 (88) 96 12/09/17 16:00 97.6 100 18 140/68 (92) 98 I/O 12/09/17 12/09/17 12/09/17 12/10/17 12/10/17 12/10/17 07:00 15:00 23:00 07:00 15:00 23:00 Intake Total 1000 ml 600 ml 240 ml 120 ml Output Total 350 ml Balance 1000 ml 250 ml 240 ml 120 ml Intake Oral 600 ml 240 ml 120 ml IV Total 1000 ml Output Urine Total 100 ml Emesis 250 ml # Voids 1 Result Diagram: 12/10/17 0442 12/10/17 0442 Objective Remarks GENERAL: NAD, A&Ox3 HEAD: Normocephalic. NECK: Supple, trachea midline. No lymphadenopathy. EYES: No scleral icterus. No injection or drainage. CARDIOVASCULAR: Regular rate and rhythm without murmurs, gallops, or rubs. RESPIRATORY: Breath sounds equal bilaterally. No accessory muscle use. GASTROINTESTINAL: Abdomen soft, non-tender, nondistended. MUSCULOSKELETAL: No cyanosis, or edema. SKIN: Warm and dry. NEURO: No focal neurological deficitis. A/P Problem List: (1) UTI (urinary tract infection) ICD Code: N39.0 - Urinary tract infection, site not specified (2) Acute kidney injury ICD Code: N17.9 - Acute kidney failure, unspecified (3) Abdominal pain ICD Code: R10.9 - Unspecified abdominal pain (4) Hyperemesis ICD Code: R11.10 - Vomiting, unspecified (5) Dehydration ICD Code: E86.0 - Dehydration Assessment and Plan 67-year-old female admitted secondary to hyperemesis with dehydration and resulting acute kidney injury and the presence of a renal transplant. Abdominal pain Hyperemesis Ongoing weight loss Pain improved but nausea is still present and patient is Continue IV hydration Clear liquid diet for now CT shows evidence of common bile duct dilation and sigmoiditis HIDA scan ordered Monitor symptoms Gastroenterology following As needed Zofran Possible partial bowel obstruction, plan for abdominal x-ray tomorrow to evaluate transit oral contrast Acute kidney injury Chronic kidney disease Renal Transplant recipient Dehydration Dehydration improving Renal function improving Nephrology following Continue IV hydration Follow renal function Bladder cancer Patient is not on radiation or chemotherapy Could be contributory both and a sense of inflammation or byproduct reactivity Continue to follow with urology as an outpatient Urinary tract infection Rocephin Follow urine cultures Hypertension Continue home treatments Follow blood pressure Adjust as needed DVT prophylaxis SCDs for now, given unstable renal function Jim Hernandez MD Dec 10, 2017 14:19
--- NOTE | 2017-12-10 14:43 | RADRPT ---
EXAM DATE/TIME: 12/10/2017 12:22 [facility] COMPARISON: CT ABDOMEN & PELVIS W/O CONTRAST, December 10, 2017, 0:28. INDICATIONS : Right upper quadrant pain for one day. DOSE: 4.1 mCi Tc99m Mebrofenin IV MEDICAL HISTORY : Hyperparathyroidism. Gastroesophageal reflux disease. Carcinoma, bladder. SURGICAL HISTORY : Renal transplant. ENCOUNTER: Initial ACUITY: 1 day PAIN SCALE: 2/10 LOCATION: Right upper quadrant TECHNIQUE: Following the intravenous administration of radiotracer, dynamic sequential images were performed wit h continuous acquisition. The study was continued up to 95 minutes. A delayed image will be obtained at 24 hours. FINDINGS: HEPATIC KINETICS: There is prompt uptake of radiotracer in the liver. No focal defects are seen. There is normal rate of washout from the hepatic parenchyma. BILIARY CLEARANCE: No activity is noted in the intrahepatic or extrahepatic biliary system. There is no activity in the small bowel. GALLBLADDER: Normal gallbladder visualization. BILIARY ENTRIC REFLUX: None observed. CONCLUSION: 1. Abnormal exam with no excretion contrast into the biliary system at 95 minutes. This could indicat e severe hepatocellular disease or obstruction. A delayed four-hour study is pending. This report iron l be addended. Norman Singh MD on December 10, 2017 at 14:36 Board Certified Radiologist. This report was verified electronically.
--- NOTE | 2017-12-10 15:36 | RADRPT ---
EXAM DATE/TIME: 12/10/2017 14:31 [facility] COMPARISON: CT ABDOMEN & PELVIS W/O CONTRAST, December 10, 2017, 0:28. INDICATIONS : Obstruction. MEDICAL HISTORY : Carcinoma, bladder. Renal failure, acute. SURGICAL HISTORY : Kidney transplant. ENCOUNTER: Initial ACUITY: 1 day PAIN SCORE: 6/10 LOCATION: Abdomen TECHNIQUE: Multiplanar, multisequence magnetic resonance imaging of the abdomen was performed. High-resolution 3D dataset was utilized to reconstruct maximum-intensity projection (MIP) images. FINDINGS: INTRAHEPATIC BILE DUCTS: There is mild central intrahepatic biliary ductal dilatation. EXTRAHEPATIC BILE DUCTS: The common bile duct measures up to 2.1 cm in greatest diameter. No stone or filling defect is identi fied. GALLBLADDER: No stones, wall thickening, or pericholecystic fluid. LIVER: Normal size and signal intensity. There are multiple scattered cystic lesions in the liver. These ashok sure up to approximately 3 cm in diameter. PANCREAS: The main pancreatic duct appears mildly prominent measuring up to 5 m. There is no distinct pancreati c mass. There is no significant anatomical variant. Signal intensity is within normal limits. No ma ss is visualized on this non-contrast exam. OTHER: Polycystic kidneys are again noted with numerous bilateral cysts. There is questionable hydronephrosi s again noted right greater than left. There is dilatation of the stomach. CONCLUSION: 1. Marked dilatation of the common bile duct is again noted. This measures up to 2.1 cm in diameter. There is no definite filling defect or visualized mass. The distal duct tapers down at the level of t he pancreas. The main pancreatic duct is mildly prominent measuring up to 5 mm. Findings could indica te a small pancreatic mass or ampullary tumor. 2. Multiple scattered cystic lesions throughout the liver. 3. Enlarged polycystic kidneys There is possible hydronephrosis again noted right greater than left. Norman Singh MD on December 10, 2017 at 15:25 Board Certified Radiologist. This report was verified electronically.
[2017-12-11] VITALS (11 sets, daily range): BP systolic 131–149; BP diastolic 68–74; PULSE 72–89; RESP 19–20; TEMP 95.5–97.1; O2SAT 95–99
[2017-12-11] MEDS: SODIUM CHLOR 0.9% 1000 ML INJ 1,000 ML IV SCH ×2 (00:30→14:12)
[2017-12-11] MEDS: ONDANSETRON HCL 4 MG/2 ML VIAL IVP PRN ×3 (06:39→19:41)
[2017-12-11] MEDS: TACROLIMUS 1 MG CAP PO SCH ×2 (06:40→17:30)
[2017-12-11] MEDS: SUCRALFATE 1 GM/10 ML CUP PO SCH ×4 (08:00→19:46)
[2017-12-11] MEDS: SODIUM CHLORIDE 0.9% FLUSH 10 ML FLUSH IV FLUSH SCH ×2 (08:18→19:46)
[2017-12-11] MEDS: MULTIVITAMINS/MINERALS THERAPEUTIC TAB PO SCH (08:20)
[2017-12-11] MEDS: CALCIUM/VITAMIN D 250 MG/125 U TAB PO SCH (08:21)
[2017-12-11] MEDS: MAGNESIUM OXIDE 400 MG TAB PO SCH (08:21)
[2017-12-11] MEDS: METOPROLOL TARTRATE 25 MG TAB PO SCH ×2 (08:21→19:46)
--- NOTE | 2017-12-11 09:26 | HHI.NPPN ---
Subjective Interval History Emesis, nausea persists. Notes were reviewed. Non oliguric. Review of Systems General Constitutional: Fatigue Gastrointestinal Gastrointestinal: Nausea & Vomiting Objective Data Data 12/11/17 12/12/17 19:00 07:00 Intake Total 120 ml Balance 120 ml Intake Oral 120 ml Vital Signs Date Time Temp Pulse Resp B/P (MAP) Pulse Ox O2 Delivery O2 Flow Rate FiO2 12/11/17 08:00 96.9 80 20 131/72 (91) 98 12/11/17 04:00 95.5 86 20 149/70 (96) 96 12/11/17 00:30 89 12/11/17 00:00 96.8 83 20 145/68 (93) 96 12/10/17 20:10 90 12/10/17 20:00 96.5 89 17 112/62 (79) 99 12/10/17 16:00 96.9 80 19 146/75 (98) 96 12/10/17 12:00 96.9 85 17 128/70 (89) 95 -: 12/10/17 0442 12/10/17 0442 Physical Exam Eyes Eye Exam: Pupils Equal Neck Neck Exam: Neck Supple Pulmonary Resp Exam: Clear Bilaterally Cardiology CV Exam: Regular Gastrointestinal/Abdomen GI Exam: Soft Musculoskeletal MS Exam: Joints Intact Extremeties Extremities Exam: No Edema Assessment/Plan Problem List: (1) Acute kidney injury ICD Codes: N17.9 - Acute kidney failure, unspecified Plan: renal function had improved with hydration. Repeat labs. Taper off fluids as oral intake improved. Still withe nausea and vomiting however. Avoid nephrotoxic agents. (2) Bladder cancer ICD Codes: C67.9 - Malignant neoplasm of bladder, unspecified (3) History of kidney transplant ICD Codes: Z94.0 - History of kidney transplant Status: Chronic Plan: Currently appears to be on Tacrolimus. Level is low, repeat the level. (4) Dehydration ICD Codes: E86.0 - Dehydration Status: Acute Plan: due to GI losses. History of C.diff. GI on the case. Elevated LFTs have improved. CT findings noted. Dilatation of biliary system, normal bilirubin, mildly elevated Alkaline phosphatase. Unclear significance. MRCP ordered: my understanding is MRCP does not require Gadolinium, and therefore can be performed in this patient irrespective of her GFR. Darrian Early MD Dec 11, 2017 09:26
[2017-12-11] MEDS: cefTRIAXone INJ 1,000 MG in SODIUM CHLORIDE 0.9% INJ 100 ML IV SCH (10:00)
[2017-12-11 11:18] LABS: AUTOMATED NEUTROPHIL # 9.7 TH/MM3 (1.8-7.7); BASOPHIL % 0.2 % (0.0-2.0); EOSINOPHIL % 0.1 % (0.0-4.0); HEMATOCRIT 32.6 % (35.0-46.0); HEMOGLOBIN 10.8 GM/DL (11.6-15.3); LYMPH % 4.7 % (9.0-44.0); LYMPHOCYTE # 0.5 TH/MM3 (1.0-4.8); MEAN CELL VOLUME 89.4 FL (80.0-100.0); MEAN CORPUSCULAR HEMOGLOBIN 29.7 PG (27.0-34.0); MEAN CORPUSCULAR HGB CONC 33.2 % (32.0-36.0); MEAN PLATELET VOLUME 9.8 FL (7.0-11.0); MONO % 10.6 % (0.0-8.0); MONOCYTE # 1.2 TH/MM3 (0-0.9); NEUT % 84.4 % (16.0-70.0); PLATELET COUNT 380 TH/MM3 (150-450); RED BLOOD COUNT 3.64 MIL/MM3 (4.00-5.30); RED CELL DISTRIBUTION WIDTH 15.9 % (11.6-17.2); WHITE BLOOD COUNT 11.5 TH/MM3 (4.0-11.0)
[2017-12-11 11:36] LABS: ALT (GPT) 35 U/L (10-53); AST (GOT) 27 U/L (15-37); BICARBONATE 34.3 MEQ/L (21.0-32.0); BLOOD UREA NITROGEN 40 MG/DL (7-18); CALCIUM 8.8 MG/DL (8.5-10.1); CHLORIDE 89 MEQ/L (98-107); CREATININE 2.01 MG/DL (0.50-1.00); GLOMERULAR FILTRATION RATE 25 ML/MIN (>89); GLUCOSE,RANDOM 80 MG/DL (74-106); SODIUM (NA) 141 MEQ/L (136-145)
[2017-12-11 11:38] LABS: ALKALINE PHOSPHATASE 215 U/L (45-117); TOTAL BILIRUBIN ADULT 0.8 MG/DL (0.2-1.0); TOTAL PROTEIN 7.7 GM/DL (6.4-8.2)
--- NOTE | 2017-12-11 15:21 | HHI.PR ---
Subjective Remarks Abnormal HIDA scan. Patient has no new complaints. She has malnutrition due to poor by mouth intake and tolerance of by mouth intake. She had a nausea episode with vomiting this morning. She may benefit from TPN/PPN. Objective Vital Signs Date Time Temp Pulse Resp B/P (MAP) Pulse Ox O2 Delivery O2 Flow Rate FiO2 12/11/17 12:04 80 12/11/17 12:00 96.9 78 20 131/69 (89) 99 12/11/17 08:00 96.9 80 20 131/72 (91) 98 12/11/17 04:00 95.5 86 20 149/70 (96) 96 12/11/17 00:30 89 12/11/17 00:00 96.8 83 20 145/68 (93) 96 12/10/17 20:10 90 12/10/17 20:00 96.5 89 17 112/62 (79) 99 12/10/17 16:00 96.9 80 19 146/75 (98) 96 I/O 12/10/17 12/10/17 12/10/17 12/11/17 12/11/17 12/11/17 07:00 15:00 23:00 07:00 15:00 23:00 Intake Total 240 ml 120 ml 1760 ml 1422 ml 120 ml Output Total 2000 ml 800 ml 2200 ml Balance -1760 ml 120 ml 960 ml -778 ml 120 ml Intake Oral 240 ml 120 ml 760 ml 700 ml 120 ml IV Total 1000 ml 722 ml Output Urine Total 800 ml 300 ml Emesis 2000 ml 1900 ml # Voids 1 # Bowel Movements 0 Result Diagram: 12/11/17 0834 12/11/17 0834 Objective Remarks GENERAL: NAD, A&Ox3 HEAD: Normocephalic. NECK: Supple, trachea midline. No lymphadenopathy. EYES: No scleral icterus. No injection or drainage. CARDIOVASCULAR: Regular rate and rhythm without murmurs, gallops, or rubs. RESPIRATORY: Breath sounds equal bilaterally. No accessory muscle use. GASTROINTESTINAL: Abdomen soft, non-tender, nondistended. MUSCULOSKELETAL: No cyanosis, or edema. SKIN: Warm and dry. NEURO: No focal neurological deficitis. A/P Problem List: (1) UTI (urinary tract infection) ICD Code: N39.0 - Urinary tract infection, site not specified (2) Acute kidney injury ICD Code: N17.9 - Acute kidney failure, unspecified (3) Abdominal pain ICD Code: R10.9 - Unspecified abdominal pain (4) Hyperemesis ICD Code: R11.10 - Vomiting, unspecified (5) Dehydration ICD Code: E86.0 - Dehydration Assessment and Plan 67-year-old female admitted secondary to hyperemesis with dehydration and resulting acute kidney injury and the presence of a renal transplant. Labs reviewed. Renal function continues to improve. Ordered labs are further monitoring of electrolytes and renal function. Her potassium is low 6 morning and is replace with IV potassium supplementation. Arrangements for TPN are being pursued. Abdominal pain Hyperemesis Ongoing weight loss Pain improved but nausea is still present and patient is Continue IV hydration Clear liquid diet for now CT shows evidence of common bile duct dilation and sigmoiditis HIDA scan abnormal Monitor symptoms Gastroenterology following As needed Zofran Possible partial bowel obstruction, plan for abdominal x-ray tomorrow to evaluate transit oral contrast Acute kidney injury Chronic kidney disease Renal Transplant recipient Dehydration Dehydration improving Renal function improving Nephrology following Continue IV hydration Follow renal function Bladder cancer Patient is not on radiation or chemotherapy Could be contributory both and a sense of inflammation or byproduct reactivity Continue to follow with urology as an outpatient Urinary tract infection Rocephin Follow urine cultures Hypertension Continue home treatments Follow blood pressure Adjust as needed DVT prophylaxis SCDs for now, given unstable renal function Jim Hernandez MD Dec 11, 2017 15:21
[2017-12-11] MEDS: POTASSIUM CHLOR 10 MEQ PREMIX 100 ML IV SCH ×4 (16:00→17:37)
--- NOTE | 2017-12-11 16:13 | HHI.GIFU ---
GI Follow-up Note Consult Follow-up Subjective: Patient laying in bed . She states her abdominal pain is controlled. Nausea but no vomiting because she is not eating. Reviewed HIDA and MRCP with her Objective: PHYSICAL EXAMINATION: Vitals signs stable No fever HEENT: no jaundice. Throat is clear. NECK: no lymphadenopathy. CHEST: Chest is clear to auscultation and percussion. CARDIAC: Regular rate and rhythm with no murmur gallop or rubs. ABDOMEN: Soft, nondistended, nontender; no hepatosplenomegaly; bowel sounds are present in all four quadrants. EXTREMITIES: No edema. SKIN: no rash; DATABASE ADMIN: alert and oriented times three. Available Data (labs, X- Rays, Procedues) : HIDA scan was abnormalthere is no excretion of contrast into the biliary system. MRCP shows marked dilatation of the bile duct up to 2.1 cm. They could not rule out a small pancreatic mass or ampullary tumor. The pancreatic duct is prominent up to 5 mm LFTs have improved ASSESSMENT/PLAN: 1. N/V/abd pain-? biliary tract disorder (dilated CBD and elevated LFT's) 2. Loose stools-past hx of C. diff 3. wt loss 4. renal insuff 5. Abnormal LFT-transaminases are now normal. Alkaline phosphatase trending down 6. Elevated lipase 7. Dilated CBD--MRCP confirms this. They cannot rule out an ampullary tumor or pancreatic mass 8. Thickened rectosigmoid junction-flex sig to sigmoid several months ago showed this area has no masses but the scope could not be passed beyond the sigmoid (30 cm[address] CT colonography did not reveal any masses (there were diverticula) 9. colonic diverticulosis 10. abnormal HIDA scansee above. I suspect this is due to hepatocellular dysfunction rather than an obstruction since her LFTs have improved 11. Multiple other findings were also noted on CT-see report PLAN: 1. patient is slightly improved but still having problems. We talked about an endoscopic ultrasound to look at the bile duct, ampulla and Pancretec duct for any malignancies. This is less invasive than an ERCP your we talked but the indications, risks, limitations, benefits, alternative as well as common occasions including risk of bleeding, infection, perforation, pancreatitis, cholangitis etc. she understands I do not do this procedure but my partner does. She wants to talk to her first 2. Awaiting C. diff pcr 3. Your w/u regarding her lung nodule 4. Cont antibiotics It was a pleasure seeing Viri Ramirez. Thank you for this consult. Entered by: Shawn Rose MD Dec 11, 2017 16:13
[2017-12-11] MEDS: MORPHINE SULFATE 2 MG/ML INJ IV PUSH PRN (19:41)
[2017-12-12] VITALS: BP 133/75; PULSE 71; RESP 19; TEMP 97; O2SAT 98
[2017-12-12] MEDS: CLINIMIX E 4.25/5 1000 mL- </= 42 mls/hr IV SCH ×3 (00:25)
[2017-12-12] MEDS: FAT EMULSION 20% INJ 250 ML (@10 mls/hr) IV SCH (00:25)
[2017-12-12] MEDS: SODIUM CHLOR 0.9% 1000 ML INJ 1,000 ML IV SCH (03:32)
[2017-12-12 04:00] VITALS: BP 119/70; PULSE 80; RESP 19; TEMP 96.5; O2SAT 96
[2017-12-12] MEDS: TACROLIMUS 1 MG CAP PO SCH ×2 (06:16→17:01)
[2017-12-12 08:00] VITALS: BP 147/75; PULSE 73; RESP 18; TEMP 96.1; O2SAT 97
[2017-12-12] MEDS: SUCRALFATE 1 GM/10 ML CUP PO SCH ×4 (08:00→21:00)
[2017-12-12 08:09] LABS: ALBUMIN 2.5 GM/DL (3.4-5.0); CALCIUM 8.1 MG/DL (8.5-10.1); CREATININE 1.59 MG/DL (0.50-1.00); PHOSPHORUS 2.3 MG/DL (2.5-4.9)
[2017-12-12] MEDS: MAGNESIUM OXIDE 400 MG TAB PO SCH (09:00)
[2017-12-12] MEDS: SODIUM CHLORIDE 0.9% FLUSH 10 ML FLUSH IV FLUSH SCH ×2 (09:00→23:17)
[2017-12-12] MEDS: METOPROLOL TARTRATE 25 MG TAB PO SCH ×2 (09:00→21:00)
[2017-12-12] MEDS: cefTRIAXone INJ 1,000 MG in SODIUM CHLORIDE 0.9% INJ 100 ML IV SCH (10:00)
[2017-12-12 12:00] VITALS: BP 124/71; PULSE 71; RESP 18; TEMP 96.6; O2SAT 96
[2017-12-12] MEDS ORDERED: PHENYLEPH/NS 1000 MCG/10 ML SYR IV ONE (12:00)
[2017-12-12] MEDS ORDERED: PROPOFOL 200 MG/20 ML AMP IV ONE (12:00)
[2017-12-12] MEDS: CALCIUM/VITAMIN D 250 MG/125 U TAB PO SCH (12:00)
[2017-12-12] MEDS ORDERED: LIDOCAINE HCL 1% PF 5 ML SYRINGE OTHER ONE (12:00)
[2017-12-12] MEDS ORDERED: GLYCOPYRROLATE 1 MG/5 ML SYRINGE IV PUSH ONE (12:00)
[2017-12-12] MEDS ORDERED: ROCURONIUM INJ 50 MG/5 ML SYRINGE IV PUSH ONE (12:00)
[2017-12-12] MEDS ORDERED: NEOSTIGMINE 5 MG/5 ML SYRINGE IV PUSH ONE (12:00)
--- NOTE | 2017-12-12 13:08 | HHI.NPPN ---
Subjective General Problems: Anemia Renal Failure: Acute Interval History Feels better. Renal function improved. Started on PPN. (Lisa Gamble) Review of Systems General Constitutional: Fatigue (Lisa Gamble) Gastrointestinal Gastrointestinal: Nausea & Vomiting (Lisa Gamble) Objective Data Data Vital Signs Date Time Temp Pulse Resp B/P (MAP) Pulse Ox O2 Delivery O2 Flow Rate FiO2 12/12/17 08:00 96.1 73 18 147/75 (99) 97 12/12/17 04:00 96.5 80 19 119/70 (86) 96 12/12/17 00:00 97.0 71 19 133/75 (94) 98 12/11/17 23:58 75 12/11/17 20:13 83 12/11/17 20:00 96.5 78 19 142/74 (96) 97 12/11/17 16:00 97.1 72 19 145/70 (95) 95 12/11/17 15:50 78 (Lisa Gamble) -: 12/11/17 0834 12/12/17 0638 Imaging Last 72 hours Impressions Hepatobiliary Scan Nuclear Medicine 12/10/17 0000 Signed Impressions: Service Date/Time: Sunday, December 10, 2017 12:22 - CONCLUSION: 1. Abnormal exam with no excretion contrast into the biliary system at 95 minutes. This could indicate severe hepatocellular disease or obstruction. A delayed four- hour study is pending. This report will be addended. Norman Singh MD Cholangiopancreatography MRI 12/10/17 0000 Signed Impressions: Service Date/Time: Sunday, December 10, 2017 14:31 - CONCLUSION: 1. Marked dilatation of the common bile duct is again noted. This measures up to 2.1 cm in diameter. There is no definite filling defect or visualized mass. The distal duct tapers down at the level of the pancreas. The main pancreatic duct is mildly prominent measuring up to 5 mm. Findings could indicate a small pancreatic mass or ampullary tumor. 2. Multiple scattered cystic lesions throughout the liver. 3. Enlarged polycystic kidneys There is possible hydronephrosis again noted right greater than left. Norman Singh MD (Lisa Gamble) Physical Exam General Appearance: Well Developed, Comfortable (Lisa Gamble) Eyes Eye Exam: Pupils Equal (Lisa GambleP) Throat Throat Exam: Oral Mucosa [place] & Moist (Lisa GambleP) Neck Neck Exam: Neck Supple (Lisa GamlbeP) Pulmonary Resp Exam: Clear Bilaterally (Lisa GambleP) Cardiology CV Exam: Regular, Normal Sinus Rhythm (Lisa Gamble) Gastrointestinal/Abdomen GI Exam: Soft, Non-Tender (Lisa GambleP) Musculoskeletal MS Exam: Joints Intact, Normal Tone (Lisa Gamble) Integumentary Skin Exam: Clear, Warm, Dry (Lisa Gamble) Extremeties Extremities Exam: No Edema (Lisa Gamble) Neurologic Neuro Exam: Alert, Awake, Oriented, Speech Clear, Moving All Extremities (Lisa Gamble) Assessment/Plan Discussed Condition With: Patient, Spouse Assessment Summary: CHENTE/Acute Renal Failure, Dehydration, Malnutrition, Transplant Kidney Status Problem List: (1) Acute kidney injury ICD Codes: N17.9 - Acute kidney failure, unspecified Plan: renal function has improved. Continue to monitor. She has a hx of renal transplant. Currently non oliguric. On PPN and IVF. Phosphorus low, monitor for now. Avoid nephrotoxic agents. (2) Dehydration ICD Codes: E86.0 - Dehydration Status: Acute Plan: GI following, appreciate recommendations. On PPN with lipids. MRCP taken. (3) Bladder cancer ICD Codes: C67.9 - Malignant neoplasm of bladder, unspecified (4) History of kidney transplant ICD Codes: Z94.0 - History of kidney transplant Status: Chronic Plan: On Tacrolimus BID. Repeat level has been ordered. (Lisa Gamble) Plan patient was seen and examined. Agree with above assessment and plan. Underwent EUS. (Darrian Early MD) Lisa Gamble Dec 12, 2017 13:08 Darrian Early MD Dec 13, 2017 09:42
--- NOTE | 2017-12-12 14:02 | HHI.GIFU ---
GI Follow-up Note Consult Follow-up Subjective: patient was seen earlier this am. Patient laying in bed. still has some nausea and abdominal pain Objective: PHYSICAL EXAMINATION: Vitals signs stable No fever HEENT: Throat is clear. NECK: Neck is supple, no JVD, no lymphadenopathy. CHEST: Chest is clear to auscultation and percussion. CARDIAC: Regular rate and rhythm with no murmur gallop or rubs. ABDOMEN: Soft, nondistended, mildly tender; no hepatosplenomegaly; bowel sounds are present in all four quadrants. EXTREMITIES: No edema. SKIN: Normal; no rash; no jaundice. DRAPERY ESTIMATOR: alert and oriented times three. Available Data (labs, X- Rays, Procedues) : ASSESSMENT/PLAN: 1. N/V/abd pain-? biliary tract disorder (dilated CBD and elevated LFT's) 2. Loose stools-past hx of C. diff 3. wt loss 4. renal insuff 5. Abnormal LFT-transaminases are now normal. Alkaline phosphatase trending down 6. Elevated lipase 7. Dilated CBD--MRCP confirms this. They cannot rule out an ampullary tumor or pancreatic mass 8. Thickened rectosigmoid junction-flex sig to sigmoid several months ago showed this area has no masses but the scope could not be passed beyond the sigmoid (30 cm[address] CT colonography did not reveal any masses (there were diverticula) 9. colonic diverticulosis 10. abnormal HIDA scansee above. I suspect this is due to hepatocellular dysfunction rather than an obstruction since her LFTs have improved 11. Multiple other findings were also noted on CT-see report PLAN: 1. patient is slightly improved but still having problems. We talked about an endoscopic ultrasound to look at the bile duct, ampulla and [place] duct for any malignancies. This is less invasive than an ERCP your we talked but the indications, risks, limitations, benefits, alternative as well as common occasions including risk of bleeding, infection, perforation, pancreatitis, cholangitis etc. she understands I do not do this procedure but my partner does. 1. N/V/abd pain-? biliary tract disorder (dilated CBD and elevated LFT's) 2. Loose stools-past hx of C. diff 3. wt loss 4. renal insuff 5. Abnormal LFT-transaminases are now normal. Alkaline phosphatase trending down 6. Elevated lipase 7. Dilated CBD--MRCP confirms this. They cannot rule out an ampullary tumor or pancreatic mass 8. Thickened rectosigmoid junction-flex sig to sigmoid several months ago showed this area has no masses but the scope could not be passed beyond the sigmoid ([address] colonography did not reveal any masses (there were diverticula) 9. colonic diverticulosis 10. abnormal HIDA scansee above. I suspect this is due to hepatocellular dysfunction rather than an obstruction since her LFTs have improved 11. Multiple other findings were also noted on CT-see report PLAN: 1. patient is slightly improved but still having problems. We talked about an endoscopic ultrasound to look at the bile duct, ampulla and [place] duct for any malignancies. This is less invasive than an ERCP your we talked but the indications, risks, limitations, benefits, alternative as well as complications including risk of bleeding, infection, perforation, pancreatitis, cholangitis etc. she understands I do not do this procedure but my partner does. patient does agree to an endoscopic ultrasound/fine aspiration and possible ERCP if needed. My partner Dr. Koroma would do this. Risks reviewed as mentioned before 2. Awaiting C. diff pcr 3. Your w/u regarding her lung nodule 4. Cont antibiotics It was a pleasure seeing Viri Ramirez. Thank you for this consult. Entered by: Shawn Rose MD Dec 12, 2017 14:02
[2017-12-12] MEDS ORDERED: METOPROLOL TARTRATE 25 MG TAB PO PRN (14:15)
[2017-12-12] MEDS ORDERED: LACTATED RINGER'S 1000 ML IV PRN (14:15)
[2017-12-12] MEDS ORDERED: POVIDONE IODINE 5% (ANTISEPSIS KIT) 4 APPLICATIONS EACH NARE PRN (14:15)
[2017-12-12] MEDS ORDERED: SODIUM CHLORID 0.9% 500 ML IV PRN (14:15)
[2017-12-12] MEDS ORDERED: CHLORHEXIDINE GLUCONATE 2 % 1 PACK (2 CLOTHS) TOPICAL PRN (14:15)
[2017-12-12] MEDS ORDERED: DO NOT ADM ANY ANTICOAGULANT DRUGS PRN (15:44)
--- NOTE | 2017-12-12 15:54 | HHI.GIFU ---
GI Follow-up Note Consult Follow-up Post Procedure Note EUS ASSESSMENT/PLAN: 1. Dilated pancreatic duct 3.8 mm 2. Dilated CBD with sludge 17.4 mm 3. Dilated GB with sludge without stones 4. distal Duodenal bulb narrowing - limiting the exam. PLAN: 1. Advance diet as tolerated 2. Repeat Labs, and cA19-9, CEA, AFP 3. Consider Outpt follow up and repeat EUS with ERCP if symptomatic, and persistent elevated lfts It was a pleasure seeing Viri Ramirez. Thank you for this consult. Entered by: Eleonora Post MD Dec 12, 2017 15:54
--- NOTE | 2017-12-12 16:22 | HHI.PR ---
Subjective Remarks Follow-up for nausea vomiting abdominal pain. Patient is currently doing well. She is is still not able to tolerate any oral food. She is on TPN. She is able to sip on water. Objective Vitals Vital Signs Date Time Temp Pulse Resp B/P (MAP) Pulse Ox O2 Delivery O2 Flow Rate FiO2 12/12/17 15:40 97.9 75 16 152/79 (103) 98 Nasal Cannula 3 12/12/17 12:00 96.6 71 18 124/71 (88) 96 12/12/17 08:00 96.1 73 18 147/75 (99) 97 12/12/17 04:00 96.5 80 19 119/70 (86) 96 12/12/17 00:00 97.0 71 19 133/75 (94) 98 12/11/17 23:58 75 12/11/17 20:13 83 12/11/17 20:00 96.5 78 19 142/74 (96) 97 12/11/17 16:00 97.1 72 19 145/70 (95) 95 I/O 12/11/17 12/11/17 12/11/17 12/12/17 12/12/17 12/12/17 07:00 15:00 23:00 07:00 15:00 23:00 Intake Total 1422 ml 120 ml 1280 ml 1181 ml 250 ml Output Total 2200 ml 600 ml 600 ml Balance -778 ml 120 ml 680 ml 581 ml 250 ml Intake Oral 700 ml 120 ml 480 ml 400 ml IV Total 722 ml 800 ml 781 ml Other 250 ml Output Urine Total 300 ml 600 ml 600 ml Emesis 1900 ml # Bowel Movements 0 Result Diagram: 12/11/17 0834 12/12/17 0638 Imaging Last Impressions Hepatobiliary Scan Nuclear Medicine 12/10/17 0000 Signed Impressions: Service Date/Time: Sunday, December 10, 2017 12:22 - CONCLUSION: 1. Abnormal exam with no excretion contrast into the biliary system at 95 minutes. This could indicate severe hepatocellular disease or obstruction. A delayed four- hour study is pending. This report will be addended. Norman Singh MD Cholangiopancreatography MRI 12/10/17 0000 Signed Impressions: Service Date/Time: Sunday, December 10, 2017 14:31 - CONCLUSION: 1. Marked dilatation of the common bile duct is again noted. This measures up to 2.1 cm in diameter. There is no definite filling defect or visualized mass. The distal duct tapers down at the level of the pancreas. The main pancreatic duct is mildly prominent measuring up to 5 mm. Findings could indicate a small pancreatic mass or ampullary tumor. 2. Multiple scattered cystic lesions throughout the liver. 3. Enlarged polycystic kidneys There is possible hydronephrosis again noted right greater than left. Norman Singh MD Abdomen X-Ray 12/09/17 0801 Signed Impressions: Service Date/Time: Saturday, December 09, 2017 08:31 - CONCLUSION: Nonspecific abdomen appearance. Ureteral stent in the right pelvic transplant kidney Juan Carlos Matos MD Abdomen/Pelvis CT 12/09/17 0000 Signed Impressions: Service Date/Time: Sunday, December 10, 2017 00:28 - CONCLUSION: 1. There appears to be abnormal dilatation of the biliary system with a dilated common bile duct at approximately 1.1 cm. This appears to be a new finding compared to the prior study. Recommend MRCP for further evaluation. 2. Abnormal diffuse thickening involving the wall of the distal sigmoid colon at the rectosigmoid junction. This is a new finding compared to the prior study. Focal colitis versus neoplastic disease are the primary considerations. No mechanical obstruction is demonstrated. Recommend correlation with direct visualization by sigmoidoscopy. 3. Diffuse diverticulosis of the descending and sigmoid colon. 4. Diffuse polycystic kidney disease with hydronephrosis bilaterally. 5. Right-sided transplant kidney with internal urinary stent in place. Diffuse thickening of urinary bladder wall. 6. Multiple stable benign-appearing hepatic cysts. 7. Nonspecific pericardial effusion which is not significant change compared to the prior study. 8. Nonspecific 6 mm new pulmonary nodule right lung base. If clinically indicated a PET/CT could be performed for further evaluation. 9. Nonspecific increased soft tissue changes surrounding the abdominal aorta at the level of the kidneys. Nonopacified loops of bowel versus adenopathy. Jalil Hart MD Objective Remarks GENERAL: Alert, oriented 3, NAD, cachectic appearance SKIN: Warm and dry. HEAD: Normocephalic. EYES: No scleral icterus. No injection or drainage. NECK: Supple, trachea midline. No JVD or lymphadenopathy. CARDIOVASCULAR: Regular rate and rhythm without murmurs, gallops, or rubs. RESPIRATORY: Breath sounds equal bilaterally. No accessory muscle use. GASTROINTESTINAL: Abdomen soft, non-tender, nondistended. MUSCULOSKELETAL: No cyanosis, or edema. BACK: Nontender without obvious deformity. No CVA tenderness. Procedures EUS 12/12/2017 1. Dilated pancreatic duct 3.8 mm 2. Dilated CBD with sludge 17.4 mm 3. Dilated GB with sludge without stones 4. distal Duodenal bulb narrowing - limiting the exam. A/P Problem List: (1) Acute kidney injury ICD Code: N17.9 - Acute kidney failure, unspecified (2) Abdominal pain ICD Code: R10.9 - Unspecified abdominal pain (3) Hyperemesis ICD Code: R11.10 - Vomiting, unspecified (4) Dehydration ICD Code: E86.0 - Dehydration Assessment and Plan Ms. Ramirez is a pleasant 67-year-old female with a history of renal transplant who was admitted on 12/09/2017 due to nausea vomiting, acute kidney injury. Nephrology following due to acute kidney injury in a patient with a history of kidney transplant. Patient underwent EUS by GI on 12/12/2017. - Abdominal pain - Hyperemesis - Weight loss - Common bile duct dilatation - currently on TPN. Can take sips of water. - s/p EUS - Dilated CBD confirmed on MRCP - differentials include malignancy involving ampulla or pancreas. - Acute kidney injury - Hx of renal transplant - Creatinine 2.0 --> 1.59. Baseline below 1.0. - Nephrology following. - Suspected urinary tract infection - urine culture unremarkable. We'll discontinue ceftriaxone. Full code. SCDs, ambulation. Bobby Murray DO Dec 12, 2017 4:22 pm
[2017-12-12] MEDS: ONDANSETRON HCL 4 MG/2 ML VIAL IVP PRN ×2 (17:02→23:17)
--- NOTE | 2017-12-12 17:30 | PD.CONS ---
[facility] Service Nephrology Consult Requested By Dr. Heranndez Reason for Consult Status post kidney transplant Primary Care Physician Chase Whitehead MD History of Present Illness The patient was seen was 11/14 . Consult dictated on 12/12/17 Patient is a 67-year-old white female with history of status post kidney transplant who has been admitted with nausea and vomiting, patient has been previously treated for urinary tract infection and has been diagnosed with bladder cancer, she had abdominal pain as well on the right side. Patient has been treated for bladder cancer with surgery and she underwent a redo cystoscopy and discovered to have more cancer this was taken out. Patient is maintained on tacrolimus. She has a creatinine of 2.48 which is elevated for her. 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 Resection of bladder mass June 2017. Knee surgery Tenkhoff catheter placement and removal Hernia repair Reported Medications Reported Meds & Active Scripts Active Sucralfate Liq (Sucralfate) 1 Gram/10 Ml Olamide 1 Gm PO ACHS 30 Days Reported Multiple Vitamins For Women (Multivit with Calcium,Iron,Min) 1 Each Tablet 1 Tab PO DAILY Sm Magnesium (Magnesium) 250 Mg Tab 500 Mg PO DAILY Calcium 600 + Vit D Tablet (Calcium Carbonate/Vitamin D3) 1 Each Tablet 1 Tab PO DAILY Fosamax (Alendronate Sodium) 70 Mg Tab 35 Mg PO Q7D Metoprolol Tartrate 25 Mg Tab 12.5 Mg PO BID Prograf (Tacrolimus) 1 Mg Cap 1 Mg PO BID Family History Noncontributory Social History Denies smoking or alcohol use Physical Exam Vital Signs Vital signs blood pressure 112/62 pulse 89 temperature 96.5 Laboratory Laboratory Tests Test 12/12/17 06:38 12/12/17 11:15 Blood Urea Nitrogen 33 Creatinine 1.59 Random Glucose 98 Albumin 2.5 Calcium Level 8.1 Phosphorus Level 2.3 Sodium Level 137 Potassium Level 3.6 Chloride Level 98 Carbon Dioxide Level 28.0 Anion Gap 11 Estimat Glomerular Filtration Rate 32 Tacrolimus (Prograf) Level 16.7 Date/Time Source Procedure Growth Status 12/09/17 07:56 Urine Clean Catch Urine Culture - Final <10,000 CFU/ML MIXED GRAM POSITIVE FL... Complete Result Diagram: 12/11/17 0834 12/12/17 0638 Imaging Last Impressions Hepatobiliary Scan Nuclear Medicine 12/10/17 0000 Signed Impressions: Service Date/Time: Sunday, December 10, 2017 12:22 - CONCLUSION: 1. Abnormal exam with no excretion contrast into the biliary system at 95 minutes. This could indicate severe hepatocellular disease or obstruction. A delayed four- hour study is pending. This report will be addended. Norman Singh MD Cholangiopancreatography MRI 12/10/17 0000 Signed Impressions: Service Date/Time: Sunday, December 10, 2017 14:31 - CONCLUSION: 1. Marked dilatation of the common bile duct is again noted. This measures up to 2.1 cm in diameter. There is no definite filling defect or visualized mass. The distal duct tapers down at the level of the pancreas. The main pancreatic duct is mildly prominent measuring up to 5 mm. Findings could indicate a small pancreatic mass or ampullary tumor. 2. Multiple scattered cystic lesions throughout the liver. 3. Enlarged polycystic kidneys There is possible hydronephrosis again noted right greater than left. Norman Singh MD Abdomen X-Ray 12/09/17 0801 Signed Impressions: Service Date/Time: Saturday, December 09, 2017 08:31 - CONCLUSION: Nonspecific abdomen appearance. Ureteral stent in the right pelvic transplant kidney Juan Carlos Matos MD Abdomen/Pelvis CT 12/09/17 0000 Signed Impressions: Service Date/Time: Sunday, December 10, 2017 00:28 - CONCLUSION: 1. There appears to be abnormal dilatation of the biliary system with a dilated common bile duct at approximately 1.1 cm. This appears to be a new finding compared to the prior study. Recommend MRCP for further evaluation. 2. Abnormal diffuse thickening involving the wall of the distal sigmoid colon at the rectosigmoid junction. This is a new finding compared to the prior study. Focal colitis versus neoplastic disease are the primary considerations. No mechanical obstruction is demonstrated. Recommend correlation with direct visualization by sigmoidoscopy. 3. Diffuse diverticulosis of the descending and sigmoid colon. 4. Diffuse polycystic kidney disease with hydronephrosis bilaterally. 5. Right-sided transplant kidney with internal urinary stent in place. Diffuse thickening of urinary bladder wall. 6. Multiple stable benign-appearing hepatic cysts. 7. Nonspecific pericardial effusion which is not significant change compared to the prior study. 8. Nonspecific 6 mm new pulmonary nodule right lung base. If clinically indicated a PET/CT could be performed for further evaluation. 9. Nonspecific increased soft tissue changes surrounding the abdominal aorta at the level of the kidneys. Nonopacified loops of bowel versus adenopathy. Jalil Hart MD Assessment and Plan Problem List: (1) Acute kidney injury ICD Codes: N17.9 - Acute kidney failure, unspecified Plan: Acute renal failure due to dehydration patient has nausea and vomiting Status post kidney Stable on low-dose tacrolimus Patient has bladder cancer Continue to monitor with hydration (2) Dehydration ICD Codes: E86.0 - Dehydration Status: Acute Plan: Continue to monitor (3) Bladder cancer ICD Codes: C67.9 - Malignant neoplasm of bladder, unspecified (4) History of kidney transplant ICD Codes: Z94.0 - History of kidney transplant Status: Chronic Plan: On Tacrolimus BID. Repeat level has been ordered. Cee Apodaca MD Dec 12, 2017 17:30
[2017-12-12 19:05] LABS: AUTOMATED NEUTROPHIL # 10.7 TH/MM3 (1.8-7.7); BASOPHIL % 0.3 % (0.0-2.0); EOSINOPHIL # 0.1 TH/MM3 (0-0.4); EOSINOPHIL % 0.8 % (0.0-4.0); HEMATOCRIT 35.4 % (35.0-46.0); HEMOGLOBIN 11.6 GM/DL (11.6-15.3); LYMPHOCYTE # 0.5 TH/MM3 (1.0-4.8); MEAN CELL VOLUME 90.3 FL (80.0-100.0); MEAN CORPUSCULAR HEMOGLOBIN 29.5 PG (27.0-34.0); MEAN CORPUSCULAR HGB CONC 32.7 % (32.0-36.0); MEAN PLATELET VOLUME 9.7 FL (7.0-11.0); MONO % 7.9 % (0.0-8.0); PLATELET COUNT 365 TH/MM3 (150-450); RED BLOOD COUNT 3.93 MIL/MM3 (4.00-5.30); RED CELL DISTRIBUTION WIDTH 15.3 % (11.6-17.2); WHITE BLOOD COUNT 12.3 TH/MM3 (4.0-11.0)
[2017-12-12 19:09] LABS: ALBUMIN 2.7 GM/DL (3.4-5.0); ALT (GPT) 25 U/L (10-53); AST (GOT) 23 U/L (15-37); BICARBONATE 28.9 MEQ/L (21.0-32.0); BLOOD UREA NITROGEN 31 MG/DL (7-18); CALCIUM 8.4 MG/DL (8.5-10.1); CHLORIDE 97 MEQ/L (98-107); CREATININE 1.56 MG/DL (0.50-1.00); GLOMERULAR FILTRATION RATE 33 ML/MIN (>89); GLUCOSE,RANDOM 103 MG/DL (74-106); SODIUM (NA) 135 MEQ/L (136-145)
[2017-12-12 19:12] LABS: ALKALINE PHOSPHATASE 182 U/L (45-117); CARCINOEMBRYONIC ANTIGEN 2.1 NG/ML (0.2-5.0); TOTAL BILIRUBIN ADULT 0.7 MG/DL (0.2-1.0); TOTAL PROTEIN 7.2 GM/DL (6.4-8.2)
[2017-12-12 19:18] LABS: INTERNATIONAL NORMALIZED RATIO 1.1 RATIO; PROTHROMBIN TIME - PATIENT 10.8 SEC (9.8-11.6)
[2017-12-12 20:00] VITALS: BP 137/81; PULSE 85; RESP 18; TEMP 96.7; O2SAT 98
[2017-12-12 21:54] LABS: CA 19-9 142.9 U/ML (0.0-35.0)
[2017-12-13] VITALS: BP 112/68; PULSE 86; RESP 18; TEMP 96.7; O2SAT 96
[2017-12-13 04:00] VITALS: BP 143/82; PULSE 84; RESP 18; TEMP 97.2; O2SAT 96
[2017-12-13] MEDS: TACROLIMUS 1 MG CAP PO SCH ×2 (06:00→18:00)
[2017-12-13] MEDS: ONDANSETRON HCL 4 MG/2 ML VIAL IVP PRN ×3 (06:08→22:05)
[2017-12-13] MEDS: SODIUM CHLORIDE 0.9% FLUSH 10 ML FLUSH IV FLUSH PRN (06:08)
[2017-12-13] MEDS: CLINIMIX E 4.25/5 1000 mL- </= 42 mls/hr IV SCH ×6 (06:09→22:58)
[2017-12-13] MEDS: FAT EMULSION 20% INJ 250 ML (@10 mls/hr) IV SCH ×2 (06:09→22:57)
[2017-12-13] MEDS: SODIUM CHLOR 0.9% 1000 ML INJ 1,000 ML IV SCH ×2 (06:11→13:35)
[2017-12-13 08:00] VITALS: BP 141/84; PULSE 99; RESP 19; TEMP 96.9; O2SAT 95
[2017-12-13] MEDS: SUCRALFATE 1 GM/10 ML CUP PO SCH ×4 (08:00→21:00)
[2017-12-13] MEDS: MAGNESIUM OXIDE 400 MG TAB PO SCH (09:00)
[2017-12-13] MEDS: SODIUM CHLORIDE 0.9% FLUSH 10 ML FLUSH IV FLUSH SCH ×2 (09:00→22:09)
[2017-12-13] MEDS: CALCIUM/VITAMIN D 250 MG/125 U TAB PO SCH (09:00)
[2017-12-13 09:04] LABS: ALBUMIN 2.6 GM/DL (3.4-5.0); DIRECT BILIRUBIN ADULT 0.3 MG/DL (0.0-0.2)
[2017-12-13 09:06] LABS: INDIRECT BILIRUBIN 0.4 MG/DL (0.0-0.8); TOTAL BILIRUBIN ADULT 0.7 MG/DL (0.2-1.0); TOTAL PROTEIN 6.9 GM/DL (6.4-8.2)
[2017-12-13] MEDS: METOPROLOL TARTRATE 25 MG TAB PO SCH ×2 (09:31→22:14)
[2017-12-13] MEDS: MORPHINE SULFATE 2 MG/ML INJ IV PUSH PRN ×2 (09:31→22:57)
--- NOTE | 2017-12-13 10:16 | HHI.GIFU ---
GI Follow-up Note Consult Follow-up Subjective: Patient laying in bed comfortably--drinks water and then vomits, No pain today Objective: PHYSICAL EXAMINATION: Vitals signs stable No fever NECK: no lymphadenopathy. CHEST: Chest is clear to auscultation and percussion. CARDIAC: Regular rate and rhythm with no murmur gallop or rubs. ABDOMEN: Soft, nondistended, nontender; no hepatosplenomegaly; bowel sounds are present in all four quadrants. EXTREMITIES: No clubbing, cyanosis, or edema. SKIN: no rash; no jaundice. SPECIAL EVENTS COORDINATOR: No focal deficits; alert and oriented times three. Available Data (labs, X- Rays, Procedues) : ERCP results noted. 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 cannot r/o small pancreatic tumors. CA-19-9 slightly elevated ASSESSMENT/PLAN: 1. N/V/abd pain-? biliary tract disorder (dilated CBD and elevated LFT's). ERCP was limited as mentioned above 2. Loose stools-past hx of C. diff. loose stools better 3. wt loss 4. renal insuff 5. Abnormal LFT-transaminases are now normal. Alkaline phosphatase trending down 6. Elevated lipase 7. Dilated CBD--MRCP confirms this. No ampullary tumor. cannot r/o pancreatic mass 8. Thickened rectosigmoid junction-flex sig to sigmoid several months ago showed this area has no masses but the scope could not be passed beyond the sigmoid (30 cm). CT colonography did not reveal any masses (there were diverticula) 9. colonic diverticulosis 10. abnormal HIDA scansee above. I suspect this is due to hepatocellular dysfunction rather than an obstruction since her LFTs have improved 11. Multiple other findings were also noted on CT-see report PLAN: 1. options are limited. we can attempt to do EUS/ERCP as an outpt will a different smaller scope [place] [facility] [place] a Contrast ct of MRI of the pancreas may be helpful but she had poor renal function 2. Consider PICC line and TPN. she can then be D/C'd and we can arrange a f/u exam as an outpt 3. Your w/u regarding her lung nodule 4. Dr. Evans will see pt 12/14/17 It was a pleasure seeing Viri Ramirez. Thank you for this consult. Entered by: Shawn Rose MD Dec 13, 2017 10:16
[2017-12-13 11:54] LABS: ALBUMIN 2.6 GM/DL (3.4-5.0); BICARBONATE 24.7 MEQ/L (21.0-32.0); CALCIUM 8.7 MG/DL (8.5-10.1); CREATININE 1.39 MG/DL (0.50-1.00); PHOSPHORUS 2.7 MG/DL (2.5-4.9)
[2017-12-13 12:00] VITALS: BP_SYST 114; BP_SYST 156; BP_DIAS 82; PULSE 87; RESP 19; TEMP 97.6; O2SAT 95
--- NOTE | 2017-12-13 12:11 | HHI.NPPN ---
Subjective General Problems: Anemia Renal Failure: Acute Interval History Still with nausea and vomiting. On IVF. Renal function is better. (Lisa Gamble) Review of Systems General Constitutional: Fatigue (Lisa Gamble) Gastrointestinal Gastrointestinal: Nausea & Vomiting (Lisa Gamble) Objective Data Data 12/13/17 12/14/17 19:00 07:00 Intake Total 120 ml Balance 120 ml Intake Oral 120 ml Vital Signs Date Time Temp Pulse Resp B/P (MAP) Pulse Ox O2 Delivery O2 Flow Rate FiO2 12/13/17 08:00 96.9 99 19 141/84 (103) 95 12/13/17 04:00 97.2 84 18 143/82 (102) 96 12/13/17 00:00 96.7 86 18 112/68 (83) 96 12/12/17 20:00 96.7 85 18 137/81 (99) 98 12/12/17 16:15 97.6 64 16 148/62 (90) 96 Room Air 12/12/17 16:00 68 16 151/67 (95) 95 Room Air 12/12/17 15:45 70 16 154/75 (101) 99 Nasal Cannula 3 12/12/17 15:40 97.9 75 16 152/79 (103) 98 Nasal Cannula 3 (Lisa Gamble) -: 12/12/17 1813 12/13/17 0732 Physical Exam General Appearance: Well Developed, No Acute Distress, Comfortable (Lisa Gamble) Eyes Eye Exam: Pupils Equal (Lisa Gamble) Throat Throat Exam: Oral Mucosa [place] & Moist (Lisa Gamble) Neck Neck Exam: Neck Supple (Lisa Gamble) Pulmonary Resp Exam: Clear Bilaterally, Breath Sounds Equal (Lisa Gamble) Cardiology CV Exam: Regular, Normal Sinus Rhythm (Lisa Gamble) Gastrointestinal/Abdomen GI Exam: Soft, Non-Tender (Lisa Gamble) Musculoskeletal MS Exam: Joints Intact, Normal Tone (Lisa Gamble) Integumentary Skin Exam: Clear, Warm, Dry, Intact (Lisa Gamble) Extremeties Extremities Exam: No Edema, Pedal Pulses Palpable (Lisa Gamble) Neurologic Neuro Exam: Alert, Awake, Oriented, Speech Clear, Moving All Extremities (Lisa Gamble) Psychiatric Psych Exam: Appropriate Responses (Lisa Gamble) Assessment/Plan Discussed Condition With: Patient, Spouse Assessment Summary: CHENTE/Acute Renal Failure, Dehydration, Malnutrition, Transplant Kidney Status Problem List: (1) Acute kidney injury ICD Codes: N17.9 - Acute kidney failure, unspecified Plan: Baseline creatinine 1.4 from this month. Acute renal failure due to intravascular volume depletion secondary to dehydration . Her renal function is improving Obtain labs daily Replace potassium. She is on PPN and 0.9% NS @ 75 cc/hr, continue Avoid nephrotoxic agents. (2) History of kidney transplant ICD Codes: Z94.0 - History of kidney transplant Status: Chronic Plan: Single agent therapy with Tacrolimus BID. Repeat level high but was not drawn as a trough. Repeat level in AM, change dose if needed. (3) Dehydration ICD Codes: E86.0 - Dehydration Status: Acute Plan: Continue IVF. On clear liquid diet Monitor renal function. (4) Hyperemesis ICD Codes: R11.10 - Vomiting, unspecified Plan: GI following ERCP limited, may need repeat as outpatient Currently on PPN. Advance diet as tolerated. On clear liquids currently. Tumor markers elevated. Appreciate recommendations. (5) Bladder cancer ICD Codes: C67.9 - Malignant neoplasm of bladder, unspecified (Lisa Gamble) Problem List: (1) Acute kidney injury ICD Codes: N17.9 - Acute kidney failure, unspecified Plan: Baseline creatinine 1.4 from this month. Acute renal failure due to intravascular volume depletion secondary to dehydration . Her renal function is improving Obtain labs daily Replace potassium. She is on PPN and 0.9% NS @ 75 cc/hr, continue Avoid nephrotoxic agents. (2) History of kidney transplant ICD Codes: Z94.0 - History of kidney transplant Status: Chronic Plan: Single agent therapy with Tacrolimus BID. Repeat level high but was not drawn as a trough. Repeat level in AM, change dose if needed. (3) Dehydration ICD Codes: E86.0 - Dehydration Status: Acute Plan: Continue IVF. On clear liquid diet Monitor renal function. (4) Hyperemesis ICD Codes: R11.10 - Vomiting, unspecified Plan: GI following ERCP limited, may need repeat as outpatient Currently on PPN. Advance diet as tolerated. On clear liquids currently. Tumor markers elevated. Appreciate recommendations. (5) Bladder cancer ICD Codes: C67.9 - Malignant neoplasm of bladder, unspecified Plan patient was seen and examined. Renal function is stable. Tacrolimus level is reported as high, but it is not trough level. Underwent EUS, no ampullary mass is found, but CA19-9 is high. GI following. CBD dilatation, and pancreatic duct dilatation. May need ERCP. (Darrian Early MD) Lisa Gamble Dec 13, 2017 12:11 Darrian Early MD Dec 13, 2017 20:09
--- NOTE | 2017-12-13 12:18 | HHI.PR ---
Subjective Remarks Follow-up for nausea vomiting abdominal pain. She underwent EUS study yesterday. Patient continues to have nausea, vomiting and anorexia. No fever, chills. Objective Vitals Vital Signs Date Time Temp Pulse Resp B/P (MAP) Pulse Ox O2 Delivery O2 Flow Rate FiO2 12/13/17 08:00 96.9 99 19 141/84 (103) 95 12/13/17 04:00 97.2 84 18 143/82 (102) 96 12/13/17 00:00 96.7 86 18 112/68 (83) 96 12/12/17 20:00 96.7 85 18 137/81 (99) 98 12/12/17 16:15 97.6 64 16 148/62 (90) 96 Room Air 12/12/17 16:00 68 16 151/67 (95) 95 Room Air 12/12/17 15:45 70 16 154/75 (101) 99 Nasal Cannula 3 12/12/17 15:40 97.9 75 16 152/79 (103) 98 Nasal Cannula 3 I/O 12/12/17 12/12/17 12/12/17 12/13/17 12/13/17 12/13/17 07:00 15:00 23:00 07:00 15:00 23:00 Intake Total 1181 ml 100 ml 490 ml 1360 ml 120 ml Output Total 600 ml 100 ml 1350 ml 200 ml Balance 581 ml 100 ml 390 ml 10 ml -80 ml Intake Oral 400 ml 240 ml 360 ml 120 ml IV Total 781 ml 100 ml 1000 ml Other 250 ml Output Urine Total 600 ml 1050 ml Emesis 100 ml 300 ml 200 ml # Voids 5 # Bowel Movements 0 0 Result Diagram: 12/12/17 1813 12/13/17 0732 Imaging Last Impressions Hepatobiliary Scan Nuclear Medicine 12/10/17 0000 Signed Impressions: Service Date/Time: Sunday, December 10, 2017 12:22 - CONCLUSION: 1. Abnormal exam with no excretion contrast into the biliary system at 95 minutes. This could indicate severe hepatocellular disease or obstruction. A delayed four- hour study is pending. This report will be addended. Norman Singh MD Cholangiopancreatography MRI 12/10/17 0000 Signed Impressions: Service Date/Time: Sunday, December 10, 2017 14:31 - CONCLUSION: 1. Marked dilatation of the common bile duct is again noted. This measures up to 2.1 cm in diameter. There is no definite filling defect or visualized mass. The distal duct tapers down at the level of the pancreas. The main pancreatic duct is mildly prominent measuring up to 5 mm. Findings could indicate a small pancreatic mass or ampullary tumor. 2. Multiple scattered cystic lesions throughout the liver. 3. Enlarged polycystic kidneys There is possible hydronephrosis again noted right greater than left. Norman Singh MD Abdomen X-Ray 12/09/17 0801 Signed Impressions: Service Date/Time: Saturday, December 09, 2017 08:31 - CONCLUSION: Nonspecific abdomen appearance. Ureteral stent in the right pelvic transplant kidney Juan Carlos Matos MD Abdomen/Pelvis CT 12/09/17 0000 Signed Impressions: Service Date/Time: Sunday, December 10, 2017 00:28 - CONCLUSION: 1. There appears to be abnormal dilatation of the biliary system with a dilated common bile duct at approximately 1.1 cm. This appears to be a new finding compared to the prior study. Recommend MRCP for further evaluation. 2. Abnormal diffuse thickening involving the wall of the distal sigmoid colon at the rectosigmoid junction. This is a new finding compared to the prior study. Focal colitis versus neoplastic disease are the primary considerations. No mechanical obstruction is demonstrated. Recommend correlation with direct visualization by sigmoidoscopy. 3. Diffuse diverticulosis of the descending and sigmoid colon. 4. Diffuse polycystic kidney disease with hydronephrosis bilaterally. 5. Right-sided transplant kidney with internal urinary stent in place. Diffuse thickening of urinary bladder wall. 6. Multiple stable benign-appearing hepatic cysts. 7. Nonspecific pericardial effusion which is not significant change compared to the prior study. 8. Nonspecific 6 mm new pulmonary nodule right lung base. If clinically indicated a PET/CT could be performed for further evaluation. 9. Nonspecific increased soft tissue changes surrounding the abdominal aorta at the level of the kidneys. Nonopacified loops of bowel versus adenopathy. Jalil Hart MD Objective Remarks GENERAL: Alert, oriented 3, NAD, cachectic appearance SKIN: Warm and dry. HEAD: Normocephalic. EYES: No scleral icterus. No injection or drainage. NECK: Supple, trachea midline. No JVD or lymphadenopathy. CARDIOVASCULAR: Regular rate and rhythm without murmurs, gallops, or rubs. RESPIRATORY: Breath sounds equal bilaterally. No accessory muscle use. GASTROINTESTINAL: Abdomen soft, non-tender, nondistended. MUSCULOSKELETAL: No cyanosis, or edema. BACK: Nontender without obvious deformity. No CVA tenderness. Procedures EUS 12/12/2017 1. Dilated pancreatic duct 3.8 mm 2. Dilated CBD with sludge 17.4 mm 3. Dilated GB with sludge without stones 4. distal Duodenal bulb narrowing - limiting the exam. A/P Problem List: (1) Acute kidney injury ICD Code: N17.9 - Acute kidney failure, unspecified (2) Abdominal pain ICD Code: R10.9 - Unspecified abdominal pain (3) Hyperemesis ICD Code: R11.10 - Vomiting, unspecified (4) Dehydration ICD Code: E86.0 - Dehydration Assessment and Plan Ms. Ramirez is a pleasant 67-year-old female with a history of renal transplant who was admitted on 12/09/2017 due to nausea vomiting, acute kidney injury. Nephrology following due to acute kidney injury in a patient with a history of kidney transplant. Patient underwent EUS by GI on 12/12/2017. - Abdominal pain - Hyperemesis - Weight loss - Common bile duct dilatation - currently on TPN. Can take sips of water. - s/p EUS - Dilated CBD confirmed on MRCP - differentials include malignancy involving ampulla or pancreas. - GI recommends further work up in the outpatient setting. - However, patient has ongoing nausea, vomiting. We will start her on Dexamethasone 4mg Q8hrs. - CA19-9 is elevated. It may be beneficial to get an input from Oncology. - If she does not have much N/V, we can likely discharge her home. - Acute kidney injury - Hx of renal transplant - Creatinine 2.0 --> 1.59. Baseline below 1.0. - Nephrology following. - Suspected urinary tract infection - urine culture unremarkable. Discontinued ceftriaxone. Full code. SCDs, ambulation. Bobby Murray DO Dec 13, 2017 12:18
[2017-12-13] MEDS ORDERED: POTASSIUM CHLORIDE 10 MEQ CONTROLLED RELEASE TAB PO ONE (13:00)
[2017-12-13] MEDS ORDERED: POTASSIUM CHLOR 20 MEQ PREMIX 100 ML IV PRN (13:00)
[2017-12-13] MEDS: DEXAMETHASONE SOD PHOS 4 MG/ML VIAL IV PUSH SCH ×2 (13:35→22:15)
--- NOTE | 2017-12-13 14:25 | MR ---
cc: DIPESHALEJANDRA DATE 12/12/2017 DATE OF 1950 ENDOSCOPIST Alejandra Koroma MD PROCEDURE 1. EGD 2. Endoscopic ultrasound INDICATIONS This is a 67-year-old female who was found to have abdominal pain, weight loss, abnormal LFTs with dilated common bile duct of unclear etiology. Prior to the procedure, the patient's lungs were clear. Heart sounds were normal area. Oriented times three. MONITORING Done using the appropriate monitor at all times. Heart rate, respirations and pulse oximetry were monitored and remained within normal limits with CR support. INFORMED CONSENT Informed consent was obtained. The risks, benefits, alternatives including, but not limited to the risks of bleeding, infection, perforation, adverse reaction to sedation, failure to identify pathology were explained to the patient who accepted our risks. PROCEDURE NOTE The patient was prepped in the left lateral position. IV sedation given. The patient was intubated and placed in the left lateral position. Anesthesia sedation given. The Pentax radial echoendoscope was entered into the oropharynx, down the esophagus into the stomach and down into the duodenal bulb. The duodenal sweep was able to be examined, but the thick portion of the duodenum could not be intubated due to the duodenal stricture. The scope was withdrawn back. The surrounding structures were examined and findings are as listed below. Celiac axis, no evidence of celiac lymphadenopathy. Pancreas. The pancreatic parenchyma and the body and tail of the pancreas appeared grossly normal. The pancreatic duct is dilated measuring approximately 3.8 mm in the body the pancreas. It smoothly tapers to a normal-size in the tail of the pancreas. The head of the pancreas appears slightly dilated at 4 mm. The biliary system and common bile duct is significantly dilated measuring 18 mm and tapering down to the level of the pancreatic head. There appears to be some mild echogenic material within the lumen of the common bile duct, otherwise grossly normal. There does appear to be somewhat of an extrinsic compression versus a possibility of irregularity of the lumen of the bile duct. Bile is noted to be seen within the lumen of the small bowel, therefore a complete obstruction is not appreciated. The gallbladder appears to be large and dilated with significant echogenic material consistent with gallbladder sludge without stones. The partial medial pancreatic head does not appear to have any clear evidence of a mass. Unfortunately, there appears to be a stricture at the duodenal bulb inhibiting the complete examination of the remainder the pancreas which includes the head as well as the uncinate process of the pancreas. Therefore, occult lesions can be missed within this region. Liver. Multiple liver anechoic cystic lesions noted in the liver better defined in the cross-sectional CT imaging. Lymph nodes. No abnormal lymphadenopathy noted. The scope was withdrawn completely. A regular gastroscope was advanced into the oropharynx and esophagus into the stomach and into the duodenal bulb. The previously noted duodenal stricture was identified, appeared to be somewhat intrinsic, slightly narrowed with a sharp angulation. The scope was able to be navigated beyond this into the second portion of the duodenum. The ampulla was identified. It appeared to have bile draining from it. It did not appear to have any evidence of large ampullary masses. The scope was withdrawn back and completely removed and it was all process irregular with mild inflammation was noted. The scope was withdrawn. A side viewing duodenoscope was then advanced through the oropharynx and esophagus and into the stomach down into the second portion of the duodenum. The scope could be advanced up to the duodenal bulb, unfortunately the scope was unable to be advanced to the second portion of the duodenum and the scope was withdrawn back and completely removed. The scope tip of the linear echoendoscope was advanced down into the level of the duodenal bulb. This area was again examined. No clear evidence of large obstructing lesions were found. Therefore, no current FNA was performed. ERCP was not performed due to the inability currently to get the scope past the duodenal bulb. The scope was withdrawn back and completely removed. The patient tolerated procedure well and was sent to recovery without any immediate complications. IMPRESSION 1. Celiac axis. No evidence of celiac lymphadenopathy. 2. Pancreas. The pancreatic duct in the body and tail of the pancreas measures 3.8 mm in size. The head of the pancreas and pancreatic duct measured about 12 mm. 3. Biliary system. The common bile duct measures 17.4 mm, tapers to the pancreatic portion which is significantly narrowed. It certainly raises suspicion of a pancreatic head lesion. 4. 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 5. Ampulla, no endoscopic evidence of ampullary mass was identified. The ampullary area was not able to be examined with an echoendoscope. 6. Liver. Multiple liver lesions. 7. Lymph nodes. No evidence of lymphadenopathy. 8. Gallbladder. Large dilated gallbladder with sludge within the lumen. RECOMMENDATIONS 1. Advance diet slowly as tolerated. 2. Monitor LFTs. 3. Recommend ordering a CEA, alpha-fetoprotein and a CA19-9. 4. May consider a repeat endoscopic ultrasound with a possible ERCP once the patient acute symptoms have improved. MD AIMEE Macedo/ALANNAH /3:36 PM /9:08 AM
--- NOTE | 2017-12-13 14:25 | MB ---
cc: SHAWN PADRON MD,KRYSTYNA ABEL,ANUJ AVITIA DATE OF CONSULTATION 12/09/17 DATE OF 1950. REASON FOR CONSULTATION I have been asked to see this patient at the request of Dr. Hernandez for evaluation of nausea, abdominal pain and weight loss. The patient is a pleasant 67-year-old white female who has been followed by Dr. Abel in the office. She does have a history of a bladder tumor and UTIs. The CT scan done this past summer revealed a mass in her bladder and she is undergoing treatment in this regard. There has been no radiation or chemotherapy - she had removed the last cystoscopy and using a topical treatment for this. Apparently it was a T1 bladder cancer. She was seen by Dr. Evans in the hospital this past October for coffee emesis and an upper endoscopy revealed esophagitis. She has also had a failed colonoscopy - this was in April 2016 - the scope could not be passed beyond the sigmoid (30 cm). There was a sharp angulation there. A subsequent CT colonography showed moderate to severe sigmoid diverticulosis. There is an 8 cm segment of the mid sigmoid which would not completely distend, but there is no obvious mass or colon polyp noted. Apparently, for the last week or so she has been vomiting - she cannot keep anything down, no blood is noted. Apparently her also had similar symptoms - both had vomiting and some loose stools. The loose stools have been going on for several months she states. She has also lost between 20 and 25 pounds since . She does have lower abdominal pain. It is crampy in nature. She cannot predict what makes it worse or better. There is no melena or hematochezia, fever or chills, vomiting pf any blood. No dysphagia, odonophagia, early satiety or heartburn issues. PAST MEDICAL HISTORY 1. Renal transplant. 2. C. Difficile in the past according to old records I found. 3. History of bladder cancer, 4. Gastroesophageal reflux disease, although right now appears stable. 5. Hypertension. 6. She was on dialysis before and stopped in 2008. 7. Colonic diverticulosis. Please see above in regards to upper endoscopy and colonoscopy. 8. DIverticulosis. PAST SURGICAL HISTORY 1. Renal transplant 2. [place] teeth 3. Cataract 4. Right knee fracture. 5. Surgery to remove a bladder cancer. ALLERGIES NO DRUG ALLERGIES SOCIAL HISTORY Does not smoke or drink. MEDICATIONS Outpatient 1. Carafate. 2. Multivitamin. 3. Calcium. 4. Fosamax 5. Metoprolol 6. Prograf. Currently in the hospital 1. Calcium. 2. Magnesium oxide 3. Theragran. 4. Lopressor. 5. Carafate. 6. Prograf. 7. Zofran. 8. Morphine. 9. Narcan. FAMILY HISTORY Significant for a sister with colon cancer. Mother with some form of hepatitis. Father had renal disease. REVIEW OF SYSTEMS A 29 pound weight loss since . No fever or chills. CARDIOPULMONARY: No chest pain, palpitations or shortness of breath. GASTROINTESTINAL: Please see above. Other unremarkable ten-point review of systems. PHYSICAL EXAMINATION VITAL SIGNS: Blood pressure is 140/68, pulse of 100, respiratory rate 18, temperature 97.6. GENERAL: She is a frail elderly white female resting comfortably at this time reading a magazine appears to be in no acute GI distress. HEENT: Her pupils are equal, round and reactive to light. No obvious scleral icterus. Oropharyngeal cavity has dental caries. No tongue deviation or candidal lesion. Hearing was intact NECK: Supple without lymphadenopathy. LUNGS: Clear to auscultation. HEART: Regular rate and rhythm, no gross murmurs heard. ABDOMEN: Soft. Mild tenderness in the mid abdomen but no rebound tenderness. Bowel sounds are positive in all quadrant - on one occasion they were somewhat high-pitched. No obvious hernias are noted. RECTAL: Exam is not done. EXTREMITIES: No cyanosis, clubbing or edema. Cranial nerves II-XII are grossly intact. No gross sensory deficits. SKIN: Warm and moist. LABORATORY DATA Potassium 4.4, sodium 128 which is low, BUN 47 elevated. creatinine 2.48 elevated. GFR is only 19. Her total bilirubin is 0.9, SGOT of 68. SGOT 58, SGPT of 61, alk phos of 311. Her lipase is slightly elevated at 579 - upper range normal in this hospital is 393. Albumin 3.5 which is normal, total protein 9.1 which is elevated. Her hemoglobin is 12.6, hematocrit 37, MCV of 88.6, platelet count of 438,000, blood glucose 10,100. IMAGING STUDIES Abdominal x-ray flat plate and upright showed nonspecific abdomen. There was a ureteral stent in the right pelvic transplanted kidney. The patient states she had a CT scan done as an outpatient a few days ago and it was not done without any oral or IV contrast. IMPRESSION 1. Nausea and vomiting with abdominal pain - the pain is in lower abdomen. She understands with her surgical history and the fact that I really could not even do much of a colonoscopy on her, I worry about some form of adhesion or partial obstruction. She did have some high pitched bowel sounds. This abdominal x-ray was not helpful, however. Doubt colon cancer. Doubt ischemia - she has no evidence of any bleeding. No evidence of any bloody stools. 2. Loose stools - she has had C. Diff in the past and weight loss. 3. Weight loss. Etiology is unclear 4. Renal insufficiency - I am not quite sure what her baseline is. 5. Increased LFTs 6. Elevated lipase - it does not quite meet the criteria for pancreatitis (three times upper range of normal) This may be reactive to the renal insufficiency. RECOMMENDATIONS 1. Please check C diff 2. Ideally she needs a CT scan abdomen and pelvis with oral and IV contrast. However, with her renal insufficiency I would do with oral contrast only. She understands the importance of oral contrast and need to check for any obstructions of the small intestine. She is agreeable. Further recommendations depending on what testing shows. Shawn Padron MD SP/ /5:41 PM /9:12 AM
[2017-12-13 16:00] VITALS: BP 152/89; PULSE 94; RESP 19; TEMP 97.9; O2SAT 96
[2017-12-13 20:00] VITALS: BP 181/94; PULSE 92; RESP 20; TEMP 97.3; O2SAT 95
[2017-12-14] VITALS: BP 146/86; PULSE 83; RESP 20; TEMP 96.2; O2SAT 95
[2017-12-14] MEDS: ONDANSETRON HCL 4 MG/2 ML VIAL IVP PRN ×2 (06:54→14:11)
[2017-12-14] MEDS: DEXAMETHASONE SOD PHOS 4 MG/ML VIAL IV PUSH SCH ×3 (06:56→21:35)
[2017-12-14] MEDS: SODIUM CHLORIDE 0.9% FLUSH 10 ML FLUSH IV FLUSH PRN (06:56)
[2017-12-14] MEDS: TACROLIMUS 1 MG CAP PO SCH ×2 (07:05→21:34)
[2017-12-14 08:00] VITALS: BP 148/96; PULSE 83; RESP 18; TEMP 95.9; O2SAT 94
[2017-12-14] MEDS: SUCRALFATE 1 GM/10 ML CUP PO SCH ×5 (08:00→21:35)
[2017-12-14] MEDS: SODIUM CHLOR 0.9% 1000 ML INJ 1,000 ML IV SCH ×3 (08:14→21:32)
[2017-12-14] MEDS: SODIUM CHLORIDE 0.9% FLUSH 10 ML FLUSH IV FLUSH SCH ×2 (08:14→21:35)
[2017-12-14] MEDS: METOPROLOL TARTRATE 25 MG TAB PO SCH ×2 (08:14→21:35)
[2017-12-14] MEDS: MAGNESIUM OXIDE 400 MG TAB PO SCH (08:15)
[2017-12-14] MEDS: CALCIUM/VITAMIN D 250 MG/125 U TAB PO SCH (08:15)
--- NOTE | 2017-12-14 08:56 | HHI.PR ---
Subjective Remarks Follow-up for nausea vomiting abdominal pain. Patient had nausea, vomiting last night. No fever, chills. She is eating breakfast this morning. Objective Vitals Vital Signs Date Time Temp Pulse Resp B/P (MAP) Pulse Ox O2 Delivery O2 Flow Rate FiO2 12/14/17 00:00 96.2 83 20 146/86 (106) 95 12/13/17 20:00 97.3 92 20 181/94 (123) 95 12/13/17 16:00 97.9 94 19 152/89 (110) 96 12/13/17 12:00 97.6 87 19 156/82 (106) 95 I/O 12/13/17 12/13/17 12/13/17 12/14/17 12/14/17 12/14/17 07:00 15:00 23:00 07:00 15:00 23:00 Intake Total 1360 ml 1120 ml 1091 ml 0 ml Output Total 1350 ml 200 ml 900 ml 600 ml Balance 10 ml 920 ml 191 ml -600 ml Intake Oral 360 ml 120 ml 360 ml 0 ml IV Total 1000 ml 1000 ml 731 ml Output Urine Total 1050 ml 300 ml 600 ml Emesis 300 ml 200 ml 600 ml # Bowel Movements 0 0 Result Diagram: 12/12/17 1813 12/13/17 0732 Imaging Last Impressions Hepatobiliary Scan Nuclear Medicine 12/10/17 0000 Signed Impressions: Service Date/Time: Sunday, December 10, 2017 12:22 - CONCLUSION: 1. Abnormal exam with no excretion contrast into the biliary system at 95 minutes. This could indicate severe hepatocellular disease or obstruction. A delayed four- hour study is pending. This report will be addended. Norman Singh MD Cholangiopancreatography MRI 12/10/17 0000 Signed Impressions: Service Date/Time: Sunday, December 10, 2017 14:31 - CONCLUSION: 1. Marked dilatation of the common bile duct is again noted. This measures up to 2.1 cm in diameter. There is no definite filling defect or visualized mass. The distal duct tapers down at the level of the pancreas. The main pancreatic duct is mildly prominent measuring up to 5 mm. Findings could indicate a small pancreatic mass or ampullary tumor. 2. Multiple scattered cystic lesions throughout the liver. 3. Enlarged polycystic kidneys There is possible hydronephrosis again noted right greater than left. Norman Singh MD Abdomen X-Ray 12/09/17 0801 Signed Impressions: Service Date/Time: Saturday, December 09, 2017 08:31 - CONCLUSION: Nonspecific abdomen appearance. Ureteral stent in the right pelvic transplant kidney Juan Carlos Matos MD Abdomen/Pelvis CT 12/09/17 0000 Signed Impressions: Service Date/Time: Sunday, December 10, 2017 00:28 - CONCLUSION: 1. There appears to be abnormal dilatation of the biliary system with a dilated common bile duct at approximately 1.1 cm. This appears to be a new finding compared to the prior study. Recommend MRCP for further evaluation. 2. Abnormal diffuse thickening involving the wall of the distal sigmoid colon at the rectosigmoid junction. This is a new finding compared to the prior study. Focal colitis versus neoplastic disease are the primary considerations. No mechanical obstruction is demonstrated. Recommend correlation with direct visualization by sigmoidoscopy. 3. Diffuse diverticulosis of the descending and sigmoid colon. 4. Diffuse polycystic kidney disease with hydronephrosis bilaterally. 5. Right-sided transplant kidney with internal urinary stent in place. Diffuse thickening of urinary bladder wall. 6. Multiple stable benign-appearing hepatic cysts. 7. Nonspecific pericardial effusion which is not significant change compared to the prior study. 8. Nonspecific 6 mm new pulmonary nodule right lung base. If clinically indicated a PET/CT could be performed for further evaluation. 9. Nonspecific increased soft tissue changes surrounding the abdominal aorta at the level of the kidneys. Nonopacified loops of bowel versus adenopathy. Jalil Hart MD Objective Remarks GENERAL: Alert, oriented 3, NAD, cachectic appearance SKIN: Warm and dry. HEAD: Normocephalic. EYES: No scleral icterus. No injection or drainage. NECK: Supple, trachea midline. No JVD or lymphadenopathy. CARDIOVASCULAR: Regular rate and rhythm without murmurs, gallops, or rubs. RESPIRATORY: Breath sounds equal bilaterally. No accessory muscle use. GASTROINTESTINAL: Abdomen soft, some tenderness to palpation over lower abdomen , nondistended. MUSCULOSKELETAL: No cyanosis, or edema. BACK: Nontender without obvious deformity. No CVA tenderness. Procedures EUS 12/12/2017 1. Dilated pancreatic duct 3.8 mm 2. Dilated CBD with sludge 17.4 mm 3. Dilated GB with sludge without stones 4. distal Duodenal bulb narrowing - limiting the exam. A/P Problem List: (1) Acute kidney injury ICD Code: N17.9 - Acute kidney failure, unspecified (2) Abdominal pain ICD Code: R10.9 - Unspecified abdominal pain (3) Hyperemesis ICD Code: R11.10 - Vomiting, unspecified (4) Dehydration ICD Code: E86.0 - Dehydration Assessment and Plan Ms. Ramirez is a pleasant 67-year-old female with a history of renal transplant who was admitted on 12/09/2017 due to nausea vomiting, acute kidney injury. Nephrology following due to acute kidney injury in a patient with a history of kidney transplant. Patient underwent EUS by GI on 12/12/2017. - Abdominal pain - Hyperemesis - Weight loss - Common bile duct dilatation - currently on TPN and full liquid diet. - s/p EUS - Dilated CBD confirmed on MRCP - differentials include malignancy involving ampulla or pancreas. - GI recommends further work up in the outpatient setting. - However, patient has ongoing nausea, vomiting. Currently on Dexamethasone 4mg Q8hrs. - Will also start Marinol today as well as Scopolamine patch for nausea, vomiting. - Will consult Oncology in light of possible mets or another primary involving pancreas. - If patient is unable to tolerate PO food, we will likely place a PICC line and send patient home tomorrow on TPN. - Acute kidney injury - Hx of renal transplant - Creatinine 2.0 --> 1.59. Baseline below 1.0. - Nephrology following. - Suspected urinary tract infection - urine culture unremarkable. Discontinued ceftriaxone. Full code. SCDs, ambulation. Discussed with GI today. Bobby Murray DO Dec 14, 2017 8:56 am
--- NOTE | 2017-12-14 09:40 | HHI.GIFU ---
GI Follow-up Note Consult Follow-up Subjective: Patient laying in bed comfortably, states she has been vomiting even without eating. Ate first solid food today. I reviewed her chart and discussed case with Dr Garcia and Dr Murray. Objective: PHYSICAL EXAMINATION: Vitals signs stable No fever HEENT: no jaundice. CHEST: breathing non-labored ABDOMEN: Soft, nondistended, nontender; bowel sounds loud, mild succussion splash audible. EXTREMITIES: No clubbing, cyanosis, or edema. 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 Available Data (labs, X- Rays, Procedues) : Laboratory Tests Test 12/12/17 06:38 12/12/17 11:15 12/12/17 18:13 12/13/17 07:32 Blood Urea Nitrogen 33 MG/DL (7-18) 31 MG/DL (7-18) 33 MG/DL (7-18) Creatinine 1.59 MG/DL (0.50-1.00) 1.56 MG/DL (0.50-1.00) 1.39 MG/DL (0.50-1.00) Albumin 2.5 GM/DL (3.4-5.0) 2.7 GM/DL (3.4-5.0) 2.6 GM/DL (3.4-5.0) Calcium Level 8.1 MG/DL (8.5-10.1) 8.4 MG/DL (8.5-10.1) Phosphorus Level 2.3 MG/DL (2.5-4.9) Estimat Glomerular Filtration Rate 32 ML/MIN (>89) 33 ML/MIN (>89) 38 ML/MIN (>89) White Blood Count 12.3 TH/MM3 (4.0-11.0) Red Blood Count 3.93 MIL/MM3 (4.00-5.30) Neutrophils (%) (Auto) 87.0 % (16.0-70.0) Lymphocytes (%) (Auto) 4.0 % (9.0-44.0) Neutrophils # (Auto) 10.7 TH/MM3 (1.8-7.7) Lymphocytes # (Auto) 0.5 TH/MM3 (1.0-4.8) Monocytes # (Auto) 1.0 TH/MM3 (0-0.9) Alkaline Phosphatase 182 U/L (45-117) 159 U/L (45-117) Sodium Level 135 MEQ/L (136-145) 133 MEQ/L (136-145) Potassium Level 3.3 MEQ/L (3.5-5.1) 3.2 MEQ/L (3.5-5.1) Chloride Level 97 MEQ/L (98-107) 96 MEQ/L (98-107) CA 19-9 Antigen 142.9 U/ML (0.0-35.0) Direct Bilirubin 0.3 MG/DL (0.0-0.2) ASSESSMENT/PLAN: 1. nausea and vomiting 2. dilated bile ducts without significant obstructive pattern with LFTs 3. recent bladder cancer with new pulmonary nodule and soft tissue around aorta. mets? 4. s/p renal transplant with stenting last month to alleviate obstruction. creat good I discussed with Dr Murray and the plan is to place a PICC line for home TPN, consult Oncology for outpt PET scan and schedule repeat EUS/ERCP for next week. Hopefully will be able to discharge with [facility] tomorrow or Tuesday. It was a pleasure seeing Viri Ramirez. Thank you for this consult. Entered by: Morgan Ferreira MD Dec 14, 2017 09:40
[2017-12-14] MEDS ORDERED: SCOPOLAMINE 1.5 MG PATCH T-DERMAL SCH (11:00)
[2017-12-14] MEDS: DRONABINOL 2.5 MG CAP PO SCH ×2 (11:31→17:35)
[2017-12-14 12:00] VITALS: BP 153/86; PULSE 74; RESP 17; TEMP 96.2; O2SAT 93
--- NOTE | 2017-12-14 13:00 | HHI.NPPN ---
Subjective General Problems: Anemia Renal Failure: Acute Interval History She was able to eat this morning. Still on PPN. (Lisa Gamble) Review of Systems General Constitutional: Fatigue (Lisa Gamble) Gastrointestinal Gastrointestinal: Nausea & Vomiting (Lisa Gamble) Objective Data Data Vital Signs Date Time Temp Pulse Resp B/P (MAP) Pulse Ox O2 Delivery O2 Flow Rate FiO2 12/14/17 08:00 95.9 83 18 148/96 (113) 94 12/14/17 00:00 96.2 83 20 146/86 (106) 95 12/13/17 20:00 97.3 92 20 181/94 (123) 95 12/13/17 16:00 97.9 94 19 152/89 (110) 96 (Lisa Gamble) -: 12/12/17 1813 12/13/17 0732 Physical Exam General Appearance: Well Developed, No Acute Distress, Comfortable (Lisa Gamble) Eyes Eye Exam: Pupils Equal (Lisa Gamble) Throat Throat Exam: Oral Mucosa [place] & Moist (Lisa Gamble) Neck Neck Exam: Neck Supple (Lisa Gamble) Pulmonary Resp Exam: Clear Bilaterally, Breath Sounds Equal (Lisa Gamble) Cardiology CV Exam: Regular, Normal Sinus Rhythm (Lisa Gamble) Gastrointestinal/Abdomen GI Exam: Soft, Non-Tender (Lisa Gamble) Musculoskeletal MS Exam: Joints Intact, Normal Tone (Lisa Gamble) Integumentary Skin Exam: Clear, Warm, Dry, Intact (Lisa Gamble) Extremeties Extremities Exam: No Edema, Pedal Pulses Palpable (Lisa Gamble) Neurologic Neuro Exam: Alert, Awake, Oriented, Speech Clear, Moving All Extremities (Lisa Gamble) Psychiatric Psych Exam: Appropriate Responses (Lisa Gamble) Assessment/Plan Discussed Condition With: Patient, Spouse Assessment Summary: CHENTE/Acute Renal Failure, Dehydration, Malnutrition, Transplant Kidney Status Problem List: (1) Acute kidney injury ICD Codes: N17.9 - Acute kidney failure, unspecified Plan: Baseline creatinine 1.4 from this month. Acute renal failure due to intravascular volume depletion secondary to dehydration . Her renal function was improving, today's labs are not available. Continue IVF, she has started to increase PO intake. She is on PPN, continue Avoid nephrotoxic agents. (2) History of kidney transplant ICD Codes: Z94.0 - History of kidney transplant Status: Chronic Plan: Single agent therapy with Tacrolimus BID. Repeat level high but was not drawn as a trough. Repeat level is in process, change dose if needed. (3) Dehydration ICD Codes: E86.0 - Dehydration Status: Acute Plan: Improving, Continue IVF. Monitor renal function. (4) Hyperemesis ICD Codes: R11.10 - Vomiting, unspecified Plan: GI following s/p EUS, will need ERCP done as outpatient Currently on PPN. Advance diet as tolerated. Tumor markers elevated. Appreciate recommendations. (5) Bladder cancer ICD Codes: C67.9 - Malignant neoplasm of bladder, unspecified (Lisa Gamble) Plan patient was seen and examined. Agree with above assessment and plan. (Darrian Early MD) Lisa Gamble Dec 14, 2017 12:59 Darrian Early MD Dec 14, 2017 18:46
[2017-12-14 14:49] LABS: ALBUMIN 2.6 GM/DL (3.4-5.0); BICARBONATE 23.5 MEQ/L (21.0-32.0); CALCIUM 8.9 MG/DL (8.5-10.1); CREATININE 1.15 MG/DL (0.50-1.00); PHOSPHORUS 3.3 MG/DL (2.5-4.9)
[2017-12-14 16:00] VITALS: BP 159/89; PULSE 81; RESP 18; TEMP 97.4; O2SAT 95
[2017-12-14] MEDS: MORPHINE SULFATE 2 MG/ML INJ IV PUSH PRN (17:38)
[2017-12-14] MEDS ORDERED: METOCLOPRAMIDE HCL 10 MG/2 ML VIAL IV PUSH PRN (18:30)
[2017-12-14] MEDS ORDERED: cloNIDine HCL 0.1 MG TAB PO PRN (18:30)
[2017-12-14] MEDS ORDERED: ENALAPRILAT 1.25 MG/ML VIAL IV PUSH PRN (18:30)
[2017-12-14 20:00] VITALS: BP 164/93; PULSE 97; RESP 17; TEMP 95.4; O2SAT 96
[2017-12-14] MEDS: LORazepam 0.5 MG TAB PO SCH (22:45)
[2017-12-15] VITALS: BP 160/82; PULSE 98; RESP 17; TEMP 95.9; O2SAT 97
[2017-12-15] MEDS: FAT EMULSION 20% INJ 250 ML (@10 mls/hr) IV SCH ×2 (00:28→20:53)
[2017-12-15] MEDS: CLINIMIX E 4.25/5 1000 mL- </= 42 mls/hr IV SCH ×3 (00:28)
[2017-12-15] MEDS: MORPHINE SULFATE 2 MG/ML INJ IV PUSH PRN ×2 (02:19→23:05)
[2017-12-15] MEDS: DEXAMETHASONE SOD PHOS 4 MG/ML VIAL IV PUSH SCH ×3 (06:23→20:49)
--- NOTE | 2017-12-15 07:20 | MB ---
cc: BERNY MURRAY RUBY ANNE E. M.D. DATE OF CONSULTATION 12/14/2017 DATE OF [address] Berny Murray CHIEF COMPLAINT Dr. Murray requested consultation for Mrs. Ramirez regarding a questionable lesion suspicious for pancreatic cancer associated with high a CA19.9. HISTORY OF PRESENT ILLNESS Mrs. Ramirez is a 67-year-old woman with a history of polycystic kidney disease status post renal transplant eight years ago. She has been on chronic immunosuppression. Her course was complicated by superficial bladder cancer under the care of urology. She is monitored. She comes in with dehydration and renal insufficiency. She has had GI symptoms, recurrent nausea and vomiting, hyperemesis. She has lost 20 pounds over the last two months. She has abdominal pain. She gets distension, right lower quadrant pain, gurgling. She reports having a type A personality, but does not believe this is irritable bowel. Workup during hospitalization included a CT scan of the abdomen and pelvis on December 09, 2017. The findings show abnormal dilatation in the biliary system with a dilated common bile duct at approximately 1.1 cm. This is a new finding. There is normal diffuse thickening involving the wall of the distal sigmoid colon. There is diverticulosis of the ascending and sigmoid colon. There is diffuse polycystic kidney disease and hydronephrosis bilaterally. The right-sided transplant is in place. There is nonspecific pericardial effusion. There is a 6 mm pulmonary nodule on the right lung base. There is nonspecific increased soft tissue changes surrounding the abdominal aorta at the level of the kidneys. HIDA scan showed an abnormal exam with no excretion of contrast into the biliary system at 95 minutes. This indicates hepatocellular disease or obstruction. Cholangiopancreatography MRI showed marked dilatation of the common bile duct measures 2.1 cm. There is no definite filling defect. The main pancreatic duct is mildly prominent measuring 5 mm. This finding could indicate a small pancreatic mass or an ampullary tumor. With the above finding, Hematology/Oncology is consulted. Mrs. Ramirez has discussed her results with her primary lens edger Dr. Abel. They are contemplating the possibility of a stone. Further recommendations from GI is pending tomorrow. She is currently on TPN. Her renal function improved during her hospitalization. She still has nausea and vomiting. She is not in any pain at present. Denies any fevers, chills or night sweats. She has no new medication. No changes in her immunosuppressive medication. PAST MEDICAL HISTORY 1. Superficial bladder cancer 2. Polycystic kidney disease 3. Gastroesophageal reflux 4. Hypertension 5. Hyperemesis 6. Intractable nausea and vomiting. PAST SURGICAL HISTORY 1. Renal transplant in 2008. 2. Right knee fracture 3. Cataract surgery 4. [place] teeth extraction FAMILY HISTORY Significant for polycystic kidney disease in father. SOCIAL HISTORY She is , lives with her . Denies any tobacco, alcohol or illicit drug use. ALLERGIES NO KNOWN DRUG ALLERGIES. CURRENT MEDICATIONS 1. Tacrolimus 2. Reglan 3. Scopolamine 4. Marinol 5. Decadron 6. TPN 7. Lopressor 8. Carafate 9. Ondansetron PHYSICAL EXAMINATION VITAL SIGNS: Temperature 95.4, heart rate 97, respiratory rate 17, blood pressure 164/93, saturation 96%. GENERAL: Ms. Ramirez is a well-developed, very slender, petite elderly woman who looks her stated age. HEAD, EYES, EARS, NOSE, AND THROAT: Pupils are round, reactive to light and accommodation. Oropharynx is clear. NECK: Supple with bitemporal wasting. LUNGS: Clear to auscultation. CARDIOVASCULAR: Exam reveals a normal rate, rhythm. ABDOMEN: Soft and nontender. EXTREMITIES: Lower extremities with no edema. NEUROLOGIC: Exam is nonfocal. LABORATORY DATA Significant for BUN of 38, creatinine 1.15, albumin is 2.6, hemoglobin is normal. CA19.9 is 142, CEA 2.1, alpha-fetoprotein 2.2. ASSESSMENT/PLAN Mrs. Ramirez is a 67-year-old woman with polycystic kidney disease status post renal transplant in 2008. She is on chronic immunosuppression. She is admitted with hyperemesis nausea and vomiting, abdominal pain associated with weight loss. Evaluation shows abnormality in the pancreatic and bile duct. She is suspected to either have a stone or small pancreas cancer in the head of the pancreas. Imaging studies have not been able to confirm either consideration. CA19-9 is elevated which is nonspecific for pancreatic cancer. We discussed continued evaluation by gastroenterology. Defer to Dr. Abel and Dr. Evans as to evaluation for stone and GI maneuvers to determine that. In the meantime, I recommend no specific therapy from an oncology standpoint regarding the questionable pancreatic mass. If the pancreatic cancer is indeed small enough or ampullary in nature, I recommends referral to an academic center to establish a diagnosis or have definitive surgery up front. CA19-9 is not diagnostic of a pancreatic cancer. I recommend continued follow up. We discussed her nausea and vomiting. She has tried many agents for nausea. We discussed a trial of lorazepam as an antiemetic therapy. This may assist given her self-described type A personality. We will give a trial of lorazepam, monitor for sedation. Her questions were answered to her satisfaction. MD YEE Augustin/ALANNAH /10:27 PM /7:00 AM
[2017-12-15 08:00] VITALS: BP 148/74; PULSE 75; RESP 16; TEMP 96.2; O2SAT 97
[2017-12-15] MEDS: SUCRALFATE 1 GM/10 ML CUP PO SCH ×4 (08:00→20:49)
[2017-12-15] MEDS: TACROLIMUS 1 MG CAP PO SCH ×2 (08:30→20:47)
[2017-12-15] MEDS: SODIUM CHLORIDE 0.9% FLUSH 10 ML FLUSH IV FLUSH SCH ×2 (09:00→20:49)
[2017-12-15] MEDS: SODIUM CHLOR 0.9% 1000 ML INJ 1,000 ML IV SCH ×2 (09:18→21:09)
[2017-12-15] MEDS: MAGNESIUM OXIDE 400 MG TAB PO SCH (09:18)
[2017-12-15] MEDS: METOPROLOL TARTRATE 25 MG TAB PO SCH ×2 (09:18→20:46)
[2017-12-15] MEDS: CALCIUM/VITAMIN D 250 MG/125 U TAB PO SCH (09:18)
[2017-12-15] MEDS: LORazepam 0.5 MG TAB PO SCH (09:18)
[2017-12-15] MEDS: DRONABINOL 2.5 MG CAP PO SCH ×2 (09:18→16:00)
--- NOTE | 2017-12-15 09:45 | HHI.GIFU ---
GI Follow-up Note Consult Follow-up Subjective: Patient laying in bed comfortably, still having N/V but vomits a brown fluid and not food. Objective: PHYSICAL EXAMINATION: Vitals signs stable No fever ABDOMEN: Soft, minimal distention. No tenderness. EXTREMITIES: No clubbing, cyanosis, or edema. 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 Available Data (labs, X- Rays, Procedues) : ASSESSMENT/PLAN: 1. CBD dilation-needs EUS/ERCP which is tentatively planned for next tuesday at another facility. 2. N/V- order for PICC line apparently not placed so will order along with consult for HHC. It was a pleasure seeing Viri Ramirez. Thank you for this consult. Entered by: Morgan Ferreira MD Dec 15, 2017 09:45
[2017-12-15 11:27] LABS: AUTOMATED NEUTROPHIL # 10.4 TH/MM3 (1.8-7.7); BASOPHIL % 0.2 % (0.0-2.0); EOSINOPHIL % 0.1 % (0.0-4.0); HEMATOCRIT 30.5 % (35.0-46.0); LYMPH % 2.6 % (9.0-44.0); LYMPHOCYTE # 0.3 TH/MM3 (1.0-4.8); MEAN CELL VOLUME 89.9 FL (80.0-100.0); MEAN CORPUSCULAR HEMOGLOBIN 29.4 PG (27.0-34.0); MEAN CORPUSCULAR HGB CONC 32.8 % (32.0-36.0); MEAN PLATELET VOLUME 9.5 FL (7.0-11.0); MONO % 6.3 % (0.0-8.0); MONOCYTE # 0.7 TH/MM3 (0-0.9); NEUT % 90.8 % (16.0-70.0); PLATELET COUNT 289 TH/MM3 (150-450); RED BLOOD COUNT 3.39 MIL/MM3 (4.00-5.30); RED CELL DISTRIBUTION WIDTH 15.5 % (11.6-17.2); WHITE BLOOD COUNT 11.4 TH/MM3 (4.0-11.0)
[2017-12-15 11:58] LABS: BICARBONATE 21.9 MEQ/L (21.0-32.0); CALCIUM 8.3 MG/DL (8.5-10.1); CREATININE 1.04 MG/DL (0.50-1.00)
[2017-12-15 12:00] VITALS: BP 125/74; PULSE 75; RESP 17; TEMP 96.5; O2SAT 95
--- NOTE | 2017-12-15 14:38 | HHI.NPPN ---
Subjective General Problems: Anemia Renal Failure: Acute Interval History Renal function has improved. Due for PICC today. (Lisa Gamble) Review of Systems General Constitutional: Fatigue (Lisa Gamble) Gastrointestinal Gastrointestinal: Nausea & Vomiting (Lisa Gamble) Objective Data Data Vital Signs Date Time Temp Pulse Resp B/P (MAP) Pulse Ox O2 Delivery O2 Flow Rate FiO2 12/15/17 12:00 96.5 75 17 125/74 (91) 95 12/15/17 08:00 96.2 75 16 148/74 (98) 97 12/15/17 00:00 95.9 98 17 160/82 (108) 97 12/14/17 20:00 95.4 97 17 164/93 (116) 96 12/14/17 16:00 97.4 81 18 159/89 (112) 95 (Lisa Gamble) -: 12/15/17 1105 12/15/17 1105 Physical Exam General Appearance: Well Developed, No Acute Distress, Comfortable (Lisa Gamble) Eyes Eye Exam: Pupils Equal (Lisa Gamble) Throat Throat Exam: Oral Mucosa [place] & Moist (Lisa Gamble) Neck Neck Exam: Neck Supple (Lisa Gamble) Pulmonary Resp Exam: Clear Bilaterally, Breath Sounds Equal (Lias Gamble) Cardiology CV Exam: Regular, Normal Sinus Rhythm (Lisa Gamble) Gastrointestinal/Abdomen GI Exam: Soft, Non-Tender (Lisa Gamble) Musculoskeletal MS Exam: Joints Intact, Normal Tone (Lisa Gamble) Integumentary Skin Exam: Clear, Warm, Dry, Intact (Lisa Gamble) Extremeties Extremities Exam: No Edema, Pedal Pulses Palpable (Lisa Gamble) Neurologic Neuro Exam: Alert, Awake, Oriented, Speech Clear, Moving All Extremities (Lisa Gamble) Psychiatric Psych Exam: Appropriate Responses (Lisa Gamble) Assessment/Plan Discussed Condition With: Patient, Spouse Assessment Summary: CHENTE/Acute Renal Failure, Dehydration, Malnutrition, Transplant Kidney Status Problem List: (1) Acute kidney injury ICD Codes: N17.9 - Acute kidney failure, unspecified Plan: Baseline creatinine 1.4 from this month. Acute renal failure due to intravascular volume depletion secondary to dehydration . Her renal function has improved. Continue IVF, she has started to increase PO intake. Taper off over next 24 hrs. She is on PPN, continue Avoid nephrotoxic agents. Okay for PICC line placement. (2) History of kidney transplant ICD Codes: Z94.0 - History of kidney transplant Status: Chronic Plan: Single agent therapy with Tacrolimus BID. Repeat level is in acceptable. (3) Dehydration ICD Codes: E86.0 - Dehydration Status: Acute Plan: Improving, Continue IVF. Monitor renal function. (4) Hyperemesis ICD Codes: R11.10 - Vomiting, unspecified Plan: GI following s/p EUS, will need ERCP done as outpatient Currently on PPN. To have PICC for continued therapy at home. Advance diet as tolerated. Tumor markers elevated. Appreciate recommendations. (5) Bladder cancer ICD Codes: C67.9 - Malignant neoplasm of bladder, unspecified (Lisa Gamble) Problem List: (1) Acute kidney injury ICD Codes: N17.9 - Acute kidney failure, unspecified Plan: Baseline creatinine 1.4 from this month. Acute renal failure due to intravascular volume depletion secondary to dehydration . Her renal function has improved. Continue IVF, she has started to increase PO intake. Taper off over next 24 hrs. She is on PPN, continue Avoid nephrotoxic agents. Okay for PICC line placement. (2) History of kidney transplant ICD Codes: Z94.0 - History of kidney transplant Status: Chronic Plan: Single agent therapy with Tacrolimus BID. Repeat level is in acceptable. (3) Dehydration ICD Codes: E86.0 - Dehydration Status: Acute Plan: Improving, Continue IVF. Monitor renal function. (4) Hyperemesis ICD Codes: R11.10 - Vomiting, unspecified Plan: GI following s/p EUS, will need ERCP done as outpatient Currently on PPN. To have PICC for continued therapy at home. Advance diet as tolerated. Tumor markers elevated. Appreciate recommendations. (5) Bladder cancer ICD Codes: C67.9 - Malignant neoplasm of bladder, unspecified Plan patient was seen and examined. Agree with above assessment and plan. (Darrian Early MD) Lisa Gamble [facility] Dec 15, 2017 14:38 Darrian Early MD Dec 15, 2017 21:16
--- NOTE | 2017-12-15 14:58 | HHI.FF ---
Face to Face Verification Diagnosis: (1) Abdominal pain (2) Hyperemesis (3) Bladder cancer (4) History of kidney transplant (5) Dehydration Home Health Nursing Order: Medical education Signs/symptoms of disease process Nursing assessment with vital signs IV medication administration I have seen patient Viri Ramirez on 12/15/17. My clinical findings support the need for the requested home health care services because: Deconditioned w/ increased weakness Med compliance is questionable Limited ability to care for self Need for psychosocial assistance Impaired cognition/judgement High risk of falls Infection w/ risk of complications I certify that my clinical findings support that this patient is homebound because: Unsteady gait/balance Unsafe to leave home unassisted Need for psychosocial assistance [id number] bed/chair Unable to use public transportation Bobby Murray DO Dec 15, 2017 2:58 pm
--- NOTE | 2017-12-15 15:00 | HHI.PR ---
Subjective Remarks Follow-up for nausea vomiting abdominal pain. Patient continues to have episodes of N/V. No fever, chills. Oncology evaluated patient and started patient on Ativan. Objective Vitals Vital Signs Date Time Temp Pulse Resp B/P (MAP) Pulse Ox O2 Delivery O2 Flow Rate FiO2 12/15/17 12:00 96.5 75 17 125/74 (91) 95 12/15/17 08:00 96.2 75 16 148/74 (98) 97 12/15/17 00:00 95.9 98 17 160/82 (108) 97 12/14/17 20:00 95.4 97 17 164/93 (116) 96 12/14/17 16:00 97.4 81 18 159/89 (112) 95 I/O 12/14/17 12/14/17 12/14/17 12/15/17 12/15/17 12/15/17 07:00 15:00 23:00 07:00 15:00 23:00 Intake Total 0 ml 1000 ml 2206 ml 1671 ml Output Total 600 ml 900 ml Balance -600 ml 1000 ml 1306 ml 1671 ml Intake Oral 0 ml 240 ml 240 ml IV Total 1000 ml 1966 ml 1431 ml Output Urine Total 600 ml 900 ml # Voids 2 # Bowel Movements 0 1 Result Diagram: 12/15/17 1105 12/15/17 1105 Imaging Last Impressions Hepatobiliary Scan Nuclear Medicine 12/10/17 0000 Signed Impressions: Service Date/Time: Sunday, December 10, 2017 12:22 - CONCLUSION: 1. Abnormal exam with no excretion contrast into the biliary system at 95 minutes. This could indicate severe hepatocellular disease or obstruction. A delayed four- hour study is pending. This report will be addended. Norman Singh MD Cholangiopancreatography MRI 12/10/17 0000 Signed Impressions: Service Date/Time: Sunday, December 10, 2017 14:31 - CONCLUSION: 1. Marked dilatation of the common bile duct is again noted. This measures up to 2.1 cm in diameter. There is no definite filling defect or visualized mass. The distal duct tapers down at the level of the pancreas. The main pancreatic duct is mildly prominent measuring up to 5 mm. Findings could indicate a small pancreatic mass or ampullary tumor. 2. Multiple scattered cystic lesions throughout the liver. 3. Enlarged polycystic kidneys There is possible hydronephrosis again noted right greater than left. Norman Singh MD Abdomen X-Ray 12/09/17 0801 Signed Impressions: Service Date/Time: Saturday, December 09, 2017 08:31 - CONCLUSION: Nonspecific abdomen appearance. Ureteral stent in the right pelvic transplant kidney Juan Carlos Matos MD Abdomen/Pelvis CT 12/09/17 0000 Signed Impressions: Service Date/Time: Sunday, December 10, 2017 00:28 - CONCLUSION: 1. There appears to be abnormal dilatation of the biliary system with a dilated common bile duct at approximately 1.1 cm. This appears to be a new finding compared to the prior study. Recommend MRCP for further evaluation. 2. Abnormal diffuse thickening involving the wall of the distal sigmoid colon at the rectosigmoid junction. This is a new finding compared to the prior study. Focal colitis versus neoplastic disease are the primary considerations. No mechanical obstruction is demonstrated. Recommend correlation with direct visualization by sigmoidoscopy. 3. Diffuse diverticulosis of the descending and sigmoid colon. 4. Diffuse polycystic kidney disease with hydronephrosis bilaterally. 5. Right-sided transplant kidney with internal urinary stent in place. Diffuse thickening of urinary bladder wall. 6. Multiple stable benign-appearing hepatic cysts. 7. Nonspecific pericardial effusion which is not significant change compared to the prior study. 8. Nonspecific 6 mm new pulmonary nodule right lung base. If clinically indicated a PET/CT could be performed for further evaluation. 9. Nonspecific increased soft tissue changes surrounding the abdominal aorta at the level of the kidneys. Nonopacified loops of bowel versus adenopathy. Jalil Hart MD Objective Remarks GENERAL: Alert, oriented 3, NAD, cachectic appearance SKIN: Warm and dry. HEAD: Normocephalic. EYES: No scleral icterus. No injection or drainage. NECK: Supple, trachea midline. No JVD or lymphadenopathy. CARDIOVASCULAR: Regular rate and rhythm without murmurs, gallops, or rubs. RESPIRATORY: Breath sounds equal bilaterally. No accessory muscle use. GASTROINTESTINAL: Abdomen soft, some tenderness to palpation over lower abdomen , nondistended. MUSCULOSKELETAL: No cyanosis, or edema. BACK: Nontender without obvious deformity. No CVA tenderness. Procedures EUS 12/12/2017 1. Dilated pancreatic duct 3.8 mm 2. Dilated CBD with sludge 17.4 mm 3. Dilated GB with sludge without stones 4. distal Duodenal bulb narrowing - limiting the exam. A/P Problem List: (1) Acute kidney injury ICD Code: N17.9 - Acute kidney failure, unspecified (2) Abdominal pain ICD Code: R10.9 - Unspecified abdominal pain (3) Hyperemesis ICD Code: R11.10 - Vomiting, unspecified (4) Dehydration ICD Code: E86.0 - Dehydration Assessment and Plan Ms. Ramirez is a pleasant 67-year-old female with a history of renal transplant who was admitted on 12/09/2017 due to nausea vomiting, acute kidney injury. Nephrology following due to acute kidney injury in a patient with a history of kidney transplant. Patient underwent EUS by GI on 12/12/2017. - Abdominal pain - Hyperemesis - Weight loss - Common bile duct dilatation - currently on TPN and regular diet - cannot tolerate much oral food/drink. - s/p EUS - Dilated CBD confirmed on MRCP - differentials include malignancy involving ampulla or pancreas. - GI recommends further work up in the outpatient setting. - However, patient has ongoing nausea, vomiting. Currently on Dexamethasone 4mg Q8hrs. - Continue Marinol today as well as Scopolamine patch for nausea, vomiting. - Appreciate Oncology input. - PICC line today and likely discharge in the AM. Will place face to face on the chart for home health. - Acute kidney injury - Hx of renal transplant - Creatinine 2.0 --> 1.59. Baseline below 1.0. - Nephrology following. - Suspected urinary tract infection - urine culture unremarkable. Discontinued ceftriaxone. Full code. SCDs, ambulation. Bobby Murray DO Dec 15, 2017 3:00 pm
[2017-12-15 16:00] VITALS: BP 138/75; PULSE 78; RESP 18; TEMP 97.9; O2SAT 97
--- NOTE | 2017-12-15 17:00 | PD.ONC.PN ---
Subjective Subjective Remarks I slept well last night. I have not been nauseas I got too sleepy with AM dose of Ativan. s/p pic line placement. Objective Data Date Time Temp Pulse Resp B/P (MAP) Pulse Ox O2 Delivery O2 Flow Rate FiO2 12/15/17 12:00 96.5 75 17 125/74 (91) 95 12/15/17 08:00 96.2 75 16 148/74 (98) 97 12/15/17 00:00 95.9 98 17 160/82 (108) 97 12/14/17 20:00 95.4 97 17 164/93 (116) 96 12/15/17 12/15/17 12/15/17 07:00 15:00 23:00 Intake Total 1671 ml Balance 1671 ml Result Diagram: 12/15/17 1105 12/15/17 1105 Laboratory Results Laboratory Tests Test 12/15/17 11:05 White Blood Count 11.4 TH/MM3 Red Blood Count 3.39 MIL/MM3 Hemoglobin 10.0 GM/DL Hematocrit 30.5 % Mean Corpuscular Volume 89.9 FL Mean Corpuscular Hemoglobin 29.4 PG Mean Corpuscular Hemoglobin Concent 32.8 % Red Cell Distribution Width 15.5 % Platelet Count 289 TH/MM3 Mean Platelet Volume 9.5 FL Neutrophils (%) (Auto) 90.8 % Lymphocytes (%) (Auto) 2.6 % Monocytes (%) (Auto) 6.3 % Eosinophils (%) (Auto) 0.1 % Basophils (%) (Auto) 0.2 % Neutrophils # (Auto) 10.4 TH/MM3 Lymphocytes # (Auto) 0.3 TH/MM3 Monocytes # (Auto) 0.7 TH/MM3 Eosinophils # (Auto) 0.0 TH/MM3 Basophils # (Auto) 0.0 TH/MM3 CBC Comment DIFF FINAL Differential Comment Blood Urea Nitrogen 42 MG/DL Creatinine 1.04 MG/DL Random Glucose 174 MG/DL Calcium Level 8.3 MG/DL Sodium Level 136 MEQ/L Potassium Level 4.5 MEQ/L Chloride Level 106 MEQ/L Carbon Dioxide Level 21.9 MEQ/L Anion Gap 8 MEQ/L Estimat Glomerular Filtration Rate 53 ML/MIN Administered Medications Medications (Trade) Dose Ordered Sig/Art Route PRN Reason Start Time Stop Time Status Last Admin Dose Admin Sodium Chloride 1,000 ml @ 75 mls/hr [id number] IV 12/09/17 11:00 12/15/17 09:18 Sodium Chloride (NS Flush) 2 ml UNSCH PRN IV FLUSH FLUSH AFTER USING IV ACCESS 12/09/17 10:15 12/14/17 06:56 Sodium Chloride (NS Flush) 2 ml BID IV FLUSH 12/09/17 21:00 12/14/17 21:35 Ondansetron HCl (Zofran Inj) 4 mg Q6H PRN IVP NAUSEA OR VOMITING 12/09/17 10:15 12/14/17 14:11 Morphine Sulfate (Morphine Inj) 2 mg Q3H PRN IV PUSH Pain 3-5; if unable to take PO 12/09/17 10:15 12/15/17 02:19 Metoprolol Tartrate (Lopressor) 12.5 mg BID PO 12/09/17 21:00 12/15/17 09:18 Sucralfate (Carafate Liq) 1 gm ACHS PO 12/09/17 12:00 12/10/17 08:00 Magnesium Oxide (Mag-Ox) 400 mg DAILY PO 12/10/17 09:00 12/15/17 09:18 Multivitamins/ Minerals Therapeutic (Theragran M Tab) 1 tab DAILY PO 12/10/17 09:00 Future Hold 12/11/17 08:20 Multivitamins 10 ml/Folic Acid 1 mg/Amino Acids/ Electrolytes/ Dextrose 1,010.2 ml @ 42 mls/hr Q24H IV 12/11/17 20:00 Future Hold 12/15/17 00:28 Fat Emulsion Intravenous 250 ml @ 10 mls/hr Q24H IV 12/11/17 20:00 12/15/17 00:28 Calcium/Vitamin D (Oscal-D 250-125) 500 mg DAILY PO 12/12/17 12:00 12/15/17 09:18 Dexamethasone Sodium Phosphate (Decadron Inj) 4 mg Q8HR IV PUSH 12/13/17 14:00 12/16/17 13:59 12/15/17 13:49 Scopolamine (Transderm-Scop 1.5 Mg Patch.72 Hr) 1 patch Q3D T-DERMAL 12/14/17 11:00 12/14/17 11:00 Dronabinol (Marinol) 2.5 mg BID@11,16 PO 12/14/17 11:00 12/15/17 09:18 Tacrolimus (Prograf) 1 mg BID@0730,1930 PO 12/14/17 19:30 12/15/17 08:30 Lorazepam (Ativan) 0.5 mg Q12HR PO 12/14/17 22:45 12/17/17 22:44 12/15/17 09:18 Objective Remarks GENERAL: Slender/cachectic woman well-developed patient. SKIN: Warm and dry. HEAD: Normocephalic. EYES: No scleral icterus. No injection or drainage. NECK: Supple, trachea midline. No JVD or lymphadenopathy. LYMPHATIC: No adenopathy. R arm pic line. CARDIOVASCULAR: Regular rate and rhythm without murmurs. RESPIRATORY: Breath sounds equal bilaterally. No accessory muscle use. GASTROINTESTINAL: Abdomen soft, non-tender, nondistended. EXTREMITIES: No cyanosis, or edema. MUSCULOSKELETAL: Adequate muscle tone. PSYCHIATRIC: Appropriate mood and affect; insight and judgment normal. Assessment/Plan Problem List: (1) Pancreatic mass ICD Codes: K86.9 - Disease of pancreas, unspecified Plan: Seen on imaging, very small, significance is not clear. Possible cause of obstruction and pancreatic duct/ biliary dilatation. Noted elevated ca 19.9 concern for pancreatic cancer. Pt on chronic immuno suppression. Discussed continued work up as out pt. Noted plan to continue TPN as out pt. Responded to lorazepam. Try dose at night and 1/2 dose in AM Seems to control her nausea along w/ decadron. FU as out pt. Nilsa Herman MD Dec 15, 2017 17:00
--- NOTE | 2017-12-15 17:03 | RADRPT ---
EXAM DATE/TIME: 12/15/2017 16:40 [facility] COMPARISON: CHEST SINGLE AP, July 14, 2017, 10:37. INDICATIONS : Evaluate PICC line placement MEDICAL HISTORY : Carcinoma, bladder. Renal failure, acute SURGICAL HISTORY : Kidney transplant ENCOUNTER: Subsequent ACUITY: 4 - 6 days PAIN SCORE: 0/10 LOCATION: chest FINDINGS: A single view of the chest demonstrates the lungs to be symmetrically aerated without evidence of mas s, infiltrate or effusion. The cardiomediastinal contours are unremarkable. Osseous structures are intact. CONCLUSION: Lungs are grossly clear. Right-sided PICC line place with its tip overlying the SVC. Anton Wilkins MD on December 15, 2017 at 17:01 Board Certified Radiologist. This report was verified electronically.
[2017-12-15] MEDS ORDERED: PILL SPLITTER OTHER PRN (19:15)
[2017-12-15] MEDS ORDERED: [UNRECOGNIZED DRUG - OTHER] IV SCH ×9 (20:00)
[2017-12-15] MEDS ORDERED: SODIUM ACETATE IV SCH ×9 (20:00)
[2017-12-15] MEDS ORDERED: POTASSIUM CHLORIDE IV SCH ×9 (20:00)
[2017-12-15] MEDS ORDERED: SODIUM PHOSPHATE IV SCH ×9 (20:00)
[2017-12-15 20:43] VITALS: BP 149/79; PULSE 86; RESP 18; TEMP 97.5; O2SAT 95
[2017-12-15] MEDS ORDERED: LORazepam 0.5 MG TAB PO SCH (21:00)
[2017-12-15] MEDS ORDERED: SODIUM CHLORIDE 0.9% FLUSH 10 ML FLUSH IV FLUSH PRN (22:15)
[2017-12-16] VITALS: BP 155/81; PULSE 76; RESP 18; TEMP 97.8; O2SAT 96
[2017-12-16] MEDS: DEXAMETHASONE SOD PHOS 4 MG/ML VIAL IV PUSH SCH (05:21)
[2017-12-16 08:00] VITALS: BP 165/86; PULSE 75; RESP 15; TEMP 98.2; O2SAT 96
[2017-12-16] MEDS: SUCRALFATE 1 GM/10 ML CUP PO SCH ×2 (08:00→12:00)
[2017-12-16] MEDS: TACROLIMUS 1 MG CAP PO SCH (08:03)
[2017-12-16] MEDS: MORPHINE SULFATE 2 MG/ML INJ IV PUSH PRN (08:04)
[2017-12-16] MEDS: METOPROLOL TARTRATE 25 MG TAB PO SCH (08:07)
[2017-12-16] MEDS: SODIUM CHLORIDE 0.9% FLUSH 10 ML FLUSH IV FLUSH SCH (09:00)
[2017-12-16] MEDS ORDERED: SODIUM CHLORIDE 0.9% FLUSH 10 ML FLUSH IV FLUSH SCH (09:00)
[2017-12-16] MEDS: CALCIUM/VITAMIN D 250 MG/125 U TAB PO SCH (09:26)
[2017-12-16] MEDS: MAGNESIUM OXIDE 400 MG TAB PO SCH (09:26)
[2017-12-16] MEDS: SODIUM CHLOR 0.9% 1000 ML INJ 1,000 ML IV SCH (09:54)
[2017-12-16] MEDS: DRONABINOL 2.5 MG CAP PO SCH (11:00)
[2017-12-16 12:00] VITALS: BP 155/70; PULSE 69; RESP 17; TEMP 97.3; O2SAT 96
[2017-12-16] MEDS ORDERED: LORazepam 0.5 MG TAB PO SCH (12:00)
[2017-12-16] MEDS ORDERED: MARI5CAP PO (12:24)
[2017-12-16] MEDS ORDERED: LORA0.5T PO (12:24)
[2017-12-16] MEDS ORDERED: MSIR15 PO (12:24)
--- NOTE | 2017-12-16 12:43 | HHI.FF ---
Face to Face Verification Diagnosis: (1) Acute kidney injury (2) Hyperemesis (3) Abdominal pain (4) Pancreatic mass Home Health Nursing Order: Medical education Signs/symptoms of disease process Medication education-adverse effect Nursing assessment with vital signs IV medication administration Instructions: Please provide D5 NS (D5 Normal saline) 500cc over 30 minutes once a day starting 12/17/2017. Home Health Aide Order: To Assist In: Bathing and personal care, senior copywriter and meal prep I have seen patient Viri Ramirez on 12/16/17. My clinical findings support the need for the requested home health care services because: Ltd mobility - disease progression Patient has SOB Deconditioned w/ increased weakness Limited ability to care for self Need for psychosocial assistance Impaired cognition/judgement High risk of falls Infection w/ risk of complications Injectable med education/admin I certify that my clinical findings support that this patient is homebound because: Unsteady gait/balance Unsafe to leave home unassisted Unable to use public transportation Bobby Murray DO Dec 16, 2017 12:43 pm
--- NOTE | 2017-12-16 14:33 | HHI.NPPN ---
Subjective General Problems: Anemia Renal Failure: Acute Interval History Labs were not checked today. Pending discharge. PICC in place. (Lisa Gamble) Review of Systems General Constitutional: Fatigue (Lisa Gamble) Gastrointestinal Gastrointestinal: Nausea & Vomiting (Lisa Gamble) Objective Data Data Vital Signs Date Time Temp Pulse Resp B/P (MAP) Pulse Ox O2 Delivery O2 Flow Rate FiO2 12/16/17 12:00 97.3 69 17 155/70 (98) 96 12/16/17 08:09 18 12/16/17 08:00 98.2 75 15 165/86 (112) 96 12/16/17 00:00 97.8 76 18 155/81 (105) 96 12/15/17 20:43 97.5 86 18 149/79 (102) 95 12/15/17 16:00 97.9 78 18 138/75 (96) 97 (Lisa Gamble) -: 12/15/17 1105 12/15/17 1105 Imaging Last 72 hours Impressions Chest X-Ray 12/15/17 0000 Signed Impressions: Service Date/Time: November 16:40 - CONCLUSION: Lungs are grossly clear. Right-sided PICC line place with its tip overlying the SVC. Anton Wilkins MD Tubes & Lines Comment PICC (Lisa Gamble) Physical Exam General Appearance: Well Developed, No Acute Distress, Comfortable (Lisa Gamble) Eyes Eye Exam: Pupils Equal (Lisa Gamble) Throat Throat Exam: Oral Mucosa [place] & Moist (Lisa Gamble) Neck Neck Exam: Neck Supple (Lisa Gamble) Pulmonary Resp Exam: Clear Bilaterally, Breath Sounds Equal (Lisa Gamble) Cardiology CV Exam: Regular, Normal Sinus Rhythm (Lisa Gamble) Gastrointestinal/Abdomen GI Exam: Soft, Non-Tender (Lisa Gamble) Musculoskeletal MS Exam: Joints Intact, Normal Tone (Lisa Gamble) Integumentary Skin Exam: Clear, Warm, Dry, Intact (Lisa Gamble) Extremeties Extremities Exam: No Edema, Pedal Pulses Palpable (Lisa Gamble) Neurologic Neuro Exam: Alert, Awake, Oriented, Speech Clear, Moving All Extremities (Lisa Gamble) Psychiatric Psych Exam: Appropriate Responses (Lisa Gamble) Assessment/Plan Discussed Condition With: Patient, Spouse Assessment Summary: CHENTE/Acute Renal Failure, Dehydration, Malnutrition, Transplant Kidney Status Problem List: (1) Acute kidney injury ICD Codes: N17.9 - Acute kidney failure, unspecified Plan: Renal function improved. Acute renal failure due to intravascular volume depletion secondary to dehydration . Stop IVF at discharge. PPN to continue at home. Avoid nephrotoxic agents. We will follow in CKD clinic. Cleared for discharge. (2) History of kidney transplant ICD Codes: Z94.0 - History of kidney transplant Status: Chronic Plan: Single agent therapy with Tacrolimus BID. Repeat level is in acceptable. (3) Dehydration ICD Codes: E86.0 - Dehydration Status: Acute Plan: Improved, tolerating PO. (4) Hyperemesis ICD Codes: R11.10 - Vomiting, unspecified Plan: GI following, needs outpatient follow up s/p EUS, will need ERCP done at later date Currently with PICC for continued PPN therapy at home. Diet advanced Tumor markers elevated. Appreciate recommendations. (5) Bladder cancer ICD Codes: C67.9 - Malignant neoplasm of bladder, unspecified (Lisa Gamble) Plan patient was seen and examined. Renal function is stable. Discharge is planned. Continue Prograf. (Darrian Early MD) Lisa Gamble Dec 16, 2017 14:33 Darrian Early MD Dec 16, 2017 14:45
--- NOTE | 2017-12-16 19:56 | HHI.DS ---
Discharge Summary Admission Date Dec 09, 2017 at 10:11 Discharge Date: Dec 16, 2017 Admitting Diagnosis acute renal failure/renal transplant/severe dehydration (1) Acute kidney injury ICD Code: N17.9 - Acute kidney failure, unspecified Diagnosis: Principal (2) Abdominal pain ICD Code: R10.9 - Unspecified abdominal pain Diagnosis: Principal (3) Hyperemesis ICD Code: R11.10 - Vomiting, unspecified Diagnosis: Principal (4) Dehydration ICD Code: E86.0 - Dehydration Diagnosis: Principal Procedures EUS 12/12/2017 1. Dilated pancreatic duct 3.8 mm 2. Dilated CBD with sludge 17.4 mm 3. Dilated GB with sludge without stones 4. distal Duodenal bulb narrowing - limiting the exam. Brief History - From Admission Mrs. Ramirez is a 67 year old female. She has a past history of bladder cancer. Recently she's been rediagnosed with bladder cancer and treatment is in process. Treatment is presently topical or without any chemotherapy or radiation. She came into the hospital today secondary to a worsening of her baseline abdominal pain with hyperemesis and difficulty holding anything down. She is dehydrated and has evidence of acute kidney injury. She reports that since September this GI phenomenon has been a recurrent problem for her. She's lost about 20 pounds in the past 2 months. Episodes tend to be the abdominal pain with nausea and vomiting. Occasionally she'll get some distention of the right lower quadrant and she reports frequently that she'll have loud gurgling bowel sounds of her lower abdomen. She feels that this may be obstruction based on her reporting she has had a colonoscopy in the past where there was difficulty passing a certain point. No other complaints today. CBC/BMP: 12/15/17 1105 12/15/17 1105 Significant Findings Laboratory Tests Test 12/14/17 13:20 12/15/17 11:05 Blood Urea Nitrogen 38 MG/DL (7-18) 42 MG/DL (7-18) Creatinine 1.15 MG/DL (0.50-1.00) 1.04 MG/DL (0.50-1.00) Random Glucose 170 MG/DL (74-106) 174 MG/DL (74-106) Albumin 2.6 GM/DL (3.4-5.0) Sodium Level 135 MEQ/L (136-145) Estimat Glomerular Filtration Rate 47 ML/MIN (>89) 53 ML/MIN (>89) White Blood Count 11.4 TH/MM3 (4.0-11.0) Red Blood Count 3.39 MIL/MM3 (4.00-5.30) Hemoglobin 10.0 GM/DL (11.6-15.3) Hematocrit 30.5 % (35.0-46.0) Neutrophils (%) (Auto) 90.8 % (16.0-70.0) Lymphocytes (%) (Auto) 2.6 % (9.0-44.0) Neutrophils # (Auto) 10.4 TH/MM3 (1.8-7.7) Lymphocytes # (Auto) 0.3 TH/MM3 (1.0-4.8) Calcium Level 8.3 MG/DL (8.5-10.1) Imaging Last Impressions Chest X-Ray 12/15/17 0000 Signed Impressions: Service Date/Time: November 16:40 - CONCLUSION: Lungs are grossly clear. Right-sided PICC line place with its tip overlying the SVC. Anton Wilkins MD Hepatobiliary Scan Nuclear Medicine 12/10/17 0000 Signed Impressions: Service Date/Time: Sunday, December 10, 2017 12:22 - CONCLUSION: 1. Abnormal exam with no excretion contrast into the biliary system at 95 minutes. This could indicate severe hepatocellular disease or obstruction. A delayed four- hour study is pending. This report will be addended. Norman Singh MD Cholangiopancreatography MRI 12/10/17 0000 Signed Impressions: Service Date/Time: Sunday, December 10, 2017 14:31 - CONCLUSION: 1. Marked dilatation of the common bile duct is again noted. This measures up to 2.1 cm in diameter. There is no definite filling defect or visualized mass. The distal duct tapers down at the level of the pancreas. The main pancreatic duct is mildly prominent measuring up to 5 mm. Findings could indicate a small pancreatic mass or ampullary tumor. 2. Multiple scattered cystic lesions throughout the liver. 3. Enlarged polycystic kidneys There is possible hydronephrosis again noted right greater than left. Norman Singh MD Abdomen X-Ray 12/09/17 0801 Signed Impressions: Service Date/Time: Saturday, December 09, 2017 08:31 - CONCLUSION: Nonspecific abdomen appearance. Ureteral stent in the right pelvic transplant kidney Juan Carlos Matos MD Abdomen/Pelvis CT 12/09/17 0000 Signed Impressions: Service Date/Time: Sunday, December 10, 2017 00:28 - CONCLUSION: 1. There appears to be abnormal dilatation of the biliary system with a dilated common bile duct at approximately 1.1 cm. This appears to be a new finding compared to the prior study. Recommend MRCP for further evaluation. 2. Abnormal diffuse thickening involving the wall of the distal sigmoid colon at the rectosigmoid junction. This is a new finding compared to the prior study. Focal colitis versus neoplastic disease are the primary considerations. No mechanical obstruction is demonstrated. Recommend correlation with direct visualization by sigmoidoscopy. 3. Diffuse diverticulosis of the descending and sigmoid colon. 4. Diffuse polycystic kidney disease with hydronephrosis bilaterally. 5. Right-sided transplant kidney with internal urinary stent in place. Diffuse thickening of urinary bladder wall. 6. Multiple stable benign-appearing hepatic cysts. 7. Nonspecific pericardial effusion which is not significant change compared to the prior study. 8. Nonspecific 6 mm new pulmonary nodule right lung base. If clinically indicated a PET/CT could be performed for further evaluation. 9. Nonspecific increased soft tissue changes surrounding the abdominal aorta at the level of the kidneys. Nonopacified loops of bowel versus adenopathy. Jalil Hart MD PE at Discharge GENERAL: Alert, oriented 3, NAD, cachectic appearance SKIN: Warm and dry. HEAD: Normocephalic. EYES: No scleral icterus. No injection or drainage. NECK: Supple, trachea midline. No JVD or lymphadenopathy. CARDIOVASCULAR: Regular rate and rhythm without murmurs, gallops, or rubs. RESPIRATORY: Breath sounds equal bilaterally. No accessory muscle use. GASTROINTESTINAL: Abdomen soft, some tenderness to palpation over lower abdomen , nondistended. MUSCULOSKELETAL: No cyanosis, or edema. BACK: Nontender without obvious deformity. No CVA tenderness. Pt update on day of discharge Patient is doing well. However, she still has episodes of nausea, vomiting although appears to be less in frequency. After discussing with GI and patient, we are going to discharge patient home with home health. She is advised to keep herself well hydrated. She will also get D5 NS 500cc per day by home health. She will report to another facility for further GI work up per GI attending. Hospital Course Ms. Ramirez is a pleasant 67-year-old female with a history of renal transplant who was admitted on 12/09/2017 due to nausea vomiting, acute kidney injury. Nephrology following due to acute kidney injury in a patient with a history of kidney transplant. Patient underwent EUS by GI on 12/12/2017. - Abdominal pain - Hyperemesis - Weight loss - Common bile duct dilatation - currently on TPN and regular diet - cannot tolerate much oral food/drink. - s/p EUS - Dilated CBD confirmed on MRCP - differentials include malignancy involving ampulla or pancreas. - GI recommends further work up in the outpatient setting. - We provided extensive supportive measures to address nausea, vomiting. Medications included lorazepam, decadron, Marinol and Zofran. - Although patient's nausea, vomiting frequency improved, she continued to have poor appetite and periodic N/V. - Malignancy remained a top differential. Oncology was consulted and patient will follow up in the outpatient setting. - On 12/16/2017, I discussed with Dr. Evans (GI) at length. We decided that the best course of action would be to let patient go home with PICC line, home health and nausea/anorexia medications. We coordinated with home health so that patient can get D5NS 500cc every day start 12/17/2017 for additional hydration. She was advised to seek medical attention if her condition worsen. - If patient can maintain enough nutrition/hydration, Dr. Evans's office will arrange for her to go to another facility to do further GI studies. Studies done at [facility] apparently was limited by the capability of the equipment. - I discussed at length with patient who agreed with this plan. - Acute kidney injury - Hx of renal transplant - Creatinine 2.0 --> 1.59. Baseline below 1.0. - Nephrology followed patient during this admission. - Suspected urinary tract infection - urine culture unremarkable. Discontinued ceftriaxone. Pt Condition on Discharge: Good Discharge Disposition: Disch w/ Home Health Serv Discharge Time: > 30 minutes Discharge Instructions DIET: Follow Instructions for: As Tolerated, No Restrictions Activities you can perform: Regular-No Restrictions Follow up Referrals: Gastroenterology - 3-5 Days with Morgan Evans MD New Medications: Dronabinol (Marinol) 5 Mg Cap 5 MG PO DAILY for Anorexia, #60 CAP 0 Refills Lorazepam (Lorazepam) 0.5 Mg Tab 0.5 MG PO Q8H PRN for Anxiety, insomnia, #30 TAB 0 Refills Morphine IR (Morphine IR) 15 Mg Tab 15 MG PO Q6HR PRN for PAIN, #30 TAB 0 Refills Continued Medications: Alendronate (Fosamax) 70 Mg Tab 35 MG PO Q7D for Osteoporosis Treatment, #4 TAB 0 Refills Calcium Carbonate/Vitamin D3 (Calcium 600 + Vit D Tablet) 1 Each Tablet 1 TAB PO DAILY Magnesium (Sm Magnesium) 250 Mg Tab 500 MG PO DAILY Metoprolol Tartrate (Metoprolol Tartrate) 25 Mg Tab 12.5 MG PO BID, #60 TAB 0 Refills Multivit with Calcium,Iron,Min (Multiple Vitamins For Women) 1 Each Tablet 1 TAB PO DAILY Sucralfate Liq (Sucralfate Liq) 1 Gram/10 Ml Olamide 1 GM PO ACHS for Reflux for 30 Days, ML Tacrolimus (Prograf) 1 Mg Cap 1 MG PO BID for Prevent Transplant Reject, #60 CAP 0 Refills PT TAKES MEDICATION AT HOME AT 0730 AND 1930 Bobby Murray DO Dec 16, 2017 19:56
== END 2017-12-16 15:15 | disposition home health service (06) | DRG 683 ==
LOC: NEPC 07:15 → NEDA 10:11 → N07B 15:01
PROVIDERS: ADMIT Hospitalist; ATTEND Hospitalist
PROC: 3E0336Z Introduction of Nutritional Substance into Peripheral Vein, Percutaneous Approach (ICD-10-PCS; 2017-12-11)
PROC: BD47ZZZ Ultrasonography of Gastrointestinal Tract (ICD-10-PCS; 2017-12-12)
PROC: 0DJ08ZZ Inspection of Upper Intestinal Tract, Via Natural or Artificial Opening Endoscopic (ICD-10-PCS; principal; 2017-12-12 14:15)
PROC: 02HV33Z Insertion of Infusion Device into Superior Vena Cava, Percutaneous Approach (ICD-10-PCS; 2017-12-15)
PROC: B548ZZA Ultrasonography of Superior Vena Cava, Guidance (ICD-10-PCS; 2017-12-15)
DX: N17.9 Acute kidney failure, unspecified (principal); Z94.0 Kidney transplant status; E46 Unspecified protein-calorie malnutrition; Q61.3 Polycystic kidney, unspecified; K83.8 Other specified diseases of biliary tract; Z68.1 Body mass index [BMI] 19.9 or less, adult; C67.9 Malignant neoplasm of bladder, unspecified; E86.0 Dehydration; I12.9 Hypertensive chronic kidney disease with stage 1 through stage 4 chronic kidney disease, or unspecified chronic kidney disease; N18.9 Chronic kidney disease, unspecified; K21.9 Gastro-esophageal reflux disease without esophagitis; K57.30 Diverticulosis of large intestine without perforation or abscess without bleeding; R91.1 Solitary pulmonary nodule; R11.10 Vomiting, unspecified
CPT/HCPCS: 43259; 71045; 74019; 74176; 74181; 76377; 78226; 80048; 80053; 80069; 80076; 80197; 81001; 82105; 82378; 82948; 83690; 85025; 85610; 86301; 87086; 96360; A9537; J0696; J1100; J1642; J2270; J2370; J2405; J2710; J3480; J7030; J7040; J7507; Q0167; Q9963